=== PATIENT | female | born 1945 | race Caucasian/White ===

== ENCOUNTER 2019-07-12 11:27 | Emergency (ER) | payer MEDICARE, BC ==
--- OUTSIDE RECORDS SUMMARY | 2019-07-12 11:39 | XMS REPORT | Continuity of Care Document ---
:1945 Author Organization [facility] Address [address] [place] [address], [place] [id number] Phone Care Team Providers Name Role Phone Felipa Chandra MD Unavailable Unavailable Allergies, Adverse Reactions, Alerts Substance Reaction Status trazodone Active POTASSIUM CLAVULANATE Active AMOXICILLIN TRIHYDRATE Active Gold Salts Active HYDROCODONE BITARTRATE Active acetaminophen Active aspirin Active Medications Medication Instructions Dosage Effective Status Comments Dates (start - stop) Inflectra 100 mg infuse 900 900 milligram - Active 8.3 mg/kg intravenous milligram by (patient solution intravenous route weight = 108.8 every 4 weeks kg.) Patient switching from Remicade to Inflectra per formulary DX M05.79 tizanidine 2 mg take 1 tablet by - Active tablet oral route every before bedtime as needed FOLIC ACID TAB 1MG TAKE 1 TABLET 1 MG - Active DAILY Prolia 60 mg/mL inject 1 60 MG - Active subcutaneous milliliter by syringe subcutaneous route every 6 months in the upper arm, upper thigh or abdomen omeprazole 40 mg take 1 capsule by 40 MG - Active capsule,delayed oral route every release day before a meal Vitamin B-12 1,000 1 tab by oral - Active mcg tablet route every day Toprol XL 100 mg take 1 tablet by - Active tablet,extended oral route every release day bid, and 1/2 tab more as needed. MDD = 3 Crestor 5 mg take 1 tablet by 5 MG - Active tablet oral route every day amlodipine 5 mg take 1 tablet by 5 MG - Active tablet oral route every day Eliquis 5 mg take 1 tablet by 5 MG - Active tablet oral route 2 times every day aspirin 81 mg chew 1 tablet by 81 MG - Active chewable tablet oral route every day Appearex 2,500 mcg take 1 - 2 Capsule - Active tablet by Oral route every day Caltrate 600 + D take 1 tablet by 1 tablet - Active 600 mg (1,500 oral route every mg)-800 unit day chewable tablet Tylenol Extra take 2 tablet by 1000 MG - Active Strength 500 mg oral route every tablet 6 hours as needed OTC SUPPLEMENTS take by Oral route - Active every day Magnesium , Potassium Problems Condition Effective Dates Clinical Status Comments (start - stop) Body mass index (BMI) - 37.0-37.9, adult Body mass index (BMI) - 37.0-37.9, adult Body mass index (BMI) - 37.0-37.9, adult Rheu arthritis w rheu factor mult site w/o org/sys involv Rheu arthritis w rheu factor mult site w/o org/sys involv Rheu arthritis w rheu factor mult site w/o org/sys involv Age-related osteoporosis w/o current pathological fracture Rheu arthritis w rheu factor mult site w/o org/sys involv 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 (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 therapy Osteoporosis - Rheu arthritis w rheu factor mult site w/o org/sys involv Rheu arthritis w rheu factor mult site w/o org/sys involv Oth disrd of bone density and structure, multiple sites Other group home (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 therapy 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 (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 therapy Rheu arthritis w rheu factor mult site w/o org/sys involv Oth disrd of bone density - and structure, multiple sites Rheu arthritis w rheu factor mult site w/o org/sys involv Other group home (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 therapy Rheu arthritis w rheu factor mult site w/o org/sys involv Rheu arthritis w rheu factor mult site w/o org/sys involv Rheu arthritis w rheu factor mult site w/o org/sys involv Rheu arthritis w rheu factor mult site w/o org/sys involv Fibromyalgia Dorsalgia, unspecified 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 (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 therapy Oth disrd of bone density and structure, multiple sites Rheu arthritis w rheu factor mult site w/o org/sys involv Rheu arthritis w rheu factor mult site w/o org/sys involv Rheu arthritis w rheu factor mult site w/o org/sys involv Rheu arthritis w rheu factor mult site w/o org/sys involv 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 (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 therapy Rheu arthritis w rheu factor mult site w/o org/sys involv Rheu arthritis w rheu factor mult site w/o org/sys involv Rheu arthritis w rheu factor mult site w/o org/sys involv Rheu arthritis w rheu factor mult site w/o org/sys involv Rheu arthritis w rheu factor mult site w/o org/sys involv Unsp thoracic, thoracolum and lumbosacr intvrt disc disorder Other group home (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 therapy Rheu arthritis w rheu factor mult site w/o org/sys involv Rheu arthritis w rheu factor mult site w/o org/sys involv Rheu arthritis w rheu factor mult site w/o org/sys involv Rheu arthritis w rheu factor mult site w/o org/sys involv Other group home (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 therapy Oth disrd of bone density and structure, multiple sites Rheumatoid arthritis w/ rheumatoid factor of multiple sites w/o organ involvement Rheumatoid arthritis w/ rheumatoid factor of multiple sites w/o organ involvement Rheumatoid arthritis w/ rheumatoid factor of multiple sites w/o organ involvement Rheumatoid arthritis w/ rheumatoid factor of multiple sites w/o organ involvement Fibromyalgia Other group home drug therapy Rheumatoid arthritis w/ rheumatoid factor of multiple sites w/o organ involvement Rheumatoid arthritis w/ rheumatoid factor of multiple sites w/o organ involvement Rheumatoid arthritis w/ rheumatoid factor of multiple sites w/o organ involvement Rheumatoid arthritis w/ rheumatoid factor of multiple sites w/o organ involvement Other group home drug therapy Fibromyalgia Rheumatoid arthritis w/ rheumatoid factor of multiple sites w/o organ involvement Rheumatoid arthritis w/ rheumatoid factor of multiple sites w/o organ involvement Rheumatoid arthritis w/ rheumatoid factor of multiple sites w/o organ involvement Rheumatoid arthritis w/ rheumatoid factor of multiple sites w/o organ involvement Fibromyalgia Other group home drug therapy Rheumatoid arthritis w/ rheumatoid factor of multiple sites w/o organ involvement Rheumatoid arthritis w/ rheumatoid factor of multiple sites w/o organ involvement Rheumatoid arthritis w/ rheumatoid factor of multiple sites w/o organ involvement Rheumatoid arthritis w/ rheumatoid factor of multiple sites w/o organ involvement 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 drug therapy Fibromyalgia Generalized osteoarthritis Polymyalgia rheumatica Rheumatoid arthritis w/ rheumatoid factor of multiple sites w/o organ involvement Other group home drug therapy 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 drug therapy Rheumatoid arthritis w/ rheumatoid factor of multiple sites w/o organ involvement Rheumatoid arthritis w/ rheumatoid factor of multiple sites w/o organ involvement 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 drug therapy Fibromyalgia Rheumatoid arthritis w/ rheumatoid factor of multiple sites w/o organ involvement Other group home drug therapy Fibromyalgia Generalized osteoarthritis Rheumatoid arthritis w/ rheumatoid factor of multiple sites w/o organ involvement Other group home drug therapy Other specified disorder of bone density of multiple sites Rheumatoid arthritis w/ rheumatoid factor of multiple sites w/o organ involvement Other group home drug therapy Generalized osteoarthritis Rheumatoid arthritis w/ rheumatoid factor of multiple sites w/o organ involvement Rheumatoid arthritis w/ rheumatoid factor of multiple sites w/o organ involvement Generalized osteoarthritis Other group home drug therapy Anemia Rheumatoid arthritis w/ rheumatoid factor of multiple sites w/o organ involvement Generalized osteoarthritis 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 drug therapy Shortness of breath Rheumatoid arthritis w/ rheumatoid factor of multiple sites w/o organ involvement Other group home drug therapy Anemia Generalized osteoarthritis Encounter for screening for respiratory tuberculosis Other specified abnormal findings of blood chemistry Rheumatoid arthritis w/ rheumatoid factor of multiple sites w/o organ involvement Fibromyalgia Generalized osteoarthritis Lumbosacral intervertebral disc disorder Other group home drug therapy Pain in lt knee Shortness of breath Other specified abnormal findings of blood chemistry Rheumatoid arthritis w/ rheumatoid factor of multiple sites w/o organ involvement 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 drug therapy Lumbosacral intervertebral disc disorder Fibromyalgia Generalized osteoarthritis Rheumatoid arthritis w/ rheumatoid factor of multiple sites w/o organ involvement Fibromyalgia Lumbosacral intervertebral disc disorder Pain in rt hip Other group home drug therapy Rheumatoid arthritis w/ rheumatoid factor of multiple sites w/o organ involvement Fibromyalgia Lumbosacral intervertebral disc disorder Pain in rt hip Other group home drug therapy Rheumatoid arthritis w/ rheumatoid factor of multiple sites w/o organ involvement 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 drug therapy Lumbosacral intervertebral disc disorder Fibromyalgia Rheumatoid arthritis w/ rheumatoid factor of multiple sites w/o organ involvement Fibromyalgia 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 drug therapy Back pain Rheumatoid arthritis w/ rheumatoid factor of multiple sites w/o organ involvement 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 drug therapy Rheumatoid arthritis w/ rheumatoid factor of multiple sites w/o organ involvement Rheumatoid arthritis w/ rheumatoid factor of multiple sites w/o organ involvement Generalized osteoarthritis Other group home drug therapy Rheumatoid arthritis w/ rheumatoid factor of multiple sites w/o organ involvement 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 drug therapy Generalized osteoarthritis Other specified abnormal findings of blood chemistry Rheumatoid arthritis w/ rheumatoid factor of multiple sites w/o organ involvement Other group home drug therapy Generalized osteoarthritis Anemia, unspecified Rheumatoid arthritis w/ rheumatoid factor of multiple sites w/o organ involvement Generalized osteoarthritis Other group home drug therapy Anemia, unspecified Rheumatoid arthritis, unspecified 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 drug therapy Generalized osteoarthritis Anemia, unspecified Rheumatoid factor positive - Active Fibromyositis - Active Mapped from [facility] Chronic Conditions table on 08/29/2014 by the ICD9 to SNOMED Bulk Mapping Utility. The mapped diagnosis code was Fibromyalgia / Myalgia, 729.1, added by Norma Craig MD, with responsible provider Norma Craig MD. Onset date 06/11/2012; last addressed on 04/18/2014. High risk drug monitoring - Active Mapped from [facility] Chronic status Conditions table on 09/15/2014 by the ICD9 to SNOMED Bulk Mapping Utility. The mapped diagnosis code was Therapeutic Drug Monitoring, V58.69, added by Claribel Aguilar NP, with responsible provider Claribel WALTER. Onset date 03/19/2012; last addressed on 04/18/2014. Polymyalgia rheumatica - Active Mapped from [facility] Chronic Conditions table on 07/15/2014 by the ICD9 to SNOMED Bulk Mapping Utility. The mapped diagnosis code was Polymyalgia rheumatica, 725, added by Claribel Aguilar NP, with responsible provider Claribel WALTER. Onset date 03/19/2012; last addressed on 02/04/2014. Rheumatoid arthritis - Active Mapped from [facility] Chronic Conditions table on 07/15/2014 by the ICD9 to SNOMED Bulk Mapping Utility. The mapped diagnosis code was Rheumatoid Arthritis, 714.0, added by Norma Craig MD, with responsible provider Norma Craig MD, MD. Onset date 01/23/2012; last addressed on 04/18/2014. Procedures Procedure Date No information Results Test Name Date and Time Measure Units Reference Range Abnormal Flag Status Comments No information Advance Directives Directive Yes / No Effective Date File Name No information Encounters Encounter Practice Location Reason(s) Diagnoses Date Provider Providers Description For Visit Copied on Encounter Arthritis Arthritis Rheu [facility] arthritis w MD Leo. Provider: Levi Sims rheu factor 0 5794 [facility], 5794 [facility]C [facility] w/o [facility], [address] [facility] [address], [address] [facility], involv [place], [facility] [address], [place], [place], [place], [place], [place], [id number], [address]. [id number], [place]. tel:[phone] [place] tel:[phone] tel:[phone] Arthritis Arthritis [facility]Formerly [facility] Norma. [facility] 0 [facility], 5[address] PLL[facility] [place], [facility] [place], [place], [place], [place], [id number], [place], [place]. [id number], tel:[phone] [place] [phone] tel:[phone] [facility]thritis [facility]ritis [facility] Norma. [facility] 0 [facility], [facility] [facility] [place], [facility] [place], [place], [place], [place], [id number], [place], [place]. [id number], tel:[phone] [place] [phone] tel:[phone] Arthritis Arthritis Rhe [facility] arthritis w MD Hannon. Provider: Levi Sims rheu factor 0 5[facility], [facility] w/o [facility], [address] [place], N [facility] [place], involv [place], [facility] [address], [place], [place], [place], [place], [place], [id number], [address]. [id number], [place]. tel:[phone] [place] tel:[phone] tel:[phone] Arthritis Arthritis [facility] RN MED SURG C [facility] 0 Michelle Dennis [facility], 5794 PLLC [address] [facility] [place], [address], [place], [place], [id number], [id number], [place]. tel:+ tel:[phone] Arthritis Arthritis Rheu Dec-3 Jaz ARAUJO [facility] arthritis w 0-201 Hong. Provider: [facility] Sim[facility] 9 [facility], 5794 PLLC [facility] site w/o [facility], [address] [facility] org/sys [place], N [facility] [place], involv [place], [address], [place], [place], [place], [place], [place], [id number], [address]. [id number], [place]. tel:[phone] [place] tel: [phone] tel:[phone] Arthritis Arthritis Age-related Dec- [facility] osteoporosis 6-201 RN MED SURG C Provider: Levi Sims w/o current 9 Michelle Collins [facility], 5794 PLLC pathological 5794 Bael, 201 [facility] fractureRheu [facility] Mejía B [place], arthritis w [address]kw[address], Dates Dr Alarcon, [facility] [place], [address], [place], [place], [facility] site w/[place], [address]. [id number], org/sys [id number], tel:[phone] [place] involvOther [place]. [id number] tel:[phone] group home tel:+ ist: [phone] (current) [phone] Qutayb drug therapy Lisa ARAUJO, [facility] [address] [facility], [place], [address]. tel:[phone] ing Provider: Shmuel Conner MD, [address], [place], [address]. tel:[phone] ng Provider: Gt Clark, [address] [facility] [address], [place], [address]. tel:[phone] Arthritis Arthritis Osteoporosis Dec-0 [facility] 9-201 RN MED SURG C [facility] 9 Michelle Jeannie PLLC, [address] [facility], [address], [place], [place], [id number], [id number], [place]. tel:[phone] tel:[phone] Arthritis [facility]thritis [facility] arthritis w 0- MD Hannon. Provider: Levi Sims [facility] factor 9 5794 [facility], 5794 [facility] w/o [facility], [address] [place] [address]/[facility], [address] [facility], involv [place], [address], [place], [place], [place], [place], [place], [id number], [address]. [id number], [place]. tel:[phone] [place] tel:+ [phone] tel:[phone] Arthritis Arthritis [facility] arthritis w 4 MD Hannon. Provider: Levi Sims [facility] 9 5794 [facility], 5794 PLLC [facility] w/o [facility], [address] [place] [address]/[facility], [facility], involv [place], [address], [place], [place], [place], [place], [place], [id number], [address]. [id number], [place]. tel:[phone] [place] tel:[phone] tel:[phone] Arthritis Arthritis Oth disrd of Rafa ARAUJO [facility] bone density 8-201 Norma. 5794 [facility] and 9 [facility], 5794 PLLC [facility], [facility] multiple [place], [place], sitesOther [place], [place], buttermaker 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 [id number], [place], (current) [place]. [id number], drug therapy tel:[phone] [place] [phone] tel:[phone] Arthritis Arthritis Other long 0 [facility] term 4-201 RN MED SURG C [facility] (current) 9 Michelle Dennis [facility], 5794 PLLC drug therapy [address], [place], [place], [id number], [id number], [place]. tel:+ tel:[phone] Arthritis Arthritis [facility] Sep-2 [facility] arthritis w 6-201 MD Hannon. Provider: Levi Sims [facility] 9 5794 [facility], 5794 PLLC mult site w/o [facility], [address] [facility] [place], [address] [facility], involv [place], [address], [place], [place], [place], [place], [place], [id number], [address]. [id number], [place]. tel:[phone] [place] tel:+ [phone] tel: [phone] Arthritis Arthritis Oth disrd of Sep-1 [facility] bone density 0-201 RN MED SURG C Provider: Levi Sims and Michelle YanezViktoria Collins PLLC, 5794 PLLC structure, [address] Bael, [address] [facility], sitesRheu [address], Dates [address] [place], arthritis w [place], [address], [place], [place], [facility] [place], [address]. [id number], [facility] w/o [id number], tel:[phone] org/[place]. [address]Kxcwmge tel: involvOther tel:[phone] ist: [phone] group home [phone] Qutaybeh (current) Lisa drug therapy , [facility] [address] [facility], [place], [address]. tel:[phone] ing Provider: Shmuel Conner MD, [address], [place], [address]. tel:[phone] ng Provider: Gt Clark, [address] [facility] [address], [place], [address]. tel:[phone] Arthritis Arthritis [facility] Rafa ARAUJO Referring [facility] arthritis w Norma. 5794 Provider: Levi [facility] 9 [facility], [address] [facility] site w/o [place], [address] [facility] org/sys [place], N Triphammer [place], involv [place], [address], [place], [id number], [place], [place]. [address]. [id number], tel:[phone] tel:[phone] [place] [phone] tel:[phone] Arthritis Arthritis [facility] Rafa ARAUJO Referring [facility] arthritis w Norma. 5794 Provider: Levi [facility]ablonickl[facility] 9 [facility], 5[facility] site w/o [place], [place], [address] [place] org/sys [place], N [place], involv [place], [address], [place], [id number], [place], [place], [place]. [address]. [id number], tel:+4 tel:[phone] [place] [phone] [phone] tel:[phone] Arthritis Arthritis [facility] Rafa ARAUJO Referring [facility] arthritis w Norma. 5794 Provider: Levi Sims [facility] 9 [facility], 5794 [facility] site w/o [place], [place], [address] [facility] org/sys [place], N [place], involv [place], [address], [place], [id number], [place], [place], [place]. [address]. [id number], tel:[phone] tel:+[phone] [place] [phone] [address] tel:[phone] Arthritis Arthritis [facility] arthritis w RN MED SURG C Provider: Levi Sims [facility] 9 Michelle Collins [facility], 5794 [facility] site w/o [address], [address] [place] org/sys [place] Mejía Cassie Walker, [facility] [address], Dates Dr Alarcon, [place], [address], [place], [place], [place], [place], [address]. [id number], unspecifiedOt [id number], tel:[phone] [place] her [place]term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. [address]Xhcjrjz tel:[phone] (current) tel:[phone] ist: [phone] drug [phone] Qutaybeh therapyOth Maghaydvesta disrd of bone , Dale density and Cardiology structure, [address] [facility] [address], [place], [address]. tel:[phone] ing Provider: Shmuel Conner MD, [address] [facility], [place], [address]. tel:[phone] Provider: Gt Clark, [address] [facility] [address], [place], [address]. tel:[phone] Arthritis Arthritis Shubham Karl-0 Rafa ARAUJO Referring [facility] arthritis w Norma. 5794 Provider: Levi Sims [facility] 9 [facility], [address] [facility] site w/o Amber Walker, [address] [place] [address] org/sys [place], [address] [facility], [facility], [facility] [address], [place], [id number], [place], [place], [place]. [address]. [id number], tel:+ tel:[phone] [place] [phone] tel:+ [phone] Arthritis Arthritis Shubham 0 Rafa ARAUJO Referring [facility] arthritis w Norma. 5794 Provider: Levi Sims [facility] 9 [facility], [address] [facility] site w/o Amber Walker, [facility]3 [facility] org/sys [place], [address] [facility], [facility], [facility] [address], [place], [id number], [place], [place], [place]. [address]. [id number], tel:[phone] tel:[phone] US [phone] [phone] tel:[phone] Arthritis Arthritis Rheu Apr-0 Rafa ARAUJO [facility] arthritis w Norma. 5794 Provider: Levi pablou factor 9 [facility] [address] [facility] site w/o Amber Walker, [address] [facility] org/sys [place], N [place], involv [place], [address], [place], [id number], [place], [place], [place]. [address]. [id number], tel:[phone] tel:[phone] [place] [phone] [address] tel:[phone] Arthritis Arthritis Rheu Jul- [facility] arthritis w RN MED SURG C Provider: [facility] Sim[facility] factor 9 Michelle YanezViktoria Dennis PLLC, 5794 [facility] site w/o 57 [address], [address] [facility] org/sys [place] Mejía B [place], involvOther [address]kw[address], Dates Dr Alarcon, buttermaker 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 [place], [address], [place], [place], (current) [place], [address]. [id number], drug therapy [id number], tel:[phone] [place]. [address]Tstwsur tel:+[phone] tel:[phone] ist: [phone] Karen Gonzalez MD, [facility] [address] [facility]. [address], [place], [address]. tel:[phone] ing Provider: Shmuel Conner MD, [address], [place], [address]. tel:[phone] ng Provider: Gt Clark, [address] [facility] [address], [place], [address]. tel:[phone] Arthritis Arthritis [facility]u [facility] w MD Hannon. Provider: Levi Sims [facility] 9 5794 [facility] site w/o [facility] Amber, [address] [place] org/sys [place], N [place], involv [place], [address], [place], [place], [place], [place], [id number], [address]. [id number], [place]. tel:+[phone] [place] tel:[phone] tel:[phone] Arthritis Arthritis Valentinu 3 Rafa ARAUJO Referring [facility] arthritis w Norma. 5794 Provider: Levi davis factor 9 [facility], 5794 [facility] w/o [place] murdock, [address] [place] org/sys [place], N [place], involv [place], [address], [place], [id number], [place], [place], [place]. [address]. [id number], tel:+[phone] tel:+[phone] [place] 685628 70109 tel:[phone] Arthritis Arthritis Valentin Rafa ARAUJO Referring [facility] arthritis w Norma. 5794 Provider: Levi davis factor 9 [facility] [address] [facility] w[facility]o Amber Walker, [address] org/sys [place], N Tri[place], involv [place], [address], [place], [id number], [place], [place], [place]. [address]. [id number], tel:+[phone] tel:+[phone] US 406450 38160 tel:[phone] Arthritis Arthritis Valentinu Rafa ARAUJO Referring [facility] arthritis w Norma. 5794 Provider: Levi davis factor 8 [facility] [address] [facility] w/o Amber Walker, [address] org/sys [place], [address] [place], invol [place], [address], [place], [id number], [place], [place], [place]. [address]. [id number], tel:+[phone] tel:+[phone] US 467120 70183 tel:[phone] Arthritis Arthritis Shubham [facility] arthritis w RN MED SURG C Provider: Levi davis factor 8 Michelle Collins [facility], 5794 [facility] site w/o 5794 Bael, 201 [facility] org/s [facility] Mejía B [place], involvUnsp [address]kw[address], Dates Dr Mendoza [place], thoracic, [place], 102, [place], [place], [place], [address]. [id number], and lumbosacr [id number], tel:[phone] [place]. [address]Qmxozut tel:[phone] disorderOther tel:+[phone] ist: [id number] group home 725501 Qutaybeh (current) Lisa drug therapy , [facility] [address] [facility]. [address], [place], [address]. tel:[phone] ing Provider: Shmuel Conner MD, [address] [facility] [address], [place], [address]. tel:[phone] Provider: Gt Clark, [address] [facility] [address], [place], [address]. tel:[phone] Arthritis Arthritis [facility] Nov-0 Mehreen ARAUJO Referring Health Health arthritis w 2 [place]. Provider: Levi davis factor [address] [facility], 5794 [facility] site w/o [facility] Amber, [facility]3 [facility]/s [place], N Triphammel Walker, involv [place], [address], [place], [place], [place], [place], [place], [id number], [address]. [id number], [place]. tel:[phone] [place] tel:[phone] tel:[phone] Arthritis Arthritis [facility] Feb-0 Rafa ARAUJO Referring Health Health arthritis w [facility]. 5794 Provider: Levi pablo factor 8 [facility], 5794 [facility] site w/o Amber Walker, 2333 [facility] org/sys [place], N Triphla [facility] [place], involv [place], [address], [place], [id number], [place], [place]. [address]. [id number], tel:+[phone] tel:+[phone] US 319567 09958 tel:[phone] Arthritis Arthritis Rhe Jan-0 Rafa ARAUJO Referring [facility] arthritis w Norma. 5794 Provider: Levi Sims [facility] 8 [facility], 5794 [facility] site w/o Amber Walker, 2333 [facility] [place], N Triphla [facility] [place], involv [place], [address], [place], [id number], [place], [place], [place]. [address]. [id number], tel:+[phone] tel:+[phone] US 739258 57297 tel:[phone] Arthritis Arthritis Rhe Dec- [facility] arthritis w RN MED SURG C Provider: Levi [facility] factor 8 Michelle Jeannie Collins [facility], 5794 [facility] site w/o 5794 Bael, 201 [facility] org/sys [facility] Mejía B [place], involvOther Pkwy, Dates Dr Alarcon, buttermaker 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 [place], 102, [place], [place], (current) [place], [address]. [id number], drug [id number], tel:+[phone] [place] therapy[place]th [place]. [address]Hjagmmf tel:[phone] disrd of bone tel:[phone] ist: [id number] density and 381314 Qutaybeh Lisa shipley MD, [facility] [address] [facility]. [address], [place], [address]. tel:[phone] ing Provider: Shmuel Conner MD, [address] [facility] [address], [place], [address]. tel:[phone] ng Provider: Gt Clark, [address] N [facility] 302, [place], [address]. tel:[phone] Arthritis Arthritis Rheumatoid Dec- Jaz ARAUJO Referring [facility] arthritis Hong. Provider: Levi Sims rheumatoid 8 5794 Gt PLLC, 5794 PLLC factor of [facility], 2333 [facility], [facility], sites w/o [place], [address], [place], organ [place], [place], [place], [place], [place] [id number], [address]. [id number], [place]. tel:+[phone] [place] tel:[phone] tel:[phone] Arthritis Arthritis Rheumatoid Rafa ARAUJO Referring [facility] arthritis w 0 Norma. 5794 Provider: Levi Sims rheumatoid 8 [facility] Gt PLLC, 5794 PLLC factor of [facility], [address] [place] [address], N [facility], sites w/o [place], [address], [place], organ [id number], [place], [place], [place], [place]. [address]. [id number], tel:+13154 tel:+[phone] US 425456 01186 tel:[phone] Arthritis Arthritis Rheumatoid Rafa ARAUJO Referring [facility] arthritis w Norma. 5794 Provider: Levi Sims rheumatoid 8 [facility] Gt PLLC, 5794 PLLC factor of [facility], [address] [place] [address], N [facility], sites w/o [place], [address], [place], organ [id number], [place], [place], [place]. [address]. [id number], tel:+13154 tel:+[phone] US 030474 26936 tel:[phone] Arthritis Arthritis Rheumatoid September- [facility] arthritis w RN MED SURG C Provider: Levi Sims rheumatoid 8 Michelle Collins PLLC, 5794 PLLC factor of 5794 Bael, 201 [facility] Mejía B [place], sites w/o Pkwy, Dates Dr Alarcon, organ [place], 102, [place], [place], [place], [address]. [id number], bromyalgiaOth [id number], tel:[phone] [place]. [address]Drfdeis tel:+[phone] drug therapy tel:+ ist: [phone] Karen Gonzalez MD, [place] [facility] [address] [facility], [place], [address]. tel:[phone] ing Provider: Shmuel Conner MD, [address], [place], [address]. tel:[phone] ng Provider: Gt Clark, [address] [facility] [address], [place], [address]. tel:[phone] Arthritis Arthritis Rheumatoid Rafa ARAUJO Referring [facility] arthritis Norma. 5794 Provider: Levi Sims [facility] 8 [facility] Gt PLLC, 5794 PLLC factor of [facility], [address] [place] [address] [place], N [facility], sites w/o [place], [address], [place], organ [id number], [place], [place], [place]. [address]. [id number], tel:+1 tel:+[phone] US 163896 10803 tel:[phone] Arthritis Arthritis Rheumatoid Jaz ARAUJO Referring [facility] arthritis Hong. Provider: Levi Sims rheumatoid 8 5794 Gt PLLC, 5794 PLLC factor of [facility], [address] [place] [address], [facility], sites w/o [place], [address], [place], organ [place], [place], [place], [place], involvement [id number], [address]. [id number], [place]. tel:+[phone] [place] tel:[phone] tel:[phone] Arthritis Arthritis Rheumatoid Jul- Can Referring [facility] arthritis MD Hannon. Provider: Levi whitlock 8 5794 Gt PLLC, 5794 PLLC factor of [facility], [address] [place] [address], N [facility], sites w/o [place], [address], [place], organ [place], [place], [place], [place], [place] [id number], [address]. [id number], [place]. tel:+[phone] US tel:+[phone] tel:[phone] Arthritis Arthritis Rheumatoid Ham Consulting [facility] arthritis RN MED SURG C Provider: Levi Sims rheumatoid 8 Michelle Jeannie Collins PLLC, 5794 PLLC factor of 5794 Bael, 201 [facility], sites w/o Pkwy, Dates Dr Alarcon, organ [place], 102, [place], [place], [place], [address]. [id number], her buttermaker 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 [id number], tel:[phone] [place] drug [place]. [address]Gaivmae tel:+[phone] therapyFibrom tel:+ ist: [phone] yalgia 155966 Karen Gonzalez MD, [facility] [address] [facility]. [address], [place], [address]. tel:[phone] ng Provider: Gt Clark, [facility] [address] [place] [address], [place], [address]. tel:[phone] Arthritis Arthritis Rheumatoid Mehreen ARAUJO Referring [facility] arthritis [place]. Provider: Levi Sims rheumatoid 8 5794 Gt PLLC, 5794 PLLC factor of [facility] Amber, [address] [place] [address], N [facility], sites w/o [place], [address], [place], organ [place], [place], [place], [place], [place] [id number], [address]. [id number], [place]. tel:+[phone] [place] tel:[phone] tel:[phone] Arthritis Arthritis Rheumatoid May-0 Rafa ARAUJO Referring [facility] arthritis Norma. 5794 Provider: Levi whitlock 8 [facility] Gt PLLC, 5794 PLLC factor of Aaron Amber, [address] [place] [address] [place], N [facility], sites w/o [place], [address], [place], organ [id number], [place], [place], [place], [place]. [address]. [id number], tel:+[phone] tel:[phone] US 146021 47495 tel:[phone] Arthritis Arthritis Rheumatoid Can Referring [facility] arthritis MD Hannon. Provider: Levi [facility] rheumatoid 7 5794 Gt PLLC, 5794 PLLC factor of [facility], 2333 [facility], [facility], [facility] w/o [place], [address], [place], organ [place], [place], [place], [place], [place] [id number], [address]. [id number], [place]. tel:+[phone] [place] tel:+[phone] tel:[phone] 559126 Arthritis Arthritis [facility]oid [facility] arthritis RN MED SURG C Provider: Levi [facility] rheumatoid 7 Michelle Collins PLLC, 5794 PLLC factor of 5794 Bael, 201 [facility], sites w/o Pkwy, Dates Dr Fel[place], organ [place], 102, [place], [place], [place], [address]. [id number], bromyalgiaOth [id number], tel:[phone] [place]. [address]Gcvkdeh tel:+[phone] drug tel:+[phone] ist: 987915 therapyBody 509804 Qutaybeh mass index Lisa (BMI) , [place] 37.0-37.9, Cardiology adult [address] [facility]. [address], [place], [address]. tel:[phone] ng Provider: Gt Clark, [address] [facility] 302, [place], [address]. tel:[phone] Arthritis Arthritis Rheumatoid Rafa ARAUJO [facility] arthritis Norma. 5794 Provider: Levi [facility] 7 [facility] Gt PLLC, 5794 PLLC factor of [facility], [address] [place], [place] [address]use, [facility], sites w/o [place], [address], [place], organ [id number], [place], [place], [place]. [address]. [id number], tel:+4 tel:+[phone] US 096344 64150 tel:+ [phone] Arthritis Arthritis Rheumatoid Rafa ARAUJO Referring [facility] arthritis w Norma. 5794 Provider: Levi [facility] 7 [facility] Gt PLLC, 5794 PLLC factor of [place], 2333 [facility] multiple [place], [facility], sites w/o [place], [address], [place], organ [id number], [place], [place], [place]. [address]. [id number], tel:+4 tel:+[phone] US 953732 73218 tel: [phone] Arthritis Arthritis Rheumatoid Rafa ARAUJO Referring [facility] arthritis w Norma. 5794 Provider: Levi Sims [facility] 7 [facility] Gt PLLC, 5794 PLLC factor of [place], 2[address] [facility] [place], [facility], sites w/o [place], [facility] 302, [place], organ [id number], [place], [place], [place]. [address]. [id number], tel:+ tel:+[phone] US 774090 16692 tel:+ [phone] Arthritis Arthritis Rheumatoid [facility] arthritis w RN MED SURG C Provider: Levi Sims rheumatoid 7 Michelle Collins PLLC, 5794 PLLC factor of 5794 Bael, 201 [facility], [facility] w/o Pkwy, Dates Dr Alarcon, organ [place], 102, [place], [place], [place], [address]. [id number], her buttermaker 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 [id number], tel:+[phone] [place]. [address]Xsigvoh tel: therapyFibrom tel:+ ist: [phone] yalgiaGeneral 524548 Karen Gonzalez osteoarthriti , [place] sPolymyalgia Cardiology rheumaticaBod 310 y mass index [facility] [address]37[address]9, 4, [place], [facility], [address]. tel:[phone] ng Provider: Gt Clark, [address] [facility] [address], [place], [address]. tel:[phone] Arthritis Arthritis Rheumatoid [facility] arthritis w RN MED SURG C Provider: Levi Sims rheumatoid 7 Michelle Craig PLLC, 5794 PLLC factor of 5794 MD, 5794 [facility], sites w/o Pkwy, [place], [place], organ [place], [place], [place], [place], [place], [id number], her buttermaker 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 [id number], [id number]. [place] drug therapy [place]. tel:+42 tel: tel: [phone] 135068 Arthritis Arthritis Other long [facility] term drug 0 RN MED SURG C Levi Sims therapyRheumo 7 Michelle Dennis PLLC, 5794 PLLC toid 5794 [facility] arthritis w/ [facility], rheumatoid Pkwy, [place], factor of [place], [place], multiple [place], [id number], sites w/o [id number], [place] organ [place]. tel: involvement tel:[phone] Arthritis Arthritis Rheumatoid [facility] arthritis w/ 0 RN MED SURG C Provider: Levi Sims rheumatoid 7 Michelle Collins PLLC, 5794 PLLC factor of 5794 Bael, 201 [facility], sites w/o Pkwy, Dates Dr Alarcon, organ [place], 102, [place], [place], [place], [address]. [id number], her buttermaker 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 [id number], tel:+[phone] [place]. [address]Ypoujsm tel:+315 therapyFibrom tel:+315 ist: 974259 yalgiaBody 427437 Qutaybeh mass index Lisa (BMI) , [place] 37.0-37.9, Cardiology adult [address] [facility]. [address], [place], [address]. tel:[phone] ng Provider: Gt Clark, [address] [facility] 302, [place], [address]. tel:[phone] Arthritis Arthritis Rheumatoid [facility] arthritis PA-C Provider: Associates Associates rheumatoid 7 Shayan. Dennis PLLC, 5794 PLLC factor of 5794 Ba, [address] [place] [address], [facility] w/o [place], Dates Dr Alarcon, organ [place], [facility], [place], [place], [place], [address]. [id number], her group home [id number], tel:[phone] [place]. [address]Prcknpu tel:315 therapyFibrom tel:+315 ist: 688779 yalgiaGeneral 488202 Qutanicol Gonzalez osteoarthriti , [place] s Cardiology [address] [facility]. [address], [place], [address]. tel:[phone] ng Provider: Gt Clark, [address] [facility] 302, [place], [address]. tel:[phone] Arthritis Arthritis Rheumatoid [facility] arthritis PA-Osmin Carcamo. Provider: Associates Levi rheumatoid 7 5794 Dennis PLLC, 5794 PLLC factor of [facility] [address], [facility] w/o [place], Dates Dr Alarcon, organ [place], 102, [place], [place], [place] [id number], [place], [address]. [id number], her buttermaker 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 [place]. tel:[phone] [place] drug tel:[phone] tel:+[phone] therapyOther 569890 ist: [id number] specified Qutaybeh disorder of [facility] Center[facility]ady bone density MD [place] of multiple Cardiology sites [address] [facility]. [address], [place], [address]. tel:[phone] ng Provider: Gt Clark, [address] [facility] [address], [place], [address]. tel:[phone] Arthritis Arthritis Rheumatoid Aug- Justus Consulting [facility] arthritis PA-C Provider: Associates [facility] rheumatoid 7 Shayan. Dennis PLLC, 5794 PLLC factor of 5794 Ba, [facility], sites w/o [place], Dates Dr Alarcon, organ [place], 102, [place], [place], [place], [address]. [id number], her buttermaker 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 [id number], tel:[phone] [place]. [address]Nqaxrgo tel:+1315 therapyGenera tel:+[phone] ng Provider: [id number] lized [id number] Gt osteoarthriti Amber, [address] s N [facility] [address], [place], [address]. tel:[phone] Arthritis Arthritis Rheumatoid Jul- Rafa ARAUJO Referring [facility] arthritis Norma. 5794 Provider: Levi [facility] 7 [facility] Gt PLLC, 5794 PLLC factor of Amber Walker, 2333 [facility], N [facility], sites w/o [place], [address], [place], organ [id number], [place], [place], [place], [place]. [address]. [id number], tel:+13154 tel:[phone] US 112084 55496 tel:[phone] Arthritis Arthritis Rheumatoid Jun- Consulting [facility] arthritis Provider: Levi [facility] 7 Dennis PLLC, 5794 PLLC factor of , [facility], sites w/o Dates Dr Alarcon, organ 102, [place], [place], [place], [address]. [id number], neralized tel:+[phone] [place] osteoarthriti 91457Vjhrxlm tel:+[phone] Ezra lutz Provider: 144229 term drug Gt therapyAneela Amber, [address], [place], [address]. tel:[phone] Arthritis Arthritis Rheumatoid Jorge- Consulting [facility] arthritis Provider: Levi Sims rheumatoid 7 Dennis PLLC, [address]C [address] [facility], 201 [facility], sites w/o Dates Dr Alarcon, organ 102, [place], [place], [place], [address]. [id number], neralized tel:+[phone] [place] osteoarthriti 65821Dykwvsl tel:+[phone] Ezra lutz Provider: [id number] term drug Gt therapyShortselena Clark, 2333 ess of breath N [address], [place], [address]. tel:[phone] Arthritis Arthritis Rheumatoid Rafa ARAUJO Consulting [facility] arthritis Norma. 5794 Provider: Levi Sims rheumatoid 6 [facility] Dennis PLLC, 5794 PLLC factor of [facility], [address] [place] [address], sites w/o [place], Dates Dr Alarcon, organ [id number], 102, [place], [place], [place], [address]. [id number], her group home tel:+[phone] tel:+[phone] [place] drug 449930 23550Bybttvt tel:+[phone] therapyJosr ng Provider: 253049 Gt Clark, [address], [place], [address]. tel:[phone] Arthritis Arthritis Generalized [facility] osteoarthriti [facility] s 6 PLLC, 5794 PLLC [place] [employer], [place], [id number], [place] tel:[phone] Arthritis Arthritis Encounter for [facility] screening for Associates Levi respiratory 6 PLLC, 5794 PLLC tuberculosis [employer], [place], [id number], [place] tel:[phone] Arthritis Arthritis Other [facility] specified [facility] abnormal 6 PLLC, 5794 PLLC findings of [facility], chemistry [place], [place], [id number], [place] tel:[phone] Arthritis Arthritis Rheumatoid Consulting [facility] arthritis Provider: Levi Sims rheumatoid 6 Qutaybeh PLLC, 5794 PLLC factor of Lisa diaz MD, [facility], sites w/o Cardiology [place], organ 310 [place], involvementFi [facility] [id number], bromyalgiaGen [address]vd. Suite eralized [address], [place], tel:[phone] [place], [address]. [address] sLumbosacral tel:[phone] intervertebra 09397Afbdydb l disc ng Provider: Jama Del Real group home Amber, [address] drug [address] therapyPain [address], in lt [place], [place], kneeShortness [address]. of breath tel:[phone] Arthritis Arthritis Other Jan-2 [facility] specified [facility] abnormal 6 PLLC, 5794 PLLC findings of [facility], chemistry [place], [place], [id number], [place] tel:[phone] Arthritis Arthritis Rheumatoid Jan- Consulting [facility] arthritis Provider: Levi Sims rheumatoid 6 Qutaybeh PLLC, 5794 PLLC factor of Lisa diaz MD, [facility], sites w/o Cardiology [place], organ 310 [place], involvementOt [facility] [id number], her group home [address], [place], tel:[phone] [place], [address]. [address] acral tel:[phone] intervertebra 22330Grvrvmm l disc ng Provider: Rolanda Del Real myalgiaGenera Amber, 2333 lized [address] Tri[address] osteoarthriti [address], [place], [address]. tel:[phone] Arthritis Arthritis Rheumatoid Consulting [facility] arthritis Provider: Levi Sims rheumatoid 6 Qutaybeh PLLC, 5794 PLLC factor of Lisa diaz MD, [facility], sites w/o Cardiology [place], organ 310 [place], involvementFi [place] [id number], bromyalgiaLum [address], tel:[phone] [place], [address]. 811748 l disc tel:[phone] disorderPain 47742Zikroiv in rt ing hipOther long Provider: term drug Dennis therapy Bael, [address], [place], [address]. tel:[phone] bolivar Provider: Gt Clrak, 2[address] N [facility] [address], [place], [address]. tel:[phone] Arthritis Arthritis Rheumatoid Consulting [facility] arthritis Provider: Levi Burns Qutaybeh PLLC, 5794 PLLC factor of Lisa diaz MD, [facility], sites w/o Cardiology [place], organ 310 [place], involvementFi [facility] [id number], bromyalgiaLum [address], tel:[phone] [place], [address]. 352849 l disc tel:[phone] disorderPain 16236Ujjbqzj in rt ing hipOther long Provider: term drug Dennis therapy Bael, 201 [address], [place], [address]. tel:[phone] ng Provider: Gt Clark, 2[address] N [facility]la [facility] [address], [place], [address]. tel:[phone] Arthritis Arthritis Rheumatoid Consulting [facility] arthritis Provider: Levi Sims rheumatoid 6 Qutaybeh PLLC, 5794 PLLC factor of Lisa diaz MD, [facility], sites w/o Cardiology [place], organ 310 [place], involvement[place] [id number], her buttermaker 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 [address]. [address], [place], tel:[phone] [place], [address]. 427723 acral tel:[phone] intervertebra 03558Tcpgnrn l disc ing disorderFibro Provider: myalgia Dennis Bright, [address], [place], [address]. tel:[phone] ng Provider: Gt Clark, [address] Esme [address], [place], [address]. tel:[phone] Arthritis Arthritis Rheumatoid Karl- Consulting [facility] arthritis w/ 0- Provider: Levi Sims rheumatoid 6 Qutaybeh PLLC, 5794 PLLC factor of Lisa diaz MD, [facility], sites w/o Cardiology [place], organ 310 [place], involvementFi [facility] [id number], bromyalgiaOth [address] Suite er buttermaker 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 4, [place], tel:[phone] [place], [address]. 345953 therapyBack tel:[phone] pain 10399Islmhhv ing Provider: Dennis Bright, [address], [place], [address]. tel:[phone] ng Provider: Gt Clark, [address], [place], [address]. tel:[phone] Arthritis Arthritis Rheumatoid [facility] arthritis w PA-C Provider: Levi Sims rheumatoid 6 Rosa Maria B. Qutaybeh PLLC, 5794 PLLC factor of 5794 Lisa Dominique MD, [facility], sites w/o [place], Cardiology [place], organ [place], 310 [place], [place], [facility] [id number], her buttermaker 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 [id number], Blvd. Suite drug therapy [place]. 4, [place], tel:[phone] tel:[phone] [place], [address]. [address] 794273 tel:[phone] ing Provider: Dennis Bright, [address], [place], [address]. tel:[phone] ng Provider: Gt Clark, [address], [place], [address]. tel:[phone] Arthritis Arthritis Rheumatoid Aug- Consulting [facility] arthritis Provider: Levi Sims rheumatoid 6 Qutaybeh PLLC, 5794 PLLC factor of Lisa diaz MD, [facility], sites w/o Cardiology [place], organ 310 [place], involvement [facility] [id number], [address]vd. Suite [place] [address], [place], tel:[phone] [place], [address]. [address] tel:[phone] ing Provider: Dennis Bright, [address], [place], [address]. tel:[phone] ng Provider: Gt Clark, [address] [facility], [place], [address]. tel:[phone] Arthritis Arthritis Rheumatoid Jul- Consulting [facility] arthritis Provider: Levi whitlock 6 [facility], 5794 [facility]C factor of Lisa diaz MD, [facility], sites w/o Cardiology [place], organ [address] [place], involvementGe [facility] [id number], n[address] osteoarthriti [address], [place], tel:[phone] [place], [address]. [id number] term drug tel:[phone] therapy [phone] ing Provider: Dennis Bright, [address], [place], [address]. tel:[phone] bolivar Provider: Gt Clark, [address] [facility] [facility] [address], [place], [address]. tel:[phone] Arthritis Arthritis Rheumatoid Jun- Consulting [facility] arthritis Provider: Levi Sims rheumatoid 6 [facility], 5794 PLLC factor of Lisa diaz MD, [facility], sites w/o Cardiology [place], organ [address] [place], involvementOt [facility] [id number], her group home [address] [place] drug 4, [place], tel:[phone] [place], [address]. 683109 lized tel:[phone] osteoarthriti [phone] s ing Provider: Dennis Bright, [address], [place], [address]. tel:[phone] ng Provider: Gt Clark, [address], [place], [address]. tel:[phone] Arthritis Arthritis Other [facility] specified armando Ramirez[facility] abnormal 6 5794 PLLC, 5794 PLLC findings of [facility] blood [place], [place], chemistry [place], [place], [id number], [id number], [place]. [place] tel:[phone] tel:[phone] Arthritis Arthritis Rheumatoid [facility] arthritis w Provider: Levi Sims rheumatoid 6 [facility], 5794 PLLC factor of Lisa diaz MD, [facility], sites w/o Cardiology [place], organ [address] [place], involvementOt [facility] [id number], her buttermaker 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 [address] [place] drug [place], tel:[phone] [place], [address]. [id number] lized tel:[phone] osteoarthriti [phone] sAnemia, ing unspecified Provider: Dennis Bright, [address], [place], [address]. tel:[phone] ng Provider: Gt Clark, [address], [place], [address]. tel:[phone] Arthritis Arthritis Rheumatoid [facility] arthritis Provider: Levi Sims rheumatoid 5 [facility], 5794 PLLC factor of Lisa diaz MD, [facility], sites w/o Cardiology [place], organ [address] [place], involvementGe [facility] [id number], n[address] [place] osteoarthriti [place], tel:[phone] [place], [address]. [address]018 term drug tel:[phone] therapyAnemia 93858Ibkwxow , unspecified ing Provider: Dennis Bright, [address], [place], [address]. tel:[phone] ng Provider: Gt Clark, [address], [place], [address]. tel:[phone] Arthritis Arthritis Rheumatoid [facility] arthritis, Provider: Levi Sims unspecifiedOt 5 [facility], 5794 PLLC her buttermaker 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 [facility] sree ARAUJO, [facility], [facility]era Cardiology [place], [facility] 310 [place], osteoarthriti [facility] [id number], sAnemia, [address]vd[address] unspecified [place], tel:[phone] [place], [address]. 0[address] tel:[phone] ing Provider: Dennis Bright, [address], [place], [address]. tel:[phone] bolivar Provider: Gt Clark, [address], [place], [address]. tel:[phone] [facility]thritis [facility] WILL[facility] Carcamo. Provider: Levi Sims 5 5794 [facility], 5794 PLLC [facility] Lisa [facility] Walker MD, [facility], [place], Cardiology [place], [place], [address] [place], [id number], [facility] [id number], [place]. [address] [place] tel:[phone] [place], tel:[phone] 367587 [place], [address]. [address] tel:[phone] ing Provider: Dennis Bright, [address], [place], [address]. tel:[phone] ng Provider: Gt Clark, [address], [place], [address]. tel:[phone] Arthritis Arthritis [facility] Provider: Associates Levi 5 Karen BURROWS, 5794 PLLC Lisa Dominique MD, [facility], Cardiology [place], 310 [place], [facility] [id number], [address] [place] [address], [place], tel:[phone] [place], [address]. [address] tel:[phone] ing Provider: Dennis Bright, [address], [place], [address]. tel:[phone] ng Provider: Gt Clark, [address], [place], [address]. tel:[phone] Arthritis Arthritis [facility] Provider: Levi Sims 4 Karen BURROWS, 5794 PLLC Lisa Dominique MD, [facility], Cardiology [place], [address] [place], [facility] [id number], [address] [place] [address], [place], tel:[phone] [place], [address]. [address] tel:[phone] ing Provider: Dennis Bright, [address], [place], [address]. tel:[phone] bolivar Provider: Gt Clark, [address], [place], [address]. tel:[phone] Arthritis Arthritis May-0 [facility] Provider: Levi Sims 4 Gt BURROWS, 5794 PLLOmsin Clark, [address], [address], [place], [place], [place], [address]. [id number], tel:[phone] [place] [phone] tel:[phone] Arthritis Arthritis [facility] Provider: Levi Sism 3 Gt BURROWS, 5794 PLLOsmin Clark, [address], [address], [place], [place], [place], [address]. [id number], tel:[phone] [place] [phone] tel:[phone] Arthritis Arthritis [facility] 2 RN MED SURG-C Provider: Associates Levi 3 Alicia. 310 [facility]t [facility], 5794 PLLC [address] [place] Amber, [address], [place], [address], [place], [place], [place], [place], [place], [id number], [address]. [id number], [place]. tel:[phone] [place] tel:[phone] tel:[phone] Arthritis Arthritis Jan- [facility] Provider: Associates Levi 3 Gt ASKEWC, 5794 PLLC Amber, [address], [address], [place], [place], [place], [address]. [id number], tel:[phone] [place] [phone] tel:[phone] Arthritis Arthritis [facility] Provider: Associates Levi 3 Gt ASKEWC, 5794 PLLC Amber, [address], [address], [place], [place], [address]. [id number], tel:[phone] [place] [phone] tel:[phone] Arthritis Arthritis [facility] Provider: Levi Sims 3 Gt ASKEWC, 5794 PLLC Amber, [address], [address], [place], [place], [place], [address]. [id number], tel:[phone] [place] [phone] tel:[phone] Arthritis Arthritis [facility] Provider: Associates Levi 2 Gt [facility], 5794 PLLC Amber, [address], [address], [place], [place], [address]. [id number], tel:[phone] [place] [phone] tel:[phone] [facility]ritis [facility]ritis [facility] WILLIAM Carcamo. Provider: Associates Levi 2 57Mehrdad Moralester [facility], 5794 PLL[address], [address], [place], [facility] [address], [place], [place], [place], [place], [place], [id number], [address]. [id number], [place]. tel:[phone] tel:[phone] tel:[phone] Arthritis Arthritis Nov-0 [facility] 8- Provider: Associates Associates 1 Gt AZAR, 5794 PLLC Amber, [address] [facility], [facility] [address], [place], [place], [place], [address]. [id number], tel:[phone] [place] [phone] tel:[phone] Arthritis Arthritis [facility] 2 Provider: Associates Associates 1 Gt AZARC, 5794 PLLC Amber, [address] [facility], [facility] [address], [place], [place], [place], [address]. [id number], tel:[phone] tel:[phone] Family History Family Member Diagnosis Age At Onset Paternal grandmother Rheumatoid arthritis Immunizations Vaccine Date Status Comments Influenza, injectable, MDCK, administered Note: approx. ; Source : Other Flucelvax Quad 2017-2018Y Provider Influenza, injectable, administered Note: approx. ; Source: Other quadrivalent, split virus, 18 Provider years or older Afluria Quad 1680-3910 Influenza, injectable, administered Note: Invalid documented admin trivalent, split virus, 4 date was . ; years and older, Fluvirin Source: Other Provider [id number] Yet to receive Flu vaccine administered Source: Source Unspecified Yet to receive Flu vaccine administered Source: Source Unspecified Yet to receive Flu vaccine administered Source: Other Provider Yet to receive Flu vaccine administered Source: Other Provider Yet to receive Flu vaccine administered Source: New Immunization Record Yet to receive Flu vaccine administered Source: Other Provider Not receiving Zoster administered Source: New Immunization Record Yet to receive Flu vaccine administered Source: Source Unspecified Yet to receive administered Source: Source Unspecified pneumo (2 yrs or older) administered Source: Other Provider (PPV23) Payers Payer name Insurance type Covered green party ID Authorization(s) Medicare MB [id number] [facility] No Referral Required [id number] Social History Type Description Quantity Date Captured Comments Sex Female Vital Signs Date / Height Weight BMI Pulse Blood Temperature Respiratory Body Head BMI Pulse Inhaled Time: Rate Pressure Rate Surface Circumference percentile Ox Ox Area No information Chief Complaint And Reason For Visit No information Reason For Referral Reason For Referral No information Plan Of Treatment Date Type Action Status Goal Lifestyle education regarding diet completed Goal Lifestyle education regarding diet completed Goal Lifestyle education regarding diet completed Referral Ordered: ordered *HIP, XRAY BILATERAL PELVIS, 5 VIEW Right Referral Ordered: ordered *LUMBOSACRAL SPINE X-RAY, 4 VIEWS Referral Ordered: ordered *KNEE X-RAY, 1 OR 2 VIEWS Left Appointment Rashida Mcgee BOOKED Appointment Rashida Mcgee BOOKED Appointment Rashida Mcgee BOOKED Appointment Rashida Mcgee BOOKED Appointment Rashida Mcgee BOOKED History Of Present Illness Encounter Date Complaint History Of Present Illness No information Functional Status Date Functional Assessment No information Medications Administered Medication Instructions Dosage Effective Dates (start - stop) Status Comments No information Instructions Date Instruction Additional Information Pt. not exposed to someone in longterm nor traveled out of the country; no concern for TB screening. Pt. not exposed to someone in longterm nor traveled out of the country; no concern for TB screening. Reviewed importance of compliance/adherence to medications prescribed Exercise more Weight reduction urged. Risks/benefits of medications reviewed call if symptoms worsen For sleep, the need to add adequate relaxation, rest and exercise was discussed Stretching Daily range of motion exercises for symptomatic joints recommended. Avoid live vaccines Discussed importance of holding DMARDs/ biologics if patient develops an infection and to notify the treating physician Discussed the need to hold DMARDS/Biologics before and after surgery/procedure. Lifestyle education regarding diet Related to Body mass index ( BMI) 37.0-37.9, adult Exercise more Weight reduction urged. Conservative medical care measures discussed. Moderate activities regarding symptomatic joints. For sleep, the need to add adequate relaxation, rest and exercise was discussed Reviewed importance of compliance/adherence to medications prescribed Risks/benefits of medications reviewed Avoid live vaccines Discussed importance of holding DMARDs/ biologics if patient develops an infection and to notify the treating physician Discussed the need to hold DMARDS/Biologics before and after surgery/procedure. Lifestyle education regarding diet Related to Body mass index ( BMI) 37.0-37.9, adult Lifestyle education regarding diet Related to Body mass index ( BMI) 37.0-37.9, adult Avoid live vaccines Discussed importance of holding DMARDs/ biologics if patient develops an infection and to notify the treating physician continue same medication plan Discussed the need to hold DMARDS/Biologics before and after surgery/procedure. call if symptoms worsen Exercise more Conservative medical care measures discussed. Moderate activities regarding symptomatic joints. For sleep, the need to add adequate relaxation, rest and exercise was discussed Stretching Yoga Risks/benefits of medications reviewed Conservative medical care measures discussed. Moderate activities regarding symptomatic joints. call if symptoms worsen maintain adequate water intake every day call if symptoms worsen Patient plan printed and given along with recommendations Discussed / Reviewed Labs Labs ordered to check blood counts, liver and kidney functions to monitor safety of medication. Labs ordered to check disease activity. Discussed importance of holding DMARDs/ biologics if patient develops an infection and to notify the treating physician Reviewed importance of compliance/adherence to medications prescribed Avoid live vaccines Weight reduction urged. Risks/benefits of medications reviewed Risks/benefits of medications reviewed Labs ordered to check disease activity. Labs ordered to check blood counts, liver and kidney functions to monitor safety of medication. Discussed / Reviewed Labs call if symptoms worsen Reviewed importance of compliance/adherence to medications prescribed Avoid live vaccines Discussed importance of holding DMARDs/ biologics if patient develops an infection and to notify the treating physician Stretching Avoid OTC NSAIDS Avoid live vaccines Exercise more Discussed importance of holding DMARDs/ biologics if patient develops an infection and to notify the treating physician Reviewed importance of compliance/adherence to medications prescribed Reviewed importance of compliance/adherence to medications prescribed Avoid live vaccines Exercise more Discussed importance of holding DMARDs/ biologics if patient develops an infection and to notify the treating physician Swimming Reviewed importance of compliance/adherence to medications prescribed Avoid live vaccines Discussed importance of holding DMARDs/ biologics if patient develops an infection and to notify the treating physician Stretching Reviewed importance of compliance/adherence to medications prescribed Avoid live vaccines Discussed importance of holding DMARDs/ biologics if patient develops an infection and to notify the treating physician Stretching Reviewed importance of compliance/adherence to medications prescribed Avoid OTC NSAIDS Avoid live vaccines Avoid sun and use high SPF sunblock Discussed importance of holding DMARDs/ biologics if patient develops an infection and to notify the treating physician Stretching Reviewed importance of compliance/adherence to medications prescribed Diet: avoid alcohol Avoid live vaccines Exercise more Discussed importance of holding DMARDs/ biologics if patient develops an infection and to notify the treating physician Stretching Reviewed importance of compliance/adherence to medications prescribed Avoid live vaccines Exercise more Discussed importance of holding DMARDs/ biologics if patient develops an infection and to notify the treating physician Stretching Labs ordered to check blood counts, liver and kidney functions to monitor safety of medication. Labs ordered to check disease activity. Discussed importance of holding DMARDs/ biologics if patient develops an infection and to notify the treating physician Risks/benefits of medications reviewed Discussed importance of holding DMARDs/ biologics if patient develops an infection and to notify the treating physician Stretching Discussed importance of holding DMARDs/ biologics if patient develops an infection and to notify the treating physician Exercise more Avoid live vaccines Diet: avoid alcohol Avoid OTC NSAIDS Reviewed importance of compliance/adherence to medications prescribed Reviewed importance of compliance/adherence to medications prescribed Diet: avoid alcohol Avoid live vaccines Exercise more Discussed importance of holding DMARDs/ biologics if patient develops an infection and to notify the treating physician Stretching Stretching Reviewed importance of compliance/adherence to medications prescribed Diet: avoid alcohol Avoid live vaccines Exercise more Discussed importance of holding DMARDs/ biologics if patient develops an infection and to notify the treating physician Reviewed importance of compliance/adherence to medications prescribed Diet: avoid alcohol Avoid live vaccines Exercise more Discussed importance of holding DMARDs/ biologics if patient develops an infection and to notify the treating physician Stretching Reviewed importance of compliance/adherence to medications prescribed Diet: avoid alcohol Avoid live vaccines Risks/benefits of medications reviewed Avoid sun and use high SPF sunblock Discussed importance of holding DMARDs/ biologics if patient develops an infection and to notify the treating physician Labs ordered to check disease activity. Daily range of motion exercises for symptomatic joints recommended. Patient plan printed and given along with recommendations call if symptoms worsen
--- OUTSIDE RECORDS SUMMARY | 2019-07-12 11:39 | XMS REPORT | Continuity of Care Document ---
:1945 Author Organization [facility] Address [address], [place] [id number] Phone Care Team Providers Name Role Phone Michelle Knight Unavailable Unavailable Allergies, Adverse Reactions, Alerts Substance [...] factor mult site w/o org/sys involv Other long goods drier (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 therapy Osteoporosis - Rheu arthritis w rheu factor mult site w/o org/sys involv Rheu arthritis w rheu factor mult site w/o org/sys involv Oth disrd of bone density and structure, multiple sites Other long goods drier (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 therapy Other long goods drier (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 therapy Rheu arthritis w rheu factor mult site w/o org/sys involv Oth disrd of bone density - and structure, multiple sites Rheu arthritis w rheu factor mult site w/o org/sys involv Other long goods drier (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 therapy Rheu arthritis w rheu factor mult site w/o org/sys involv Rheu arthritis w rheu factor mult site w/o org/sys involv Rheu arthritis w rheu factor mult site w/o org/sys involv Rheu arthritis w rheu factor mult site w/o org/sys involv Fibromyalgia Dorsalgia, unspecified Other long goods drier (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 therapy Oth disrd of bone density and structure, multiple sites Rheu arthritis w rheu factor mult site w/o org/sys involv Rheu arthritis w rheu factor mult site w/o org/sys involv Rheu arthritis w rheu factor mult site w/o org/sys involv Rheu arthritis w rheu factor mult site w/o org/sys involv Other shelter (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 therapy Rheu arthritis w rheu factor mult site w/o org/sys involv Rheu arthritis w rheu factor mult site w/o org/sys involv Rheu arthritis w rheu factor mult site w/o org/sys involv Rheu arthritis w rheu factor mult site w/o org/sys involv Rheu arthritis w rheu factor mult site w/o org/sys involv Unsp thoracic, thoracolum and lumbosacr intvrt disc disorder Other long goods drier (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 therapy Rheu arthritis w rheu factor mult site w/o org/sys involv Rheu arthritis w rheu factor mult site w/o org/sys involv Rheu arthritis w rheu factor mult site w/o org/sys involv Rheu arthritis w rheu factor mult site w/o org/sys involv Other long goods drier (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 therapy Oth disrd of bone density and structure, multiple sites Rheumatoid arthritis w/ rheumatoid factor of multiple sites w/o organ involvement Rheumatoid arthritis w/ rheumatoid factor of multiple sites w/o organ involvement Rheumatoid arthritis w/ rheumatoid factor of multiple sites w/o organ involvement Rheumatoid arthritis w/ rheumatoid factor of multiple sites w/o organ involvement Fibromyalgia Other shelter drug therapy Rheumatoid arthritis w/ rheumatoid factor of multiple sites w/o organ involvement Rheumatoid arthritis w/ rheumatoid factor of multiple sites w/o organ involvement Rheumatoid arthritis w/ rheumatoid factor of multiple sites w/o organ involvement Rheumatoid arthritis w/ rheumatoid factor of multiple sites w/o organ involvement Other shelter drug therapy Fibromyalgia Rheumatoid arthritis w/ rheumatoid factor of multiple sites w/o organ involvement Rheumatoid arthritis w/ rheumatoid factor of multiple sites w/o organ involvement Rheumatoid arthritis w/ rheumatoid factor of multiple sites w/o organ involvement Rheumatoid arthritis w/ rheumatoid factor of multiple sites w/o organ involvement Fibromyalgia Other long goods drier drug therapy Rheumatoid arthritis w/ rheumatoid factor of multiple sites w/o organ involvement Rheumatoid arthritis w/ rheumatoid factor of multiple sites w/o organ involvement Rheumatoid arthritis w/ rheumatoid factor of multiple sites w/o organ involvement Rheumatoid arthritis w/ rheumatoid factor of multiple sites w/o organ involvement Other shelter drug therapy Fibromyalgia Generalized osteoarthritis Polymyalgia rheumatica Rheumatoid arthritis w/ rheumatoid factor of multiple sites w/o organ involvement Other shelter drug therapy Other long goods drier drug therapy Rheumatoid arthritis w/ rheumatoid factor of multiple sites w/o organ involvement Rheumatoid arthritis w/ rheumatoid factor of multiple sites w/o organ involvement Other long goods drier drug therapy Fibromyalgia Rheumatoid arthritis w/ rheumatoid factor of multiple sites w/o organ involvement Other shelter drug therapy Fibromyalgia Generalized osteoarthritis Rheumatoid arthritis w/ rheumatoid factor of multiple sites w/o organ involvement Other long goods drier drug therapy Other specified disorder of bone density of multiple sites Rheumatoid arthritis w/ rheumatoid factor of multiple sites w/o organ involvement Other shelter drug therapy Generalized osteoarthritis Rheumatoid arthritis w/ rheumatoid factor of multiple sites w/o organ involvement Rheumatoid arthritis w/ rheumatoid factor of multiple sites w/o organ involvement Generalized osteoarthritis Other long goods drier drug therapy Anemia Rheumatoid arthritis w/ rheumatoid factor of multiple sites w/o organ involvement Generalized osteoarthritis Other shelter drug therapy Shortness of breath Rheumatoid arthritis w/ rheumatoid factor of multiple sites w/o organ involvement Other long goods drier drug therapy Anemia Generalized osteoarthritis Encounter for screening for respiratory tuberculosis Other specified abnormal findings of blood chemistry Rheumatoid arthritis w/ rheumatoid factor of multiple sites w/o organ involvement Fibromyalgia Generalized osteoarthritis Lumbosacral intervertebral disc disorder Other long goods drier drug therapy Pain in lt knee Shortness of breath Other specified abnormal findings of blood chemistry Rheumatoid arthritis w/ rheumatoid factor of multiple sites w/o organ involvement Other shelter drug therapy Lumbosacral intervertebral disc disorder Fibromyalgia Generalized osteoarthritis Rheumatoid arthritis w/ rheumatoid factor of multiple sites w/o organ involvement Fibromyalgia Lumbosacral intervertebral disc disorder Pain in rt hip Other shelter drug therapy Rheumatoid arthritis w/ rheumatoid factor of multiple sites w/o organ involvement Fibromyalgia Lumbosacral intervertebral disc disorder Pain in rt hip Other long goods drier drug therapy Rheumatoid arthritis w/ rheumatoid factor of multiple sites w/o organ involvement Other shelter drug therapy Lumbosacral intervertebral disc disorder Fibromyalgia Rheumatoid arthritis w/ rheumatoid factor of multiple sites w/o organ involvement Fibromyalgia Other long goods drier drug therapy Back pain Rheumatoid arthritis w/ rheumatoid factor of multiple sites w/o organ involvement Other shelter drug therapy Rheumatoid arthritis w/ rheumatoid factor of multiple sites w/o organ involvement Rheumatoid arthritis w/ rheumatoid factor of multiple sites w/o organ involvement Generalized osteoarthritis Other long goods drier drug therapy Rheumatoid arthritis w/ rheumatoid factor of multiple sites w/o organ involvement Other long goods drier drug therapy Generalized osteoarthritis Other specified abnormal findings of blood chemistry Rheumatoid arthritis w/ rheumatoid factor of multiple sites w/o organ involvement Other long goods drier drug therapy Generalized osteoarthritis Anemia, unspecified Rheumatoid arthritis w/ rheumatoid factor of multiple sites w/o organ involvement Generalized osteoarthritis Other long goods drier drug therapy Anemia, unspecified Rheumatoid arthritis, unspecified Other shelter drug therapy Generalized osteoarthritis Anemia, unspecified Rheumatoid factor positive - Active Fibromyositis - Active Mapped from [facility] Chronic Conditions table on 08/29/2014 by the ICD9 to SNOMED Bulk Mapping Utility. The mapped diagnosis code was Fibromyalgia / Myalgia, 729.1, added by Norma Craig MD, with responsible provider Norma Craig MD. Onset date 06/11/2012; last addressed on 04/18/2014. High risk drug monitoring - Active Mapped from [facility] Chronic status Conditions table on 09/15/2014 by the ICD9 to SNOMED Bulk Mapping Utility. The mapped diagnosis code was Therapeutic Drug Monitoring, V58.69, added by Claribel Aguilar NP, with responsible provider Claribel WALTER. Onset date 03/19/2012; last addressed on 04/18/2014. Polymyalgia rheumatica - Active Mapped from [facility] Chronic Conditions table on 07/15/2014 by the ICD9 to SNOMED Bulk Mapping Utility. The mapped diagnosis code was Polymyalgia rheumatica, 725, added by Claribel Aguilar NP, with responsible provider Claribel WALTER. Onset date 03/19/2012; last addressed on 02/04/2014. Rheumatoid arthritis - Active Mapped from [facility] Chronic Conditions table on 07/15/2014 by the [...] For Visit Copied on Encounter Arthritis Arthritis [facility] ENGINEERING PROGRAMMER C [facility] 0 Michelle YanezViktoria PLLC, 5794 PLLC [address] [facility], [address], [place], [place], [id number], [id number], [place]. tel:[phone] tel:[phone] Arthritis Arthritis Rheu [facility] arthritis w MD Leo. Provider: Associates Associates rheu factor 0 5794 Gt PLLC, 5794 PLLC [facility] site w/o [facility], [address] [facility] org/s [address], [address] [facility], involv [place], [address], [place], [place], [place], [place], [id number], [address]. [id number], [place]. tel:[phone] [place] tel:[phone] tel:[phone] Arthritis Arthritis [facility] Norma. 5794 [facility] 0 [facility] PLLC, 5794 PLLC [place], [facility] [place], [place], [place], [place], [id number], [place], [place]. [id number], tel:[phone] [place] [phone] tel:[phone] Arthritis Arthritis Rheu [facility] arthritis w MD Hannon. Provider: [facility] rheu factor 0 5794 Gt PLLC, 5794 PLLC mult site w/o [facility], [address] [facility] org/sys [place], [address] [facility], involv [place], [address], [place], [place], [place], [place], [id number], [address]. [id number], [place]. tel:[phone] [place] tel:[phone] tel:[phone] Arthritis Arthritis [facility] 7-202 ENGINEERING PROGRAMMER C [facility] 0 Michelle Jeannie PLLC, 5794 PLLC [address] [facility] [place], [address], [place], [place], [place], [place], [id number], [id number], [place]. tel:+ tel:[phone] Arthritis Arthritis Rheu Dec-3 Jaz ARAUJO [facility] arthritis w 0-201 Hong. Provider: [facility] factor [facility] 5794 Gt PLLC, 5794 PLLC mult site w/o [facility], [address] [facility] org/sys [place], N [facility] [place], involv [place], [address], [place], [place], [place], [place], [id number], [address]. [id number], [place]. tel:[phone] [place] tel: [phone] tel: [phone] Arthritis Arthritis Age-related [facility] osteoporosis 6-201 ENGINEERING PROGRAMMER C Provider: Levi Sims w/o current 9 Michelle Jeannie Collins PLLC, 5794 PLLC pathological [address], [address] [facility] fractureRheu [facility] Mejía B [place], arthritis w [address], Dates [address], [facility] [place], [address], [place], [place], [facility] site w/[place], [address]. [id number], org/sys [id number], tel:[phone] [place] involvOther [place]. [id number] tel:+[phone] long goods drier tel:+ ist: [phone] (current) [phone] Marietaybtung drug therapy Lisa ARAUJO, [facility] [address] [facility], [place], [address]. tel:[phone] ing Provider: Shmuel Conner MD, [address] [facility] [address], [place], [address]. tel:[phone] ng Provider: Gt Clark, [address] [facility] [address], [place], [address]. tel:[phone] Arthritis Arthritis Osteoporosis Dec-0 [facility] 9201 ENGINEERING PROGRAMMER C Associates [facility] 9 Michelle Dennis PLLC, 5794 PLLC [address] [facility], [address], [place], [place], [place], [id number], [id number], [place]. tel:+ tel: [phone] [facility]ritis [facility] arthritis w 0-201 MD Hannon. Provider: Levi Sims [facility] factor 9 5794 Gt PLLC, 5794 PLLC [facility] site w/o [facility], [address] [place] [address]/[facility], [address] [facility], involv [place], [address], [place], [place], [place], [place], [id number], [address]. [id number], [place]. tel:[phone] US tel: [phone] tel: [phone] Arthritis Arthritis Rheu [facility] arthritis w 4 MD Hannon. Provider: Levi Sims [facility] factor 9 5794 Gt PLLC, 5794 PLLC [facility] site w/o [facility], [address] [place] [address]/[facility], [address] [facility], involv [place], [address], [place], [place], [place], [place], [place], [id number], [address]. [id number], [place]. tel:[phone] US tel: [phone] tel: [phone] Arthritis Arthritis Oth disrd of Rafa ARAUJO [facility] bone density 8-201 Norma. 5794 Associates [facility] and 9 [facility] PLLC, 5794 PLLC [facility], [place], [facility] multiple [place], [place], sitesOther [place], [place], long goods drier [id number], [place], (current) [place]. [id number], drug therapy tel:[phone] [place] [phone] tel:[phone] Arthritis Arthritis Other long 0 [facility] term 4-201 ENGINEERING PROGRAMMER C [facility] (current) 9 Michelle YanezViktoria PLLC, 5794 PLLC drug therapy [address] [facility], [address], [place], [place], [place], [id number], [id number], [place]. tel:+ tel:[phone] Arthritis Arthritis [facility] Sep-2 [facility] arthritis w 6-201 MD Hannon. Provider: Levi Sims [facility] factor 9 5794 Gt PLLC, 5794 PLLC mult site w/o [facility], [address] [facility] org/sys [place], [address] [facility], involv [place], [address], [place], [place], [place], [place], [id number], [address]. [id number], [place]. tel:[phone] [place] tel:+ [phone] tel: [phone] Arthritis Arthritis Oth disrd of Sep-1 [facility] bone density 0-201 ENGINEERING PROGRAMMER C Provider: Levi Sims and Michelle YanezViktoria Collins PLLC, 5794 PLLC structure, [address], [address] [facility], sitesRheu [address]y, Dates Dr Alarcon, arthritis w [place], [address], [place], [place], [place], [address]. [id number], [facility] site w/o [id number], tel:[phone] org/[place]. [address]Grbkuju tel:[phone] involvOther tel:[phone] ist: [phone] shelter [phone] Qutaybeh (current) Lisa drug therapy , [facility] [address] [facility], [place], [address]. tel:[phone] ing Provider: Shmuel Conner MD, [address] [facility] [address], [place], [address]. tel:[phone] ng Provider: Gt Clark, [address] [facility] [address], [place], [address]. tel:[phone] Arthritis Arthritis [facility] Rafa ARAUJO Referring [facility] arthritis w Norma. 5794 Provider: Levi davis [facility] 9 [facility], [address] [facility] site w/o Amber Walker, [address] [facility] org/sys [place], N Triph[place], involv [place], [address], [place], [id number], [place], [place], [place]. [address]. [id number], tel:[phone] tel:+[phone] [place] [phone] [address] tel:[phone] Arthritis Arthritis [facility] 3 Rfaa ARAUJO [facility] arthritis w Norma. 5794 Provider: Levi davis [facility] 9 [facility], [address] [facility] site w/o Amber Walker, [address] [facility] org/sys [place], N [place], involv [place], [address], [place], [id number], [place]. [address]. [id number], tel:+4 tel:[phone] [place] [phone] tel:[phone] Arthritis Arthritis [facility] Rafa ARAUJO Referring [facility] arthritis w Norma. 5794 Provider: Levi davis [facility] 9 [facility], [address] [facility] site w/o Amber Walker, [address] [facility] org/sys [place], N [place], involv [place], [address], [place], [id number], [place], [place], [place]. [address]. [id number], tel:[phone] tel:+[phone] [place] [phone] tel:[phone] Arthritis Arthritis Valentin [facility] arthritis w ENGINEERING PROGRAMMER C Provider: Levi [facility] 9 Michelle Collins [facility], [address] [facility] site w/o [address], [address] [facility] org/sys [facility] Mejía Cassie [place], involvFibromy [address]kwy, Dates Dr Alarcon, algiaDorsalgi [place], [address], [place], [place], [place], [place], [address]. [id number], unspecifiedOt [id number], tel:[phone] [place] her shelter [place]. [id number] tel:+ (current) tel:+ ist: [phone] drug [phone] Qutaybeh therapyOth Maghaydah disrd of bone , [facility] density and Cardiology structure, [address] [facility] [address], [place], [address]. tel:[phone] ing Provider: Shmuel Conner MD, [address] [facility] [address], [place], [address]. tel:+ [phone] ng Provider: Gt Clark, [address] [facility] [address], [place], [address]. tel:+ [phone] Arthritis Arthritis Shubham Karl-0 Rafa ARAUJO Referring [facility] Health arthritis w Norma. 5794 Provider: Levi davis [facility] 9 [facility], [address] [facility] site w/o Amber Walker, [address] [place] [address] org/sys [place], N [facility], involv [place], [facility] [address], [place], [id number], [place], [place]. [address]. [id number], tel:+ tel:[phone] US [phone] tel: [phone] Arthritis Arthritis Shubham 0 Rafa ARAUJO Referring [facility] Health arthritis w Norma. 5794 Provider: [facility] 9 [facility], [address] [facility] site w/o Amber Walker, [address] [place] [address] org/sys [place], [address] [facility], [facility], [address], [place], [id number], [place], [place], [place]. [address]. [id number], tel:+[phone] tel:+[phone] [place] [phone] tel:[phone] Arthritis Arthritis Rheu Apr-0 Rafa ARAUJO [facility] Health arthritis w Norma. 5794 Provider: Levi davis factor 9 [facility] Gt [facility], [address] [facility] site w/o Amber Walker, [address] [facility] org/sys [place], N [facility] [place], involv [place], [address], [place], [id number], [place], [place]. [address]. [id number], tel:[phone] tel:[phone] [place] 979123 [address] tel:[phone] Arthritis Arthritis Rheu Jul- [facility] arthritis w ENGINEERING PROGRAMMER C Provider: Levi Sims [facility] factor 9 Michelle YanezViktoria Dennis PLLC, [address] [facility] site w/o [address], [address] [facility] org/sys [facility] Mejía B [place], involvOther [address]kwy, Dates Dr Alarcon, long goods drier [place], [address], [place], [place], (current) [place], [address]. [id number], drug therapy [id number], tel:[phone] [place]. [id number] tel:[phone] tel:[phone] ist: [phone] Karen Gonzalez MD, [facility] [address] [facility], [place], [address]. tel:[phone] ing Provider: Shmuel Conner MD, [address] [facility] [address], [place], [address]. tel:[phone] ng Provider: Gt Clark, [address] [facility] [address], [place], [address]. tel:[phone] Arthritis Arthritis Rheu Jun- [facility] Referring [facility] arthritis w MD Hannon. Provider: Levi pablou factor 9 5794 Gt [facility], [address] [facility] site w/o [facility] Amber, [address] [facility] org/sys [place], N [facility] [place], involv [place], [address], [place], [place], [place], [place], [id number], [address]. [id number], [place]. tel:+[phone] [place] tel:+ [phone] tel:[phone] Arthritis Arthritis Valentinu Rafa ARAUJO Referring [facility] arthritis w Norma. 5794 Provider: Levi pablo factor 9 [facility] Gt [facility], [address] [facility] site w/o [place], Amber, [address] [place] org/sys [place], N [facility] [place], involv [place], [address], [place], [id number], [place], [place]. [address]. [id number], tel:[phone] tel:+[phone] [place] [phone] 42609 tel:[phone] Arthritis Arthritis Valentinu Rafa ARAUJO Referring [facility] arthritis w [facility]. 5794 Provider: Levi davis factor 9 [facility], [address] [facility] site w/o Amber Walker, [address] [place] org/sys [place], N [facility] [place], involv [place], [address], [place], [id number], [place], [place]. [address]. [id number], tel:+4 tel:+[phone] US [phone] 86498 tel: [phone] Arthritis Arthritis Valentinu Rafa ARAUJO Referring [facility] arthritis w [facility]. 5794 Provider: Levi palbo factor 8 [facility] Gt [facility], 5[address] [facility] w/o [place], [address] [place] org/sys [place], N [facility] [place], involv [place], [address], [place], [id number], [place], [place]. [address]. [id number], tel:[phone] tel:+[phone] [place] [phone] 88779 tel:[phone] Arthritis Arthritis Shubham [facility] arthritis w ENGINEERING PROGRAMMER C Provider: Levi davis factor 8 Michelle Collins PLLC, [address] [facility] site w/o [address], [address] [facility] org/sys [facility] Mejía B [place], involvUnsp [address], Dates [address] [place], thoracic, [place], [address], [place], [place], [place], [address]. [id number], and lumbosacr [id number], tel:[phone] [place]. [address]Kwjqygk tel:[phone] disorderOther tel:[phone] ist: [phone] shelter [phone] Qutaybeh (current) Lisa drug therapy , [facility] [address] [facility]. [address], [place], [address]. tel:[phone] ing Provider: Shmuel Conner MD, [address] [facility] [address], [place], [address]. tel:[phone] Provider: Gt Clark, [address], [place], [address]. tel:[phone] Arthritis Arthritis [facility] Mehreen ARAUJO Referring [facility] arthritis w [place]. Provider: Levi davis factor 8 [address] [facility], [address] [facility] site w/o [facility] center[facility] Clark, [facility]3 [facility]/s [place], N [place], involv [place], [address], [place], [place], [place], [place], [id number], [address]. [id number], [place]. tel:[phone] [place] tel:[phone] tel:[phone] Arthritis Arthritis [facility] Rafa ARAUJO Referring [facility] arthritis w [facility]. 5794 Provider: Levi Sims [facility] factor 8 [facility], [address] [facility] site w/o Amber Walker, [address] [facility]/sys [place], N [place], involv [place], [address], [place], [id number], [place]. [address]. [id number], tel:[phone] tel:[phone] [place] 854997 [address] tel:[phone] Arthritis Arthritis Rheu Sep-0 Rafa ARAUJO Referring [facility] arthritis w 6 Norma. 5794 Provider: [facility] factor 8 [facility], 5794 [facility] site w/o Amber Walker, [address] [facility]/s [place], N [facility] [place], involv [place], [address], [place], [id number], [place], [place], [place] [address]. [id number], tel:+[phone] tel:+[phone] [place] 809171 82777 tel:[phone] Arthritis Arthritis Rheu Aug-2 [facility] arthritis w 0 ENGINEERING PROGRAMMER C Provider: [facility] factor 8 Michelle Collins [facility], 5794 [facility] site w/o 5794 Bael, 201 [facility]/sys [facility] Mejía B [place], involvOther [address]kwy, Dates Dr Alarcon, long goods drier [place], 102, [place], [place], (current) [place], [address]. [id number], drug [id number], tel:+[phone] [place]. [address]Urtjiqy tel:+[phone] disrd of bone tel:+[phone] ist: [phone] density and 640278 Qutaybeh structure, Lisa diaz MD, [facility] Cardiology [address] [facility]. [address], [place], [address]. tel:[phone] ing Provider: Shmuel Conner MD, [address] [facility] [address], [place], [address]. tel:[phone] ng Provider: Gt Clark, [address] [facility] [address], [place], [address]. tel:[phone] Arthritis Arthritis Rheumatoid Dec-0 Jaz ARAUJO Referring [facility] arthritis w/ Hong. Provider: Levi whitlock 8 5794 Gt PLLC, 5794 PLLC factor of [facility], [facility]3 [facility], N [facility], sites w/o [place], [address], [place], organ [place], [place], [place], [place], [place] [id number], [address]. [id number], [place]. tel:+[phone] [place] tel:[phone] tel:[phone] Arthritis Arthritis Rheumatoid Rafa ARAUJO Referring [facility] arthritis Norma. 5794 Provider: Levi whitlock 8 [facility] Gt PLLC, 5794 PLLC factor of [facility], [address] [place] [address], N [facility], sites w/o [place], [address], [place], organ [id number], [place], [place], [place], [place]. [address]. [id number], tel:+[phone] tel:+[phone] US 193569 05242 tel:[phone] Arthritis Arthritis Rheumatoid Rafa ARAUJO Referring [facility] arthritis Norma. 5794 Provider: Levi whitlock 8 [facility] Gt PLLC, 5794 PLLC factor of [facility], [address] [place] [address], N [facility], sites w/o [place], [address], [place], organ [id number], [place], [place], [place], [place]. [address]. [id number], tel:+[phone] tel:+[phone] [place] 236288 [address]138 tel:[phone] Arthritis Arthritis Rheumatoid [facility] arthritis ENGINEERING PROGRAMMER C Provider: Levi whitlock 8 Michelle Collins PLLC, 5794 PLLC factor of 5794 Bael, 201 [facility] Mejía B [place], sites w/o Pkwy, Dates Dr Alarcon, organ [place], 102, [place], [place], [place], [address]. [id number], bromyalgiaOth [id number], tel:+[phone] [place]. [address]Hyhiqub tel:+[phone] drug therapy tel:+[phone] ist: [phone] Karen Gonzalez MD, [facility] [address] [facility], [place], [address]. tel:[phone] ing Provider: Shmuel Conner MD, [address] [address], [place], [address]. tel:[phone] ng Provider: Gt Clark, [address] [facility] [address], [place], [address]. tel:[phone] Arthritis Arthritis Rheumatoid Rafa ARAUJO Referring [facility] Health arthritis Norma. 5794 Provider: Levi whitlock 8 [facility] Gt PLLC, 5794 PLLC factor of [facility], [address] [place] [address], N [facility], sites w/o [place], [address], [place], organ [id number], [place], [place], [place], [place]. [address]. [id number], tel:+[phone] tel:+[phone] US 208666 [address]62 tel:[phone] Arthritis Arthritis Rheumatoid Jaz ARAUJO Referring Health Health arthritis Hong. Provider: Levi Sims rheumatoid 8 5794 Gt PLL[facility], 5794 PLLC factor of [facility], [address] [place] [address], [facility], sites w/o [place], [address], [place], organ [place], [place], [place], [place], [place] [id number], [address]. [id number], [place]. tel:+[phone] [place] tel:[phone] tel:[phone] Arthritis Arthritis Rheumatoid Jul- Can Referring [facility] Health arthritis MD Hannon. Provider: Levi Sims rheumatoid 8 5794 Gt PLL[facility], 5794 PLLC factor of [facility], [address] [place] [address], [facility], sites w/o [place], [address], [place], organ [place], [place], [place], [place], [place] [id number], [address]. [id number], [place]. tel:+[phone] US tel:[phone] tel:[phone] Arthritis Arthritis Rheumatoid Ham Consulting [facility] arthritis ENGINEERING PROGRAMMER C Provider: Levi Sims rheumatoid 8 Michelle Collins PLLC, 5794 PLLC factor of 5794 Bael, 201 [facility], sites w/o Pkwy, Dates [address] [place], organ [place], 102, [place], [place], [place], [address]. [id number], her long goods drier [id number], tel:[phone] [place]. [address]Pcgjpyz tel: therapyFibrom tel: ist: [phone] yalgia [phone] Karen Gonzalez MD, [facility] [address] [facility]. [address], [place], [address]. tel:[phone] Provider: Gt Clark, [facility] [address] [place] [address], [place], [address]. tel:[phone] Arthritis Arthritis Rheumatoid Mehreen ARAUJO Referring [facility] arthritis Robert. Provider: Levi Sims rheumatoid 8 5794 Gt PLLC, 5794 PLLC factor of [facility] Amebr, [address] [place] [address], N [facility], sites w/o [place], [address], [place], organ [place], [place], [place], [place], [place] [id number], [address]. [id number], [place]. tel:+[phone] [place] tel:[phone] tel:[phone] Arthritis Arthritis Rheumatoid May-0 Rafa ARAUJO Referring [facility] arthritis Norma. 5794 Provider: Levi whitlock 8 [facility] Gt PLLC, 5794 PLLC factor of Aaron Amber, [address] [place] [address], N [facility], sites w/o [place], [address], [place], organ [id number], [place], [place], [place], [place]. [address]. [id number], tel:+[phone] tel:[phone] US [id number] 22352 tel:[phone] Arthritis Arthritis Rheumatoid Dec- Lexx Referring [facility] arthritis MD Hannon. Provider: Levi Sims rheumatoid 7 5794 Gt PLL[facility], 5794 PLLC factor of [facility], 2[address] [facility], [facility], sites w/o [place], [address], [place], organ [place], [place], [place], [place], [place] [id number], [address]. [id number], [place]. tel:[phone] [place] tel:[phone] tel:[phone] Arthritis Arthritis Rheumatoid [facility] arthritis ENGINEERING PROGRAMMER C Provider: Levi Sims rheumatoid 7 Michelle Collins PLLC, 5794 PLLC factor of 5794 Bael, 201 [facility] Mejía [facility], sites w/o Pkwy, Dates Dr Alarcon, organ [place], 102, [place], [place], [place], [address]. [id number], bromyalgiaOth [id number], tel:[phone] [place]. [address]Zkulgbw tel:+13154 drug tel:+[phone] ist: [phone] therapyBody 434856 Qutaybeh mass index Lisa (BMI) , [place] 37.0-37.9, Cardiology adult [address] [facility]. [address], [place], [address]. tel:[phone] ng Provider: Gt Clark, [address] [facility] 302, [place], [address]. tel:[phone] Arthritis Arthritis Rheumatoid Nov- Rafa ARAUJO [facility] arthritis Norma. 5794 Provider: Levi Sims [address] Gt PLLC, 5794 PLLC factor of [place] Amber, 2[address] [facility] multiple [place], N [facility], sites w/o [place], [address], [place], organ [id number], [place], [place], [place], [place]. [address]. [id number], tel:+4 tel:+[phone] US 505819 95476 tel:+ [phone] Arthritis Arthritis Rheumatoid Rafa ARAUJO Referring [facility] arthritis w Norma. 5794 Provider: Levi [facility] rheumatoid 7 [facility], 5794 PLLC factor of [place] Amber, [address] [facility] [place], N [facility], sites w/o [place], [address], [place], organ [id number], [place], [place], [place], [place]. [address]. [id number], tel:+4 tel:+[phone] US 162008 39386 tel: [phone] Arthritis Arthritis Rheumatoid Rafa ARAUJO Referring [facility] arthritis w Norma. 5794 Provider: Levi [facility] rheumatoid 7 [facility], 5794 PLLC factor of [place] Amber, [address] [facility] [place], N [facility], sites w/o [place], [address], [place], organ [id number], [place], [place], [place], [place]. [address]. [id number], tel:+4 tel:+[phone] US 982466 84885 tel: [phone] Arthritis Arthritis Rheumatoid [facility] arthritis w ENGINEERING PROGRAMMER C Provider: Levi [facility] rheumatoid 7 Michelle Collins PLLC, 5794 PLLC factor of 5794 Bael, 201 [facility], [facility] w/o Pkwy, Dates Dr Alarcon, organ [place], 102, [place], [place], [place], [address]. [id number], her shelter [id number], tel:[phone] [place]. [address]Uurzavv tel: therapyFibrom tel: ist: [phone] yalgiaGeneral [id number] Karen Gonzalez osteoarthriti , [place] sPolymyalgia Cardiology rheumaticaBod 310 y mass index [facility] [address] 37.0-37.9, 4, [facility], [address]. tel:[phone] ng Provider: Gt Clark, [address], [place], [address]. tel:[phone] Arthritis Arthritis Rheumatoid [facility] arthritis w/ ENGINEERING PROGRAMMER C Provider: Levi Sims rheumatoid 7 Michelle Craig PLLC, 5794 PLLC factor of 5794 MD, 5794 [facility], sites w/o Pkwy, [place], [place], organ [place], [place], [place], [place], [place], [id number], her shelter [id number], [id number]. [place] drug therapy [place]. tel:42 tel: tel: [phone] 078449 Arthritis Arthritis Other long [facility] term drug 0 ENGINEERING PROGRAMMER C Levi Sims therapyRheuco 7 Michelle Dennis PLLC, 5794 PLLC toid 5794 [facility] arthritis w/ [facility] [place], rheumatoid [address]kw[address], [place], factor of [place], [place], [place], [id number], sites w/o [id number], [place] organ [place]. tel: involvement tel:[phone] Arthritis Arthritis Rheumatoid [facility] arthritis w/ 0 ENGINEERING PROGRAMMER C Provider: Levi Sims rheumatoid 7 Michelle Collins PLLC, 5794 PLLC factor of 5794 Bael, 201 [facility] Mejía B [place], sites w/o Pkwy, Dates Dr Alarcon, organ [place], 102, [place], [place], [place], [address]. [id number], her long goods drier [id number], tel:[phone] [place] drug [place]. 004[address]Vgguyxk tel:4 therapyFibrom tel: ist: [phone] yalgiaBody 514303 Qutaybeh mass index Lisa (BMI) , [place] 37.0-37.9, Cardiology adult [address] [facility]. [address], [place], [address]. tel:[phone] ng Provider: Gt Clark, [address] N [facility] 302, [place], [address]. tel:[phone] Arthritis Arthritis Rheumatoid [facility] arthritis PA-C Provider: Associates Levi rheumatoid Violet Downey. Dennis PLLC, 5794 PLLC factor of [address], [facility] w/o [place], [facility] Dr Alar[place], organ [place], 102, [place], [place], [place], [address]. [id number], her long goods drier [id number], tel:+[phone] [place] drug . 06950Zyusqpc tel: therapyFibrom tel: ist: [phone] yalgiaGeneral [id number] Qutanicol Gonzalez osteoarthriti , [place] s Cardiology [address] [facility]. [address], [place], [address]. tel:[phone] ng Provider: Gt Clark, [address] [facility] [address], [place], [address]. tel:[phone] Arthritis Arthritis Rheumatoid [facility] arthritis PA-Osmin Carcamo. Provider: Associates Associates rheumatoid 7 5794 Dennis PLLC, 5794 PLLC factor of [address], sites w/o [place], Dates Dr Alarcon, organ [place], 102, [place], [place], [place] [id number], [place], [address]. [id number], her long goods drier [place]. tel:+[phone] [place] drug tel:[phone] tel:+[phone] therapyOther [id number] ist: [phone] specified Qutaybeh disorder of Magbrady bone density MD [place] of multiple Cardiology sites [address] [facility]. [address], [place], [address]. tel:[phone] ng Provider: Gt Clark, [address] [facility] [address], [place], [address]. tel:[phone] Arthritis Arthritis Rheumatoid Aug- [facility] Consulting [facility] arthritis PA-C Provider: Levi Sims [facility] 7 Shayan. Dennis PLLC, 5794 PLLC factor of 5794 Ba, [address] [place] [address], sites w/o [place], Dates [address] Alarcon, organ [place], 102, [place], [place], [place], [address]. [id number], her shelter [id number], tel:[phone] drug [place]. [address]Mjsgopq tel:+[phone] therapyGenera tel:+[phone] ng Provider: [id number] lized 169744 Gt osteoarthriti Amber, [address], [place], [address]. tel:[phone] Arthritis Arthritis Rheumatoid Jul- Rafa ARAUJO Referring [facility] arthritis Norma. 5794 Provider: Levi Sims [address] Gt PLLC, 5794 PLLC factor of Amber Walker, [address] [facility] [place], N [facility] [place], sites w/o [place], [address], [place], organ [id number], [place], [place], [place], [place]. [address]. [id number], tel:+[phone] tel:[phone] US 400604 22377 tel:[phone] Arthritis Arthritis Rheumatoid Jun- [facility] arthritis Provider: Leiv Sims [facility] 7 Dennis PLLC, 5794 PLLC factor of Ba, 201 [facility], sites w/o Dates Dr Alarcon, organ 102, [place], [place], [place], [address]. [id number], neralized tel:+[phone] [place] osteoarthriti 42866Ofdgrhk tel:+[phone] Ezra lutz Provider: [id number] term drug Gt therapyAnemia Amber, [address], [place], [address]. tel:[phone] Arthritis Arthritis Rheumatoid Jorge- Consulting [facility] arthritis w Provider: Levi Sims rheumatoid 7 Dennis PLLC, 5794 PLLC factor of [facility], [address] [place] [address], sites w/o Dates Dr Alarcon, organ 102, [place], [place], [place], [address]. [id number], neralized tel:+[phone] [place] osteoarthriti 51782Kbxpujc tel:[phone] Ezra lutz Provider: [id number] term drug Gt therapyShortn Amber, 2333 ess of breath N [address], [place], [address]. tel:[phone] Arthritis Arthritis Rheumatoid Rafa ARAUJO Consulting [facility] arthritis Norma. 5794 Provider: Levi Sims rheumatoid 6 [facility] Dennis PLLC, 5794 PLLC factor of [facility], [address] [place] [address], sites w/o [place], Dates [address] Alarcon, organ [id number], 102, [place], [place], [place], [address]. [id number], her long goods drier tel:+[phone] tel:+[phone] [place] drug 167411 28585Bfmzkoy tel:[phone] therapyAnemia ng Provider: [id number] Gt Clark, [address], [place], [address]. tel:[phone] Arthritis Arthritis Generalized Mar- [facility] Health osteoarthriti Associates Levi s 6 PLLC, 5794 PLLC [place], [place], [id number], [place] tel:[phone] Arthritis Arthritis Encounter for [facility] Health screening for Associates Levi respiratory 6 PLLC, 5794 PLLC tuberculosis [place], [place], [id number], [place] tel:[phone] Arthritis Arthritis Other Feb- [facility] specified Associates Associates abnormal 6 PLLC, 5794 PLLC findings of [facility] chemistry [place], [place], [id number], [place] tel:[phone] Arthritis Arthritis Rheumatoid Consulting [facility] arthritis Provider: Associates Associates rheumatoid 6 Qutaybeh PLLC, 5794 PLLC factor of Lisa diaz MD, [facility], sites w/o Cardiology [place], organ 310 [place], involvementFi [facility] [id number], bromyalgiaGen [address] Suite eralized , [place], tel:[phone] [place], [address]. 217378 sLumbosacral tel:[phone] intervertebra 09128Ldvzkdk l disc ng Provider: Jama Del Real shelter Amber, [address] drug N [address] therapyPain [address], in lt [place], [place], kneeShortness [address]. of breath tel:[phone] Arthritis Arthritis Other Jan-2 [facility] specified Associates Associates abnormal 6 PLLC, 5794 PLLC findings of [facility], chemistry [place], [place], [id number], [place] tel:[phone] Arthritis Arthritis Rheumatoid Jan- Consulting [facility] arthritis Provider: Levi Sims rheumatoid 6 Qutaybeh PLLC, 5794 PLLC factor of Lisa diaz MD, [facility], sites w/o Cardiology [place], organ 310 [place], involvementOt [facility] [id number], her long goods drier [address] Suite drug [address], [place], tel:[phone] [place], [address]. [address] acral tel:[phone] intervertebra 88926Jjqubqj l disc ng Provider: Rolanda Del Real myalgiaGenera Amber, 2333 lized N [address] osteoarthriti [address], [place], [address]. tel:[phone] Arthritis Arthritis Rheumatoid Aug-3 Consulting Health Health arthritis Provider: Levi Sims rheumatoid Grant Qutaybeh PLLC, 5794 PLLC factor of Lisa diaz MD, [facility], sites w/o Cardiology [place], organ 310 [place], involvementFi [place] [id number], b[address] Suite [facility] 4, [place], tel:[phone] [place], [address]. [address] l disc tel:[phone] disorderPain 86[address]Ujoiacn in rt ing hipOther long Provider: term drug Dennis therapy Bael, [address] Me[address], [place], [address]. tel:[phone] bolivar Provider: Gt Clark, [address], [place], [address]. tel:[phone] Arthritis Arthritis Rheumatoid Consulting [facility] arthritis Provider: Levi Burns Qutaybeh PLLC, 5794 PLLC factor of Lisa diaz MD, [facility], sites w/o Cardiology [place], organ 310 [place], involvementFi [place] [id number], bromy[address] [place] [address], [place], tel:[phone] [place], [address]. [address] l disc tel:[phone] disorderPain 78173Dohrmec in rt ing hipOther long Provider: term drug Dennis therapy Bael, 201 Mejía B Jovany [address], [place], [address]. tel:[phone] bolivar Provider: Gt Clark, [address], [place], [address]. tel:[phone] Arthritis Arthritis Rheumatoid Consulting [facility] arthritis Provider: Levi Bruns Qutaybeh PLLC, 5794 PLLC factor of Lisa diaz MD, [facility], sites w/o Cardiology [place], organ 310 [place], involvement[place] [id number], her shelter [address] Suite [address], [place], tel:[phone] [place], [address]. 70[address]36 acral tel:[phone] intervertebra 07301Ojffisn l disc ing disorderFibro Provider: myalgia Dennis Bright, [address], [place], [address]. tel:[phone] ng Provider: Gt Clark, [address], [place], [address]. tel:[phone] Arthritis Arthritis Rheumatoid Consulting [facility] arthritis w/ 0- Provider: Associates Levi rheumatoid 6 Qutaybeh PLLC, 5794 PLLC factor of Lisa diaz MD, [facility], sites w/o Cardiology [place], organ 310 [place], involvementFi [facility] [id number], bromyalgiaOth [address] Suite er shelter 4, [place], tel:[phone], [address]. 47[address] therapyBack tel:[phone] pain 79247Zsvcahj ing Provider: Dennis Bright, [address], [place], [address]. tel:[phone] ng Provider: Gt Clark, [address], [place], [address]. tel:[phone] Arthritis Arthritis Rheumatoid [facility] arthritis w PA-C Provider: Levi Sims rheumatoid 6 Rosa Maria B. Qutaybeh PLLC, 5794 PLLC factor of 5794 Lisa Dominique MD, [facility], sites w/o [place], Cardiology [place], organ [place], 310 [place], [place], [place] [id number], her shelter [id number], Blvd. Suite drug therapy [place]. 4, [place], tel:[phone] tel:[phone] [place], [address]. [address] tel:[phone] ing Provider: Dennis Bright, [address], [place], [address]. tel:[phone] ng Provider: Gt Clark, [address], [place], [address]. tel:[phone] Arthritis Arthritis Rheumatoid Consulting [facility] arthritis Provider: Levi Sims rheumatoid 6 Qutaybeh PLLC, 5794 PLLC factor of Lisa diaz MD, [facility], sites w/o Cardiology [place], organ 310 [place], involvement [facility] [id number], Blvd. Suite [place] [address], [place], tel:[phone] [place], [address]. [address] tel:[phone] ing Provider: Dennis Bright, [address], [place], [address]. tel:[phone] ng Provider: Gt Clark, 2[address] N [facility] [address], [place], [address]. tel:[phone] Arthritis Arthritis Rheumatoid Consulting [facility] arthritis Provider: Levi Burns Qutaybeh PLLC, 5794 PLLC factor of Lisa diaz MD, [facility], sites w/o Cardiology [place], organ 310 [place], involvementGe [place] [id number], neralized [address]vd. Suite osteoarthriti 4, [place], tel:[phone] sOther [facility], [address]. [id number] term drug tel:[phone] therapy 27014Wzxjzpj ing Provider: Dennis Bright, [address], [place], [address]. tel:[phone] ng Provider: Gt Clark, 2[address] N [facility] [address], [place], [address]. tel:[phone] Arthritis Arthritis Rheumatoid Consulting [facility] arthritis Provider: Levi Sims rheumatoid Grant Qutaybeh PLLC, 5794 PLLC factor of Lisa diaz MD, [facility], sites w/o Cardiology [place], organ 310 [place], [place] [id number], her shelter [address]. Suite drug , [place], tel:[phone] [place], [address]. 404101 lized tel:[phone] osteoarthriti 04836Qadndke s ing Provider: Dennis Bright, [address], [place], [address]. tel:[phone] ng Provider: Gt Clark, [address], [place], [address]. tel:[phone] Arthritis Arthritis Other [facility] specified armando Carrioni. Associates Associates abnormal 6 5794 PLLC, 5794 PLLC findings of [facility] blood [place], [place], chemistry [place], [place], [place], [id number], [id number], [place]. [place] tel:[phone] tel:[phone] Arthritis Arthritis Rheumatoid [facility] arthritis w/ Provider: Levi Sims rheumatoid 6 Qutaybeh PLLC, 5794 PLLC factor of Lisa diaz MD, [facility], sites w/o Cardiology [place], organ 310 [place], involvementOt [facility] [id number], her shelter [address]. Suite [place] drug [place], tel:[phone] [place], [address]. 941308 lized tel:[phone] osteoarthriti 28531Xfuvlbh sAnemia, ing unspecified Provider: Dennis Bright, [address], [place], [address]. tel:[phone] ng Provider: Gt Clark, [address], [place], [address]. tel:[phone] Arthritis Arthritis Rheumatoid [facility] arthritis w Provider: Levi Sims rheumatoid 5 Qutaybeh PLLC, 5794 PLLC factor of Lisa diaz MD, [facility], sites w/o Cardiology [place], organ 310 [place], involvementGe [facility] [id number], neralized [address]vd. Suite [place] osteoarthriti 4, [place], tel:[phone] [place], [address]. [address] term drug tel:[phone] therapyAnemia 01867Nrviwzy , unspecified ing Provider: Dennis Bright, [address], [place], [address]. tel:[phone] bolivar Provider: Gt Calrk, 2333 [address], [place], [address]. tel:[phone] Arthritis Arthritis Rheumatoid [facility] arthritis, Provider: Levi Sims unspecifiedOt 5 [facility], 5794 [facility] her long goods drier [facility] , [facility], [facility] [place], [facility] [address] [place], osteoarthriti [facility] [id number], s[address]emia, [address] unspecified [place], tel:[phone] [place], [address]. [id number] tel:[phone] ing Provider: Dennis Bright, [address], [place], [address]. tel:[phone] bolivar Provider: Gt Clark, [address], [place], [address]. tel:[phone] [facility]thritis [facility]ritis [facility] WILLIAM Carcamo. Provider: Levi Sims 5 5794 [facility], 5794 [facility]C [facility], [facility], [place], [place], [place], [address] [place], [id number], [facility] [id number], [place] [place] tel:[phone] , [place], tel:[phone] [place], [address]. [id number] tel:[phone] ing Provider: Dennis Bright, [address], [place], [address]. tel:[phone] ng Provider: Gt Clark, [address], [place], [address]. tel:[phone] Arthritis Arthritis [facility] Provider: [facility] 5 Karen BURROWS, 5794 PLLC Lisa Dominique MD, [facility], Cardiology [place], [address] [place], [facility] [id number], [address], [place], tel:[phone] [place], [address]. [address] tel:[phone] ing Provider: Dennis Bright, [address], [place], [address]. tel:[phone] bolivar Provider: Gt Clark, [address], [place], [address]. tel:[phone] Arthritis Arthritis [facility] Provider: Associates Levi 4 Marieedithtung BURROWS, 5794 PLLC Lisa Dominique MD, [facility], Cardiology [place], [address] [place], [address] [id number], [address], [place], tel:[phone] [place], [address]. [id number] tel:[phone] ing Provider: Dennis Bright, [address], [place], [address]. tel:[phone] bolivar Provider: Gt Clark, [address], [place], [address]. tel:[phone] Arthritis Arthritis [facility] Provider: Associates Levi 4 Gt BURROWS, 5794 PLLOsmin Clark, [address], [place], [place], [place], [address]. [id number], tel:[phone] tel:[phone] Arthritis Arthritis [facility] Provider: Levi Sims 3 Gt BURROWS, 5794 PLLC Amber, [address] [place], [address], [place], [place], [place], [address]. [id number], tel:[phone] [place] [phone] tel:[phone] Arthritis Arthritis [facility] 2 ENGINEERING PROGRAMMER-C Provider: Levi Sims 3 Alicia. [facility], 5794 PLLC S Jerichoprakash Clark, [address], [address] [place], [place], [address], [place], [place], [place], [place], [place], [id number], [address]. [id number], [place]. tel:[phone] [place] tel:[phone] tel:[phone] Arthritis Arthritis Jan- [facility] Provider: Associates Levi 3 Gt ASKEWC, 5794 PLLC Amber, [address], [address], [place], [place], [place], [address]. [id number], tel:[phone] [place] [phone] tel:[phone] Arthritis Arthritis [facility] Provider: Levi Sims 3 Gt ASKEWC, 5794 PLLC Amber, [address] [place], [address], [place], [place], [place], [address]. [id number], tel:[phone] [place] [phone] tel:[phone] Arthritis Arthritis [facility] Provider: Levi Sims 3 Gt ASKEWC, 5794 PLLC Amber, [address] [place], [address], [place], [place], [place], [address]. [id number], tel:[phone] [place] [phone] tel:[phone] Arthritis Arthritis [facility] Provider: Levi Sims 2 [facility]t [facility], 5794 PLLC Amber, [address], [address], [place], [place], [place], [address]. [id number], tel:[phone] tel:[phone] Arthritis Arthritis Tor[facility] WILLIAM Carcamo. Provider: Levi Sims 2 57Mehrdad [facility]t [facility], 5[address], [address], [address] [facility], [place], [facility] [address], [place], [place], [place], [place], [place], [id number], [address]. [id number], [place]. tel:[phone] tel:[phone] tel:[phone] Arthritis Arthritis Nov- [facility] 8 Provider: Associates Associates 1 Gt AZARC, 5794 PLLC Amber, [address] [facility] [address] [facility], [facility] [address], [place], [place], [place], [address]. [id number], tel:[phone] tel:[phone] Arthritis Arthritis [facility] Provider: Associates Associates 1 GtCejaC, 5794 PLLC Amber, [address] [facility] [address] [facility], [facility] [address], [place], [place], [place], [address]. [id number], tel:[phone] tel:[phone] Family History Family Member Diagnosis Age At Onset Paternal grandmother Rheumatoid arthritis Immunizations Vaccine Date Status Comments Influenza, injectable, MDCK, administered Note: approx. ; Source : Other Flucelvax Quad 2017-2018Y Provider Influenza, injectable, administered Note: approx. ; Source: Other quadrivalent, split virus, 18 Provider years or older Afluria Quad 0845-2110 Influenza, injectable, administered Note: Invalid documented admin trivalent, split virus, 4 date was . ; years and older, Fluvirin Source: Other Provider [id number] Yet to receive Flu vaccine administered Source: [...] type Covered green party ID Authorization(s) Medicare [id number] BCBS No Referral Required [id number] Social History Type Description Quantity Date Captured [...] Information Pt. not exposed to someone in prison nor traveled out of the country; no concern for TB screening. Pt. not exposed to someone in prison nor traveled out of the country; no [...] regarding symptomatic joints. call if symptoms worsen Discussed importance of holding DMARDs/ biologics if patient develops an infection and to notify the treating physician Labs ordered to check disease activity. Labs ordered to check blood counts, liver and kidney functions to monitor safety of medication. Discussed / Reviewed Labs Patient plan printed and given along with recommendations call if symptoms worsen maintain adequate water intake every day Reviewed importance of compliance/adherence to medications prescribed [...] and to notify the treating physician Stretching Risks/benefits of medications reviewed Discussed importance of holding DMARDs/ biologics if patient develops an infection and to notify the treating physician Labs ordered to check disease activity. Labs ordered to check blood counts, liver and kidney functions to monitor safety of medication. Discussed importance of holding DMARDs/ biologics if patient develops an infection and to notify the treating physician Reviewed importance of compliance/adherence to medications prescribed Avoid OTC NSAIDS Diet: avoid alcohol Avoid live vaccines Exercise [...]
--- OUTSIDE RECORDS SUMMARY | 2019-07-12 11:39 | XMS REPORT | Continuity of Care Document ---
:1945 Author Organization [facility] Address [address], [place] [id number] Phone Care Team Providers Name Role Phone [...] factor mult site w/o org/sys involv Other half-way (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 therapy Osteoporosis - Rheu arthritis w rheu factor mult site w/o org/sys involv Rheu arthritis w rheu factor mult site w/o org/sys involv Oth disrd of bone density and structure, multiple sites Other half-way (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 therapy Other terminal superintendent (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 therapy Rheu arthritis w rheu factor mult site w/o org/sys involv Oth disrd of bone density - and structure, multiple sites Rheu arthritis w rheu factor mult site w/o org/sys involv Other half-way (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 therapy Rheu arthritis w rheu factor mult site w/o org/sys involv Rheu arthritis w rheu factor mult site w/o org/sys involv Rheu arthritis w rheu factor mult site w/o org/sys involv Rheu arthritis w rheu factor mult site w/o org/sys involv Fibromyalgia Dorsalgia, unspecified Other terminal superintendent (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 therapy Oth disrd of bone density and structure, multiple sites Rheu arthritis w rheu factor mult site w/o org/sys involv Rheu arthritis w rheu factor mult site w/o org/sys involv Rheu arthritis w rheu factor mult site w/o org/sys involv Rheu arthritis w rheu factor mult site w/o org/sys involv Other terminal superintendent (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 therapy Rheu arthritis w rheu factor mult site w/o org/sys involv Rheu arthritis w rheu factor mult site w/o org/sys involv Rheu arthritis w rheu factor mult site w/o org/sys involv Rheu arthritis w rheu factor mult site w/o org/sys involv Rheu arthritis w rheu factor mult site w/o org/sys involv Unsp thoracic, thoracolum and lumbosacr intvrt disc disorder Other terminal superintendent (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 therapy Rheu arthritis w rheu factor mult site w/o org/sys involv Rheu arthritis w rheu factor mult site w/o org/sys involv Rheu arthritis w rheu factor mult site w/o org/sys involv Rheu arthritis w rheu factor mult site w/o org/sys involv Other terminal superintendent (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 therapy Oth disrd of bone density and structure, multiple sites Rheumatoid arthritis w/ rheumatoid factor of multiple sites w/o organ involvement Rheumatoid arthritis w/ rheumatoid factor of multiple sites w/o organ involvement Rheumatoid arthritis w/ rheumatoid factor of multiple sites w/o organ involvement Rheumatoid arthritis w/ rheumatoid factor of multiple sites w/o organ involvement Fibromyalgia Other half-way drug therapy Rheumatoid arthritis w/ rheumatoid factor of multiple sites w/o organ involvement Rheumatoid arthritis w/ rheumatoid factor of multiple sites w/o organ involvement Rheumatoid arthritis w/ rheumatoid factor of multiple sites w/o organ involvement Rheumatoid arthritis w/ rheumatoid factor of multiple sites w/o organ involvement Other half-way drug therapy Fibromyalgia Rheumatoid arthritis w/ rheumatoid factor of multiple sites w/o organ involvement Rheumatoid arthritis w/ rheumatoid factor of multiple sites w/o organ involvement Rheumatoid arthritis w/ rheumatoid factor of multiple sites w/o organ involvement Rheumatoid arthritis w/ rheumatoid factor of multiple sites w/o organ involvement Fibromyalgia Other terminal superintendent drug therapy Rheumatoid arthritis w/ rheumatoid factor of multiple sites w/o organ involvement Rheumatoid arthritis w/ rheumatoid factor of multiple sites w/o organ involvement Rheumatoid arthritis w/ rheumatoid factor of multiple sites w/o organ involvement Rheumatoid arthritis w/ rheumatoid factor of multiple sites w/o organ involvement Other half-way drug therapy Fibromyalgia Generalized osteoarthritis Polymyalgia rheumatica Rheumatoid arthritis w/ rheumatoid factor of multiple sites w/o organ involvement Other half-way drug therapy Other terminal superintendent drug therapy Rheumatoid arthritis w/ rheumatoid factor of multiple sites w/o organ involvement Rheumatoid arthritis w/ rheumatoid factor of multiple sites w/o organ involvement Other terminal superintendent drug therapy Fibromyalgia Rheumatoid arthritis w/ rheumatoid factor of multiple sites w/o organ involvement Other half-way drug therapy Fibromyalgia Generalized osteoarthritis Rheumatoid arthritis w/ rheumatoid factor of multiple sites w/o organ involvement Other terminal superintendent drug therapy Other specified disorder of bone density of multiple sites Rheumatoid arthritis w/ rheumatoid factor of multiple sites w/o organ involvement Other half-way drug therapy Generalized osteoarthritis Rheumatoid arthritis w/ rheumatoid factor of multiple sites w/o organ involvement Rheumatoid arthritis w/ rheumatoid factor of multiple sites w/o organ involvement Generalized osteoarthritis Other half-way drug therapy Anemia Rheumatoid arthritis w/ rheumatoid factor of multiple sites w/o organ involvement Generalized osteoarthritis Other terminal superintendent drug therapy Shortness of breath Rheumatoid arthritis w/ rheumatoid factor of multiple sites w/o organ involvement Other terminal superintendent drug therapy Anemia Generalized osteoarthritis Encounter for screening for respiratory tuberculosis Other specified abnormal findings of blood chemistry Rheumatoid arthritis w/ rheumatoid factor of multiple sites w/o organ involvement Fibromyalgia Generalized osteoarthritis Lumbosacral intervertebral disc disorder Other terminal superintendent drug therapy Pain in lt knee Shortness of breath Other specified abnormal findings of blood chemistry Rheumatoid arthritis w/ rheumatoid factor of multiple sites w/o organ involvement Other terminal superintendent drug therapy Lumbosacral intervertebral disc disorder Fibromyalgia Generalized osteoarthritis Rheumatoid arthritis w/ rheumatoid factor of multiple sites w/o organ involvement Fibromyalgia Lumbosacral intervertebral disc disorder Pain in rt hip Other terminal superintendent drug therapy Rheumatoid arthritis w/ rheumatoid factor of multiple sites w/o organ involvement Fibromyalgia Lumbosacral intervertebral disc disorder Pain in rt hip Other terminal superintendent drug therapy Rheumatoid arthritis w/ rheumatoid factor of multiple sites w/o organ involvement Other terminal superintendent drug therapy Lumbosacral intervertebral disc disorder Fibromyalgia Rheumatoid arthritis w/ rheumatoid factor of multiple sites w/o organ involvement Fibromyalgia Other half-way drug therapy Back pain Rheumatoid arthritis w/ rheumatoid factor of multiple sites w/o organ involvement Other terminal superintendent drug therapy Rheumatoid arthritis w/ rheumatoid factor of multiple sites w/o organ involvement Rheumatoid arthritis w/ rheumatoid factor of multiple sites w/o organ involvement Generalized osteoarthritis Other half-way drug therapy Rheumatoid arthritis w/ rheumatoid factor of multiple sites w/o organ involvement Other terminal superintendent drug therapy Generalized osteoarthritis Other specified abnormal findings of blood chemistry Rheumatoid arthritis w/ rheumatoid factor of multiple sites w/o organ involvement Other half-way drug therapy Generalized osteoarthritis Anemia, unspecified Rheumatoid arthritis w/ rheumatoid factor of multiple sites w/o organ involvement Generalized osteoarthritis Other terminal superintendent drug therapy Anemia, unspecified Rheumatoid arthritis, unspecified Other half-way drug therapy Generalized osteoarthritis Anemia, unspecified Rheumatoid factor positive - Active Fibromyositis - Active Mapped from [facility] Chronic Conditions table on 08/29/2014 by the ICD9 to SNOMED Bulk Mapping Utility. The mapped diagnosis code was Fibromyalgia / Myalgia, 729.1, added by Norma Craig MD, with responsible provider Norma Craig MD. Onset date 06/11/2012; last addressed on 04/18/2014. High risk drug monitoring - Active Mapped from [facility] Chronic status Conditions table on 09/15/2014 by the ICD9 to SNOMED Bulk Mapping Utility. The mapped diagnosis code was Therapeutic Drug Monitoring, V58.69, added by Claribel Aguilar NP, with responsible provider Claribel WALTER. Onset date 03/19/2012; last addressed on 04/18/2014. Polymyalgia rheumatica - Active Mapped from [facility] Chronic Conditions table on 07/15/2014 by the ICD9 to SNOMED Bulk Mapping Utility. The mapped diagnosis code was Polymyalgia rheumatica, 725, added by Claribel Aguilar NP, with responsible provider Claribel WALTER. Onset date 03/19/2012; last addressed on 02/04/2014. Rheumatoid arthritis - Active Mapped from [facility] Chronic Conditions table on 07/15/2014 by the ICD9 to SNOMED Bulk Mapping Utility. The mapped diagnosis code was Rheumatoid Arthritis, 714.0, added by Norma Craig MD, with responsible provider Norma Craig MD, MD. Onset date 01/23/2012; last addressed on 04/18/2014. Procedures Procedure Date CHEMO, IV INFUSION, 1 HR CHEMO, IV INFUSION, ADDL HR Inflectra 10 Mg Normal saline solution infus Results Test Name Date and Time Measure Units Reference Range Abnormal Flag Status Comments No information Advance Directives Directive Yes / No Effective Date File Name No information Encounters Encounter Practice Location Reason(s) Diagnoses Date Provider Providers Description For Visit Copied on Encounter Arthritis Arthritis Rheu [facility] arthritis w MD Leo. Provider: [facility] rheu factor 0 5794 Gt [facility], 5794 PLLC [facility] site w/o [facility], [address], [address] [facility] [place], involv [place], [address], [place], [place], [place], [place], [place], [id number], [address]. [id number], [place]. tel:[phone] [place] tel:[phone] tel:[phone] [facility] Norma. 5[facility] 0 [facility], 5794 PLLC [place], [facility] [place], [place], [place], [place], [id number], [place], [place]. [id number], tel:[phone] [place] [phone] tel:[phone] Arthritis Arthritis [facility] arthritis w MD Hannon. Provider: [facility] rheu factor 0 5794 [facility], 5794 PLLC [facility] w/o [facility], [address] [place] [address]/s [place], N [facility], involv [place], [address], [place], [place], [place], [place], [place], [id number], [address]. [id number], [place]. tel:[phone] [place] tel:[phone] tel:[phone] Arthritis Arthritis [facility] TERRA COTTA [place]ON C [facility] 0 Michelle Dennis PLLC, 5794 PLLC [address] [facility], [place], [place], [place], [place], [id number], [id number], [place]. tel:[phone] tel:[phone] Arthritis Arthritis Rheu Dec-3 Jaz ARAUJO [facility] arthritis w 0- Hong. Provider: Levi Sims [facility] factor 9 5794 Gt [facility], 5794 PLLC mult site w/o [facility] Amber, [address] [facility] org/sys [place], [facility], involv [place], [address], [place], [place], [place], [place], [place], [id number], [address]. [id number], [place]. tel:[phone] [place] tel:[phone] tel:[phone] Arthritis Arthritis Age-related Apr- [facility] osteoporosis [address]201 [address] [place] C Provider: Levi Sims w/o current 9 Michelle Collins PLLC, 5794 PLLC pathological 5794 Bael, [address] [facility] fractureRheu [facility], arthritis w [address], [address]ates [address], [facility] factor [place], [address], [place], [place], [facility] [place] w/[place], [address]. [id number], [facility]/s [id number], tel:[phone] [place] involvOther [place]. [id number] tel:[phone] half-way tel:[phone] ist: [phone] (current) [id number] [facility] drug therapy Lisa ARAUJO, [facility] [address] [facility], [place], [address]. tel:[phone] ing Provider: Shmuel Conner MD, [address] [facility] [address], [place], [address]. tel:[phone] Provider: Gt Clark, [address] [facility] [address], [place], [address]. tel:[phone] Arthritis Arthritis Osteoporosis Dec-0 [facility] 9-201 [place] C [facility] 9 Michelle Dennis PLLC, 5794 PLLC [address] [facility], [place], [place], [id number], [id number], [place]. tel:[phone] tel:[phone] Arthritis Arthritis [facility] arthritis w 0-201 MD Hannon. Provider: Levi Sims [facility] factor 9 5794 Gt PLL[facility], 5794 PLLC [facility] site w/o [facility], [address] [place] [address]/[facility], [facility], involv [place], [address], [place], [place], [place], [place], [place], [id number], [address]. [id number], [place]. tel:[phone] [place] tel:+ [phone] tel:[phone] Arthritis Arthritis [facility] arthritis w 4-201 MD Hannon. Provider: Levi Sims [facility] factor 9 5794 [facility], 5794 PLLC [facility] site w/o [facility], [address] [facility], N [facility], involv [place], [address], [place], [place], [place], [place], [place], [id number], [address]. [id number], [place]. tel:[phone] [place] tel:[phone] tel:[phone] Arthritis Arthritis Oth disrd of [facility] bone density 8-201 Norma. 5794 Levi Sims and [address] [place] [address] PLLC, [address] [facility], [place], [facility] multiple [place], [place], sitesOther [place], [place], half-way [id number], [place], (current) [place]. [id number], drug therapy tel:[phone] [place] [phone] tel:[phone] Arthritis Arthritis Other long Feb-0 [facility] term 4-201 TERRA [place] C Levi Sims (current) 9 Michelle Dennis PLLC, 5794 PLLC drug therapy [address] [facility], [place], [place], [id number], [id number], [place]. tel:[phone] tel:[phone] Arthritis Arthritis Rheu Sep- Lexx Referring [facility] Health arthritis w MD Hannon. Provider: Levi Sims [facility] factor 9 5794 Gt PLL[facility], 5794 PLLC [facility] site w/o [facility], [address] [facility] org/sys [place], [facility], involv [place], [address], [place], [place], [place], [place], [place], [id number], [address]. [id number], [place]. tel:[phone] [place] tel:[phone] tel:[phone] Arthritis Arthritis Oth disrd of [facility] bone density 0-201 TERRA C[place]TA [place]ON C Provider: Levi Sims [facility] Michelle Collins PLLC, 5794 PLLC structure, 5794 Bael, [address] [facility], sitesRheu [address]y, Dates [address] Al[address], arthritis w [place], [address], [place], [place], [place], [address]. [id number], [facility] site w/o [id number], tel:[phone] org/sys [place]. [address]Vcgnzvb tel:[phone] involvOther tel:[phone] ist: [phone] half-way 205710 Marietanicol (current) Lisa drug therapy , [facility] [address] [facility], [place], [address]. tel:[phone] ing Provider: Shmuel Conner MD, [address] [facility] [address], [place], [address]. tel:[phone] ng Provider: Gt Clark, [address] [facility] [address], [place], [address]. tel:[phone] Arthritis Arthritis Rheu Rafa ARAUJO Referring [facility] Health arthritis w 9 Norma. 5794 Provider: Levi Sims [facility] 9 [facility], [address] [facility] site w/o [place], Amber, [address] [facility] org/sys [place], N Triphammer [place], involv [place], [address], [place], [id number], [place], [place]. [address]. [id number], tel:[phone] tel:[phone] [place] 588155 [address]54[address] tel:[phone] Arthritis Arthritis [facility] 3 Rafa ARAUJO Referring [facility] arthritis w Norma. 5794 Provider: Levi Sims [facility] factor 9 [facility], [address] [facility] site w/o [place], Amber, 2333 [facility] org/sys [place], N [facility] [place], involv [place], [address], [place], [id number], [place], [place], [place]. [address]. [id number], tel:[phone] tel:[phone] US 005204 04144 tel:[phone] Arthritis Arthritis [facility] 0 Rafa ARAUJO Referring [facility] arthritis w 2 [facility]. 5794 Provider: Levi Sims [facility] factor 9 [facility], [address] [place] [address] site w/o [place], Amber, [address] [facility] org/sys [place], N [facility] [place], [facility] [place], [address], [place], [id number], [place], [place]. [address]. [id number], tel:[phone] tel:[phone] [place] 953791 12318 tel:[phone] Arthritis Arthritis [facility] arthritis w TERRA COTTA [place]ON C Provider: Levi Sims [facility] factor 9 Michelle Collins [facility], [address] [facility] site w/o 5793 Ba, [facility] org/sys [facility]s Mejía B [place], involvFibromy [address], Dates Dr Al[address], algiaDorsalgcorey [place], [address], [place], [place], [place], [place], [address]. [id number], unspecifiedOt [id number], tel:[phone] [place] her terminal [place]. [address]Ivgdhxo tel: (current) tel:+ ist: [phone] drug [phone] Qutaybeh therapyOth Lisa foster of bone , [facility] Cardiology structure, [address] [facility] [address], [place], [address]. tel:[phone] ing Provider: Shmuel Conner MD, [address], [place], [address]. tel:[phone] Provider: Gt Clark, [address] [facility] [address], [place], [address]. tel:[phone] Arthritis Arthritis Shubham Karl-0 Rafa ARAUJO Referring [facility] arthritis w 4- [facility]. 5794 Provider: Levi [facility] 9 [facility] Gt [facility], [address] [facility] site w/o Amber Walker, [address] [place] [address] org/sys [place], N [facility] [place], involv [place], [address], [place], [id number], [place], [place], [place]. [address]. [id number], tel:+ tel:[phone] [place] [phone] tel: [phone] Arthritis Arthritis Valentin 0 Rafa ARAUJO Referring [facility] arthritis w [facility]. 5794 Provider: Levi Sims [facility] 9 [facility] Gt [facility], [address] [facility] site w/o Amber Walker, [address] [facility] org/sys [place], N [facility] [place], involv [place], [address], [place], [id number], [place]. [address]. [id number], tel:[phone] tel:[phone] tel:[phone] Arthritis Arthritis Shubham 0 Rafa ARAUJO Referring [facility] Health arthritis w [facility]. 5794 Provider: Levi Sims [facility] 9 [facility], 5794 PLLC mult site w/o Ambre Walker, 2[address] [facility] org/sys [place], N Triphammer [place], involv [place], [address], [place], [id number], [place], [place], [place]. [address]. [id number], tel:[phone] tel:[phone] [place] 852864 82579 tel:[phone] Arthritis Arthritis Rheu Jul- [facility] arthritis w 5 TERRA C[place]TA [place]ON C Provider: Levi Sims [facility] factor 9 Michelle YanezViktoria Dennis [facility], 5[address] [facility] Hospital[facility] site w/o 5794 Bael, 201 [facility] org/sys [facility]s Mejía B [place], involvOther [address]kwy, Dates Dr Alarcon, terminal superintendent [place], [address], [place], [place], (current) [place], [address]. [id number], drug therapy [id number], tel:[phone] [place]. [address]Mrdtbjf tel:+315 tel:[phone] ist: [phone] Karen Gonzalez MD, [facility] [address] [facility]. [address], [place], [address]. tel:[phone] ing Provider: Shmuel Conner MD, [address] [facility] [address], [place], [address]. tel:[phone] ng Provider: Gt Clark, [address] [facility] [address], [place], [address]. tel:[phone] Arthritis Arthritis [facility] Jun- [facility] arthritis w MD Hannon. Provider: Levi Sims [facility] factor 9 5794 [facility], 5[address] [facility]/o [facility] Amber, [address] [facility] org/sys [place], N [facility] [place], involv [place], [address], [place], [place], [place], [place], [place], [id number], [address]. [id number], [place]. tel:[phone] [place] tel:[phone] tel:[phone] Arthritis Arthritis Shubham aRfa ARAUJO Referring [facility] arthritis w Norma. 5794 Provider: Levi davis factor 9 [facility]s Gt [facility], 5794 [facility]C [facility] w/o Amber Walker, [address] [place] org/sys [place], N Triphammer [place], involv [place], [address], [place], [id number], [place], [place]. [address]. [id number], tel:[phone] tel:[phone] [place] 455084 67995 tel:[phone] Arthritis Arthritis Valentinu Rafa ARAUJO Referring [facility] arthritis w Norma. 5794 Provider: Levi davis factor 9 [facility] Gt [facility], [facility] site w/o Amber Walker, [address] [facility]s org/sys [place], N Triphammer [place], invol [place], [address], [place], [id number], [place], [place]. [address]. [id number], tel:4 tel:[phone] [place] [phone] 16366 tel: [phone] Arthritis Arthritis [facility] Rafa ARAUJO Referring [facility] arthritis w Norma. 5794 Provider: Levi davis factor 8 [facility] Gt [facility], [facility] [facility] site w/o Amber Walker, 2[address] [facility]s org/sys [place], N [facility] [place], invol [place], [address], [place], [id number], [place]. [address]. [id number], tel:[phone] tel:[phone] [place] 104008 09746 tel:[phone] Arthritis Arthritis [facility] arthritis w TERRA COTTA MASON C Provider: Levi davis factor 8 Michelle Collins [facility], [address] [facility] site w/o 5793 Bael, 201 [facility] org/sys [facility] B [place], involvUnsp [address], Dates Dr Reji [place], thoracic, [place], [address], [place], [place], [place], [address]. [id number], and lumbosacr [id number], tel:+[phone] [place]. [address]Flydojs tel:+[phone] disorderOther tel:+ ist: [phone] terminal superintendent [id number] Karen (current) Lisa drug therapy , [facility] [address] [facility]. [address], [place], [address]. tel:[phone] [facility] Provider: Shmuel Conner MD, [address] [facility] [address], [place], [address]. tel:[phone] ng Provider: Gt Clark, [address] [facility] [address], [place], [address]. tel:[phone] Arthritis Arthritis [facility] Nov Mehreen ARAUJO Referring [facility] arthritis w 2- Chana. Provider: Levi Sims [facility] factor 8 5794 [facility], 5794 [facility] site w/o [facility] Amber, [address] [place] [address]/[facility] [place], [facility], involv [place], [address], [place], [place], [place], [place], [place], [id number], [address]. [id number], [place]. tel:+[phone] tel: [phone] tel: [phone] Arthritis Arthritis Rhe 0 Rafa ARAUJO Referring [facility] Health arthritis w 4-201 Norma. 5794 Provider: [facility] 8 [facility] Gt [facility], 5794 [facility] site w/o Amber Walker, [address] [place] [address]/[facility] [place], N [facility], involv [place], [address], [place], [id number], [place], [place], [place]. [address]. [id number], tel:+315 tel:+[phone] [place] 982323 [address]306 tel:[phone] Arthritis Arthritis Rheu Jan-0 Rafa ARAUJO Referring [facility] Health arthritis w Norma. 5794 Provider: Levi pablo factor 8 [facility] Gt PLL[facility], 5794 [facility] w/o Cornelia Walkerie, 2333 [facility] org/sys [place], N [facility], [facility], [address], [place], [id number], [place], [place], [place]. [address]. [id number], tel:+[phone] tel:[phone] [place] 507964 [address] tel:[phone] Arthritis Arthritis Rheu Dec- [facility] arthritis w 0 TERRA COTTA MASON C Provider: Levi pablo factor 8 Michelle YanezViktoria Collins PLL[facility], 5794 [facility] site w/o 57 Bael, 201 [facility] org/sys [facility] Mejía B [place], [facility] [address], Dates [address] [place], terminal superintendent [place], 102, [place], [place], (current) [place], [address]. [id number], drug [id number], tel:[phone] [place]. [address]Cajbzsh tel:+[phone] disrd of bone tel:[phone] ist: [phone] density and 740620 Qutaybeh structure, Lisa diaz MD, [facility] Cardiology [address] [facility]. [address], [place], [address]. tel:[phone] ing Provider: Shmuel Conner MD, [address] [facility] [address], [place], [address]. tel:[phone] ng Provider: Gt Clark, [address] [facility] [address], [place], [address]. tel:[phone] Arthritis Arthritis Rheumatoid Dec- Jaz ARAUJO Referring [facility] arthritis w Hong. Provider: Levi Sims [facility] 8 5794 Gt PLLC, 5794 PLLC factor of [facility] Amber, [address] [facility], N [facility], sites w/o [place], [address], [place], organ [place], [place], [place], [place], involvement [id number], [address]. [id number], [place]. tel:+[phone] US tel:[phone] tel:[phone] Arthritis Arthritis Rheumatoid Nov- Rafa ARAUJO Referring [facility] arthritis w/ 0- Norma. 5794 Provider: Levi Sims [facility] 8 [facility] Gt PLLC, 5794 PLLC factor of [facility], 2333 [facility] multiple [place], N [facility], sites w/o [place], [address], [place], organ [id number], [place], [place], [place]. [address]. [id number], tel:+[phone] tel:+[phone] US 981363 15980 tel:[phone] Arthritis Arthritis Rheumatoid Rafa ARAUJO Referring [facility] arthritis w/ 2- Norma. 5794 Provider: Levi Sims [facility] 8 [facility] Gt PLLC, 5794 PLLC factor of [place], 2333 [facility] multiple [place], N [facility], sites w/o [place], [address], [place], organ [id number], [place], [place], [place]. [address]. [id number], tel:+[phone] tel:+[phone] US 460426 30994 tel:[phone] Arthritis Arthritis Rheumatoid September- [facility] arthritis w TERRA COTTA MASON C Provider: Levi Sims rheumatoid 8 Michelle Collins PLLC, 5794 PLLC factor of 5794 Bael, 201 [facility] Mejía B [place], sites w/o Pkwy, Dates Dr Alar[place], organ [place], 102, [place], [place], [place], [address]. [id number], bromyalgiaOth [id number], tel:[phone] [place]. [address]Amneiof tel:+[phone] drug therapy tel:+[phone] ist: [phone] Karen Gonzalez MD, [facility] [address] [facility]. [address], [place], [address]. tel:[phone] ing Provider: Shmuel Conner MD, [address] [facility] [address], [place], [address]. tel:[phone] Provider: Gt Clark, [address] [facility] [address], [place], [address]. tel:[phone] Arthritis Arthritis Rheumatoid Rafa ARAUJO Referring Health Health arthritis Norma. 5794 Provider: Levi Sims [facility] 8 [facility] Gt PLLC, 5794 PLLC factor of [facility], [address] [place] [address], N [facility], sites w/o [place], [address], [place], organ [id number], [place], [place], [place]. [address]. [id number], tel:+[phone] tel:[phone] US 330488 04527 tel:[phone] Arthritis Arthritis Rheumatoid Jaz ARAUJO Referring Health Health arthritis Hong. Provider: Levi Sims [facility] 8 5794 Gt PLLC, 5794 PLLC factor of [facility], [address] [place] [address], N [facility], sites w/o [place], [address], [place], organ [place], [place], [place], involvement [id number], [address]. [id number], [place]. tel:+[phone] US tel:[phone] tel:[phone] Arthritis Arthritis Rheumatoid Lexx Referring Health Health arthritis MD Hannon. Provider: Levi whitlock 8 5794 Gt PLLC, 5794 PLLC factor of [facility], [address] [place] [address], N [facility], sites w/o [place], [address], [place], organ [place], [place], [place], involvement [id number], [address]. [id number], [place]. tel:[phone] [place] tel:[phone] tel: [phone] Arthritis Arthritis Rheumatoid Ham Consulting Health Health arthritis TERRA COTTA MASON C Provider: Levi Sims rheumatoid 8 Michelle Jeannie Collins PLLC, 5794 PLLC factor of 5794 Bael, 201 [facility], sites w/o Pkwy, Dates [address] [place], organ [place], 102, [place], [place], [place], [address]. [id number], her half-way [id number], tel:+[phone] [place]. [address]Xhpvcta tel: therapyFibrom tel: ist: [phone] yalgia [phone] Karen Gonzalez MD, [facility] [address] [facility]. [address], [place], [address]. tel:[phone] ng Provider: Gt Clark, [facility] [address], [place], [address]. tel:[phone] Arthritis Arthritis Rheumatoid Mehreen ARAUJO Referring [facility] arthritis Robert. Provider: Levi Sims rheumatoid 8 5794 Gt PLLC, 5794 PLLC factor of [facility], [address] [facility], N [facility], sites w/o [place], [address], [place], organ [place], [place], [place], [place], [place] [id number], [address]. [id number], [place]. tel:+[phone] US tel:[phone] tel:[phone] Arthritis Arthritis Rheumatoid Rafa ARAUJO Referring [facility] Health arthritis Norma. 5794 Provider: Levi Sims rheumatoid 8 [facility] Gt PLLC, 5794 PLLC factor of Aaron Amber, 2333 [facility], [address] [facility], sites w/o [place], [address], [place], organ [id number], [place], [place], [place], [place]. [address]. [id number], tel:+ tel:+[phone] US 436124 61704 tel:[phone] Arthritis Arthritis Rheumatoid Can Referring [facility] arthritis MD Hannon. Provider: Levi Sims rheumatoid 7 5794 Gt PLLC, 5794 PLLC factor of [facility] Amber, [address] [facility], [facility], [facility] w/o [place], [address], [place], organ [place], [place], [place], [place] [id number], [address]. [id number], [place]. tel:+[phone] US tel:+ [phone] tel:[phone] Arthritis Arthritis Rheumatoid [facility] arthritis TERRA COTTA [place]ON C Provider: [facility] rheumatoid 7 Michelle Collins PLLC, 5794 PLLC factor of 5794 Ba, 201 [facility], [facility] w/o Pkwy, Dates [address] [place], organ [place], 102, [place], [place], [place], [address]. [id number], bromyalgiaOth [id number], tel:+[phone] [place] terminal [place]. [address]Mssdfau tel:+[phone] drug tel:+ ist: [phone] therapyBody 916592 Qutaybeh mass index Lisa (BMI) , [facility] 37.0-37.9, Cardiology adult [address] [facility]. [address], [place], [address]. tel:[phone] ng Provider: Gt Clark, [address] [facility] [address], [place], [address]. tel:[phone] Arthritis Arthritis Rheumatoid Rafa ARAUJO [facility] arthritis Norma. 5794 Provider: Levi Sims rheumatoid 7 [facility] Gt PLLC, 5794 PLLC factor of Amber Walker, 2333 [facility], [address] [facility], sites w/o [place], [address], [place], organ [id number], [place], [place], [place]. [address]. [id number], tel: tel: [place] [phone] [phone] tel: [phone] Arthritis Arthritis Rheumatoid Rafa ARAUJO Referring [facility] arthritis w Norma. 5794 Provider: Levi [facility] 7 [facility], 5794 PLLC factor of [facility], 2333 [facility] [place], [facility], sites w/o [place], [address], [place], organ [id number], [place], [place], [place]. [address]. [id number], tel: tel:[phone] [place] [phone] 42075 tel: [phone] Arthritis Arthritis Rheumatoid Rafa ARAUJO Referring [facility] arthritis w Norma. 5794 Provider: Levi [address] PLLC, 5794 PLLC factor of [facility], Counts include 234 beds at the [facility]3 [facility] [place], [facility], sites w/o [place], [address], [place], organ [id number], [place], [place], [place]. [address]. [id number], tel: tel:[phone] US 181468 34923 tel: [phone] Arthritis Arthritis Rheumatoid [facility] arthritis w TERRA COTTA MASON C Provider: Levi Sims [facility] 7 Michelle Collins PLLC, 5794 PLLC factor of 5794 Bael, 201 [facility] Mejía B [place], [facility] w/o Pkwy, Dates [address], organ [place], 102, [place], [place], [place], [address]. 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 [address]Rtftlro tel: therapyFibrom tel: ist: [phone] yalgiaGeneral [id number] Karen Gonzalez osteoarthriti , [facility] sPolymyalgia Cardiology rheumaticaBod 310 y mass index [place] (BMI) [facility]. [address]9, [address], [place], [place], [address]. tel:[phone] ng Provider: Gt Clark, [address], [place], [address]. tel:[phone] Arthritis Arthritis Rheumatoid Dec- [facility] arthritis w/ TERRA COTTA MASON C Provider: Levi Sims rheumatoid 7 Michelle YanezViktoria Norma Craig PLLC, 5794 PLLC factor of 5794 MD, 5794 [facility], sites w/o Pkwy, [place], [place], organ [place], [place], [place], [id number], her half-way [id number], [id number]. [place] drug therapy [place]. tel: tel: tel: [phone] Arthritis Arthritis Other long [facility] term drug 0- TERRA COTTA MASON C Levi Sims therapyRheuma 7 Michelle YanezViktoria PLLC, 5794 PLLC toid 5794 [facility] arthritis w/ [facility], rheumatoid [address]kwy, [place], factor of [place], [place], [id number], sites w/o [id number], [place] organ [place]. tel: involvement tel: [phone] Arthritis Arthritis Rheumatoid [facility] arthritis w/ TERRA COTTA MASON C Provider: Levi Sims rheumatoid 7 Michelle YanezViktoria Collins PLLC, 5794 PLLC factor of 5794 Bael, 201 [facility] Mejía B [place], sites w/o Pkwy, Dates Dr [place], organ [place], 102, [place], [place], [place], [address]. [id number], her half-way [id number], tel:[phone] [place]. [address]Dozinid tel: therapyFibrom tel: ist: [phone] yalgiaBody 622986 Qutaybeh mass index Lisa (BMI) Ryan ARAUJO 37.0-37.9, Cardiology adult [address] [facility]. [address], [place], [address]. tel:[phone] ng Provider: Gt Clark, [address] [facility] [address], [place], [address]. tel:[phone] Arthritis Arthritis Rheumatoid Justus [facility] arthritis WILLIAM Provider: Associates Levi rheumatoid 7 Shayan. Dennis PLLC, 5794 PLLC factor of 5794 Ba, 201 [facility], sites w/o [place], Dates [address] [place], organ [place], 102, [place], [place], [place], [address]. [id number], her half-way [id number], tel:[phone] [place] drug [place]. [address]Bowenjd tel:[phone] therapyFibrom tel:[phone] ist: [phone] yalgiaGeneral 223954 Qutaybeh ized Lisa osteoarthriti Priyanka ARAUJOuga s Cardiology [address] [facility]. [address], [place], [address]. tel:[phone] ng Provider: Gt Clark, [address] [facility] [address], [place], [address]. tel:[phone] Arthritis Arthritis Rheumatoid [facility] arthritis WILLIAM Carcamo. Provider: Levi Sims rheumatoid 7 5794 Dennis PLLC, 5794 PLLC factor of [address], sites w/o [place], [address]ates [address] [place], organ [place], 102, [place], [place], [place] [id number], [place], [address]. [id number], her half-way [place]. tel:[phone] [place] drug tel:[phone] tel:[phone] therapyOther 044508 ist: [phone] specified Qutaybtung disorder of Lisa bone density Ryan ARAUJO of multiple Cardiology sites [address] [facility]. [address], [place], [address]. tel:[phone] ng Provider: Gt Clark, Josephine3 [address] [facility] [address], [place], [address]. tel:[phone] Arthritis Arthritis Rheumatoid Apr- Maame [facility] arthritis w PA-C Provider: Levi Sims rheumatoid 7 Shayan. Dennis PLLC, 5794 PLLC factor of 5794 Ba, 201 [facility], sites w/o [place], Dates [address] [place], organ [place], 102, [place], [place], [place], [address]. 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 [address]Olvdijf tel:[phone] therapyGenera tel:[phone] ng Provider: [id number] lized 087504 Gt osteoarthriti Amber, [address] [facility] [address], [place], [address]. tel:[phone] Arthritis Arthritis Rheumatoid Jul- Rafa ARAUJO Referring [facility] arthritis Norma. 5794 Provider: Levi Sims [facility] 7 [facility] Gt PLLC, 5794 PLLC factor of Aaron Amber, 2333 [facility], [facility], sites w/o [place], [address], [place], organ [id number], [place], [place], [place], [place]. [address]. [id number], tel:+[phone] tel:[phone] [place] 445297 [address]24 tel:[phone] Arthritis Arthritis Rheumatoid Fe- [facility] arthritis Provider: Levi Sims rheumatoid 7 Dennis PLLC, 5794 PLLC factor of [facility], 201 [facility], sites w/o Dates [address] [place], organ 102, [place], [place], [place], [address]. [id number], neralized tel:[phone] [place] osteoarthriti 42223Slblmpn tel:[phone] Ezra lutz Provider: [id number] term drug Gt therapyAnemia Amber, [address], [place], [address]. tel:[phone] Arthritis Arthritis Rheumatoid May- Consulting [facility] Health arthritis Provider: Levi Sims rheumatoid 7 Dennis PLLC, 5794 PLLC factor of Ba, 201 [facility], sites w/o Dates [address] [place], organ 102, [place], [place], [place], [address]. [id number], neralized tel:[phone] osteoarthriti 80385Zkqijao tel:[phone] Ezra lutz Provider: [id number] term drug Gt therapyShortn Amber, 2333 ess of breath [address], [place], [address]. tel:[phone] Arthritis Arthritis Rheumatoid Rfaa ARAUJO [facility] arthritis Norma. 5794 Provider: Levi Sims rheumatoid 6 [facility] Dennis PLLC, 5794 PLLC factor of [facility], [address] [place] [address], sites w/o [place], [address]ates [address] [place], organ [id number], 102, [place], [place], [place], [address]. [id number], her half-way tel:[phone] tel:[phone] [place] drug 788165 74464Vlhjqtb tel:[phone] therapyAnemia ng Provider: [id number] Gt Clark, [address], [place], [address]. tel:[phone] Arthritis Arthritis Generalized [facility] Health osteoarthriti [facility] 6 PLLC, 5794 PLLC [place], [place], [id number], [place] tel:[phone] Arthritis Arthritis Encounter for Health Health screening for [facility] respiratory 6 PLLC, 5794 PLLC tuberculosis [place], [place], [id number], [place] tel:[phone] Arthritis Arthritis Other Health Health specified [facility] abnormal 6 PLLC, 5794 PLLC findings of [facility] chemistry [place], [place], [id number], [place] tel:[phone] Arthritis Arthritis Rheumatoid Consulting [facility] Health arthritis Provider: Levi Sims rheumatoid 6 Qutaybeh PLLC, 5794 PLLC factor of Jonesvesta diaz MD, [facility], sites w/o Cardiology [place], organ 310 [place], involvementFi [facility] [id number], bromyalgiaGen [address] eralized [address], [place], tel:[phone] [place], [address]. 714604 sLumbosacral tel:[phone] intervertebra 46363Ulpoxfo l disc ng Provider: Jama Del Real half-way Amber, [address] drug [address] therapyPain [address], in lt [place], [place], kneeShortness [address]. 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, [place], tel:[phone] [place], [address]. [address]342 acral tel:[phone] intervertebra 26571Lzwsdrr l disc ng Provider: Rolanda Del Real myalgiaGenera Amber [address] l[address] osteoarthriti [address], [place], [address]. tel:[phone] Arthritis Arthritis Rheumatoid [facility] arthritis w Provider: Levi Sims rheumatoid 6 Qutaybeh PLLC, 5794 PLLC factor of Lisa diaz MD, [facility], sites w/o Cardiology [place], organ 310 [place], involvementFi [place] [id number], bromy[address] [place] bosacral 4, [place], tel:[phone] [place], [address]. [id number] l disc tel:[phone] disorderPain 31986Hltewrh in rt ing hipOther long Provider: term drug Dennis therapy Kaial, [address], [place], [address]. tel:[phone] bolivar Provider: Gt Clark, [address], [place], [address]. tel:[phone] Arthritis Arthritis Rheumatoid [facility] arthritis Provider: Levi Sims rheumatoid 6 Qutaybeh PLLC, 5794 PLLC factor of Lisa diaz MD, [facility], sites w/o Cardiology [place], organ 310 [place], involvementFi [facility] [id number], bromyalgia[address]um [address] [place] bosacral [address], [place], tel:[phone] [place], [address]. 95[address] l disc tel:[phone] disorderPain 48140Erehyfx in rt ing hipOther long Provider: term drug Dennis therapy Kaila, [address], [place], [address]. tel:[phone] bolivar Provider: Gt Clark, [address] N [facility] [address], [place], [address]. 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, [place], tel:[phone] [place], [address]. 2632[address] acral tel:[phone] intervertebra 11778Bcqiajs l disc ing disorderFibro Provider: myalgia Dennis Kaila, [address], [place], [address]. tel:[phone] ng Provider: Gt Clark, [address], [place], [address]. tel:[phone] Arthritis Arthritis Rheumatoid Karl- [facility] arthritis w/ 0- Provider: Levi whitlock 6 Qutaybeh PLLC, 5794 PLLC factor of Lisa diaz MD, [facility], sites w/o Cardiology [place], organ 310 [place], involvementFi [facility] [id number], bromyalgiaOth [address] Suite er terminal superintendent 4, [place], tel:[phone] [place], [address]. 299217 therapyBack tel:[phone] pain 00639Jhnnelb ing Provider: Dennis Bright, [address], [place], [address]. tel:[phone] lutz Provider: Gt Clark, [address], [place], [address]. tel:[phone] Arthritis Arthritis Rheumatoid September- [place] [facility] arthritis w PA-C Provider: Levi Negronher MatthewsViktoria Qutaybeh PLLC, 5794 PLLC factor of 5794 [facility] emily Dominique MD, [facility], sites w/o [place], Cardiology [place], organ [place], 310 [place], [place], [facility] [id number], her terminal superintendent [id number], Blvd. Suite drug therapy [place]. 4, [place], tel:[phone] tel:[phone] [place], [address]. [id number] tel:[phone] ing Provider: Dennis Bright, [address], [place], [address]. tel:[phone] ng Provider: Gt Clark, [address], [place], [address]. tel:[phone] Arthritis Arthritis Rheumatoid Aug-2 [facility] arthritis w/ Provider: Associates [facility] rheumatoid 6 Qutaybeh PLLC, 5794 PLLC factor of Lisa diaz MD, [facility], sites w/o Cardiology [place], organ 310 [place], involvement [facility] [id number], [address]vd. [address] [place] [address], [place], tel:[phone] [place], [address]. [address]37[address] tel:[phone] ing Provider: [address], [place], [address]. tel:[phone] bolivar Provider: Gt Clark, [address], [place], [address]. tel:[phone] Arthritis Arthritis Rheumatoid Jul- [facility] arthritis Provider: Levi Burns Qutaybeh PLLC, 5794 PLLC factor of Lisa diaz MD, [facility], sites w/o Cardiology [place], organ 310 [place], involvement[place] [id number], neralized Blvd. Suite osteoarthriti , [place], tel:[phone] [place], [address]. 522292 term drug tel:[phone] therapy 83386Xuwtwhy ing Provider: [address], [place], [address]. tel:[phone] bolivar Provider: Gt Clark, [address], [place] [place], [address]. tel:[phone] Arthritis Arthritis Rheumatoid [facility] arthritis Provider: Levi Sims rheumatoid 6 [facility], [facility] factor of Lisa diaz MD, [facility], sites w/o Cardiology [place], organ [address] [place], involvementOt [facility] [id number], her [address], [place], tel:[phone] [place], [address]. [address] lized tel:[phone] osteoarthriti [phone] s ing Provider: [address], [place], [address]. tel:[phone] bolivar Provider: Gt Clark, [address], [place], [address]. tel:[phone] Arthritis Arthritis Other [facility] specified armando [facility] abnormal 6 5794 PLLC, 5794 PLLC findings of [facility] blood [place], [place], chemistry [place], [place], [id number], [id number], [place]. [place] tel:[phone] tel:[phone] Arthritis Arthritis Rheumatoid [facility] arthritis w Provider: Levi Sims rheumatoid 6 [facility], 5794 [facility]C factor of Lisa diaz MD, [facility], sites w/o Cardiology [place], organ [address] [place], involvementOt Nat [id number], her [address] [place], tel:[phone] [place], [address]. [address] lized tel:[phone] osteoarthriti [phone] sAnemia, ing unspecified Provider: Dennis Bright, [address], [place], [address]. tel:[phone] bolivar Provider: Gt Clark, [address], [place], [address]. tel:[phone] Arthritis Arthritis Rheumatoid [facility] arthritis Provider: Levi Sims rheumatoid 5 [facility], 5794 [facility]C factor of Lisa diaz MD, [facility], sites w/o Cardiology [place], organ [address] [place], involvementGe Nat [id number], n[address] osteoarthriti , [place], tel:[phone] [place], [address]. [address]246 term drug tel:[phone] therapyAnemia 933[address]Lbcmiie , unspecified ing Provider: Dennis Bright, [address], [place], [address]. tel:[phone] ng Provider: Gt Clark [address], [place], [address]. tel:[phone] Arthritis Arthritis Rheumatoid [facility] arthritis, Provider: Levi Sims unspecifiedOt 5 [facility], 5794 PLLC her half-way Lisa balbuena MD, [facility], [facility] Cardiology [place], [facility] [address] [place], osteoarthriti [facility] [id number], sAnemia, [address]vd[address] [place] unspecified 4, [place], tel:[phone] [place], [address]. [id number] tel:[phone] ing Provider: Dennis Bright, [address], [place], [address]. tel:[phone] bolivar Provider: Gt Clark [address], [place], [address]. tel:[phone] [facility] WILLIAM Carcamo. Provider: Levi Sims 5 5794 [facility], 5794 PLLC Catina Walker MD, [facility], [place], Cardiology [place], [place], [address] [place], [id number], [facility] [id number], [place]. [address] [place] tel:[phone] 4, [place], tel:[phone] [place], [address]. [address] tel:[phone] ing Provider: Dennis Bright, [address], [place], [address]. tel:[phone] ng Provider: Gt Clark [address], [place], [address]. tel:[phone] Arthritis Arthritis [facility] Provider: Levi Sims 5 [facility], 5794 PLLC Lisa Dominique MD, [facility], Cardiology [place], [address] [place], [facility] [id number], [address] [place] [address], [place], tel:[phone] [place], [address]. [address] tel:[phone] ing Provider: Dennis Bright, [address], [place], [address]. tel:[phone] ng Provider: Gt Clark, [address] [facility] [address], [place], [address]. tel:[phone] Arthritis Arthritis [facility] Health Provider: Associates Levi 4 Karen [facility], 5794 PLLC Lisa Dominique MD, [facility], [address] [place], [facility] [id number], [address] [place] [address], [place], tel:[phone] [place], [address]. [address] tel:[phone] ing Provider: Dennis Bright, [address], [place], [address]. tel:[phone] Provider: Gt Clark, [address], [place], [address]. tel:[phone] Arthritis Arthritis [facility] Provider: Levi Sims 4 [facility], 5794 PLLC Amber, [address] [facility] [place], [address], [place], [place], [address]. [id number], tel:[phone] tel:[phone] Arthritis Arthritis [facility] Provider: Associates Levi 3 Gt ASKEWC, 5794 PLLC Amber, [address] [facility] [place], [address], [place], [place], [address]. [id number], tel:[phone] tel:[phone] Arthritis Arthritis [facility] TERRA COTTA MASON-C Provider: Associates Levi 3 Alicia. 310 Gt [facility], 5794 PLLC S Gibsonprakash Clark, [address] [facility], [address] [place], [place], [address], [place], [place], [place], [place], [place], [id number], [address]. [id number], [place]. tel:[phone] [place] tel:[phone] tel:[phone] Arthritis Arthritis Sep- Referring [facility] Health 7 Provider: Associates Levi 3 Gt ASKEWC, 5794 PLLC Amber, [address] [facility] [place], [address], [place], [place], [place], [address]. [id number], tel:[phone] [place] [phone] tel:[phone] Arthritis Arthritis Dec- [facility] Health 6 Provider: Levi Sims 3 Gt ASKEWC, 5794 PLLC Amber, [address] [place], [address], [place], [place], [place], [address]. [id number], tel:[phone] [place] [address] tel:[phone] Arthritis Arthritis Jul-0 [facility] Health Provider: Levi Sims 3 Gt ASKEWC, 5794 PLLC Amber, [address] [place], [address], [place], [place], [place], [address]. [id number], tel:[phone] [place] [address] tel:[phone] Arthritis Arthritis Mar- [facility] Health Provider: Levi Sims 2 Gt ASKEWC, 5794 PLLC Amber, [address] [facility] [place], [address], [place], [place], [place], [address]. [id number], tel:[phone] [place] [phone] tel:[phone] Arthritis Arthritis Wade Referring [facility] Health WILLIAM Carcamo. Provider: Levi Sims 2 [facility], 5794 PLLC [facility] Amber, [address] [place], [address] [place], [place], [address], [place], [place], [place], [place], [id number], [address]. [id number], [place]. tel:[phone] tel:[phone] tel:[phone] Arthritis Arthritis [facility] Provider: Associates Associates 1 Gt BURROWS, 5794 PLLC Amber, [address] [facility] [facility] [place], [address], [place], [place], [address]. [id number], tel:[phone] tel:[phone] Arthritis Arthritis [facility] Provider: Associates Associates 1 Gt ASKEWC, 5794 PLLC Amber, [address] [facility] [facility] [place], [address], [place], [place], [place], [address]. [id number], tel:[phone] tel:[phone] Family History Family Member Diagnosis Age At Onset Paternal grandmother Rheumatoid arthritis Immunizations Vaccine Date Status Comments Influenza, injectable, MDCK, administered Note: approx. ; Source : Other Flucelvax Quad 2017-2018Y Provider Influenza, injectable, administered Note: approx. ; Source: Other quadrivalent, split virus, 18 Provider years or older Afluria Quad [id number] Influenza, injectable, administered Note: Invalid documented admin trivalent, split virus, 4 date was . ; years and older, Fluvirin Source: Other Provider [id number] Yet to receive Flu vaccine administered Source: [...] (PPV23) Payers Payer name Insurance type Covered democrat ID Authorization(s) Medicare MB [id number] BC No Referral Required [id number] Social History Type Description Quantity Date Captured Comments Alcohol Use Details Unknown Caffeine Use Details Unknown Tobacco Use Status Unknown Smoking Status Unknown Sex Female Vital Signs Date / Height Weight BMI Pulse Blood Temperature Respiratory Body Head BMI Pulse Inhaled Time: Rate Pressure Rate Surface Circumference percentile Ox Ox Area 235.00 72 140/80 97.50 F 18 /min lbs /min mm[Hg] 10:27 AM 130/86 -2020 mm[Hg] 12:36 PM Chief Complaint And Reason For Visit No [...] Information Pt. not exposed to someone in long-term nor traveled out of the country; no concern for TB screening. Pt. not exposed to someone in long-term nor traveled out of the country; no [...]
--- OUTSIDE RECORDS SUMMARY | 2019-07-12 11:39 | XMS REPORT | Continuity of Care Document ---
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 Rheu arthritis w rheu [...] w/o org/sys involv Fibromyalgia Dorsalgia, unspecified 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 Oth disrd of bone [...] thoracolum and lumbosacr intvrt disc disorder 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 Rheu arthritis w rheu factor mult site w/o org/sys involv Rheu arthritis w rheu factor mult site w/o org/sys involv Rheu arthritis w rheu factor mult site w/o org/sys involv Rheu arthritis w rheu factor mult site w/o org/sys involv Other half-way (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 therapy Oth disrd of bone density and structure, multiple sites Rheumatoid arthritis w/ rheumatoid factor of multiple sites w/o organ involvement Rheumatoid arthritis w/ rheumatoid factor of multiple sites w/o organ involvement Rheumatoid arthritis w/ rheumatoid factor of multiple sites w/o organ involvement Rheumatoid arthritis w/ rheumatoid factor of multiple sites w/o organ involvement Fibromyalgia 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 Rheumatoid arthritis w/ rheumatoid factor [...] multiple sites w/o organ involvement Fibromyalgia 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 Rheumatoid arthritis w/ rheumatoid factor of multiple sites w/o organ involvement Rheumatoid arthritis w/ rheumatoid factor of multiple sites w/o organ involvement Rheumatoid arthritis w/ rheumatoid factor of multiple sites w/o organ involvement Rheumatoid arthritis w/ rheumatoid factor of multiple sites w/o organ involvement 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 Fibromyalgia Generalized osteoarthritis Polymyalgia rheumatica Rheumatoid arthritis w/ rheumatoid factor of multiple sites w/o organ involvement 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 Rheumatoid arthritis w/ rheumatoid factor of multiple sites w/o organ involvement Rheumatoid arthritis w/ rheumatoid factor of multiple sites w/o organ involvement 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 Fibromyalgia Rheumatoid arthritis w/ rheumatoid factor of multiple sites w/o organ involvement 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 Fibromyalgia Generalized osteoarthritis Rheumatoid arthritis w/ rheumatoid factor of multiple sites w/o organ involvement 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 Other specified disorder of bone [...] sites w/o organ involvement Generalized osteoarthritis 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 Shortness of breath Rheumatoid arthritis w/ rheumatoid factor of multiple sites w/o organ involvement Other half-way drug therapy Anemia Generalized osteoarthritis Encounter for screening for respiratory tuberculosis Other specified abnormal findings of blood chemistry Rheumatoid arthritis w/ rheumatoid factor of multiple sites w/o organ involvement Fibromyalgia Generalized osteoarthritis Lumbosacral intervertebral disc disorder 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 Pain in lt knee Shortness of breath Other specified abnormal findings of blood chemistry Rheumatoid arthritis w/ rheumatoid factor of multiple sites w/o organ involvement Other half-way drug therapy Lumbosacral intervertebral disc disorder Fibromyalgia Generalized osteoarthritis Rheumatoid arthritis w/ rheumatoid factor of multiple sites w/o organ involvement Fibromyalgia Lumbosacral intervertebral disc disorder Pain in rt hip Other half-way drug therapy Rheumatoid arthritis w/ rheumatoid factor of multiple sites w/o organ involvement Fibromyalgia Lumbosacral intervertebral disc disorder Pain in rt hip 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 Rheumatoid arthritis w/ rheumatoid factor of multiple sites w/o organ involvement Other half-way drug therapy Lumbosacral intervertebral disc disorder Fibromyalgia Rheumatoid arthritis w/ rheumatoid factor of multiple sites w/o organ involvement Fibromyalgia Other half-way drug therapy Back pain Rheumatoid arthritis w/ rheumatoid factor of multiple sites w/o organ involvement 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 Rheumatoid arthritis w/ rheumatoid factor of multiple sites w/o organ involvement Rheumatoid arthritis w/ rheumatoid factor of multiple sites w/o organ involvement Generalized osteoarthritis 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 Rheumatoid arthritis w/ rheumatoid factor of multiple sites w/o organ involvement 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 Generalized osteoarthritis Other specified abnormal findings of blood chemistry Rheumatoid arthritis w/ rheumatoid factor of multiple sites w/o organ involvement Other half-way drug therapy Generalized osteoarthritis Anemia, unspecified Rheumatoid arthritis w/ rheumatoid factor of multiple sites w/o organ involvement Generalized osteoarthritis Other half-way drug therapy Anemia, unspecified Rheumatoid arthritis, unspecified 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 The mapped diagnosis code was Fibromyalgia / Myalgia, 729.1, added by Norma Craig MD, with responsible provider Norma Craig MD. Onset date 06/11/2012; last addressed on 04/18/2014. High risk drug monitoring - Active Mapped from [facility] Chronic status Conditions table on 09/15/2014 by the ICD9 to SNOMED Bulk Mapping Utility. The mapped diagnosis code was Therapeutic Drug Monitoring, V58.69, added by Claribel Aguilar NP, with responsible provider Claribel WALTER. Onset date 03/19/2012; last addressed on 04/18/2014. Polymyalgia rheumatica - Active Mapped from [facility] Chronic Conditions table on 07/15/2014 by the ICD9 to SNOMED Bulk Mapping Utility. The mapped diagnosis code was Polymyalgia rheumatica, 725, added by Claribel Aguilar NP, with responsible provider Claribel WALTER. Onset date 03/19/2012; last addressed on 02/04/2014. Rheumatoid arthritis - Active Mapped from [facility] Chronic Conditions table on 07/15/2014 by the [...] For Visit Copied on Encounter Arthritis Arthritis [facility] BOWLING BALL MARKER C [facility] 0 [facility], 5794 PLLC [address] [facility], [place], [place], [id number], [id number], [place]. tel:[phone] tel:[phone] Arthritis Arthritis Rafa [facility] Norma. 5794 Associates [facility] 0 [facility] PLL[facility], 5794 PLLC [place], [facility] [place], [place], [place], [id number], [place], [place]. [id number], tel:[phone] [place] [phone] tel:[phone] Arthritis Arthritis Rheu [facility] arthritis w MD Hannon. Provider: [facility] Associates rheu factor 0 5794 Gt PLLC, 5794 PLLC [facility] site w/o [facility], [address] [facility]/sys [place], N [facility] [place], involv [place], [address], [place], [place], [place], [place], [id number], [address]. [id number], [place]. tel:[phone] [place] tel:[phone] tel:[phone] Arthritis Arthritis [facility] C [facility] 0 Michelle [facility], 5794 PLLC [address] [facility], [place], [place], [id number], [id number], [place]. tel:[phone] tel:[phone] Arthritis Arthritis Rheu Jaz ARAUJO [facility] arthritis w 0 Hong. Provider: [facility] Associates rheu factor 9 5794 Gt PLLC, 5794 PLLC [facility] site w/o [facility], [address] [facility]/s [place], N [facility] [place], involv [place], [address], [place], [place], [place], [place], [id number], [address]. [id number], [place]. tel:+[phone] [place] tel:[phone] tel:[phone] Arthritis Arthritis [facility] osteoporosis 6- BOWLING BALL MARKER C Provider: Levi Sims w/o current 9 Michelle Jeannie Dennis PLLC, 5794 PLLC pathological [address], [address] [facility] fractureRheu [facility] [place], arthritis w [address]kw[address], Dates Dr Alarcon, [facility] factor [place], [address], [place], [place], mult site w/[place], [address]. [id number], org/[employer] [id number], tel:[phone] [place] involvOther [place]. [address]Tvuuzoj tel:+[phone] half-way tel:[phone] ist: [phone] (current) [id number] [facility] drug therapy Lisa ARAUJO, [facility] [address] [facility], [place], [address]. tel:[phone] ing Provider: Shmuel Conner MD, [address] [facility] [address], [place], [address]. tel:[phone] Provider: Josephine Henriquez3 N [facility] [address], [place], [address]. tel:[phone] Arthritis Arthritis Osteoporosis [facility] BOWLING BALL MARKER C [facility] 9 Michelle [facility], 5794 PLLC [address] [facility], [address], [place], [place], [place], [id number], [id number], [place]. tel:[phone] tel:[phone] Arthritis Arthritis [facility] Mar- [facility] arthritis w 0- MD Hannon. Provider: Levi Sims [facility] factor 9 5794 Gt PLLC, 5794 PLLC mult site w/o [facility] Amber, [address] [facility]/sys [place], [facility], involv [place], [address], [place], [place], [place], [place], [id number], [address]. [id number], [place]. tel:+[phone] [place] tel:[phone] tel:[phone] Arthritis Arthritis Rheu Feb- [facility] arthritis w 4-201 MD Hannon. Provider: Levi Sims [facility] factor 9 5794 Gt PLLC, 5794 PLLC [facility] site w/o [facility], [address] [place] [address]/[facility], N [facility], involv [place], [address], [place], [place], [place], [place], [id number], [address]. [id number], [place]. tel:+[phone] [place] tel:[phone] tel:[phone] Arthritis Arthritis Oth disrd of Rafa [facility] bone density 8-201 Norma. 5794 Associates Associates and 9 [facility] PLLC, 5794 PLLC structure, [place], [facility] multiple [place], [place], sitesOther [place], [place], half-way [id number], [place], (current) [place]. [id number], drug therapy tel:[phone] [place] [phone] tel:[phone] Arthritis Arthritis Other long Feb-0 [facility] term 4-201 BOWLING BALL MARKER C Levi Sims (current) 9 Michelle Dennis PLLC, 5794 PLLC drug therapy [address] [facility], [address], [place], [place], [id number], [id number], [place]. tel:[phone] tel:[phone] Arthritis Arthritis Rheu Jan- [facility] arthritis w 6-201 MD Hannon. Provider: Levi Sims rheu factor 9 5794 Gt PLLC, 5794 PLLC [facility] site w/o [facility], [address] [facility], N [facility], involv [place], [address], [place], [place], [place], [id number], [address]. [id number], [place]. tel:+[phone] [place] tel:+ [phone] tel:+ [phone] Arthritis Arthritis Oth disrd of Jan- [facility] bone density 0-201 BOWLING BALL MARKER C Provider: Levi [place] [address] Michelle Jeannie Collins PLLC, 5794 PLLC structure, [address], 201 [facility] Mejía B [place], sitesRheu [address], Dates Dr Alarcon, arthritis w [place], [address], [place], [place], [place], [address]. [id number], [facility] site w/o [id number], tel:[phone] org/sys . 81496Yxskygt tel:+ involvOther tel:+ ist: [phone] half-way [phone] Qutaybtung (current) Lisa drug therapy , [facility] [address] [facility], [place], [address]. tel:[phone] ing Provider: Shmuel Conner MD, [address] [facility] [address], [place], [address]. tel:[phone] ng Provider: Gt Clark, [address] [address], [place], [address]. tel:[phone] Arthritis Arthritis [facility] Rafa ARAUJO Referring [facility] arthritis w 9- Norma. 5794 Provider: Levi Sims [facility] 9 [facility], 5794 PLLC mult site w/o Amber Walker, Count includes the [facility]3 [facility] org/sys [place], N [facility] [place], [facility], [facility] [address], [place], [id number], [place], [place]. [address]. [id number], tel:+ tel:+[phone] [place] [phone] tel:[phone] Arthritis Arthritis [facility] Rafa ARAUJO Referring Health Health arthritis w 1- [facility]. 5794 Provider: Associates Levi [facility] factor 9 [facility], 5794 [facility] site w/o [place], Amber, [address] [place] org/sys [place], N Triphammer [place], involv [place], [address], [place], [id number], [place]. [address]. [id number], tel:+[phone] tel:+[phone] [place] [phone] [phone] tel:[phone] Arthritis Arthritis [facility] Kevin-0 Rafa ARAUJO Referring [facility] arthritis w 2- [facility]. 5794 Provider: Levi Sims [facility] factor 9 [facility], 5794 [facility] site w/o Amber Walker, [address] [place] org/sys [place], N [place], involv [place], [address], [place], [id number], [place]. [address]. [id number], tel:+315 tel:+[phone] [place] [phone] 12037 tel:[phone] Arthritis Arthritis [facility] Karl-1 [facility] arthritis w 1 BOWLING BALL MARKER C Provider: Levi pablo factor 9 Michelle Collins [facility], 5794 [facility] site w/o [address], [address] [place] org/sys [place] Mejía B [place], involvFibromy [address]kw[address], Dates Dr Alarcon, algiaDorsalgi [place], [address], [place], [place], [place], [place], [address]. [id number], unspecifiedOt [id number], tel:+[phone] [place] her half-way [place]. [address]Yptuutk tel:+315 (current) tel:+315 ist: [phone] drug [phone] Qutaybeh therapyOth Maghaydah disrd of bone , Harper density and Cardiology structure, [address] multiple [facility] [address], [place], [address]. tel:[phone] ing Provider: Shmuel Conner MD, [address], [place], [address]. tel:[phone] ng Provider: Gt Clark, [address] [facility] [address], [place], [address]. tel:[phone] Arthritis Arthritis Shubham Karl-0 Rafa ARAUJO Referring [facility] arthritis w Norma. 5794 Provider: Levi Sims [facility] 9 [facility], 5794 [facility] site w/o [place], [address] [facility] org/sys [place], N Tri[place]mer [place], involv [place], [address], [place], [id number], [place]. [address]. [id number], tel:+[phone] tel:+[phone] US [phone] tel:[phone] Arthritis Arthritis Valentin Rafa ARAUJO Referring [facility] arthritis w Norma. 5794 Provider: Levi Sims [facility] 9 [facility], 5794 [facility] site w/o Amber Walker, [address] [place] org/sys [place], N [place]mer [place], involv [place], [address], [place], [id number], [place], [place]. [address]. [id number], tel:+[phone] tel:+[phone] [place] [phone] [phone] tel:[phone] Arthritis Arthritis Shubham 0 Rafa ARAUJO Referring [facility] arthritis w [facility]. 5794 Provider: Levi Sims [facility] 9 [facility], 5794 [facility] site w/o Amber Walker, [address] [facility] org/sys [place], N [facility] [place], involv [place], [address], [place], [id number], [place]. [address]. 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 [id number], drug therapy [id number], tel:[phone] [place]. [address]Ryyawlq tel:+315 tel:[phone] ist: [phone] Karen Gonzalez MD, [facility] [address] [facility], [place], [address]. tel:[phone] ing Provider: Shmuel Conner MD, [address] [facility] [address], [place], [address]. tel:[phone] ng Provider: Gt Clark, [address] [facility] [address], [place], [address]. tel:[phone] Arthritis Arthritis [facility] arthritis w MD Hannon. Provider: Levi davis factor 9 5794 [facility], 5794 [facility] site w/o [facility] Amber, [address] [facility]/sys [place], N Triphmartin [facility] Aaron, involv [place], [address], [place], [place], [place], [place], [id number], [address]. [id number], [place]. tel:[phone] [place] tel:[phone] tel:[phone] Arthritis Arthritis [facility] Rafa ARAUJO [facility] arthritis w [facility]. 5794 Provider: Levi Sims [facility] factor 9 [facility], 5794 [facility] site w/o Amber Walker, [address] [facility] org/sys [place], N Triphmartin [facility] [place], involv [place], [address], [place], [id number], [place]. [address]. [id number], tel:+315 tel:+[phone] US [phone] [phone] tel:[phone] Arthritis Arthritis [facility] May- Rafa ARAUJO Referring [facility] arthritis w Norma. 5794 Provider: Levi davis factor 9 [facility], 5794 [facility] site w/o [facility], 2[address] [facility] org/sys [place], N [facility], [facility], [address], [place], [id number], [place], [place]. [address]. [id number], tel:+315 tel:[phone] US [phone] tel:[phone] Arthritis Arthritis [facility] Rafa ARAUJO Referring [facility] arthritis w [facility]. 5794 Provider: Levi pablo factor 8 [facility], 5794 [facility] site w/o [place] Amber, 2[address] [facility] org/sys [place], N [facility], [facility], [address], [place], [id number], [place]. [address]. [id number], tel:+ tel:[phone] US [phone] tel: [phone] Arthritis Arthritis [facility] arthritis w BOWLING BALL MARKER C Provider: Levi Sims [facility] factor 8 Michelle Collins [facility], 5794 [facility] site w/o [address], 201 [facility] org/sys [place] Mejía B [place], [facility] [address], Dates Dr Alarcon, thoracic, [place], [address], [place], [place], [place], [address]. [id number], and lumbosacr [id number], tel:+[phone] [place]. [address]Oipdrxs tel:+315 disorderOther tel:+315 ist: [phone] half-way [id number] Karen (current) Lisa drug therapy , [facility] [address] [facility], [place], [address]. tel:[phone] ing Provider: Shmuel Conner MD, [address] [facility] [address], [place], [address]. tel:[phone] ng Provider: Gt Clark, [address] [facility] [address], [place], [address]. tel:[phone] Arthritis Arthritis Rheu Nov-0 Mehreen ARAUJO Referring Health Health arthritis w 2- Robert. Provider: Levi pablo factor [address] [place] [address], [address] [place] [address] site w/o [facility], [address] [place], [place] [address]s org/sys [place], N Tri[place]mer [place], involv [place], [address], [place], [place], [place], [place], [id number], [address]. [id number], [place]. tel:[phone] [place] tel:[phone] tel:[phone] Arthritis Arthritis Rheu Oct-0 Rafa ARAUJO Referring Health Health arthritis w - Norma. 5794 Provider: Leiv pablo factor 8 [facility], [address] [place] [address] site w/o [place] Amber, [address] [facility] org/sys [place], N [place]mer [place], involv [place], [address], [place], [id number], [place]. [address]. [id number], tel:[phone] tel:[phone] [place] [phone] [address] tel:[phone] Arthritis Arthritis Rheu Sep-0 Rafa ARAUJO Referring Health Health arthritis w 6 Norma. 5794 Provider: Levi pablo factor 8 [facility], 5794 [facility] site w/o [place] Amber, [address] [facility] org/sys [place], N [place]mer [place], involv [place], [address], [place], [id number], [place]. [address]. 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 [id number], drug [id number], tel:+[phone] [place]. [address]Nxezxzf tel:+315 disrd of bone tel:+315 ist: [phone] density and 385690 Qutaybeh structure, Lisa diaz MD, [facility] Cardiology [address] [facility], [place], [address]. tel:[phone] ing Provider: Shmuel Conner MD, [address] [facility] [address], [place], [address]. tel:[phone] Provider: Gt Clark, Count includes the [facility]3 N [facility] [address], [place], [address]. tel:[phone] Arthritis Arthritis Rheumatoid Jaz ARAUJO Referring [facility] arthritis w Hong. Provider: Levi Sims rheumatoid 8 5793 Gt PLLC, 57 PLLC factor [facility], 2333 [facility], [facility], [facility] w/o [place], [address], [place], organ [place], [place], [place], [place], involvement [id number], [address]. [id number], [place]. tel:+[phone] [place] tel:[phone] [address] tel:[phone] Arthritis Arthritis Rheumatoid Rafa ARAUJO Referring [facility] arthritis w/ Norma. 5794 Provider: Leiv iSms rheumatoid 8 [facility] Gt PLLC, [address] [facility] Amber, 2333 [facility] multiple [place], N [facility] [place], sites w/o [place], [address], [place], organ [id number], [place], [place], [place]. [address]. [id number], tel:+[phone] tel:[phone] [place] 322245 99531 tel:[phone] Arthritis Arthritis Rheumatoid Karl- Rafa ARAUJO [facility] arthritis w Norma. 5794 Provider: Levi [facility] rheumatoid [address] [place] [address] PLLC, 5794 PLLC factor of [place] Amber, 2333 [facility] [place], [address] [facility], sites w/o [place], [address], [place], organ [id number], [place], [place], [place], [place]. [address]. [id number], tel:+[phone] tel:+[phone] [place] 847223 44193 tel:[phone] Arthritis Arthritis Rheumatoid [facility] arthritis w BOWLING BALL MARKER C Provider: Levi Sims rheumatoid 8 Michelle Collins PLLC, 5794 PLLC factor of 5794 Bael, 201 [facility] Mejía B [place], sites w/o Pkwy, Dates Dr Alarcon, organ [place], 102, [place], [place], [place], [address]. 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 [address]Okhfavw tel:+[phone] drug therapy tel:+[phone] ist: [phone] Karen Gonzalez MD, [facility] [address] [facility]. [address], [place], [address]. tel:[phone] ing Provider: Shmuel Conner MD, [address] [facility] [address], [place], [address]. tel:[phone] ng Provider: Gt Clark, [address] [facility] 302, [place], [address]. tel:[phone] Arthritis Arthritis Rheumatoid Rafa ARAUJO Referring [facility] arthritis Norma. 5794 Provider: Levi whitlock 8 [facility] Gt PLLC, 5794 PLLC factor of [facility], [address] [place] [address], N [facility], sites w/o [place], [address], [place], organ [id number], [place], [place], [place]. [address]. [id number], tel:+[phone] tel:+[phone] US 590116 68376 tel:[phone] Arthritis Arthritis Rheumatoid Jaz ARAUJO Referring [facility] arthritis Hong. Provider: Levi whitlock 8 5794 Gt PLLC, 5794 PLLC factor of [facility], [address] [place] [address], N [facility], sites w/o [place], [address], [place], organ [place], [place], [place] [id number], [address]. [id number], [place]. tel:+[phone] [place] tel:[phone] tel:[phone] Arthritis Arthritis Rheumatoid Can Referring [facility] arthritis MD Hannon. Provider: Levi whitlock 8 5794 Gt PLLC, 5794 PLLC factor of [facility], [address] [place] [address], N [facility], sites w/o [place], [address], [place], [place], [place], [place] [id number], [address]. [id number], [place]. tel:[phone] [place] tel:[phone] tel:[phone] Arthritis Arthritis Rheumatoid Ham Consulting [facility] arthritis BOWLING BALL MARKER C Provider: Levi whitlock 8 Michelle Collins PLLC, 5794 PLLC factor of 5794 Bael, 201 [facility], sites w/o Pkwy, Dates Dr Alarcon, organ [place], 102, [place], [place], [place], [address]. [id number], her half-way [id number], tel:+[phone] [place]. [address]Rbkquka tel:+[phone] therapyFibrom tel:+ ist: [phone] yalgia [phone] Karen Gonzalez MD, [facility] [address] [facility]. [address], [place], [address]. tel:[phone] Provider: Gt Clark, [address] [facility] [address], [place], [address]. tel:[phone] Arthritis Arthritis Rheumatoid Mehreen ARAUJO Referring [facility] arthritis Arroyo. Provider: Levi Sims rheumatoid 8 57 Gt PLLC, 5794 PLLC factor of [facility], [address] [place] [address], N [facility], sites w/o [place], [address], [place], organ [place], [place], [place] [id number], [address]. [id number], [place]. tel:+[phone] [place] tel:[phone] tel:[phone] Arthritis Arthritis Rheumatoid Rafa ARAUJO Referring [facility] arthritis Norma. 5794 Provider: Levi Sims rheumatoid 8 [facility] Gt PLLC, 5794 PLLC factor of [facility], [address] [place], [place] [address], N [facility], sites w/o [place], [address], [place], organ [id number], [place]. [address]. [id number], tel:+[phone] tel:+[phone] [place] 473982 76929 tel:[phone] Arthritis Arthritis Rheumatoid Can Referring [facility] arthritis MD Hannon. Provider: Levi Sims rheumatoid 7 57 Gt PLLC, 5794 PLLC factor of [facility], [address] [place] [address], [address] [facility] [facility], sites w/o [place], [address], [place], organ [place], [place], [place] [id number], [address]. [id number], [place]. tel:[phone] [place] tel:[phone] tel:[phone] Arthritis Arthritis Rheumatoid Mar- Ham Consulting [facility] arthritis w BOWLING BALL MARKER C Provider: Levi Sims rheumatoid 7 Michelle Quintanillaothy PLLC, 5794 PLLC factor of 5794 Bael, 201 [facility], sites w/o Pkwy, Dates Dr Alarcon, organ [place], 102, [place], [place], [place], [address]. [id number], bromyalgiaOth [id number], tel:[phone] [place] er half-way [place]. [address]Zkbhoxy tel:+[phone] drug tel:+ ist: [phone] therapyBody [id number] Qutaybeh mass index Lisa (BMI) , [facility] 37.0-37.9, Cardiology adult [address] [facility]. [address], [place], [address]. tel:[phone] ng Provider: Gt Clark, 2[address] [facility] 302, [place], [address]. tel:[phone] Arthritis Arthritis Rheumatoid Mar- Rafa ARAUJO Referring [facility] arthritis w Norma. 5794 Provider: Levi Sims [facility] 7 [facility] Gt PLLC, 5794 PLLC factor of Amber Walker, 2333 [facility] [place], N [facility] [place], sites w/o [place], [address], [place], organ [id number], [place], [place], [place]. [address]. [id number], tel:+3154 tel:[phone] US 655713 48022 tel:[phone] Arthritis Arthritis Rheumatoid Rafa ARAUJO Referring [facility] arthritis w Norma. 4094 Provider: Levi [facility] rheumatoid 7 [facility] Gt PLLC, 5794 PLLC factor of Aaron Amber, 2333 [facility] [place], N [facility], sites w/o [place], [address], [place], organ [id number], [place]. [address]. [id number], tel:+3154 tel:+[phone] US 519150 33906 tel:[phone] Arthritis Arthritis Rheumatoid Jan- Rafa ARAUJO [facility] arthritis w Norma. 5794 Provider: Levi [address] Gt PLLC, 5794 PLLC factor of Cornelia Walkerie, 2333 [facility] [place], N [facility], sites w/o [place], [address], [place], organ [id number], [place]. [address]. [id number], tel:+3154 tel:+[phone] US 418071 12329 tel:[phone] Arthritis Arthritis Rheumatoid [facility] arthritis BOWLING BALL MARKER C Provider: Levi [place] [address] Michelle Collins PLLC, 5794 PLLC factor of 5794 Bael, 201 [facility] Mejía [facility], sites w/o Pkwy, Dates Dr Felizuse, organ [place], 102, [place], [place], [place], [address]. [id number], her half-way [id number], tel:+[phone] [place]. [address]Ddrqpad tel:+ therapyFibrom tel:+ ist: [phone] yalgiaGeneral [id number] Karen Gonzalez osteoarthriti , [facility] sPolymyalgia Cardiology rheumaticaBod 310 y mass index [facility] (BMI) vd. [address] 37.0-37.9, 4, [facility], [address]. tel:[phone] ng Provider: Gt Clark, [address] [facility] 302, [place], [address]. tel:[phone] Arthritis Arthritis Rheumatoid [facility] arthritis BOWLING BALL MARKER C Provider: Levi [place] [address] Michelle L. Norma Abdulky PLLC, 5794 PLLC factor of 5794 MD, 5794 [facility], sites w/o Pkwy, [place], [place], organ [place], [place], [place], [place], [place], [id number], her half-way [id number], [id number]. [place] drug therapy [place]. tel:+[phone] tel:+ tel:[phone] Arthritis Arthritis Other long [facility] term drug 0- BOWLING BALL MARKER C Associates [facility] therapyRheufl 7 Michelle Jeannie PLLC, 5794 PLLC toid 5794 [facility] arthritis w/ [facility], rheumatoid Pkwy, [place], factor of [place], [place], [place], [id number], sites w/o [id number], [place] organ [place]. tel:[phone] involvement tel:[phone] Arthritis Arthritis Rheumatoid [facility] arthritis w/ BOWLING BALL MARKER C Provider: Levi Sims rheumatoid Violet Collins PLLC, 5794 PLLC factor of 5794 Bael, 201 [facility], sites w/o Pkwy, Dates Dr Alarcon, organ [place], 102, [place], [place], [place], [address]. [id number], her half-way [id number], tel:[phone] [place]. [address]Sgmbgln tel:+ therapyFibrom tel:+ ist: [phone] yalgiaBody 434804 Qutaybeh mass index Lisa (BMI) , [facility] 37.0-37.9, Cardiology adult [address] [facility]. [address], [place], [address]. tel:[phone] ng Provider: Gt Clark, 2333 N [facility] 302, [place], [address]. tel:[phone] Arthritis Arthritis Rheumatoid [facility] arthritis PA-C Provider: Associates Levi Downey. Dennis PLLC, 5794 PLLC factor of 5794 Bael, 201 [facility], sites w/o [place], Dates Dr Alarcon, organ [place], 102, [place], [place], [place], [address]. 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 [address]Rtfswfn tel:+[phone] therapyFibrom tel:+[phone] ist: [phone] yalgiaGeneral 710912 Qutaybeh ized Lisa osteoarthriti , [facility] [address] [facility]. [address], [place], [address]. tel:[phone] ng Provider: Josephine Henriquez3 N [facility] 302, [place], [address]. tel:[phone] Arthritis Arthritis Rheumatoid Kimberley Consulting [facility] arthritis WILLIAM Carcamo. Provider: Levi Lazo 5794 Dennis PLLC, 5794 PLLC factor of [facility] Ba, 201 [facility], sites w/o [place], Dates Dr Alarcon, organ [place], 102, [place], [place], [place] [id number], [place], [address]. [id number], her half-way [place]. tel:[phone] [place] drug tel:[phone] tel:[phone] therapyOther 577288 ist: [id number] specified Qutaybtung disorder of Lisa bone density , [facility] Cardiology sites [address] [facility]. [address], [place], [address]. tel:[phone] ng Provider: Gt Clark 2333 N Acuper[facility]art[facility] hospital[facility] [address], [place], [address]. tel:[phone] Arthritis Arthritis Rheumatoid Aug- Justus Consulting [facility] arthritis PAKmC Provider: Levi Downey. Dennis PLLC, 5794 PLLC factor of 5794 Bael, 201 [facility], sites w/o [place], Dates Dr Alarcon, organ [place], 102, [place], [place], [place], [address]. [id number], her half-way [id number], tel:+[phone] [place]. [address]Neshhnf tel:+[phone] therapyGenera tel:+[phone] ng Provider: [id number] lized [id number] Gt osteoarthriti Amber, 2333 s [address] [facility] [address], [place], [address]. tel:[phone] Arthritis Arthritis Rheumatoid Jul- Rafa ARAUJO Referring [facility] arthritis Norma. 5794 Provider: Levi Sims [address] Gt PLLC, 5794 PLLC factor of Aaron Amber, Count includes the [facility]3 [facility], N [facility] [place], sites w/o [place], [address], [place], organ [id number], [place]. [address]. [id number], tel:+[phone] tel:+[phone] US 294655 22637 tel:[phone] Arthritis Arthritis Rheumatoid Jun- Consulting [facility] arthritis Provider: Levi Sims [place] [address] Dennis PLLC, 5794 PLLC factor of [address], sites w/o Dates Dr Alarcon, organ 102, [place], [facility] [place], [address]. [id number], neralized tel:[phone] [place] osteoarthriti 94707Lighlwl tel:+[phone] Ezra lutz Provider: [id number] term drug Gt therapyAnemia Amber, [address], [place], [address]. tel:[phone] Arthritis Arthritis Rheumatoid Consulting [facility] arthritis Provider: Levi Sims [place] [address] Dennis PLLC, 5794 PLLC factor of [address], sites w/o Dates [address] Alarcon, organ 102, [place], [place], [facility] [place], [address]. [id number], neralized tel:[phone] [place] osteoarthriti 39876Dtzwihh tel:[phone] Ezra lutz Provider: [id number] term drug Gt Clark, 2333 ess of breath N Esme [address], [place], [address]. tel:[phone] Arthritis Arthritis Rheumatoid Rafa ARAUJO [facility] arthritis w Norma. 5794 Provider: Associates Associates rheumatoid 6 [facility] Dennis PLLC, 5794 PLLC factor of Aaron Bael, 201 [facility] multiple [place], Mejía B [place], sites w/o [place], Dates [address] Alarcon, organ [id number], 102, [place], [place], [address]. 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 tel:[phone] Arthritis Arthritis Generalized Mar- [facility] osteoarthriti [facility] s 6 PLLC, 5794 PLLC [place], [place], [id number], [place] tel:[phone] Arthritis Arthritis Encounter for [facility] screening for [facility] respiratory 6 PLLC, 5794 PLLC tuberculosis [facility], [place], [place], [id number], [place] tel:[phone] Arthritis Arthritis Other Feb- [facility] specified [facility] abnormal 6 PLLC, 5794 PLLC findings of [facility] blood [place], chemistry [place], [place], [id number], [place] tel:[phone] Arthritis Arthritis Rheumatoid Feb- Consulting [facility] arthritis w Provider: Associates Associates rheumatoid 6 Qutaybeh PLLC, 5794 PLLC factor of Lisa diaz MD, [facility], sites w/o Cardiology [place], organ 310 [place], involvementFi [facility] [id number], bromyalgiaGen [address]. Suite [place] eralized 4, [place], tel:[phone] [place], [address]. 532413 sLumbosacral tel:[phone] intervertebra 27343Lecxydk l disc ng Provider: figueroaOther Gt half-way Amber, 2333 drug N Triphammer therapyPain [address], in lt [place], [place], kneeShortness [address]. 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 Suite [place] drug , [place], tel:[phone] [place], [address]. 392413 acral tel:[phone] intervertebra 03313Hqhljav l disc ng Provider: figueroaFimary alice Del Real myalgiaGenera Amber, 2333 lized N [address] osteoarthriti [address], [place], [address]. tel:[phone] Arthritis Arthritis Rheumatoid Dec- [facility] arthritis w Provider: Levi Sims rheumatoid 6 Qutaybeh PLLC, 5794 PLLC factor of Lisa diaz MD, [facility], sites w/o Cardiology [place], organ 310 [place], involvementFi [facility] [id number], bromyalgiaLum [address] Suite bosacral [address], [place], tel:[phone] [place], [address]. 228906 l disc tel:[phone] disorderPain 51236Lgkvzcc in rt ing hipOther long Provider: term drug Dennis therapy Bael, [address] Me[address], [place], [address]. tel:[phone] ng Provider: Gt Clark, [address] Tri[address], [place], [address]. tel:[phone] Arthritis Arthritis Rheumatoid Consulting [facility] arthritis Provider: Levi Sims rheumatoid 6 Qutaybeh PLLC, 5794 PLLC factor of Lisa diaz MD, [facility], sites w/o Cardiology [place], organ 310 [place], involvementFi [facility] [id number], bromy[address] Suite bosacral [address], [place], tel:[phone] [place], [address]. 820028 l disc tel:[phone] disorderPain 51559Nxiwgdj in rt ing hipOther long Provider: term drug Dennis Bright, 201 Mejía B Jovany [address], [place], [address]. tel:[phone] bolivar Provider: Gt Clark 2[address], [place], [address]. 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 Suite drug 4, [place], tel:[phone] [place], [address]. [address] acral tel:[phone] intervertebra 60314Scaucgc l disc ing disorderFibro Provider: myalgia Dennis Bright, [address], [place], [address]. tel:[phone] bolivar Provider: Gt Clark [address], [place], [address]. tel:[phone] Arthritis Arthritis Rheumatoid Consulting [facility] arthritis w Provider: Levi Burns Qutaybeh PLLC, 5794 PLLC factor of Lisa diaz MD, [facility], sites w/o Cardiology [place], organ 310 [place], involvementFi [facility] [id number], bromyalgiaOth [address]vd[address] Suite er half-way 4, [place], tel:[phone] [place], [address]. 753111 therapyBack tel:[phone] pain 84461Oatzfkk ing Provider: Chandler [address], [place], [address]. tel:[phone] ng Provider: Gt Clark, [address], [place], [address]. tel:[phone] Arthritis Arthritis Rheumatoid [facility] Consulting [facility] arthritis PA-C Provider: Levi Salazartanicol PLLC, 5794 PLLC factor of 5794 Lisa Dominique MD, [facility], sites w/o [place], Cardiology [place], organ [place], 310 [place], [place], [facility] [id number], her half-way [id number], Blvd. Suite drug therapy [place]. 4, [place], tel:[phone] tel:[phone] [place], [address]. [address] 940835 tel:[phone] ing Provider: [address], [place], [address]. tel:[phone] ng Provider: Gt Clark [address], [place], [address]. tel:[phone] Arthritis Arthritis Rheumatoid [facility] arthritis Provider: Levi Salazartanicol PLLC, 5794 PLLC factor of Lisa diaz MD, [facility], sites w/o Cardiology [place], organ 310 [place], involvement [facility] [id number], [address], [place], tel:[phone] [place], [address]. 0208[address] tel:[phone] ing Provider: [address], [place], [address]. tel:[phone] ng Provider: Gt Clark [address], [place], [address]. tel:[phone] Arthritis Arthritis Rheumatoid Jul- [facility] arthritis Provider: Levi Sims rheumatoid 6 Qutaybeh PLLC, 5794 PLLC factor of Lisa diaz MD, [facility], sites w/o Cardiology [place], organ 310 [place], involvementGe [facility] [id number], neralized Blvd. Suite osteoarthriti , [place], tel:[phone] [place], [address]. [address] term drug tel:[phone] therapy 87082Qziwvaz ing Provider: Dennis Bright, 201 [address], [place], [address]. tel:[phone] bolivar Provider: Josephine Henriquez3 N [address], [place], [address]. tel:[phone] Arthritis Arthritis Rheumatoid [facility] arthritis Provider: Levi Sims rheumatoid 6 Qutaybeh PLLC, 5794 PLLC factor of Lisa diaz MD, [facility], sites w/o Cardiology [place], organ 310 [place], involvementOt [facility] [id number], her half-way Blvd. Suite drug , [place], tel:[phone] [place], [address]. 481661 lized tel:[phone] osteoarthriti 83031Elvqzfh s ing Provider: Dennis Bright, 201 [address], [place], [address]. tel:[phone] bolivar Provider: Gt Clark [address], [place], [address]. tel:[phone] Arthritis Arthritis Other [facility] specified armando Ramirez. Associates Levi abnormal 6 5794 PLLC, 5794 PLLC findings of [facility] blood [place], [place], chemistry [place], [place], [id number], [id number], [place]. 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 Suite [place] drug 4, [place], tel:[phone] [place], [address]. 366924 lized tel:[phone] osteoarthriti 34319Fspdogs sAnemia, ing unspecified Provider: Dennis Bright, 201 [address], [place], [address]. tel:[phone] bolivar Provider: Gt Clark, [address], [place], [address]. tel:[phone] Arthritis Arthritis Rheumatoid Consulting [facility] arthritis w Provider: Levi whitlock 5 Qutaybeh PLLC, 5794 PLLC factor of Lisa diaz MD, [facility], sites w/o Cardiology [place], organ 310 [place], involvementGe [facility] [id number], neralized Blvd. Suite osteoarthriti 4, [place], tel:[phone] [place], [address]. 439508 term drug tel:[phone] therapyAnemia 20348Rhykfit , unspecified ing Provider: Dennis Bright, [address], [place], [address]. tel:[phone] bolivar Provider: Gt Clark, [address], [place], [address]. 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 Suite [place] unspecified [place], tel:[phone] [place], [address]. 68[address] tel:[phone] ing Provider: Dennis Bright, [address], [place], [address]. tel:[phone] ng Provider: Gt Clark, [address], [place], [address]. tel:[phone] Arthritis Ar[facility]ritis [facility] WILLIAM Carcamo. Provider: Levi Sims 5 5794 Karen ASKEW, 5794 PLL [facility] Walker MD, [facility], Cardiology [place], [place], 310 [place], [id number], [facility] [id number], [place]. Blvd. Suite [place] tel:[phone] [place], tel:[phone] [place], [address]. 214410 tel:[phone] ing Provider: Dennis Bright, [address], [place], [address]. tel:[phone] bolivar Provider: Gt Clark, [address], [place], [address]. tel:[phone] Arthritis Arthritis [facility] Provider: Levi Sims 5 Qurosauraybtung ASKEW, 5794 [facility] Lisa Dominique MD, [facility], Cardiology [place], [address] [place], [facility] [id number], [address] [place], tel:[phone] [place], [address]. [phone] tel:[phone] ing Provider: Dennis Bright, [address], [place], [address]. tel:[phone] bolivar Provider: Gt Clark, [address], [place], [address]. tel:[phone] Arthritis Arthritis Apr- [facility] 2 Provider: Levi Sims 4 Karen ASKEWC, 5[address] PLLC Lisa Dominique MD, [facility], [facility], [place] [id number], [address], [place], tel:[phone] [place], [phone]. [phone] tel:[phone] ing Provider: Dennis Bright, [address] [facility] [address], [place], [address]. tel:[phone] Provider: Gt Clark, [address] [facility] [address], [place], [address]. tel:[phone] Arthritis Arthritis [facility] Provider: Levi Sims 4 Gt ASKEWC, 5[address] PLLC Amber, [address] [facility] [place], [facility] [address], [place], [place], [place], [address]. [id number], tel:[phone] tel:[phone] Arthritis Arthritis [facility] Provider: Levi Sims 3 Gt ASKEWC, 5[address] PLL[address] Amber, [address] [facility] [place], [facility] [address], [place], [place], [place], [address]. [id number], tel:[phone] tel:[phone] Arthritis Arthritis [facility] [employer]ING [employer]ALL [employer]ER-C Provider: Levi Sims 3 Alicia. [address] Gt [facility], [address] PLL[address] S Pomonaprakash Clark, [address] [place], [place], [facility] [address], [place], [place], [place], [place], [id number], [address]. [id number], [place]. tel:[phone] tel:[phone] tel:[phone] Arthritis Arthritis [facility] Provider: Levi Sims 3 Gt ASKEWC, [address] Amber, [address] [place], [address], [place], [place], [place], [address]. [id number], tel:[phone] tel:[phone] Arthritis Arthritis Dec- [facility] 6 Provider: [facility] 3 Gt ASKEWC, [address] Amber, [address] [place], [address], [place], [place], [place], [address]. [id number], tel:[phone] tel:[phone] Arthritis Arthritis [facility] Provider: [facility] 3 Gt ASKEWC, [address] Amber, [address] [place], [address], [place], [place], [place], [address]. [id number], tel:[phone] tel:[phone] Arthritis Arthritis [facility] Provider: [facility] 2 Gt BURROWS, 5[address] PLL[address] Amber, [address] [facility] [facility] [place], [address], [place], [place], [place], [address]. [id number], tel:[phone] tel:[phone] Arthritis Arthritis [facility] WILLIAM Carcamo. Provider: [facility] 2 57Mehrdad ASKEWC, [address] [facility] [facility], [address] [facility], [address] [facility] [place], [place], [address], [place], [place], [place], [place], [place], [id number], [address]. [id number], [place]. tel:[phone] [place] tel:[phone] tel:[phone] Arthritis Arthritis [facility] Provider: [facility] 1 Gt ASKEWC, 5[address] Amber, [address] [place], [address], [place], [place], [place], [address]. [id number], tel:[phone] tel:[phone] Arthritis Arthritis [facility] 2-201 Provider: [facility] 1 Gt [facility], [address] [facility] Amber, [address] [facility], [place] [address], [place], [place], [place], [address]. [id number], tel:[phone] tel:[phone] Family History Family Member Diagnosis Age At Onset Paternal grandmother Rheumatoid arthritis Immunizations Vaccine Date Status Comments Influenza, injectable, MDCK, administered Note: approx. ; Source : Other Flucelvax Quad 2017-2018Y Provider Influenza, injectable, administered Note: approx. ; Source: Other quadrivalent, split virus, 18 Provider years or older Afluria Quad 5670-0571 Influenza, injectable, administered Note: Invalid documented admin trivalent, split virus, 4 date was . ; years and older, Fluvirin Source: Other Provider [id number] Yet to receive Flu vaccine administered Source: [...] (PPV23) Payers Payer name Insurance type Covered libertarian ID Authorization(s) Medicare MB [id number] BCBS No Referral Required [id number] Social History Type Description Quantity Date Captured [...] Information Pt. not exposed to someone in senior care nor traveled out of the country; no concern for TB screening. Pt. not exposed to someone in senior care nor traveled out of the country; no [...]
--- OUTSIDE RECORDS SUMMARY | 2019-07-12 11:40 | XMS REPORT | Continuity of Care Document ---
:1945 Author Organization [facility] Address [address], [place] [id number] Phone Care Team Providers Name Role Phone Norma Craig MD Unavailable Unavailable Allergies, Adverse Reactions, Alerts Substance Reaction Status trazodone Active POTASSIUM CLAVULANATE Active AMOXICILLIN TRIHYDRATE Active Gold Salts Active HYDROCODONE BITARTRATE Active acetaminophen Active aspirin Active Medications Medication Instructions Dosage Effective Status Comments Dates (start - stop) Inflectra 100 mg infuse 900 900 milligram - Active 8.3 mg/kg intravenous milligram by (patient solution intravenous route weight = every 4 weeks 108.8 kg.) Patient switching from Remicade to Inflectra per formulary DX M05.79 tizanidine 2 mg take 1 tablet by - Active tablet oral route every before bedtime as needed FOLIC ACID TAB TAKE 1 TABLET 1 MG - Active 1MG DAILY Prolia 60 mg/mL inject 1 60 MG - Active subcutaneous milliliter by syringe subcutaneous route every 6 months in the upper arm, upper thigh or abdomen omeprazole 40 mg take 1 capsule by 40 MG - Active capsule,delayed oral route every release day before a meal Vitamin B-12 1 tab by oral - Active 1,000 mcg tablet route every day Toprol XL [...] tablet oral route every day Appearex 2,500 take 1 - 2 - Active mcg tablet Capsule by Oral route every day Caltrate 600 + D take 1 tablet by 1 tablet - Active 600 mg (1,500 oral route every mg)-800 unit day chewable tablet Tylenol Extra take 2 tablet by 1000 MG - Active Strength 500 mg oral route every tablet 6 hours as needed OTC SUPPLEMENTS take by Oral - Active route every day Magnesium , Potassium Remicade 100 mg infuse 900 900 milligram - No Longer increase intravenous milligram by Active Remicade to solution intravenous route (8.5 mg/kg) = every 4 weeks 900 mg by IV route every 4 weeks tizanidine 2 mg take 1 tablet by - No Longer tablet oral route every Active before bedtime as needed Problems Condition Effective Dates Clinical Status Comments [...] factor mult site w/o org/sys involv Other operations and maintenance technician (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 therapy Osteoporosis - Rheu arthritis w rheu factor mult site w/o org/sys involv Rheu arthritis w rheu factor mult site w/o org/sys involv Oth disrd of bone density and structure, multiple sites Other operations and maintenance technician (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 therapy Other shelter (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 therapy Rheu arthritis [...] w/o org/sys involv Fibromyalgia Dorsalgia, unspecified Other operations and maintenance technician (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 therapy Oth disrd of bone [...] thoracolum and lumbosacr intvrt disc disorder Other operations and maintenance technician (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 therapy Rheu arthritis w rheu factor mult site w/o org/sys involv Rheu arthritis w rheu factor mult site w/o org/sys involv Rheu arthritis w rheu factor mult site w/o org/sys involv Rheu arthritis w rheu factor mult site w/o org/sys involv Other operations and maintenance technician (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 therapy Oth disrd of bone density and structure, multiple sites Rheumatoid arthritis w/ rheumatoid factor of multiple sites w/o organ involvement Rheumatoid arthritis w/ rheumatoid factor of multiple sites w/o organ involvement Rheumatoid arthritis w/ rheumatoid factor of multiple sites w/o organ involvement Rheumatoid arthritis w/ rheumatoid factor of multiple sites w/o organ involvement Fibromyalgia Other operations and maintenance technician drug therapy Rheumatoid arthritis w/ rheumatoid factor [...] multiple sites w/o organ involvement Fibromyalgia Other operations and maintenance technician drug therapy Rheumatoid arthritis w/ rheumatoid factor [...] organ involvement Other shelter drug therapy Other shelter drug therapy Rheumatoid arthritis w/ rheumatoid factor of multiple sites w/o organ involvement Rheumatoid arthritis w/ rheumatoid factor of multiple sites w/o organ involvement Other operations and maintenance technician drug therapy Fibromyalgia Rheumatoid arthritis w/ rheumatoid factor of multiple sites w/o organ involvement Other shelter drug therapy Fibromyalgia Generalized osteoarthritis Rheumatoid arthritis w/ rheumatoid factor of multiple sites w/o organ involvement Other shelter drug therapy Other specified disorder of bone density of multiple sites Rheumatoid arthritis w/ rheumatoid factor of multiple sites w/o organ involvement Other operations and maintenance technician drug therapy Generalized osteoarthritis Rheumatoid arthritis w/ rheumatoid factor of multiple sites w/o organ involvement Rheumatoid arthritis w/ rheumatoid factor of multiple sites w/o organ involvement Generalized osteoarthritis Other operations and maintenance technician drug therapy Anemia Rheumatoid arthritis w/ rheumatoid factor of multiple sites w/o organ involvement Generalized osteoarthritis Other operations and maintenance technician drug therapy Shortness of breath Rheumatoid arthritis w/ rheumatoid factor of multiple sites w/o organ involvement Other operations and maintenance technician drug therapy Anemia Generalized osteoarthritis Encounter for screening for respiratory tuberculosis Other specified abnormal findings of blood chemistry Rheumatoid arthritis w/ rheumatoid factor of multiple sites w/o organ involvement Fibromyalgia Generalized osteoarthritis Lumbosacral intervertebral disc disorder Other operations and maintenance technician drug therapy Pain in lt knee Shortness of breath Other specified abnormal findings of blood chemistry Rheumatoid arthritis w/ rheumatoid factor of multiple sites w/o organ involvement Other operations and maintenance technician drug therapy Lumbosacral intervertebral disc disorder Fibromyalgia Generalized osteoarthritis Rheumatoid arthritis w/ rheumatoid factor of multiple sites w/o organ involvement Fibromyalgia Lumbosacral intervertebral disc disorder Pain in rt hip Other shelter drug therapy Rheumatoid arthritis w/ rheumatoid factor of multiple sites w/o organ involvement Fibromyalgia Lumbosacral intervertebral disc disorder Pain in rt hip Other operations and maintenance technician drug therapy Rheumatoid arthritis w/ rheumatoid factor of multiple sites w/o organ involvement Other shelter drug therapy Lumbosacral intervertebral disc disorder Fibromyalgia Rheumatoid arthritis w/ rheumatoid factor of multiple sites w/o organ involvement Fibromyalgia Other shelter drug therapy Back pain Rheumatoid arthritis w/ rheumatoid factor of multiple sites w/o organ involvement Other shelter drug therapy Rheumatoid arthritis w/ rheumatoid factor of multiple sites w/o organ involvement Rheumatoid arthritis w/ rheumatoid factor of multiple sites w/o organ involvement Generalized osteoarthritis Other shelter drug therapy Rheumatoid arthritis w/ rheumatoid factor of multiple sites w/o organ involvement Other operations and maintenance technician drug therapy Generalized osteoarthritis Other specified abnormal findings of blood chemistry Rheumatoid arthritis w/ rheumatoid factor of multiple sites w/o organ involvement Other operations and maintenance technician drug therapy Generalized osteoarthritis Anemia, unspecified Rheumatoid arthritis w/ rheumatoid factor of multiple sites w/o organ involvement Generalized osteoarthritis Other operations and maintenance technician drug therapy Anemia, unspecified Rheumatoid arthritis, unspecified Other operations and maintenance technician drug therapy Generalized osteoarthritis Anemia, unspecified Rheumatoid factor positive - Active Fibromyositis - Active Mapped from [facility] Chronic Conditions table on 08/29/2014 by the ICD9 to SNOMED Bulk Mapping Utility. The mapped diagnosis code was Fibromyalgia / Myalgia, 729.1, added by Norma Craig MD, with responsible provider Norma Craig MD. Onset date 06/11/2012; last addressed on 04/18/2014. High risk drug monitoring - Active Mapped from [facility] Chronic status Conditions table on 09/15/2014 by the ICD9 to SNOMED Bulk Mapping Utility. The mapped diagnosis code was Therapeutic Drug Monitoring, V58.69, added by Claribel Aguilar NP, with responsible provider Claribel THURSTON-C. Onset date 03/19/2012; last addressed on 04/18/2014. Polymyalgia rheumatica - Active Mapped from [facility] Chronic Conditions table on 07/15/2014 by the ICD9 to SNOMED Bulk Mapping Utility. The mapped diagnosis code was Polymyalgia rheumatica, 725, added by Claribel Aguilar NP, with responsible provider Claribel THURSTON-C. Onset date 03/19/2012; last addressed on 02/04/2014. Rheumatoid arthritis - Active Mapped from [facility] Chronic Conditions table on 07/15/2014 [...] For Visit Copied on Encounter Arthritis Arthritis Rafa ARAUJO [facility] Norma. [facility] 0 [facility], 5[address] PLLC [place], [facility] [place], [place], [place], [place], [id number], [place], [place]. [id number], tel:[phone] tel:[phone] Arthritis Arthritis Rheu [facility] arthritis MD Hannon. Provider: Associates [employer] factor 0 5794 Gt PLLC, 5794 PLLC [facility] site w/o [facility], [facility]3 [facility], N [facility], involv [place], [address], [place], [place], [place], [place], [place], [id number], [address]. [id number], [place]. tel:[phone] tel:[phone] tel:[phone] Arthritis Arthritis [facility] SAMPLE WRAPPER C Associates [employer] 0 Michelle Dennis PLLC, 5794 PLLC [address] [facility], [place], [place], [id number], [id number], [place]. tel:[phone] tel:[phone] Arthritis [facility]thritis [facility] Jaz ARAUJO [facility] arthritis w Hong. Provider: Associates [place] [employer] factor 9 5794 Gt PLLC, 5794 PLLC [facility] site w/o [facility], [address] [facility]/s [place], N [facility], involv [place], [address], [place], [place], [place], [place], [place], [id number], [address]. [id number], [place]. tel:[phone] [place] tel:[phone] tel:[phone] Arthritis Arthritis Apr- [facility] 8 SAMPLE WRAP[facility] C [facility] 9 Michelle Jeannie PLLC, 5794 PLLC [address] [facility], [address], [place], [place], [id number], [id number], [place]. tel: tel: [phone] Arthritis Arthritis Age-related Apr- [facility] osteoporosis 6 SAMPLE WRAPPER C Provider: Levi Sims w/o current 9 Michelle Collins PLLC, 5794 PLLC pathological [address], [address] [facility] fractureFormerly [facility], [facility], arthritis w [address]kw[address], [address]ates [address], [facility], [facility], [place], [place], [facility] site w/[place], [address]. [id number], [facility]sys [id number], tel:[phone] involvOther [place]. [address]Nyotlfq tel:[phone] operations and maintenance technician tel:+ ist: [phone] (current) [id number] [facility] drug therapy Lisa ARAUJO, [facility] [address] [facility]. [address], [place], [address]. tel:[phone] ing Provider: Shmuel Conner MD, [address] [facility] [address], [place], [address]. tel:[phone] Provider: Gt Clark, [address] [facility] [address], [place], [address]. tel:[phone] Arthritis Arthritis Osteoporosis Apr- [facility] 9 SAMPLE WRAPPER C [facility] 9 Michelle Dennis PLLC, 5794 PLLC [address] [facility], [address], [place], [place], [id number], [id number], [place]. tel:+ tel:[phone] Arthritis Arthritis [facility] arthritis w 0-201 MD Hannon. Provider: Levi [facility]s [facility] 9 5794 Gt PLLC, 5794 PLLC [facility] site w/o [facility], [address] [facility], N [facility], involv [place], [address], [place], [place], [place], [id number], [address]. [id number], [place]. tel:+[phone] [place] tel:[phone] tel:[phone] Arthritis Arthritis [facility] arthritis w 4-201 MD Hannon. Provider: Levi Sims [facility] 9 5794 Gt PLLC, 5794 PLLC [facility] w/o [facility], [address] [facility], N [facility], involv [place], [address], [place], [place], [place], [place], [id number], [address]. [id number], [place]. tel:+[phone] [place] tel:[phone] tel:[phone] Arthritis Arthritis Oth disrd of Rafa [facility] bone density 8-201 Norma. 5794 [facility] and 9 [facility], 5794 PLLC rust, [facility] multiple [place], [place], sitesOther [place], [place], operations and maintenance technician [id number], [place], (current) [place]. [id number], drug therapy tel:[phone] [place] [phone] tel:[phone] Arthritis Arthritis Other long Feb- [facility] term 4-201 SAMPLE WRAPPER C Levi [facility] (current) 9 Michelle Dennis PLLC, 5794 PLLC drug therapy [address] [facility], [address], [place], [place], [id number], [id number], [place]. tel:[phone] tel:[phone] Arthritis Arthritis Rheu Sep-2 [facility] arthritis w 6-201 MD Hannon. Provider: Associates [facility] 9 5794 Gt [facility], 5794 [facility] site w/o [facility], [address] [facility] org/sys [place], [facility]rer [place], involv [place], [address], [place], [place], [place], [place], [place], [id number], [address]. [id number], [place]. tel:[phone] tel:[phone] tel:[phone] Arthritis Arthritis Sep-1 Rafa [facility] 0-201 Norma. 5794 [facility] 9 [facility], 5794 PLLC [place], [facility] [place], [place], [place], [place], [id number], [place], [place]. [id number], tel:[phone] [place] [phone] tel:[phone] Arthritis Arthritis Oth disrd of Sep-1 [facility] bone density 0-201 SAMPLE WRAPPER C Provider: Levi [facility] and Michelle Collins [facility], 5794 PLL structure, [address], [address] [facility] Mejía [facility], sitesRheu [address], Dates [address], arthritis w [place], [address], [place], [place], [place], [address]. [id number], [facility] site w/o [id number], tel:[phone] org/sys [place]. [address]Mipkofj tel:[phone] involvOther tel:[phone] ist: [phone] operations and maintenance technician [id number] Karen (current) Lisa drug therapy , [facility] [address] [facility]. [address], [place], [address]. tel:[phone] ing Provider: Shmuel Conner MD, [address] [facility] [address], [place], [address]. tel:[phone] ng Provider: Gt Clark, [address] [facility] [address], [place], [address]. tel:[phone] Arthritis Arthritis [facility] Rafa ARAUJO Referring [facility] arthritis w Norma. 5794 Provider: Levi pablo factor 9 [facility] Gt [facility], 5[address] [facility] site w/o Amber Walker, 2333 [facility] org/sys [place], N Tri[facility]mer [place], [facility], [address], [place], [id number], [place], [place]. [address]. [id number], tel:+4 tel:[phone] [place] [phone] tel:[phone] Arthritis Arthritis Rheu Rafa ARAUJO Referring [facility] arthritis w Norma. 5794 Provider: Levi [facility]is [facility] 9 [facility] Gt [facility], 5[address] [facility] site w/o Amber Walker, 2[address] [facility] org/sys [place], N [facility] [place], [facility], [address], [place], [id number], [place], [place], [place]. [address]. [id number], tel:+4 tel:[phone] [place] [phone] tel:[phone] Arthritis Arthritis Rhe 0 Rafa ARAUJO Referring [facility] arthritis w Norma. 5794 Provider: Levi Sims [facility] factor 9 [facility] Gt [facility], [address] [facility] site w/o Amber Walker, [address] [facility] org/sys [place], N [facility] cent[facility] [place], [facility], [address], [place], [id number], [place], [place], [place]. [address]. [id number], tel:[phone] tel:+[phone] US [phone] [phone] tel:[phone] Arthritis Arthritis [facility] arthritis w SAMPLE WRAPPER C Provider: Levi Sims [facility] factor 9 Michelle Collins [facility], 5[address] [facility] site w/o [address], [address] [facility] org/sys [facility] Cassie [place], involvFibromy [address], Dates Dr Felizuse, algiaDokavoni [place], [address], [place], [place], [place], [place], [address]. [id number], unspecifiedOt [id number], tel:[phone] [place] her shelter [place]. [address]Pzssshk tel:+[phone] (current) tel:[phone] ist: [phone] drug [id number] Qutaybeh therapyOth Meccaydvesta foster of bone , [place] [facility] structure, [address], [place], [address]. tel:[phone] ing Provider: Shmuel Conner MD, [address] [facility] [address], [place], [address]. tel:[phone] Provider: Gt Clark, [address] [facility], [place], [address]. tel:[phone] Arthritis Arthritis Valentin Karl-0 Rafa ARAUJO Referring [facility] Health arthritis w 4- Norma. 5794 Provider: Levi [facility] 9 [facility], [address] [place] [address] site w/o Amber Walker, [facility]/s [place], N [facility], involv [place], [facility] [address], [place], [id number], [place], [place]. [address]. [id number], tel:+[phone] tel:+[phone] [place] [phone] [address] tel:[phone] Arthritis Arthritis Shubham 0 Rafa ARAUJO Referring [facility] Health arthritis w Norma. 5794 Provider: Levi Sims [facility] 9 [facility], [address] [facility] site w/o Amber Walker, [facility]3 [facility]/sys [place], N [facility], involv [place], [address], [place], [id number], [place]. [address]. [id number], tel:[phone] tel:[phone] US [phone] [address] tel:[phone] Arthritis Arthritis Rheu Apr-0 Rafa ARAUJO Referring Health Health arthritis w Norma. 5794 Provider: Levi davis factor 9 [facility] Gt PLLC, 5794 [facility] site w/o Amber Walker, 2333 [facility] org/sys [place], N [facility] [place], [facility], [address], [place], [id number], [place], [place], [place]. [address]. [id number], tel:+[phone] tel:+[phone] [place] [phone] [address] tel:[phone] Arthritis Arthritis Rheu Jul- [facility] arthritis w SAMPLE WRAPPER C Provider: Levi pablo factor 9 Michelle YanezViktoria Collins PLLC, 5794 [facility] Hospitalt site w/o [address], 201 [facility] org/s [facility] Mejía B [place], [facility] emergency hospitalvOther [address], Dates [address], shelter [place], [address], [place], [place], (current) [place], [address]. [id number], drug therapy [id number], tel:[phone] [place]. [address]Ozjufuj tel:+[phone] tel:[phone] ist: [phone] Karen Gonzalez MD, [facility] [address] [facility]. [address], [place], [address]. tel:[phone] ing Provider: Shmuel Conner MD, [address] [facility] [address], [place], [address]. tel:[phone] ng Provider: Gt Clark, [address] N [facility], [place], [address]. tel:[phone] Arthritis Arthritis Rheu Fe-2 Lexx Referring [facility] Health arthritis w 8 MD Hannon. Provider: Levi pbalo factor 9 5794 Gt [facility], 5794 PLLGu[facility] Hospitalt site w/o Lorenzobanner payson medical centerjena Clark, [address] [place] org/sys [place], N [facility] [place], involv [place], [address], [place], [place], [place], [place], [id number], [address]. [id number], [place]. tel:+[phone] [place] tel:+ [phone] tel:+ [phone] Arthritis Arthritis [facility] 3 Rafa ARAUJO Referring Health Health arthritis w [facility]. 5794 Provider: Levi Sims [facility] factor 9 [facility] Gt [facility], 5794 PLLC mult site w/o [place], Amber, 2[address] [facility] org/sys [place], N [facility] [place], involv [place], [address], [place], [id number], [place], [place]. [address]. [id number], tel:[phone] tel:[phone] US [phone] 41608 tel: [phone] Arthritis Arthritis [facility] Rafa ARAUJO Referring Health Health arthritis w [facility]. 5794 Provider: Levi Sims [facility] factor [address] [facility] Gt [facility], 5794 PLLGuern[facility] Hospitalt site w/o [place] Amber, 2[address] [facility] org/sys [place], N [facility] [place], involv [place], [address], [place], [id number], [place], [place]. [address]. [id number], tel:+ tel:[phone] [place] [phone] [address]268 tel: [phone] Arthritis Arthritis Rheu Rafa ARAUJO Referring Health Health arthritis w [facility]. 5794 Provider: Levi Sims [facility] factor 8 [facility] Gt [facility], 5794 PLL mult site w/o [place] Amber, 2333 [facility] org/sys [place], N [facility] [place], involv [place], [address], [place], [id number], [place]. [address]. [id number], tel:+[phone] tel:+[phone] [place] [phone] [address] tel:[phone] Arthritis Arthritis Rheu Ham Consult[employer] [facility] Health arthritis w SAMPLE WRAPPER C Provider: Levi pablo factor 8 Michelle Collins PLLC, [address] [facility] site w/o [address], 201 [facility] org/s [facility] Mejía B [place], involvUnsp [address]kw[address], Dates Dr Alarcon, thoracic, [place], [address], [place], [place], [place], [address]. [id number], and lumbosacr [id number], tel:[phone] [place]. [address]Nmmqilx tel:+[phone] disorderOther tel:+ ist: [phone] operations and maintenance technician [id number] Marietanicol (current) Lisa drug therapy , [facility] [address] [facility]. [address], [place], [address]. tel:[phone] ing Provider: Shmuel Conner MD, [address] [facility] [address], [place], [address]. tel:[phone] Provider: Gt Clark, [address] [facility] [address], [place], [address]. tel:[phone] Arthritis Arthritis [facility] Mehreen ARAUJO Referring [facility] arthritis w [place]. Provider: Levi davis factor 8 5794 [facility], [address] [facility] site w/o [facility] Hospital[facility]ena Clark, [facility]3 [facility]/s [place], Elliott Walker, involv [place], [address], [place], [place], [place], [place], [place], [address], [address]. [id number], [place]. tel:[phone] [place] tel:[phone] tel:[phone] Arthritis Arthritis [facility] Rafa ARAUJO Referring [facility] arthritis w Norma. 5794 Provider: Levi pablou factor 8 [facility] Gt [facility], [address] [facility] site w/o Amber Walker, 2[address] [facility]/s [place], N [facility]ph[facility]e medical cent[facility]rel [place], involv [place], [address], [place], [id number], [place], [place], [place]. [address]. [id number], tel:+[phone] tel:[phone] [place] 115059 02157 tel:[phone] Arthritis Arthritis [facility] Sep-0 Rafa ARAUJO [facility] arthritis w 6-201 Norma. 5794 Provider: Levi [facility] 8 [facility], [address] [facility] site w/o Amber Walker, 2[address] [facility]sys [place], N [facility] [place], involv [place], [address], [place], [id number], [place], [place], [place]. [address]. [id number], tel:+[phone] tel:+[phone] [place] 322010 07234 tel:[phone] Arthritis Arthritis [facility] Aug-2 [facility] arthritis w 0-201 SAMPLE WRAPPER C Provider: Levi [facility] factor 8 Michelle Collins [facility], [address] [facility] site w/o 5794 Bael, 201 [facility] Mejía B Aaron [facility] [address], Dates Dr Alarcon, operations and maintenance technician [place], [address], [place], [place], (current) [place], [address]. [id number], drug [id number], tel:[phone] [place]. [address]Pnnmkwc tel:+[phone] disrd of bone tel:+[phone] ist: 732300 density and 409652 Qutaybeh structure, Lisa diaz MD, [facility] Cardiology [address] [facility]. [address], [place], [address]. tel:[phone] ing Provider: Shmuel Conner MD, [address] [facility] [address], [place], [address]. tel:[phone] ng Provider: Gt Clark, [address] [facility] 302, [place], [address]. tel:[phone] Arthritis Arthritis Rheumatoid Aug-0 Ajz MD Referring [facility] arthritis Hong. Provider: Levi whitlock 8 57 Gt PLLC, 5794 PLLC factor of [facility], [address] [place] [address], N [facility], sites w/o [place], [address], [place], organ [place], [place], [place], [place], [place] [id number], [address]. [id number], [place]. tel:+[phone] [place] tel:[phone] tel:[phone] Arthritis Arthritis Rheumatoid Rafa ARAUJO Referring [facility] arthritis Norma. 5794 Provider: Levi whitlock 8 [facility] Gt PLLC, 5794 PLLC factor of [facility], [address] [place] [address], N [facility], sites w/o [place], [address], [place], organ [id number], [place], [place], [place], [place]. [address]. [id number], tel:+[phone] tel:+[phone] US 776989 55884 tel:[phone] Arthritis Arthritis Rheumatoid Rafa ARAUJO Referring [facility] arthritis Norma. 5794 Provider: Levi whitlock 8 [facility] Gt PLLC, 5794 PLLC factor of [facility], [address] [place] [address], N [facility], sites w/o [place], [address], [place], organ [id number], [place], [place], [place]. [address]. [id number], tel:+[phone] tel:[phone] US 677921 47683 tel:[phone] Arthritis Arthritis Rheumatoid Ham Consulting [facility] arthritis SAMPLE WRAPPER C Provider: Levi whitlock 8 Michelle Collins PLLC, 5794 PLLC factor of 5794 Ba, 201 [facility] Mejía B [place], sites w/o Pkwy, Dates Dr Alarcon, organ [place], 102, [place], [place], [place], [address]. [id number], bromyalgiaOth [id number], tel:+[phone] [place] er operations and [place]. [address]Xoxotor tel:+315 drug therapy tel:+ ist: [phone] Karen Gonzalez MD, [facility] [address] [facility]. [address], [place], [address]. tel:[phone] ing Provider: Shmuel Conner MD, [address] [facility] [address], [place], [address]. tel:[phone] ng Provider: Gt Clark, [address] N [facility] [address], [place], [address]. tel:[phone] Arthritis Arthritis Rheumatoid Rafa ARAUJO Referring [facility] arthritis Norma. 5794 Provider: Levi Sims [facility] 8 [facility] Gt PLLC, 5794 PLLC factor of [facility], [address] [place] [address], N [facility], sites w/o [place], [address], [place], organ [id number], [place], [place], [place], [place]. [address]. [id number], tel:+ tel:+[phone] US [phone] 57968 tel:+ [phone] Arthritis Arthritis Rheumatoid Jaz ARAUJO Referring [facility] arthritis Hong. Provider: Levi Sims rheumatoid 8 57 G[facility] PLL[facility], 5794 PLLC factor of [facility], [address] [place] [address], N [facility], sites w/o [place], [address], [place], organ [place], [place], [place], [place], [place] [id number], [address]. [id number], [place]. tel:+[phone] US tel:[phone] tel:[phone] Arthritis Arthritis Rheumatoid Jul- Can Referring [facility] Health arthritis MD Hannon. Provider: Levi Sims rheumatoid 8 57 G[facility] PLL[facility], 5794 PLLC factor of [facility], [address] [place] [address], N [facility], sites w/o [place], [address], [place], organ [place], [place], [place], [place], [place] [id number], [address]. [id number], [place]. tel:[phone] US tel:[phone] tel:[phone] Arthritis Arthritis Rheumatoid Ham Consulting [facility] arthritis SAMPLE WRAPPER C Provider: Levi whitlock 8 Michelle Collins PLLC, 5794 PLLC factor of 5794 Bael, 201 [facility], sites w/o Pkwy, Dates Dr Alarcon, organ [place], 102, [place], [place], [place], [address]. [id number], her shelter [id number], tel:[phone] [place]. [address]Xyugodw tel:+ therapyFibrom tel:+ ist: [phone] yalgia [phone] Karen Gonzalez MD, [facility] [address] [facility]. [address], [place], [address]. tel:[phone] ng Provider: Gt Clark, [address] [place] [address], [place], [address]. tel:[phone] Arthritis Arthritis Rheumatoid Mehreen ARAUJO Referring [facility] arthritis Robert. Provider: Levi whitlock 8 5794 Gt PLLC, 5794 PLLC factor of [facility] Amber, [address] [place] [address], N [facility], sites w/o [place], [address], [place], organ [place], [place], [place], [place], [place] [id number], [address]. [id number], [place]. tel:+[phone] US tel:[phone] tel:[phone] Arthritis Arthritis Rheumatoid May- Rafa ARAUJO Referring [facility] arthritis Noram. 5794 Provider: Levi whitlock 8 [facility] Gt PLL[facility], 5794 PLLC factor of [place], [address] [place] [address] [place], N [facility], sites w/o [place], [address], [place], organ [id number], [place], [place], [place]. [address]. [id number], tel:+[phone] tel:[phone] US 314378 69732 tel:[phone] Arthritis Arthritis Rheumatoid Dec- [facility] MD Hannon. Provider: Levi [facility] rheumatoid 7 5794 Gt PLLC, 5794 PLLC factor of [facility], 2333 [facility], N [facility], sites w/o [place], [address], [place], organ [place], [place], [place], [place], [place] [id number], [address]. [id number], [place]. tel:+[phone] US tel:+ [phone] tel:+ [phone] Arthritis Arthritis Rheumatoid Mar- [facility] SAMPLE WRAPPER C Provider: Levi [facility] rheumatoid 7 Michelle Collins PLLC, 5794 PLLC factor of 5794 Bael, 201 [facility], sites w/o Pkwy, Dates Dr Fel[place], organ [place], 102, [place], [place], [place], [address]. [id number], bromyalgiaOth [id number], tel:[phone] [place] er operations [place]. [address]Yhtzymy tel:+3154 drug tel:+ ist: [phone] therapyBody 153690 Qutaybeh mass index Lisa (BMI) , [place] 37.0-37.9, Cardiology adult [address] [facility]. [address], [place], [address]. tel:[phone] ng Provider: Gt Clark, [address] [facility] 302, [place], [address]. tel:[phone] Arthritis Arthritis Rheumatoid Nov-0 Rafa ARAUJO [facility] arthritis Norma. 5794 Provider: Levi [facility] rheumatoid 7 [facility] Gt PLL[facility], 5794 PLLC factor of [place] Amber, 2333 [facility] multiple [place], [facility], sites w/o [place], [address], [place], organ [id number], [place], [place], [place], [place]. [address]. [id number], tel:+4 tel:+[phone] US 004702 20328 tel:[phone] Arthritis Arthritis Rheumatoid Rafa ARAUJO Referring [facility] arthritis w Norma. 5794 Provider: Levi Sims [facility] 7 [facility]t [facility], 5794 PLLC factor of [facility], 2333 [facility] [place], N [facility], sites w/o [place], [address], [place], organ [id number], [place], [place], [place]. [address]. [id number], tel:+ tel:+[phone] [place] 020588 61399 tel: [phone] Arthritis Arthritis Rheumatoid Rafa ARAUJO Referring [facility] arthritis w Norma. 5794 Provider: Levi Sims [facility] 7 [facility] Gt PLL[facility], 5794 PLLC factor of [place], [facility] multiple [place], N [facility], sites w/o [place], [address], [place], organ [id number], [place], [place], [place], [place]. [address]. [id number], tel:+ tel:+[phone] [place] 064172 52155 tel:[phone] Arthritis Arthritis Rheumatoid [facility] arthritis w SAMPLE WRAPPER C Provider: Levi Sims rheumatoid 7 Michelle Collins PLLC, 5794 PLLC factor of 5794 Bael, 201 [facility] Mejía B [place], sites w/o Pkwy, Dates Dr Alarcon, organ [place], 102, [place], [place], [place], [address]. 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 [address]Ayhyocb tel:+[phone] therapyFibrom tel: ist: [phone] yalgiaGeneral [id number] Karen Gonzalez osteoarthriti , [place] sPolymyalgia Cardiology rheumaticaBod 310 y mass index [facility] [address] 37.0-37.9, 4, [facility], [address]. tel:[phone] ng Provider: Gt Clark, [address] [facility] [address], [place], [address]. 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 [place] drug therapy [place]. tel:42 tel: tel: [phone] Arthritis Arthritis Other long [facility] term drug 0 SAMPLE WRAPPER C Levi Sims therapyRheuma 7 Michelle Dennis PLLC, 5794 PLLC toid 5794 [facility] arthritis w/ [facility], rheumatoid Pkwy, [place], factor of [place], [place], multiple [place], [id number], sites w/o [id number], [place] organ [place]. tel: involvement tel:[phone] Arthritis Arthritis Rheumatoid [facility] arthritis w/ 0 SAMPLE WRAPPER C Provider: Levi Sims rheumatoid 7 Michelle Collins PLLC, 5794 PLLC factor of 5794 Bael, 201 [facility], sites w/o Pkwy, Dates Dr [place], organ [place], 102, [place], [place], [place], [address]. 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 [address]Zlbihdf tel:+315 therapyFibrom tel:+315 ist: [phone] yalgiaBody 527969 Qutaybeh mass index Lisa (BMI) , [place] 37.0-37.9, Cardiology adult [address] [facility]. [address], [place], [address]. tel:[phone] ng Provider: Gt Clark, [address] [facility] 302, [place], [address]. tel:[phone] Arthritis [facility]ritis [facility]oid [facility] arthritis WILLIAM Provider: Levi Sims rheumatoid Violet Downey. Dennis PLLC, 5794 PLLC factor of 5794 Ba, [address] [place] [address], [facility] w/o [place], [facility] Dr Alarcon, organ [place], [facility], [place], [place], [place], [address]. [id number], her shelter [id number], tel:[phone] [place]. [address]Bppwpwa tel: therapyFibrom tel: ist: [phone] yalgiaGeneral 112533 Qutanicol higginsed Lisa osteoarthriti , [place] s [facility]iology [address] [facility]. [address], [place], [address]. tel:[phone] ng Provider: Gt Clark, 2[address] N [facility] 302, [place], [address]. tel:[phone] Arthritis Arthritis Rheumatoid Kimberley [facility] arthritis WILLIAM Carcamo. Provider: Levi Sims rheumatoid Violet 5794 Dennis PLLC, 5794 PLLC factor of [address], [facility] w/o [place], Dates Dr Alarcon, organ [place], 102, [place], [place], [place] [id number], [place], [address]. [id number], her shelter [place]. tel:[phone] [place] drug tel:+[phone] tel:[phone] therapyOther [id number] ist: [phone] specified Qutaybeh disorder of Lisa bone density Ryan ARAUJO of multiple Cardiology sites [address] [facility] [address], [place], [address]. tel:[phone] ng Provider: Gt Clark, [address] [facility] 302, [place], [address]. tel:[phone] Arthritis Arthritis Rheumatoid Aug- Justus Consulting [facility] arthritis w PA-C Provider: Levi Sims [place] [address] Shayan. Dennis PLLC, 5794 PLLC factor of 5794 Ba, [address] [place] [address], sites w/o [place], [facility] Dr Alarcon, organ [place], 102, [place], [place], [place], [address]. [id number], her shelter [id number], tel:[phone] [place]. [address]Lhxgaqp tel:+[phone] therapyGenera tel:+[phone] ng Provider: [id number] lized [id number] Gt osteoarthriti Amber, [address] s [address] [facility] 302, [place], [address]. tel:[phone] Arthritis Arthritis Rheumatoid Jul- Rafa ARAUJO Referring [facility] arthritis Norma. 5794 Provider: Levi Sims [address] Gt PLLC, 5794 PLLC factor of Amber Walker, [facility] [place], N [facility], sites w/o [place], [address], [place], organ [id number], [place], [place], [place], [place]. [address]. [id number], tel:+[phone] tel:[phone] US 914034 26730 tel:[phone] Arthritis Arthritis Rheumatoid Jun- [facility] arthritis Provider: Levi Sims [place] [address] Dennis PLLC, 5794 PLLC factor of [address], sites w/o Dates Dr Alarcon, organ 102, [place], [place], [place], [address]. [id number], neralized tel:+[phone] [place] osteoarthriti 38184Jjhlwkx tel:[phone] Ezra lutz Provider: [id number] term drug Gt therapyZaynabela Amber, [address], [place], [address]. tel:[phone] Arthritis Arthritis Rheumatoid May- Consulting [facility] Health arthritis w Provider: Levi Sims rheumatoid 7 Dennis PLLC, 5794 PLLC factor of [facility], [address] [place] [address], sites w/o Dates Dr Alarcon, organ 102, [place], [place], [place], [address]. [id number], neralized tel:[phone] [place] osteoarthriti 70544Ugetolm tel:[phone] Ezra lutz Provider: [id number] term drug Gt therapyShortn Amber, 2333 ess of breath N [address], [place], [address]. tel:[phone] Arthritis Arthritis Rheumatoid Rafa ARAUJO Consulting [facility] arthritis w- Norma. 5794 Provider: Levi Sims rheumatoid 6 [facility] Dennis PLLC, 5794 PLLC factor of [facility], [address] [place] [address], sites w/o [place], Dates [address] Alarcon, organ [id number], 102, [place], [place], [place], [address]. [id number], her shelter tel:[phone] tel:[phone] [place] drug 338700 56492Ejzocxo tel:[phone] therapyAnemia ng Provider: [id number] Gt Clark, [address], [place], [address]. tel:[phone] Arthritis Arthritis Generalized Mar- Health Health osteoarthriti Associates Levi s 6 PLLC, 5794 PLLC [place], [place], [id number], [place] tel:[phone] Arthritis Arthritis Encounter for Health Health screening for Associates Levi respiratory 6 PLLC, 5794 PLLC tuberculosis [facility], [place], [place], [id number], [place] tel:[phone] Arthritis Arthritis Other Feb- [facility] specified [facility] Associates abnormal 6 PLLC, 5794 PLLC findings of [facility] chemistry [place], [place], [id number], [place] tel:[phone] Arthritis Arthritis Rheumatoid Feb- Consulting [facility] arthritis w Provider: Levi Sims rheumatoid 6 Qutaybeh PLLC, 5794 PLLC factor of Lisa diaz MD, [facility], sites w/o Cardiology [place], organ 310 [place], involvementFi [facility] [id number], bromyalgiaGen [address]. Suite eralized [place], tel:[phone] [place], [address]. 341678 sLumbosacral tel:[phone] intervertebra 04566Iyjhetc l disc ng Provider: Jama Del Real operations and maintenance technician Amber, [address] drug [address] therapyPain [address], in lt [place], [place], kneeShortness [address]. of breath tel:[phone] Arthritis Arthritis Other Jan- [facility] specified Associates Associates abnormal 6 PLLC, 5794 PLLC findings of [facility], chemistry [place], [place], [id number], [place] tel:[phone] Arthritis Arthritis Rheumatoid Jan- Consulting [facility] arthritis Provider: Levi Sims rheumatoid 6 Qutaybeh PLLC, 5794 PLLC factor of Lisa diaz MD, [facility], sites w/o Cardiology [place], organ 310 [place], involvementOt [facility] [id number], her operations and maintenance technician [address]vd. [address], [place], tel:[phone] [place], [address]. 500742 acral tel:[phone] intervertebra 78707Owncvpi l disc ng Provider: Rolanda Del Real myalgiaGenera Amber, 2[address] lized [address] osteoarthriti [address], [place], [address]. tel:[phone] Arthritis Arthritis Rheumatoid Aug-3 Consulting Health Health arthritis w Provider: Levi Burns Qutaybeh PLLC, 5794 PLLC factor of Lisa diaz MD, [facility], sites w/o Cardiology [place], organ 310 [place], involvement[place] [id number], bromyalgiaLum [address], tel:[phone] [place], [address]. 567692 l disc tel:[phone] disorderPain 07612Gypheel in rt ing hipOther long Provider: term drug Dennis therapy Bael, [address], [place], [address]. tel:[phone] bolivar Provider: Gt lCark, [address], [place], [address]. tel:[phone] Arthritis Arthritis Rheumatoid Consulting [facility] arthritis Provider: Levi Burns Qutaybeh PLLC, 5794 PLLC factor of Lisa diaz MD, [facility], sites w/o Cardiology [place], organ 310 [place], involvement[place] [id number], bromyalgia[address]um [address], tel:[phone] [place], [address]. 981829 l disc tel:[phone] disorderPain 11063Ykytwsz in rt ing hipOther long Provider: term drug Dennis therapy Bael, [address], [place], [address]. tel:[phone] bolviar Provider: Gt Clark, [address], [place], [address]. tel:[phone] Arthritis Arthritis Rheumatoid Consulting [facility] arthritis Provider: Levi Burns Qutaybeh PLLC, 5794 PLLC factor of Lisa diaz MD, [facility], sites w/o Cardiology [place], organ 310 [place], involvement[place] [id number], her operations and maintenance technician [address]vd. Suite [place] drug 4, [place], tel:[phone] [place], [address]. 062791 acral tel:[phone] intervertebra 45253Ykrlrqq l disc ing disorderFibro Provider: myalgia Dennis Bright, [address], [place], [address]. tel:[phone] bolivar Provider: Gt Clark, [address], [place], [address]. tel:[phone] Arthritis Arthritis Rheumatoid Karl- Consulting [facility] arthritis w/ 0 Provider: Levi Sims rheumatoid 6 Qutaybeh PLLC, 5794 PLLC factor of Lisa diaz MD, [facility], sites w/o Cardiology [place], organ 310 [place], involvementFi [facility] [id number], bromyalgiaOth [address] Suite er operations and maintenance technician , [place], tel:[phone] [place], [address]. 221916 therapyBack tel:[phone] pain 66400Aitrhko ing Provider: Dennis Bright, [address], [place], [address]. tel:[phone] bolivar Provider: Gt Clark, [address], [place], [address]. tel:[phone] Arthritis Arthritis Rheumatoid Machovec Consulting [facility] arthritis w PA-C Provider: Levi Sims rheumatoid 6 Rosa Maria B. Qutaybeh PLLC, 5794 PLLC factor of 5794 Lisa Dominique MD, [facility], sites w/o [place], Cardiology [place], organ [place], 310 [place], [place], [facility] [id number], her shelter [id number], Blvd. Suite drug therapy [place]. 4, [place], tel:[phone] tel:[phone] [place], [address]. 716661 297237 tel:[phone] ing Provider: Dennis Bright, [address], [place], [address]. tel:[phone] bolivar Provider: Gt Clark, [address] [facility] [address], [place], [address]. tel:[phone] Arthritis Arthritis Rheumatoid [facility] arthritis Provider: Levi Sims rheumatoid 6 Qutaybeh PLLC, 5794 PLLC factor of Lisa diaz MD, [facility], sites w/o Cardiology [place], organ 310 [place], involvement Nat [id number], [address], [place], tel:[phone] [place], [address]. [address] tel:[phone] ing Provider: Dennis Bright, [address], [place], [address]. tel:[phone] bolivar Provider: Gt Clark, [address], [place], [address]. tel:[phone] Arthritis Arthritis Rheumatoid [facility] arthritis Provider: Levi Sims rheumatoid 6 Q[facility]aybeh PLLC, 5794 PLLC factor of Lisa diaz MD, [facility], sites w/o Cardiology [place], organ 310 [place], involvement[place] [id number], neralized Blvd. Suite osteoarthriti , [place], tel:[phone] sOther [facility], [address]. 514624 term drug tel:[phone] therapy 38393Hbixxit ing Provider: Dennis Bright, [address], [place], [address]. tel:[phone] bolivar Provider: Gt Clark, [address] [facility] [address], [place], [address]. tel:[phone] Arthritis Arthritis Rheumatoid [facility] arthritis Provider: Levi Sims rheumatoid 6 Q[facility]aybeh PLLC, 5794 PLLC factor of Lisa diaz MD, [facility], sites w/o Cardiology [place], organ 310 [place], involvement[place] Nat [id number], her shelter [address]. Suite drug [address], [place], tel:[phone] [place], [address]. 442197 lized tel:[phone] osteoarthriti 94652Npgeala s ing Provider: Dennis Bright, [address], [place], [address]. tel:[phone] bolivar Provider: Gt Clark, [address], [place], [address]. tel:[phone] Arthritis Arthritis Other [facility] specified armando [place]. Associates Levi abnormal 6 5794 PLLC, 5794 PLLC findings of [facility] blood [facility], chemistry [place], [place], [id number], [id number], [place]. [place] tel:[phone] tel:[phone] 442600 Arthritis Arthritis Rheumatoid [facility] arthritis w Provider: Levi whitlock 6 Qutaybeh PLLC, 5794 PLLC factor of Lisa diaz MD, [facility], sites w/o Cardiology [place], organ 310 [place], involvement[place] [id number], her shelter [address]. Suite drug [place], tel:[phone] [place], [address]. 041476 lized tel:[phone] osteoarthriti 91612Fbyjmvs sAnemia, ing unspecified Provider: Dennis Bright, [address], [place], [address]. tel:[phone] bolivar Provider: Gt Clark, [address], [place], [address]. tel:[phone] Arthritis Arthritis Rheumatoid [facility] arthritis Provider: Levi Sims rheumatoid 5 Q[facility]aybeh PLLC, 5794 PLLC factor of Lisa diaz MD, [facility], sites w/o Cardiology [place], organ 310 [place], involvementGe Nat [id number], neralized Blvd. Suite osteoarthriti 4, [place], tel:[phone] [place], [address]. 994057 term drug tel:[phone] therapyAnemia 00264Twklizq , unspecified ing Provider: Dennis Bright, [address], [place], [address]. tel:[phone] bolivar Provider: Gt Clark, [address], [place], [address]. tel:[phone] Arthritis Arthritis Rheumatoid [facility] arthritis, Provider: Levi Sims unspecifiedOt 5 [facility], [facility] her operations and maintenance technician Lisa balbuena MD, [facility], [facility] [place], [facility] [address] [place], osteoarthriti [facility] [id number], sAnemia, [address] [place] unspecified 4, [place], tel:[phone] [place], [address]. [address] tel:[phone] ing Provider: Dennis Bright, [address], [place], [address]. tel:[phone] bolivar Provider: Gt Clark, [address], [place], [address]. tel:[phone] Arthritis [facility]ritis [facility] WILLIAM Carcamo. Provider: Levi Sims 5 5794 [facility], 5[facility] Walker MD, [facility], [place], [place], [place], [address] [place], [id number], [facility] [id number], [place] [place] tel:[phone] , [place], tel:[phone] [place], [address]. [address] tel:[phone] ing Provider: Dennis Bright, [address], [place], [address]. tel:[phone] bolivar Provider: Gt Clark, [address], [place], [address]. tel:[phone] Arthritis Arthritis [facility] Provider: Associates Levi 5 Karen BURROWS, 5794 PLLC Lisa Dominique MD, [facility], Cardiology [place], [address] [place], [facility] [id number], [address] [place] [address], [place], tel:[phone] [place], [address]. [id number] tel:[phone] ing Provider: Dennis Bright, [address], [place], [address]. tel:[phone] ng Provider: Gt Clark, [address], [place], [address]. tel:[phone] Arthritis Arthritis [facility] Provider: Levi Sims 4 Karen BURROWS, 5794 PLLOsmin Dominique MD, [facility], Cardiology [place], [address] [place], [facility] [id number], [address] [place] [address], [place], tel:[phone] [place], [address]. [address] tel:[phone] ing Provider: Dennis Bright, [address], [place], [address]. tel:[phone] bolivar Provider: Gt Clark, [address], [place], [address]. tel:[phone] Arthritis Arthritis [facility] Provider: Associates Levi 4 Gt BURROWS, 5794 PLLOsmin Clark, [address], [address], [place], [place], [address]. [id number], tel:[phone] tel:[phone] Arthritis Arthritis [facility] Provider: Levi Sims 3 Gt BURROWS, 5794 PLLOsmin Clark, [address] [place], [address], [place], [place], [address]. [id number], tel:[phone] tel:[phone] Arthritis [facility] 2 [employer] Provider: Levi Sims 3 Alicia. [facility], 5794 PLLC S Shoprakash Clark, [address], [place], [address], [place], [place], [place], [id number], [address]. [id number], [place]. tel:[phone] tel:[phone] tel:[phone] Arthritis Arthritis Jan- [facility] 7 Provider: Levi Sims 3 Gt ASKEWC, 5794 PLLC mAber, [address], [address], [place], [place], [address]. [id number], tel:[phone] tel:[phone] Arthritis Arthritis Dec- [facility] 6 Provider: Levi Sims 3 Gt ASKEWC, 5794 PLLC Amber, [address], [address], [place], [place], [address]. [id number], tel:[phone] tel:[phone] Arthritis Arthritis Jul- [facility] Provider: Levi Sims 3 Gt ASKEWC, 5794 PLLC Amber, [address], [address], [place], [place], [address]. [id number], tel:[phone] tel:[phone] Arthritis Arthritis [facility] Provider: Levi Sims 2 Gt ASKEWC, 5794 PLLC Amber, [address], [address], [place], [place], [address]. [id number], tel:[phone] tel:[phone] Arthritis Arthritis [facility] WILLIAM Carcamo. Provider: Levi Sims 2 57Mehrdad [facility]t [facility], 5794 PLLC [facility] Clark, [address] [facility], [address] [facility], [place], [facility] [address], [place], [place], [place], [place], [place], [id number], [address]. [id number], [place]. tel:[phone] tel:[phone] tel:[phone] Arthritis Arthritis Nov- [facility] 8 Provider: [facility] 1 Gt BURROWS, 5794 PLLC Amber, [address] [facility] [address] [facility], [address], [place], [place], [address]. [id number], tel:[phone] tel:[phone] Arthritis Arthritis [facility] Provider: Associates Associates 1 Gt BURROWS, 5794 PLLC Amber, [address] [facility] [address] [facility], [facility] [address], [place], [place], [address]. [id number], tel:[phone] tel:[phone] Family History Family Member Diagnosis Age At Onset Paternal grandmother Rheumatoid arthritis Immunizations Vaccine Date Status Comments Influenza, injectable, MDCK, administered Note: approx. ; Source : Other Flucelvax Quad 2017-2019Y Provider Influenza, injectable, administered Note: approx. ; Source: Other quadrivalent, split virus, 18 Provider years or older Afluria Quad 5918-0426 Influenza, injectable, administered Note: Invalid documented admin trivalent, split virus, 4 date was . ; years and older, Fluvirin Source: Other Provider [id number] Yet to receive Flu vaccine administered Source: [...] type Covered libertarian ID Authorization(s) Medicare MB [id number] BCBS No Referral Required [id number] Social History Type Description Quantity Date Captured [...] Information Pt. not exposed to someone in retirement nor traveled out of the country; no concern for TB screening. Pt. not exposed to someone in retirement nor traveled out of the country; no [...]
--- OUTSIDE RECORDS SUMMARY | 2019-07-12 11:40 | XMS REPORT | Continuity of Care Document ---
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 Osteoporosis - Rheu arthritis w rheu factor mult site w/o org/sys involv Rheu arthritis w rheu factor mult site w/o org/sys involv Oth disrd of bone density and structure, multiple sites Other terminal 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 Other group home (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 therapy Rheu arthritis w rheu factor mult site w/o org/sys involv Oth disrd of bone density - and structure, multiple sites Rheu arthritis w rheu factor mult site w/o org/sys involv 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 terminal 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 Rheu arthritis w rheu factor mult site w/o org/sys involv Rheu arthritis w rheu factor mult site w/o org/sys involv Rheu arthritis w rheu factor mult site w/o org/sys involv Rheu arthritis w rheu factor mult site w/o org/sys involv Fibromyalgia Dorsalgia, unspecified Other group home (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 therapy Oth [...] and lumbosacr intvrt disc disorder Other terminal 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 Rheu arthritis w rheu factor mult site w/o org/sys involv Rheu arthritis w rheu factor mult site w/o org/sys involv Rheu arthritis w rheu factor mult site w/o org/sys involv Rheu arthritis w rheu factor mult site w/o org/sys involv 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 terminal 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 Oth disrd of bone density and structure, multiple sites Rheumatoid arthritis w/ rheumatoid factor of multiple sites w/o organ involvement Rheumatoid arthritis w/ rheumatoid factor of multiple sites w/o organ involvement Rheumatoid arthritis w/ rheumatoid factor of multiple sites w/o organ involvement Rheumatoid arthritis w/ rheumatoid factor of multiple sites w/o organ involvement Fibromyalgia Other terminal 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 drug therapy Rheumatoid arthritis w/ rheumatoid factor [...] multiple sites w/o organ involvement Other terminal 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 drug therapy Fibromyalgia Generalized osteoarthritis Polymyalgia rheumatica Rheumatoid arthritis w/ rheumatoid factor of multiple sites w/o organ involvement Other terminal 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 drug therapy Other terminal 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 drug therapy Rheumatoid arthritis w/ rheumatoid factor of multiple sites w/o organ involvement Rheumatoid arthritis w/ rheumatoid factor of multiple sites w/o organ involvement Other terminal 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 drug therapy Fibromyalgia Rheumatoid arthritis w/ rheumatoid [...] Generalized osteoarthritis Other group home drug therapy Shortness of breath Rheumatoid arthritis w/ rheumatoid factor of multiple sites w/o organ involvement Other terminal 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 drug therapy Anemia Generalized osteoarthritis Encounter for [...] organ involvement Other group home drug therapy Lumbosacral intervertebral disc disorder Fibromyalgia Generalized osteoarthritis Rheumatoid arthritis w/ rheumatoid factor of multiple sites w/o organ involvement Fibromyalgia Lumbosacral intervertebral disc disorder Pain in rt hip Other terminal 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 drug therapy Rheumatoid arthritis w/ rheumatoid factor of multiple sites w/o organ involvement Fibromyalgia Lumbosacral intervertebral disc disorder Pain in rt hip Other group home drug therapy Rheumatoid arthritis w/ rheumatoid factor of multiple sites w/o organ involvement Other group home drug therapy Lumbosacral intervertebral disc disorder Fibromyalgia Rheumatoid arthritis w/ rheumatoid factor of multiple sites w/o organ involvement Fibromyalgia Other group home drug therapy Back pain Rheumatoid arthritis w/ rheumatoid factor of multiple sites w/o organ involvement Other group home drug therapy Rheumatoid arthritis w/ rheumatoid factor of multiple sites w/o organ involvement Rheumatoid arthritis w/ rheumatoid factor of multiple sites w/o organ involvement Generalized osteoarthritis Other group home drug therapy Rheumatoid arthritis w/ rheumatoid factor of multiple sites w/o organ involvement Other terminal 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 drug therapy Generalized osteoarthritis Other specified abnormal findings of blood chemistry Rheumatoid arthritis w/ rheumatoid factor of multiple sites w/o organ involvement Other terminal 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 drug therapy Generalized osteoarthritis Anemia, unspecified Rheumatoid arthritis w/ rheumatoid factor of multiple sites w/o organ involvement Generalized osteoarthritis Other group home drug therapy Anemia, unspecified Rheumatoid arthritis, unspecified Other terminal 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 drug therapy Generalized osteoarthritis Anemia, unspecified Rheumatoid factor positive - Active Fibromyositis - Active Mapped from [facility] Chronic Conditions table on 08/29/2014 by the ICD9 to SNOMED Bulk Mapping Utility. The mapped diagnosis code was Fibromyalgia / Myalgia, 729.1, added by Norma Craig MD, with responsible provider Norma Craig MD. Onset date 06/11/2012; last addressed on 04/18/2014. High risk drug monitoring - Active Mapped from [facility] Chronic status Conditions table on 09/15/2014 by the ICD9 to SNOMED Bulk Mapping Utility. The mapped diagnosis code was Therapeutic Drug Monitoring, V58.69, added by Claribel Aguilar NP, with responsible provider Claribel WALTER. Onset date 03/19/2012; last addressed on 04/18/2014. Polymyalgia rheumatica - Active Mapped from [facility] Chronic Conditions table on 07/15/2014 by the ICD9 to SNOMED Bulk Mapping Utility. The mapped diagnosis code was Polymyalgia rheumatica, 725, added by Claribel Aguilar NP, with responsible provider Claribel WALTER. Onset date 03/19/2012; last addressed on 02/04/2014. Rheumatoid arthritis - Active Mapped from [facility] Chronic Conditions table on 07/15/2014 by the ICD9 to SNOMED Bulk Mapping Utility. The mapped diagnosis code was Rheumatoid Arthritis, 714.0, added by Norma Craig MD, with responsible provider Norma Craig MD, MD. Onset date 01/23/2012; last addressed on 04/18/2014. Procedures Procedure Date CHEMO, IV INFUSION, 1 HR CHEMO, IV INFUSION, ADDL HR Infliximab injection Remicade Normal saline solution infus Results Test Name Date and Time Measure Units Reference Range Abnormal Flag Status Comments No information Advance Directives Directive Yes / No Effective Date File Name No information Encounters Encounter Practice Location Reason(s) Diagnoses Date Provider Providers Description For Visit Copied on Encounter Arthritis Arthritis Rafa [facility] Norma. [facility], 5[address] PLLC [place], [facility] [place], [place], [place], [place], [id number], [place], [place]. [id number], tel:[phone] [place] [phone] tel:[phone] Arthritis Arthritis Rheu [facility] arthritis MD Hannon. Provider: [facility] rheu factor 0 5794 Gt PLLC, 5794 PLLC [facility] site w/o [facility], [address] [facility]/s [place], N [facility] [place], involv [place], [address], [place], [place], [place], [place], [place], [id number], [address]. [id number], [place]. tel:[phone] tel:[phone] tel:[phone] Arthritis Arthritis [facility] MANAGER NEW PRODUCT C [facility] 0 Michelle Dennis [facility], [address], [place], [place], [id number], [id number], [place]. tel:[phone] tel:[phone] Arthritis Arthritis Rheu Jaz ARAUJO [facility] arthritis w 0 Hong. Provider: [facility] rheu factor 9 5794 Gt PLLC, 5794 PLLC [facility] site w/o [facility], [address] [facility] [place], N [facility] [place], involv [place], [address], [place], [place], [place], [place], [id number], [address]. [id number], [place]. tel:[phone] [place] tel:[phone] tel:+ [phone] Arthritis Arthritis Apr- [facility] 8- MANAGER NEW PRODUCT C [facility] 9 Michelle YanezViktoria PLLC, 5794 PLLC [address] [facility], [address], [place], [place], [id number], [id number], [place]. tel:+ tel:[phone] Arthritis Arthritis Age-related Apr- [facility] osteoporosis 6 MANAGER NEW PRODUCT C Provider: Levi Sims w/o current 9 Michelle Collins PLLC, 5794 PLLC pathological 5[address] Bael, [address] [facility] fractureeu [facility], arthritis w [address], Dates Dr Alarcon, rheu [facility], [address], [place], [place], mult site w/[place], [address]. [id number], [facility]/sys [id number], tel:[phone] [place]vOther [place]. [address]Bblsabz tel:+[phone] group home tel:[phone] ist: [phone] (current) [id number] [facility] drug therapy Lisa ARAUJO, [facility] [address], [place], [address]. tel:[phone] ing Provider: Shmuel Conner MD, [address], [place], [address]. tel:[phone] Provider: Gt Clark, [address] [facility] [address], [place], [address]. tel:[phone] Arthritis Arthritis Osteoporosis Apr-0 [facility] 9- MANAGER NEW PRODUCT C [facility] 9 Michelle Jeannie PLLC, 5794 PLLC [address] [facility], [address], [place], [place], [id number], [id number], [place]. tel:+ tel:[phone] [facility] arthritis w 0-201 MD Hannon. Provider: Levi Sims [facility] factor 9 5794 Gt PLLC, 5794 PLLC [facility] site w/o [facility], [facility]3 [facility], [facility], involv [place], [address], [place], [place], [place], [place], [id number], [address]. [id number], [place]. tel:+[phone] [place] tel:[phone] tel:[phone] [facility]thritis [facility]ritis [facility] arthritis w 4-201 MD Hannon. Provider: Levi Sims [facility] factor 9 5794 Gt PLLC, 5794 PLLC [facility] site w/o [facility], [facility]3 [facility], N [facility], involv [place], [address], [place], [place], [place], [id number], [address]. [id number], [place]. tel:+[phone] [place] tel:[phone] tel:[phone] Arthritis Arthritis Oth disrd of Rafa [facility] bone density 8-201 Norma. 5794 Levi Sims and 9 [facility], 5794 PLLC [facility], [place], [facility] multiple [place], [place], sitesOther [place], [place], terminal 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 [id number], [place], (current) [place]. [id number], drug therapy tel:+[phone] [place] [phone] tel:[phone] Arthritis Arthritis Other long Feb-0 [facility] term 4-201 MANAGER NEW PRODUCT C Levi Sims (current) 9 Michelle Dennis PLLC, 5794 PLLC drug therapy [address] [facility], [address], [place], [place], [id number], [id number], [place]. tel:[phone] tel:[phone] Arthritis Arthritis Rheu Sep- Can Referring Health Health arthritis w 6 MD Hannon. Provider: Levi Sims [facility] factor 9 5794 Gt PLLC, 5794 PLLC mult site w/o [facility] Amber, [address] [facility] org/sys [place], N [facility] [place], involv [place], [address], [place], [place], [place], [id number], [address]. [id number], [place]. tel:[phone] [place] tel:[phone] tel:[phone] Arthritis Arthritis Oth disrd of [facility] bone density 0-201 MANAGER NEW PRODUCT C Provider: Levi Sims Michelle Jeannie Collins PLLC, 5794 PLLC structure, [address], [address] [facility] Mejía B [place], sitesRheu [address]kw[address], Dates Dr Alarcon, arthritis w [place], [address], [place], [place], [place], [address]. [id number], [facility] site w/o [id number], tel:[phone] org/[place]. [address]Emfhtvs tel:+[phone] involvOther tel:[phone] ist: [phone] group home [phone] Qutaybeh (current) Lisa drug therapy , [facility] [address], [place], [address]. tel:[phone] ing Provider: Shmuel Conner MD, [address], [place], [address]. tel:[phone] ng Provider: Gt Clark, [address] [facility] [address], [place], [address]. tel:[phone] Arthritis Arthritis Rheu Rafa ARAUJO Referring Health Health arthritis w 9-201 Norma. 5794 Provider: Levi Sims [facility] factor 9 [facility] Gt PLLC, 5794 PLLC mult site w/o Amber Walker, [address] [facility] org/sys [place], N [facility] [place], involv [place], [address], [place], [id number], [place]. [address]. [id number], tel:+[phone] tel:+[phone] [place] [phone] [address] tel:[phone] Arthritis Arthritis [facility] 3 Rafa ARAUJO Referring [facility] arthritis w [facility]. 5794 Provider: Associates Levi [facility] factor 9 [facility], 5794 [facility] site w/o [place], Amber, [address] [facility] org/sys [place], N [facility] [place], involv [place], [address], [place], [id number], [place]. [address]. [id number], tel:+[phone] tel:+[phone] [place] [phone] [phone] tel:[phone] Arthritis Arthritis [facility] 0 Rafa ARAUJO Referring [facility] arthritis w 2 [facility]. 5794 Provider: Levi pablo factor 9 [facility], 5[address] [facility] site w/o Amber Walker, [address] [facility] org/sys [place], N [facility] [place], involv [place], [address], [place], [id number], [place]. [address]. [id number], tel:+[phone] tel:+[phone] [place] [phone] [address] tel:[phone] Arthritis Arthritis [facility] arthritis w MANAGER NEW PRODUCT C Provider: Levi Sims [facility] factor 9 Michelle Collins [facility], 5794 [facility] site w/o [address], 201 [facility] org/sys [employer] Alfonzo Matthews [place], involvFibromy [address], Dates Dr Alarcon, algiaDorsalgi [place], [address], [place], [place], [place], [place], [address]. [id number], unspecifiedOt [id number], tel:[phone] [place] her group home [place]. [address]Bqgcpuh tel: (current) tel:+ ist: [phone] drug [phone] Qutaybeh therapyOth Lisa foster of bone , Ryan density and Cardiology structure, [address], [place], [address]. tel:[phone] ing Provider: Shmuel Conner MD, [address], [place], [address]. tel:[phone] Provider: Gt Clark, [address] [facility] [address], [place], [address]. tel:[phone] Arthritis Arthritis Shubham 0 Rafa ARAUJO Referring [facility] arthritis w 4 [facility]. 5794 Provider: [facility] 9 [facility], 5794 [facility] w/o Amber Walker, [address] [place] [address]/sys [place], N [facility] [place], [facility], [address], [place], [id number], [place], [place]. [address]. [id number], tel:+ tel:[phone] [place] [phone] 89872 tel: [phone] Arthritis Arthritis Shubham 0 Rafa ARAUJO Referring [facility] arthritis w [facility]. 5794 Provider: Levi Sims [facility] 9 [facility], [address] [facility] site w/o Amber Walker, [address] [place] [address]/sys [place], N [facility], [facility], [address], [place], [id number], [place], [place], [place]. [address]. [id number], tel:+[phone] tel:+[phone] [place] [phone] [address] tel:[phone] Arthritis Arthritis Shubham 0 Rafa ARAUJO Referring [facility] arthritis w [facility]. 5794 Provider: Levi Sims [facility] 9 [facility], 5[address] [facility] site w/o Amber Walker, [address] [place], [place] [address] org/sys [place], [facility] [place], involv [place], [address], [place], [id number], [place], [place]. [address]. [id number], tel:+[phone] tel:[phone] US 447203 [address]46 tel:[phone] Arthritis Arthritis Rheu Jul- [facility] arthritis w MANAGER NEW PRODUCT C Provider: Levi Sims [facility] factor 9 Michelle Collins PLLC, 5794 PLLC mult site w/o [address], 201 [employer] org/sys [employer] Mejía B Aaron, dennisvOther [address]kw[address], Dates Dr Alarcon, group home [place], [facility], [place], [place], (current) [place], [address]. [id number], drug therapy [id number], tel:+[phone] [place]. [address]Lhiabte tel:+ tel:+ ist: [phone] Karen Gonzalez MD, [facility] [address], [place], [address]. tel:[phone] ing Provider: Shmuel Conner MD, [address], [place], [address]. tel:[phone] Provider: Gt Clark, [address] [facility] [address], [place], [address]. tel:[phone] Arthritis Arthritis Rheu Jun- [facility] arthritis w MD Hannon. Provider: Levi Sims [facility] factor 9 5794 Gt [facility], 5794 PLLC mult site w/o Catina Clark, [address] [facility] org/sys [place], N [facility] [place], involv [place], [address], [place], [place], [place], [place], [address], [address]. [id number], [place]. tel:+[phone] [place] tel:+[phone] tel:[phone] Arthritis Arthritis Rheu Rafa ARAUJO Referring [facility] arthritis w Norma. 5794 Provider: Levi davis factor 9 [facility] Gt [facility], 5[address] [facility] site w/o [place], 2333 [employer] org/sys [place], N Triphammer [place], involv [place], [address], [place], [id number], [place]. [address]. [id number], tel:+4 tel:+[phone] US [phone] 39521 tel:[phone] Arthritis Arthritis Rheu Rafa ARAUJO Referring [facility] arthritis w Norma. 5794 Provider: Levi davis factor 9 [facility] Gt [facility], 5[address] [facility] site w/o [place], Amber, 2333 [employer] org/sys [place], N Triphammer [place], involv [place], [address], [place], [id number], [place]. [address]. [id number], tel:+[phone] tel:+[phone] [place] [phone] 46[address] tel:+ [phone] [facility]ritis [facility] Raf[facility] ARAUJO Referring [facility] arthritis w Norma. 5794 Provider: Levi davis factor 8 [facility] Gt [facility], 5[facility] site w/o [place], 2333 [employer] org/sys [place], [facility] [place], involv [place], [address], [place], [id number], [place]. [address]. [id number], tel:+[phone] tel:+[phone] [place] [phone] 49620 tel:[phone] Arthritis Arthritis [facility] arthritis w MANAGER NEW PRODUCT C Provider: Levi davis factor 8 Michelle Collins [facility], 5[facility] site w/o [address]ael, [employer] org/sys [employer] Mejía [facility], [facility] [address], Dates Dr Alarcon, thoracic, [place], [address], [place], [place], [place], [address]. [id number], and lumbosacr [id number], tel:[phone] [place]. [address]Sixgaqa tel:[phone] disorderOther tel:[phone] ist: [phone] group home [phone] Karen (current) Lisa drug therapy , [facility] [address] [facility] [address], [place], [address]. tel:[phone] ing Provider: Shmuel Conner MD, [address], [place], [address]. tel:[phone] ng Provider: Gt Clark, [address] [facility] [address], [place], [address]. tel:[phone] Arthritis Arthritis Rheu Nov Mehreen ARAUJO Referring Health Health arthritis w 2 [place]. Provider: Levi [facility] factor 8 5794 [facility], [address] [place] [address] site w/o [facility] Amber, [address] [place] [address]/s [place], N [facility] [place], involv [place], [address], [place], [place], [place], [place], [place], [address], [address]. [id number], [place]. tel:+[phone] [place] tel:+ [phone] tel: [phone] Arthritis Arthritis Rheu 0 Rafa ARAUJO Referring [facility] Health arthritis w [facility]. 5794 Provider: [facility] factor 8 [facility] Gt [facility], 5794 [facility] site w/o Amber Walker, [facility]3 [facility]/s [place], N [facility], involv [place], [address], [place], [id number], [place], [place]. [address]. [id number], tel:+[phone] tel:+[phone] [place] 417720 [address] tel:[phone] Arthritis Arthritis Rheu Sep-0 Rafa ARAUJO Referring Health Health arthritis w Norma. 5794 Provider: Levi Sims [facility] factor 8 [facility] Gt PLLC, 5794 PLLC [facility] site w/o [place], Amber, [address] [facility]/sys [place], N [facility] [place], involv [place], [address], [place], [id number], [place], [place]. [address]. [id number], tel:[phone] tel:[phone] [place] 487006 680[address] tel:[phone] Arthritis Arthritis Rheu [employer] [facility] arthritis w 0 MANAGER NEW PRODUCT C Provider: Levi Sims [facility] factor 8 Michelle YanezViktoria Collins PLLC, 5794 PLLC mult site w/o 57 [address], 201 [facility] org/sys [facility] Mejía B [place], involvOther [address]kw[address], Dates Dr Alarcon, terminal 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 [place], [address], [place], [place], (current) [place], [address]. [id number], drug [id number], tel:[phone] [place]. [address]Htpbyhj tel:[phone] disrd of bone tel:[phone] ist: [phone] density and 428099 Qutaybeh structure, Lisa diaz MD, [facility] [address], [place], [address]. tel:[phone] ing Provider: Shmuel Conner MD, [address], [place], [address]. tel:[phone] ng Provider: Gt Clark, [address] [facility] [address], [place], [address]. tel:[phone] Arthritis Arthritis Rheumatoid Jaz ARAUJO Referring [facility] arthritis w Hong. Provider: Levi Sims [facility] 8 5794 Gt PLLC, 5794 PLLC factor of [facility] Amber, [address] [facility] multiple [place], N [facility] [place], sites w/o [place], [address], [place], organ [place], [place], involvement [id number], [address]. [id number], [place]. tel:+[phone] [place] tel:+ [phone] tel:+ [phone] Arthritis Arthritis Rheumatoid Nov- Rafa ARAUJO Referring [facility] arthritis w/ 0- Norma. 5794 Provider: Levi Sims [facility] 8 [facility], 5794 PLLC factor of [facility], [address] [facility] [place], N [facility], sites w/o [place], [address], [place], organ [id number], [place], [place], [place]. [address]. [id number], tel:+ tel:+[phone] [place] [phone] [phone] tel:+ [phone] Arthritis Arthritis Rheumatoid Oct- Rafa ARAUJO Referring [facility] arthritis w/ 2- Norma. 5794 Provider: Levi Sims [facility] 8 [facility], 5794 PLLC factor of [place], [address] [facility] [place], N [facility], sites w/o [place], [address], [place], organ [id number], [place], [place], [place], [place]. [address]. [id number], tel:+4 tel:+[phone] [place] [phone] [phone] tel:+ [phone] Arthritis Arthritis Rheumatoid September-2 [facility] arthritis w MANAGER NEW PRODUCT C Provider: Levi Sims [facility] 8 Michelle Collins PLLC, 5794 PLLC factor of 5794 Bael, 201 [facility] Mejía B [place], sites w/o Pkwy, Dates [address] [place], organ [place], 102, [place], [place], [place], [address]. [id number], bromyalgiaOth [id number], tel:+[phone] 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. [address]Ppvrmfc tel:+315 drug therapy tel:+ ist: [phone] Karen Gonzalez MD, [facility] [address] [place] [address]. [address], [place], [address]. tel:[phone] ing Provider: Shmuel Conner MD, [address] [facility] [address], [place], [address]. tel:[phone] Provider: Gt Clark, [address] [facility] [address], [place], [address]. tel:[phone] Arthritis Arthritis Rheumatoid Rafa ARAUJO Referring Health [facility] arthritis Norma. 5794 Provider: Levi Sims rheumatoid 8 [facility]t PLL[facility], 5794 PLLC factor of [facility], [address] [place] [address], N [facility], sites w/o [place], [address], [place], organ [id number], [place], [place]. [address]. [id number], tel:+[phone] tel:+[phone] [place] 037433 23578 tel:[phone] Arthritis Arthritis Rheumatoid Jaz ARAUJO Referring Health Health arthritis Hong. Provider: Levi Sims rheumatoid 8 5794 Gt PLLC, 5794 PLLC factor of [facility], [address] [place] [address], N [facility], sites w/o [place], [address], [place], organ [place], [place], [place], [place], [place] [id number], [address]. [id number], [place]. tel:+[phone] US tel:[phone] tel:[phone] Arthritis Arthritis Rheumatoid Lexx Referring Health Health arthritis MD Hannon. Provider: Levi Sims rheumatoid 8 5794 Gt PLLC, 5794 PLLC factor of [facility], [address] [place] [address], N [facility], sites w/o [place], [address], [place], organ [place], [place], [place], [place] [id number], [address]. [id number], [place]. tel:+[phone] [place] tel:[phone] tel:[phone] Arthritis Arthritis Rheumatoid Ham Consulting [facility] arthritis MANAGER NEW PRODUCT C Provider: Levi Sims rheumatoid 8 Michelle YanezViktoria Collins PLLC, 5794 PLLC factor of 5794 Bael, [address] [facility] [place], sites w/o Pkwy, Dates Dr Mendoza [place], organ [place], 102, [place], [place], [place], [address]. [id number], her terminal 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 [id number], tel:[phone] [place]. [address]Pzjyryz tel: therapyFibrom tel: ist: [phone] yalgia [phone] Karen Gonzalez MD, [facility] [address] [facility]. [address], [place], [address]. tel:[phone] ng Provider: Gt Clark, [facility]3 [facility] 302, [place], [address]. tel:[phone] Arthritis Arthritis Rheumatoid Mehreen ARAUJO Referring [facility] arthritis Orbert. Provider: Levi Sims rheumatoid 8 5794 Gt PLLC, 5794 PLLC factor of [facility], [address] [place] [address], [facility], sites w/o [place], [address], [place], organ [place], [place], [place], [place], [place] [id number], [address]. [id number], [place]. tel:+[phone] US tel: [phone] tel: [phone] Arthritis Arthritis Rheumatoid Rafa ARAUJO Referring [facility] arthritis Norma. 5794 Provider: Levi Sims rheumatoid 8 [facility], 5794 PLLC factor of [place], [address] [place] [address], N [facility], sites w/o [place], [address], [place], organ [id number], [place], [place], [place], [place]. [address]. [id number], tel:+[phone] tel:+[phone] US [phone] 36969 tel:+ [phone] Arthritis Arthritis Rheumatoid Can Referring [facility] arthritis MD Hannon. Provider: Levi [place] [address] 57 Gt PLLC, 5794 PLLC factor of [facility] Amber, 2333 [facility], N [facility], sites w/o [place], [address], [place], organ [place], [place], [place], [place], [place] [id number], [address]. [id number], [place]. tel:+[phone] [place] tel:[phone] tel:[phone] Arthritis Arthritis [facility]oid [facility] MANAGER NEW PRODUCT C Provider: Levi [facility] 7 Michelle Collins PLLC, 5794 PLLC factor of 5794 Ba, 201 [facility] Mejía [facility], sites w/o Pkwy, Dates [address] [place], organ [place], 102, [place], [place], [place], [address]. [id number], bromyalgiaOth [id number], tel:+[phone] [place] terminal 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. [address]Iovecan tel:+[phone] drug tel:+ ist: [phone] therapyBody 237194 Qutaybeh mass index Lisa (BMI) , [place] 37.0-37.9, Cardiology adult [address] [facility]. [address], [place], [address]. tel:[phone] ng Provider: Gt Clark, [address] [facility] 302, [place], [address]. tel:[phone] Arthritis Arthritis Rheumatoid Rafa ARAUJO [facility] arthritis Norma. 5786 Provider: Levi [facility] 7 [facility], 5794 PLLC factor of [place], 2333 [facility], N [facility], sites w/o [place], [address], [place], organ [id number], [place], [place], [place], [place]. [address]. [id number], tel:+[phone] tel: US [phone] 41689 tel: [phone] Arthritis Arthritis Rheumatoid Rafa ARAUJO Referring [facility] arthritis Norma. 5794 Provider: Levi Sims [facility] 7 [facility], 5794 PLLC factor of [facility], 2[address] [facility] [place], N [facility], sites w/o [place], [address], [place], organ [id number], [place], [place], [place]. [address]. [id number], tel: tel: US [phone] 65341 tel: [phone] Arthritis Arthritis Rheumatoid Rafa ARAUJO Referring [facility] arthritis w Norma. 5794 Provider: Levi [address] Gt PLLC, 5794 PLLC factor of [facility], 2[address] [facility] [place], N [facility], sites w/o [place], [address], [place], organ [id number], [place], [place], [place]. [address]. [id number], tel: tel:[phone] [place] [phone] 35717 tel: [phone] Arthritis Arthritis Rheumatoid [facility] arthritis MANAGER NEW PRODUCT C Provider: Levi Sims [facility] 7 Michelle Collins PLLC, 5794 PLLC factor of 5794 Bael, 201 [facility] Mejía [facility] w/o Pkwy, Dates Dr [place], organ [place], 102, [place], [place], [place], [address]. 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 [address]Pgjzlfx tel: therapyFibrom tel: ist: [phone] yalgiaGeneral [phone] Karen Gonzalez osteoarthriti , [place] sPolymyalgia Cardiology rheumaticaBod 310 y mass index [facility] ([address]) [address]9, [address], [place], [place], [address]. tel:[phone] ng Provider: Gt Clark, [address], [place], [address]. 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 [place] drug therapy [place]. tel: tel: tel: [phone] Arthritis Arthritis Other long [facility] term drug 0- MANAGER NEW PRODUCT C [facility] therapyRheuma 7 Michelle YanezViktoria PLLC, 5794 PLLC toid 5794 [facility] arthritis w/ [facility], rheumatoid [address]kw[address], [place], factor of [place], [place], [place], [id number], sites w/o [id number], [place] organ [place]. tel: involvement tel: [phone] Arthritis Arthritis Rheumatoid [facility] arthritis w MANAGER NEW PRODUCT C Provider: Levi Sims rheumatoid 7 Michelle YanezViktoria Collins PLLC, 5794 PLLC factor of 5794 Bael, 201 [facility] B [place], sites w/o Pkwy, Dates [address] [place], organ [place], 102, [place], [place], [place], [address]. [id number], her group home [id number], tel:+[phone] [place]. [address]Flxpgbb tel: therapyFibrom tel: ist: [phone] yalgiaBody 145716 Qutaybeh mass index Lisa (BMI) , [place] 37.0-37.9, Cardiology adult [address], [place], [address]. tel:[phone] ng Provider: Gt Clark, [address] [facility] 302, [place], [address]. tel:[phone] Arthritis Arthritis Rheumatoid Oct- [facility] arthritis PA-C Provider: Levi Sims rheumatoid 7 Shayan. Dennis PLLC, 5794 PLLC factor of 57 Ba, [facility] [place], sites w/o [place], [facility] [address] [place], organ [place], 102, [place], [place], [place], [address]. 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 [address]Zugltmb tel:+[phone] therapyFibrom tel:+[phone] ist: [phone] yalgiaGeneral 732772 Qutaybeh ized Lisa osteoarthriti MD [facility] [address] [facility]. [address], [place], [address]. tel:[phone] bolivar Provider: Gt Clark, [address] [facility] 302, [place], [address]. tel:[phone] Arthritis Arthritis Rheumatoid September- [facility] PALaura Carcamo. Provider: Levi Sims rheumatoid 7 5794 Dennis PLLC, 5794 PLLC factor of [address], sites w/o [place], Dates [address] [place], organ [place], 102, [place], [place], [place] [id number], [place], [address]. [id number], her group home [place]. tel:+[phone] [place] drug tel:[phone] tel:[phone] therapyOther [phone] ist: [id number] specified Qutaybeh disorder of Magfransiscoydvesta bone density Ryan ARAUJO of [facility] sites [address] [facility]. [address], [place], [address]. tel:[phone] ng Provider: Gt Clark, [address], [place], [address]. tel:[phone] Arthritis Arthritis Rheumatoid Aug- Maame [facility] arthritis PA-C Provider: Levi Sims rheumatoid 7 Shayan. Dennis PLLC, 5794 PLLC factor of 5794 Bael, [address] [facility] [place], sites w/o [place], Dates [address] [place], organ [place], 102, [place], [place], [place], [address]. [id number], her group home [id number], tel:[phone] [place]. [address]Swnrliy tel:[phone] therapyGenera tel:[phone] ng Provider: [id number] lized [id number] Gt osteoarthriti Amber, [address], [place], [address]. tel:[phone] Arthritis Arthritis Rheumatoid Jul- Rafa ARAUJO Referring [facility] arthritis Norma. 5794 Provider: Levi [facility] 7 [facility]t [facility], 5794 PLLC factor of Aaron Amber, 2333 [facility], N [facility] [place], sites w/o [place], [address], [place], organ [id number], [place], [place], [place], [place]. [address]. [id number], tel:+[phone] tel:[phone] US 522488 40087 tel:[phone] Arthritis Arthritis Rheumatoid Jun- [facility] arthritis Provider: Levi Sims rheumatoid 7 Denins PLLC, 5794 PLLC factor of Ba, 201 [facility], sites w/o Dates Dr [place], organ 102, [place], [place], [place], [address]. [id number], neralized tel:[phone] [place] osteoarthriti 48521Cxivucx tel:[phone] Ezra lutz Provider: [id number] term drug Gt therapyAnemia Amber, [address], [place], [address]. tel:[phone] Arthritis Arthritis Rheumatoid May- Consulting [facility] Health arthritis Provider: Associates Levi rheumatoid 7 Dennis PLLC, 5794 PLLC factor of [facility], [address] [place] [address], sites w/o Dates Dr [place], organ 102, [place], [place], [place], [address]. [id number], neralized tel:[phone] [place] osteoarthriti 16413Ryshpcr tel:[phone] sOther long bolivar Provider: [id number] term drug Gt Clark, 2333 ess of breath N [address], [place], [address]. tel:[phone] Arthritis Arthritis Rheumatoid Rafa ARAUJO Consulting [facility] arthritis Norma. 5794 Provider: Associates Levi rheumatoid 6 [facility] Dennis PLLC, 5794 PLLC factor of [facility], [address] [place] [address], sites w/o [place], Dates [address] [place], organ [id number], 102, [place], [address]. 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 tel:[phone] Arthritis Arthritis Generalized [facility] osteoarthriti [facility] 6 PLLC, 5794 PLLC [place], [place], [id number], [place] tel:[phone] Arthritis Arthritis Encounter for Health Health screening for [facility] respiratory 6 PLLC, 5794 PLLC tuberculosis [place], [place], [id number], [place] tel:[phone] Arthritis Arthritis Other Health Health specified [facility] abnormal 6 PLLC, 5794 PLLC findings of [facility] blood [place], chemistry [place], [place], [id number], [place] tel:[phone] Arthritis Arthritis Rheumatoid Consulting [facility] arthritis w Provider: Levi Sims rheumatoid 6 Qutaybeh PLLC, 5794 PLLC factor of Lisa diaz MD, [facility], sites w/o Cardiology [place], organ 310 [place], involvementFi [facility] [id number], bromyalgiaGen [address]. Suite eralized 4, [place], tel:[phone] [place], [address]. 795393 sLumbosacral tel:[phone] intervertebra 37923Xtecuca l disc ng Provider: Jama Dle Real terminal 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 [place], [address] drug [address] therapyPain [address], in lt [place], [place], kneeShortness [address]. of breath tel:[phone] Arthritis Arthritis Other Jan-2 [facility] Health specified [facility] abnormal 6 PLLC, 5794 PLLC findings of [facility], [place], [place], [id number], [place] tel:[phone] Arthritis Arthritis Rheumatoid Jan- Consulting [facility] arthritis w Provider: Levi Sims rheumatoid 6 Qutaybeh PLLC, 5794 PLLC factor of Lisa diaz MD, [facility], sites w/o Cardiology [place], organ 310 [place], involvementOt [facility] [id number], her group home [address]. Suite drug [address], [place], tel:[phone] [place], [address]. 833871 acral tel:[phone] intervertebra 10134Ibzelmu l disc ng Provider: Rolanda Del Real myalgiaGenera Amber, [address] lized [address] osteoarthriti [address], [place], [address]. tel:[phone] Arthritis Arthritis Rheumatoid Consulting [facility] arthritis w Provider: Levi Sims rheumatoid 6 Qutaybeh PLLC, 5794 PLLC factor of Lisa diaz MD, [facility], sites w/o Cardiology [place], organ 310 [place], involvementFi [facility] [id number], bromyalgiaLum [address] [place] bosacral 4, [place], tel:[phone] [place], [address]. 853443 l disc tel:[phone] disorderPain 79782Mhkacab in rt ing hipOther long Provider: term drug Dennis therapy Kaila, [address], [place], [address]. tel:[phone] bolivar Provider: Gt Clark, [address], [place], [address]. tel:[phone] Arthritis Arthritis Rheumatoid Consulting [facility] arthritis Provider: Levi Sims rheumatoid 6 Qutaybeh PLLC, 5794 PLLC factor of Lisa diaz MD, [facility], sites w/o Cardiology [place], organ 310 [place], involvementFi [facility] [id number], bromyalgiaLum [address] Suite [place] bosacral 4, [place], tel:[phone] [place], [address]. 4580[address] l disc tel:[phone] disorderPain 58963Wffaxby in rt ing hipOther long Provider: term drug Dennis therapy Kaila, [address], [place], [address]. tel:[phone] bolivar Provider: Gt Clark, [address], [place], [address]. tel:[phone] Arthritis Arthritis Rheumatoid Consulting [facility] arthritis Provider: Levi whitlock 6 Qutaybeh PLLC, 5794 PLLC factor of Lisa diaz MD, [facility], sites w/o Cardiology [place], organ 310 [place], involvementOt [facility] [id number], her group home [address] Suite [place] drug 4 [place], tel:[phone] [place], [address]. 857048 acral tel:[phone] intervertebra 55645Hyvucul l disc ing disorderFibro Provider: myalgia Dennisbenny Bright, [address], [place], [address]. tel:[phone] ng Provider: Gt Clark, [address], [place], [address]. tel:[phone] Arthritis Arthritis Rheumatoid Karl- Consulting [facility] arthritis w/ 0 Provider: Levi whitlock 6 Qutaybeh PLLC, 5794 PLLC factor of Lisa Venturaizaiah diaz MD, [facility], sites w/o Cardiology [place], organ 310 [place], involvementFi [facility] [id number], bromyalgiaOth [address] Suite er terminal 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 4, [place], tel:[phone] [place], [address]. 6077[address] therapyBack tel:[phone] pain 29842Athvcbg ing Provider: Dennis Bright, [address], [place], [address]. tel:[phone] bolivar Provider: Gt Clark, [address], [place], [address]. tel:[phone] Arthritis Arthritis Rheumatoid September- Machovec Consulting [facility] arthritis w PA-C Provider: Levi Negronher MatthewsViktoria Qutaybeh PLLC, 5794 PLLC factor of 5794 [facility] emily Dominique MD, [facility], sites w/o [place], Cardiology [place], organ [place], 310 [place], [place], [facility] [id number], her terminal 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 [id number], Blvd. Suite drug therapy [place]. 4, [place], tel:[phone] tel:[phone] [place], [address]. [address] tel:[phone] ing Provider: Dennis Bright, [address], [place], [address]. tel:[phone] bolivar Provider: Gt Clark, [address], [place], [address]. tel:[phone] Arthritis Arthritis Rheumatoid Aug-2 Consulting [facility] arthritis w/ Provider: Levi whitlock 6 Qutaybeh PLLC, 5794 PLLC factor of Lisa diaz MD, [facility], sites w/o Cardiology [place], organ 310 [place], involvement [facility] [id number], [address]. [address] [place] [address], [place], tel:[phone] [place], [address]. [address] tel:[phone] ing Provider: Dennis Bright, [address], [place], [address]. tel:[phone] bolivar Provider: Gt Clark, [address] [facility] [address], [place], [address]. tel:[phone] Arthritis Arthritis Rheumatoid Jul- Consulting [facility] arthritis Provider: Levi Burns Qutaybeh PLLC, 5794 PLLC factor of Lisa diaz MD, [facility], sites w/o Cardiology [place], organ 310 [place], involvementGe [facility] [id number], neralized Blvd. Suite osteoarthriti [place], tel:[phone] [facility], [address]. 795106 term drug tel:[phone] therapy 90656Kuhfyqb ing Provider: Dennis Bright, [address], [place], [address]. tel:[phone] bolivar Provider: Gt Clark, [address], [place], [address]. tel:[phone] Arthritis Arthritis Rheumatoid Jun- Consulting [facility] arthritis Provider: Levi whitlock 6 Q[facility]aybeh PLLC, 5794 PLLC factor of Lisa diaz MD, [facility], sites w/o Cardiology [place], organ 310 [place], involvementOt [facility] [id number], her group home [address]. Suite [place] drug [place], tel:[phone] [place], [address]. 453833 lized tel:[phone] osteoarthriti 58505Nswhcwe s ing Provider: Dennis Bright, [address], [place], [address]. tel:[phone] ng Provider: Gt Clark, [address] [facility] [address], [place], [address]. tel:[phone] Arthritis Arthritis Other [facility] specified armando Ramirez. [facility] abnormal 6 5794 PLLC, 5794 PLLC findings of [facility] blood [place], [place], chemistry [place], [place], [id number], [id number], [place]. [place] tel:[phone] tel:[phone] Arthritis Arthritis Rheumatoid [facility] arthritis w Provider: Levi Sims rheumatoid 6 Qutaybeh PLLC, 5794 PLLC factor of Lisa diaz MD, [facility], sites w/o Cardiology [place], organ 310 [place], involvementOt [facility] [id number], her group home [address]. Suite drug [place], tel:[phone] [place], [address]. 273643 lized tel:[phone] osteoarthriti 91193Fbkhnno sAnemia, ing unspecified Provider: Dennis Bright, [address], [place], [address]. tel:[phone] bolivar Provider: Gt Clark, [address] [facility] [address], [place], [address]. tel:[phone] Arthritis Arthritis Rheumatoid [facility] arthritis Provider: Levi Sims rheumatoid 5 Q[facility]aybeh PLLC, 5794 PLLC factor of Lisa diaz MD, [facility], sites w/o Cardiology [place], organ 310 [place], involvementGe [facility] [id number], neralized Blvd. Suite osteoarthriti , [place], tel:[phone] [place], [address]. 571752 term drug tel:[phone] therapyAnemia 65722Poootve , unspecified ing Provider: Dennis Bright, [address], [place], [address]. tel:[phone] bolivar Provider: Gt Clark, [address], [place], [address]. tel:[phone] Arthritis Arthritis Rheumatoid [facility] arthritis, Provider: Levi Sims unspecifiedOt 5 Qutaybeh PLLC, 5794 PLLC her group home Lisa balbuena MD, [facility], therapyGenera Cardiology [place], lized 310 [place], osteoarthriti [facility] [id number], sAnemia, Blvd. Suite [place] unspecified [place], tel:[phone] [place], [address]. [address] tel:[phone] ing Provider: Dennis Bright, [address], [place], [address]. tel:[phone] bolivar Provider: Gt Clark, [address], [place], [address]. tel:[phone] Arthritis Arthritis [facility] WILLIAM Carcamo. Provider: Levi Sims 5 5794 Q[facility]aybeh PLLC, 5794 PLLC Catina Walker MD, [facility], [place], Cardiology [place], [place], 310 [place], [id number], [facility] [id number], [place]. [address]vd. Suite [place] tel:[phone] [place], tel:[phone] 750487 [place], [address]. [address] tel:[phone] ing Provider: Dennis Bright, [address], [place], [address]. tel:[phone] bolivar Provider: Gt Clark, [address], [place], [address]. tel:[phone] Arthritis Arthritis [facility] [facility] Provider: Levi Sims [facility], 5794 PLLC Lisa Dominique MD, [facility], Cardiology [place], [address] [place], [facility] [id number], [address] [place], tel:[phone] [place], [address]. [id number] tel:[phone] ing Provider: Dennis Bright, [address], [place], [address]. tel:[phone] bolivar Provider: Gt Clark, [address], [place], [address]. tel:[phone] Arthritis Arthritis Apr- [facility], [facility] Provider: [facility] Karen [facility], 5794 PLLC Lisa Dominique MD, [facility], [address] [place], [place] [id number], [address], [place], tel:[phone] [place], [address]. [id number] tel:[phone] ing Provider: Dennis Bright, [address], [place], [address]. tel:[phone] bolivar Provider: Gt Clark, [address], [place], [address]. tel:[phone] Arthritis Arthritis May-0 [facility] Provider: Associates Levi 4 Gt ASKEWC, 5794 PLLC Amber, [address], [place], [place], [address]. [id number], tel:[phone] tel:[phone] Arthritis Arthritis Mar- [facility] Health Provider: Associates Levi 3 [facility], 5[address] Amber, [address], [place], [place], [address]. [id number], tel:[phone] tel:[phone] Arthritis Arthritis Feb- [facility] [employer] Provider: Associates Levi 3 Alicia. 310 [facility], [address] [place] Amber, [address], [place], [address], [place], [place], [place], [id number], [address]. [id number], [place]. tel:[phone] [place] tel:[phone] tel:[phone] Arthritis Arthritis Jan- [facility] 7 Provider: Associates Associates 3 Gt ASKEWC, 5794 PLL[address] Amber, [address], [place], [place], [address]. [id number], tel:[phone] tel:[phone] Arthritis Arthritis Dec-0 [facility] Health 6 Provider: Associates Associates 3 Gt ASKEWC, 5794 PLL[address] Amber, [address], [place], [place], [address]. [id number], tel:[phone] tel:[phone] Arthritis Arthritis Jul-0 [facility] Health Provider: Associates Associates 3 Gt ASKEWC, 5[address] Amber, [address], [place], [place], [address]. [id number], tel:[phone] [place] [phone] tel:[phone] Arthritis Arthritis [facility] Health Provider: Associates Levi 2 Gt BURROWS, 5794 PLLC Amber, [address], [place], [place], [address]. [id number], tel:[phone] tel:[phone] Arthritis [facility]thritis [facility] Referring [facility] WILLIAM Carcamo. Provider: Associates Associates 2 [address], [address], [address], [place], [address], [place], [place], [place], [id number], [address]. [id number], [place]. tel:[phone] [place] tel:[phone] tel:[phone] Arthritis Arthritis [facility] Provider: Associates Associates 1 Gt BURROWS, 5794 PLLOsmin Clark, [address] [facility] [address] [facility] [address], [address], [place], [place], [place], [address]. [id number], tel:[phone] tel:[phone] Arthritis Arthritis [facility] Provider: Associates Associates 1 Gt BURROWS, 5794 PLLOsmin Clark, [address] [facility] [address] [facility] [address], [address], [place], [place], [place], [address]. [id number], tel:[phone] tel:[phone] Family History Family Member Diagnosis Age At Onset Paternal grandmother Rheumatoid arthritis Immunizations Vaccine Date Status Comments Influenza, injectable, MDCK, administered Note: approx. ; Source : Other Flucelvax Quad 2017-2018Y Provider Influenza, injectable, administered Note: approx. ; Source: Other quadrivalent, split virus, 18 Provider years or older Afluria Quad [id number] Influenza, injectable, administered Note: Invalid documented admin trivalent, split virus, 4 date was . ; years and older, Fluvirin Source: Other Provider [id number] Yet to receive Flu vaccine administered Source: [...] (PPV23) Payers Payer name Insurance type Covered republican ID Authorization(s) Medicare MB [id number] [facility] No Referral Required [id number] Social History Type Description Quantity Date Captured Comments Alcohol Use Details Unknown Caffeine Use Details Unknown Tobacco Use Status Unknown Smoking Status Unknown Sex Female Vital Signs Date / Height Weight BMI Pulse Blood Temperature Respiratory Body Head BMI Pulse Inhaled Time: Rate Pressure Rate Surface Circumference percentile Ox Ox Area 240.00 68 130/70 97.10 F /min lbs /min mm[Hg] 10:07 AM 128/64 -2019 mm[Hg] 11:49 AM Chief Complaint And Reason For Visit No [...] Information Pt. not exposed to someone in [facility] nor traveled out of the country; no concern for TB screening. Pt. not exposed to someone in [facility] nor traveled out of the country; no [...]
--- OUTSIDE RECORDS SUMMARY | 2019-07-12 11:40 | XMS REPORT | Continuity of Care Document ---
:1945 Author Organization [facility] Address [address], [place] [id number] Phone Care Team Providers Name Role Phone [...] factor mult site w/o org/sys involv Other bracelet and brooch maker (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 therapy Osteoporosis - Rheu arthritis w rheu factor mult site w/o org/sys involv Rheu arthritis w rheu factor mult site w/o org/sys involv Oth disrd of bone density and structure, multiple sites Other bracelet and brooch maker (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 therapy Other fpc (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 therapy Rheu arthritis w rheu factor mult site w/o org/sys involv Oth disrd of bone density - and structure, multiple sites Rheu arthritis w rheu factor mult site w/o org/sys involv Other bracelet and brooch maker (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 therapy Rheu arthritis w rheu factor mult site w/o org/sys involv Rheu arthritis w rheu factor mult site w/o org/sys involv Rheu arthritis w rheu factor mult site w/o org/sys involv Rheu arthritis w rheu factor mult site w/o org/sys involv Fibromyalgia Dorsalgia, unspecified Other fpc (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 therapy Oth disrd of bone density and structure, multiple sites Rheu arthritis w rheu factor mult site w/o org/sys involv Rheu arthritis w rheu factor mult site w/o org/sys involv Rheu arthritis w rheu factor mult site w/o org/sys involv Rheu arthritis w rheu factor mult site w/o org/sys involv Other fpc (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 therapy Rheu arthritis w rheu factor mult site w/o org/sys involv Rheu arthritis w rheu factor mult site w/o org/sys involv Rheu arthritis w rheu factor mult site w/o org/sys involv Rheu arthritis w rheu factor mult site w/o org/sys involv Rheu arthritis w rheu factor mult site w/o org/sys involv Unsp thoracic, thoracolum and lumbosacr intvrt disc disorder Other bracelet and brooch maker (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 therapy Rheu arthritis w rheu factor mult site w/o org/sys involv Rheu arthritis w rheu factor mult site w/o org/sys involv Rheu arthritis w rheu factor mult site w/o org/sys involv Rheu arthritis w rheu factor mult site w/o org/sys involv Other bracelet and brooch maker (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 therapy Oth disrd of bone density and structure, multiple sites Rheumatoid arthritis w/ rheumatoid factor of multiple sites w/o organ involvement Rheumatoid arthritis w/ rheumatoid factor of multiple sites w/o organ involvement Rheumatoid arthritis w/ rheumatoid factor of multiple sites w/o organ involvement Rheumatoid arthritis w/ rheumatoid factor of multiple sites w/o organ involvement Fibromyalgia Other bracelet and brooch maker drug therapy Rheumatoid arthritis w/ rheumatoid factor of multiple sites w/o organ involvement Rheumatoid arthritis w/ rheumatoid factor of multiple sites w/o organ involvement Rheumatoid arthritis w/ rheumatoid factor of multiple sites w/o organ involvement Rheumatoid arthritis w/ rheumatoid factor of multiple sites w/o organ involvement Other fpc drug therapy Fibromyalgia Rheumatoid arthritis w/ rheumatoid factor of multiple sites w/o organ involvement Rheumatoid arthritis w/ rheumatoid factor of multiple sites w/o organ involvement Rheumatoid arthritis w/ rheumatoid factor of multiple sites w/o organ involvement Rheumatoid arthritis w/ rheumatoid factor of multiple sites w/o organ involvement Fibromyalgia Other fpc drug therapy Rheumatoid arthritis w/ rheumatoid factor of multiple sites w/o organ involvement Rheumatoid arthritis w/ rheumatoid factor of multiple sites w/o organ involvement Rheumatoid arthritis w/ rheumatoid factor of multiple sites w/o organ involvement Rheumatoid arthritis w/ rheumatoid factor of multiple sites w/o organ involvement Other bracelet and brooch maker drug therapy Fibromyalgia Generalized osteoarthritis Polymyalgia rheumatica Rheumatoid arthritis w/ rheumatoid factor of multiple sites w/o organ involvement Other bracelet and brooch maker drug therapy Other bracelet and brooch maker drug therapy Rheumatoid arthritis w/ rheumatoid factor of multiple sites w/o organ involvement Rheumatoid arthritis w/ rheumatoid factor of multiple sites w/o organ involvement Other bracelet and brooch maker drug therapy Fibromyalgia Rheumatoid arthritis w/ rheumatoid factor of multiple sites w/o organ involvement Other fpc drug therapy Fibromyalgia Generalized osteoarthritis Rheumatoid arthritis w/ rheumatoid factor of multiple sites w/o organ involvement Other fpc drug therapy Other specified disorder of bone density of multiple sites Rheumatoid arthritis w/ rheumatoid factor of multiple sites w/o organ involvement Other fpc drug therapy Generalized osteoarthritis Rheumatoid arthritis w/ rheumatoid factor of multiple sites w/o organ involvement Rheumatoid arthritis w/ rheumatoid factor of multiple sites w/o organ involvement Generalized osteoarthritis Other fpc drug therapy Anemia Rheumatoid arthritis w/ rheumatoid factor of multiple sites w/o organ involvement Generalized osteoarthritis Other fpc drug therapy Shortness of breath Rheumatoid arthritis w/ rheumatoid factor of multiple sites w/o organ involvement Other bracelet and brooch maker drug therapy Anemia Generalized osteoarthritis Encounter for screening for respiratory tuberculosis Other specified abnormal findings of blood chemistry Rheumatoid arthritis w/ rheumatoid factor of multiple sites w/o organ involvement Fibromyalgia Generalized osteoarthritis Lumbosacral intervertebral disc disorder Other fpc drug therapy Pain in lt knee Shortness of breath Other specified abnormal findings of blood chemistry Rheumatoid arthritis w/ rheumatoid factor of multiple sites w/o organ involvement Other fpc drug therapy Lumbosacral intervertebral disc disorder Fibromyalgia Generalized osteoarthritis Rheumatoid arthritis w/ rheumatoid factor of multiple sites w/o organ involvement Fibromyalgia Lumbosacral intervertebral disc disorder Pain in rt hip Other bracelet and brooch maker drug therapy Rheumatoid arthritis w/ rheumatoid factor of multiple sites w/o organ involvement Fibromyalgia Lumbosacral intervertebral disc disorder Pain in rt hip Other fpc drug therapy Rheumatoid arthritis w/ rheumatoid factor of multiple sites w/o organ involvement Other fpc drug therapy Lumbosacral intervertebral disc disorder Fibromyalgia Rheumatoid arthritis w/ rheumatoid factor of multiple sites w/o organ involvement Fibromyalgia Other fpc drug therapy Back pain Rheumatoid arthritis w/ rheumatoid factor of multiple sites w/o organ involvement Other fpc drug therapy Rheumatoid arthritis w/ rheumatoid factor of multiple sites w/o organ involvement Rheumatoid arthritis w/ rheumatoid factor of multiple sites w/o organ involvement Generalized osteoarthritis Other fpc drug therapy Rheumatoid arthritis w/ rheumatoid factor of multiple sites w/o organ involvement Other bracelet and brooch maker drug therapy Generalized osteoarthritis Other specified abnormal findings of blood chemistry Rheumatoid arthritis w/ rheumatoid factor of multiple sites w/o organ involvement Other bracelet and brooch maker drug therapy Generalized osteoarthritis Anemia, unspecified Rheumatoid arthritis w/ rheumatoid factor of multiple sites w/o organ involvement Generalized osteoarthritis Other fpc drug therapy Anemia, unspecified Rheumatoid arthritis, unspecified Other bracelet and brooch maker drug therapy Generalized osteoarthritis Anemia, unspecified Rheumatoid factor positive - Active Fibromyositis - Active Mapped from [facility] Chronic Conditions table on 08/29/2014 by the ICD9 to SNOMED Bulk Mapping Utility. The mapped diagnosis code was Fibromyalgia / Myalgia, 729.1, added by Norma Craig MD, with responsible provider Norma Craig MD. Onset date 06/11/2012; last addressed on 04/18/2014. High risk drug monitoring - Active Mapped from [facility] Chronic status Conditions table on 09/15/2014 by the ICD9 to SNOMED Bulk Mapping Utility. The mapped diagnosis code was Therapeutic Drug Monitoring, V58.69, added by Claribel Aguilar NP, with responsible provider Claribel WALTER. Onset date 03/19/2012; last addressed on 04/18/2014. Polymyalgia rheumatica - Active Mapped from [facility] Chronic Conditions table on 07/15/2014 by the ICD9 to SNOMED Bulk Mapping Utility. The mapped diagnosis code was Polymyalgia rheumatica, 725, added by Claribel Aguilar NP, with responsible provider Claribel WALTER. Onset date 03/19/2012; last addressed on 02/04/2014. Rheumatoid arthritis - Active Mapped from [facility] Chronic Conditions table on 07/15/2014 [...] Visit Copied on Encounter Arthritis Arthritis Rafa [facility] Norma. [facility] 0 [facility], 5794 PLLC [facility], [place], [place], [place], [id number], [place], [place]. [id number], tel:[phone] [place] [phone] tel:[phone] [facility]ritis [facility] arthritis w MD Hannon. Provider: Levi pablou factor 0 5794 Gt PLLC, 5794 PLLC [facility] site w/o [facility], [facility]3 [facility]/s [place], N [facility], involv [place], [address], [place], [place], [place], [place], [place], [id number], [address]. [id number], [place]. tel:[phone] [place] tel:[phone] tel:[phone] Arthritis Arthritis [facility] DEVELOPMENT SPECIALIST C Associates [facility] 0 Michelle YanezViktoria PLLC, 5794 PLLC [address] [facility], [address], [place], [place], [id number], [id number], [place]. tel:[phone] tel:[phone] Arthritis Arthritis Rheu Jaz ARAUJO [facility] arthritis w 0 Hong. Provider: Levi Sims Hashgou factor 9 5794 Gt PLLC, 5794 PLLC [facility] site w/o [facility], [address] [facility], N [facility] [place], involv [place], [address], [place], [place], [place], [place], [place], [id number], [address]. [id number], [place]. tel:[phone] [place] tel:[phone] tel:[phone] Arthritis Arthritis Apr- [facility] 8 DEVELOPMENT SPECIALIST C [facility] 9 Michelle Dennis PLLC, 5794 PLLC [address] [facility], [address], [place], [place], [id number], [id number], [place]. tel:+ tel: [phone] Arthritis Arthritis Age-related Apr- [facility] osteoporosis 6-201 DEVELOPMENT SPECIALIST C Provider: Levi Sims w/o current 9 Michelle YanezViktoria Dennis PLLC, 5794 PLLC pathological 5[address] Bael, 201 [facility], arthritis w [address], Dates [address], [facility], [address], [place], [place], mult site w/[place], [address]. [id number], [facility]/sys [id number], tel:[phone] involvOther [place]. [id number] tel:[phone] bracelet and brooch maker tel:+ ist: [phone] (current) [id number] [facility] drug therapy Lisa ARAUJO, [facility] [address] [facility] [address], [place], [address]. tel:[phone] ing Provider: Shmuel Conner MD, [address] [facility] [address], [place], [address]. tel:[phone] Provider: Gt Clark, [address] [facility] [address], [place], [address]. tel:[phone] Arthritis Arthritis Osteoporosis Apr-0 [facility] 9 DEVELOPMENT SPECIALIST C [facility] 9 Michelle Dennis PLLC, 5794 PLLC [address] [facility], [address], [place], [place], [id number], [id number], [place]. tel:[phone] tel:[phone] [facility] Mar-2 [facility] arthritis w 0-201 MD Hannon. Provider: Levi [facility]s [facility] 9 5794 Gt PLL[facility], 5794 PLLC [facility] site w/o [facility], [address] [place] [address]/[facility], N [facility], involv [place], [address], [place], [place], [place], [place], [id number], [address]. [id number], [place]. tel:[phone] [place] tel:[phone] tel:[phone] Arthritis Arthritis Rheu Oct-2 [facility] arthritis w 4-201 MD Hannon. Provider: Levi Sims [facility] factor 9 5794 Gt PLLC, 5794 PLLC [facility] site w/o [facility], [address] [facility], N [facility], involv [place], [address], [place], [place], [place], [place], [place], [id number], [address]. [id number], [place]. tel:[phone] [place] tel:[phone] tel:[phone] Arthritis Arthritis Oth disrd of Feb- Rafa [facility] bone density 8-201 Norma. 5794 Associates Levi and 9 [facility], 5794 PLLC [facility], [place], [facility] multiple [place], [place], sitesOther [place], [place], fpc [id number], [place], (current) [place]. [id number], drug therapy tel:[phone] [place] [phone] tel:[phone] Arthritis Arthritis Other long Oct-0 [facility] term 4-201 DEVELOPMENT SPECIALIST C Levi Sims (current) 9 Michelle Dennis PLLC, 5794 PLLC drug therapy [address] [facility], [address], [place], [place], [id number], [id number], [place]. tel:[phone] tel:[phone] Arthritis Arthritis Rheu Sep-2 [facility] arthritis w 6-201 MD Ramzi. Provider: Levi Sims rheu factor 9 5794 Gt PLLC, 5794 PLLC mult site w/o [facility] Amber, 2[address] [facility] org/sys [place], N Triphammer [place], involv [place], [address], [place], [place], [place], [place], [place], [id number], [address]. [id number], [place]. tel:[phone] [place] tel:[phone] tel:[phone] Arthritis Arthritis Oth disrd of Sep- [facility] bone density 0-201 DEVELOPMENT SPECIALIST C Provider: Levi Sims [facility] 9 Michelle YanezViktoria Dennis PLLC, 5794 PLL structure, [address]ael, 201 [facility] Mejía [facility], sitesRheu [address]kwy, Dates Dr Alar[address], arthritis w [place], [address], [place], [place], [place], [address]. [id number], [facility] w[place]o [id number], tel:[phone] [place] org/sys [place]. [id number] tel:[phone] involvOther tel:[phone] ist: [phone] bracelet and brooch maker [phone] Qutaybeh (current) Lisa drug therapy , [facility] [address] [facility]. [address], [place], [address]. tel:[phone] ing Provider: Shmuel Conner MD, [address] [facility] [address], [place], [address]. tel:[phone] ng Provider: Gt Clrak, [address] [facility] [address], [place], [address]. tel:[phone] Arthritis Arthritis [facility] Dec- Rafa ARAUJO [facility] arthritis w Norma. 5794 Provider: Levi Sims [facility] factor 9 [facility] Gt PLLC, 5794 PLLC mult site w/o Amber Walker, 2333 [facility] org/sys [place], N [place], involv [place], [address], [place], [id number], [place], [place]. [address]. [id number], tel:+ tel:[phone] [place] [phone] tel: [phone] Arthritis Arthritis [facility] 3 Rafa ARAUJO Referring [facility] arthritis w - Norma. 5794 Provider: Levi Sims [facility] factor 9 [facility], 5794 [facility] site w/o [place], 2[address] [facility] org/sys [place], N [facility] [place], involv [place], [address], [place], [id number], [place], [place], [place]. [address]. [id number], tel:+ tel:[phone] US [phone] tel: [phone] Arthritis Arthritis [facility] 0 Rafa ARAUJO Referring [facility] arthritis w 2 Norma. 5794 Provider: Levi Sims [facility] 9 [facility], 5794 [facility] site w/o Amber Walker, 2333 [facility] org/sys [place], N [facility] [place], involv [place], [address], [place], [id number], [place], [place], [place]. [address]. [id number], tel:+ tel:[phone] US [phone] tel:[phone] Arthritis Arthritis [facility] Karl- [facility] arthritis w DEVELOPMENT SPECIALIST C Provider: Levi Sims [facility] factor 9 Michelle Collins [facility], 5794 [facility] site w/o [address], 201 [facility] org/sys [place] Mejía B [place], involvFibromy [address], Dates Dr Alarcon, algiaDorsalgi [place], [address], [place], [place], , [place], [address]. [id number], unspecifiedOt [id number], tel:[phone] [place]. [id number] tel:+ (current) tel:+ ist: [phone] drug [phone] Qutaybeh therapyOth Maghaydah disrd of bone , [place] density and Cardiology structure, [address] [facility] sites [address], [place], [address]. tel:[phone] ing Provider: Shmuel Conner MD, [address] [facility] [address], [place], [address]. tel:[phone] ng Provider: Gt Clark, [address] [facility] [address], [place], [address]. tel:[phone] Arthritis Arthritis Shubham Karl-0 Rafa ARAUJO Referring Health Health arthritis w 4- [facility]. 5794 Provider: Levi pablohca [facility] 9 [facility], [address] [place] [address] site w/o Amber Walker, [address]333 [place] org/sys [place], N [place], involv [place], [address], [place], [id number], [place], [place]. [address]. [id number], tel:[phone] tel:[phone] [place] [phone] 96741 tel:[phone] Arthritis Arthritis Shubham 0 Rafa ARAUJO Referring [facility] Health arthritis w [facility]. 5794 Provider: Levi davis [facility] 9 [facility], [address] [place] [address] site w/o Amber Walker, [address] [place] org/sys [place], N [place], involv [place], [address], [place], [id number], [place], [place], [place]. [address]. [id number], tel:[phone] tel:[phone] [place] [phone] 1975[address] tel:[phone] Arthritis Arthritis Shubham Aug-0 Rafa ARAUJO Referring [facility] Health arthritis w [facility]. 5794 Provider: Levi pablohca [facility] 9 [facility], [address] [place] [address] site w/o Amber Walker, [address] [place] org/sys [place], N [place], involv [place], [address], [place], [id number], [place], [place]. [address]. [id number], tel:+ tel:[phone] US [phone] [phone] tel:[phone] Arthritis Arthritis Rheu Jul- [facility] arthritis w DEVELOPMENT SPECIALIST C Provider: Levi davis factor 9 Michelle Collins PLLC, 5794 PLLC [facility] site w/o 5794 Bael, 201 [facility] Mejía B [place], involvOther [address], Dates [address] Alarcon, fpc [place], [address], [place], [place], (current) [place], [address]. [id number], drug therapy [id number], tel:+[phone] [place]. [address]Dvfwsqg tel:+ tel:+ ist: [phone] Karen Gonzalez MD, [facility] [address] [facility]. [address], [place], [address]. tel:[phone] [facility] Provider: Shmuel Conner MD, [address], [place], [address]. tel:[phone] Provider: Gt Clark, [facility]3 N [facility] [address], [place], [address]. tel:[phone] Arthritis Arthritis Rheu [facility] arthritis w MD Hannon. Provider: Levi davis factor 9 5794 Gt [facility], 5794 [facility] site w/o [facility] center[facility] Clark, [address] [facility]/s [place], N [facility] [place], involv [place], [address], [place], [place], [place], [place], [place], [id number], [address]. [id number], [place]. tel:[phone] tel:[phone] tel:[phone] Arthritis Arthritis Rheu Rafa ARAUJO [facility] arthritis w [facility]. 5794 Provider: Levi davis factor 9 [facility], 5794 [facility] site w/o [place], 2[address] [facility] org/sys [place], N [facility] [place], involv [place], [address], [place], [id number], [place], [place], [place]. [address]. [id number], tel:[phone] tel:+[phone] US [phone] tel:[phone] Arthritis Arthritis Rheu Jorge-0 Rafa ARAUJO Referring [facility] arthritis w Norma. 5794 Provider: Levi pablou factor 9 [facility], 5794 [facility] site w/o [place], Amber, 2[address] [facility] org/sys [place], N [facility] [place], [facility] [place], [address], [place], [id number], [place], [place], [place]. [address]. [id number], tel:[phone] tel:+[phone] [place] [phone] 418[address] tel:[phone] Arthritis Arthritis Rheu 0 Rafa ARAUJO [facility] arthritis w [facility]. 5794 Provider: Levi davsi factor 8 [facility], [address] [place] [address] site w/o [place] Amber, 2[address] [facility] org/sys [place], N [facility], [facility], [address], [place], [id number], [place], [place]. [address]. [id number], tel:[phone] tel:+[phone] US [id number] [address]75[address] tel:[phone] Arthritis Arthritis Rheu [facility] arthritis w DEVELOPMENT SPECIALIST C Provider: Levi davis factor 8 Michelle Collins [facility], 5794 [facility] site w/o 5793 Ba, 201 [facility] org/sys [facility] Mejía [facility], [facility] healthcare[facility] [address], Dates Dr Alar[address], thoracic, [place], [address], [place], [place], [place], [address]. [id number], and lumbosacr [id number], tel:[phone] [place]. [address]Bjlkizw tel: disorderOther tel:+ ist: [phone] fpc [phone] Karen (current) Lisa drug therapy , [facility] [address] [facility]. [address], [place], [address]. tel:[phone] ing Provider: Shmuel Conner MD, [address] [facility] [address], [place], [address]. tel:[phone] ng Provider: Gt Clark, [address] [facility] [address], [place], [address]. tel:[phone] Arthritis Arthritis Shubham Nov-0 Mehreen ARAUJO Referring [facility] arthritis w 2- [place]. Provider: Levi davis [facility] [address] [place] [address], 5794 [facility] site w/o [facility] medical centerjena Clark, [address] [place] [address]/s [place], N [facility] [place], involv [place], [address], [place], [place], [place], [place], [id number], [address]. [id number], [place]. tel:[phone] [place] tel: [phone] tel: [phone] Arthritis Arthritis Shubham 0 Rafa ARAUJO Referring [facility] arthritis w 4 Norma. 5794 Provider: Levi pablo factor 8 [facility] Gt [facility], 5794 [facility] site w/o Amber Walker, [address] [place] [address]/s [place], N [facility] [place], involv [place], [address], [place], [id number], [place], [place]. [address]. [id number], tel:+315 tel:[phone] [place] 135389 [address]38[address] tel:[phone] Arthritis Arthritis Shubham Jan-0 Rafa ARAUJO Referring [facility] arthritis w 6 Norma. 5794 Provider: Levi Sims [facility] 8 [facility] Gt [facility], 5794 PLLC mult site w/o Amber Walker, 2[address] [facility] org/sys [place], N [facility], involv [place], [address], [place], [id number], [place], [place]. [address]. [id number], tel:+[phone] tel:+[phone] [place] [phone] [address] tel:[phone] Arthritis Arthritis [facility]u [facility]2 [facility] w 0 DEVELOPMENT SPECIALIST C Provider: Levi Sims rheu factor 8 Michelle Collins PLLC, 5794 PLLC [facility] w/o 5794 Bael, 201 [facility] org/sys [facility] Mejía B [place] [address], Dates Dr Alarcon, fpc [place], [address], [place], [place], (current) [place], [address]. [id number], drug [id number], tel:+[phone] [place]. [address]Gpwbjfm tel:+[phone] disrd of bone tel:+[phone] ist: [phone] density and 559734 Qutaybeh structure, Lisa diaz MD, [facility] Cardiology [address] [facility]. [address], [place], [address]. tel:[phone] ing Provider: Shmuel Conner MD, [address] [facility] [address], [place], [address]. tel:[phone] ng Provider: Gt Clark, [address] [facility] [address], [place], [address]. tel:[phone] Arthritis Arthritis Rheumatoid Aug-0 Jaz ARAUJO Referring [facility] arthritis w/ Hong. Provider: Levi Sims rheumatoid 8 5794 Gt PLLC, 5794 PLLC factor of [facility] Amber, 2333 [facility], N [facility], sites w/o [place], [address], [place], organ [place], [place], [place], [place], [place] [id number], [address]. [id number], [place]. tel:+[phone] [place] tel:[phone] tel:[phone] Arthritis Arthritis Rheumatoid Nov- Rafa ARAUJO Referring [facility] arthritis w/ 0- Norma. 5794 Provider: Levi Sims [facility] 8 [facility] Gt PLLC, 5794 PLLC factor of [facility], 2333 [facility] multiple [place], N [facility], sites w/o [place], [facility] 302, [place], organ [id number], [place], [place], [place], [place]. [address]. [id number], tel:+4 tel:+[phone] US 866624 07069 tel:+ [phone] Arthritis Arthritis Rheumatoid Oct- Rafa ARAUJO Referring [facility] arthritis w/ 2- Norma. 5794 Provider: Levi Sims [facility] 8 [facility] Gt PLLC, 5794 PLLC factor of [facility], 2333 [facility] multiple [place], N [facility], sites w/o [place], [facility] 302, [place], organ [id number], [place], [place], [place]. [address]. [id number], tel:+4 tel:+[phone] [place] 843960 82201 tel:[phone] Arthritis Arthritis Rheumatoid September- Ham Consulting [facility] arthritis w DEVELOPMENT SPECIALIST C Provider: Levi Sims rheumatoid 8 Michelle YanezViktoria Dennis PLLC, 5794 PLLC factor of 5794 Bael, 201 [facility] Mejía B [place], sites w/o Pkwy, Dates Dr Alarcon, organ [place], [address], [place], [place], [place], [address]. [id number], bromyalgiaOth [id number], tel:+[phone] [place] er [place]. [address]Tumcsng tel:+315 drug therapy tel:+ ist: [phone] Karen Gonzalez MD, [place] [facility] [address] [facility]. [address], [place], [address]. tel:[phone] ing Provider: Shmuel Conner MD, [address] [facility] [address], [place], [address]. tel:[phone] ng Provider: Gt Clark, Josephine3 [address] [facility] [address], [place], [address]. tel:[phone] Arthritis Arthritis Rheumatoid Rafa ARAUJO Referring [facility] arthritis Norma. 5794 Provider: Levi whitlock 8 [facility] Gt PLLC, 5794 PLLC factor of [place] Amber, [address] [place] [address], N [facility], sites w/o [place], [address], [place], organ [id number], [place], [place], [place], [place]. [address]. [id number], tel:+[phone] tel:[phone] US 622574 91613 tel:[phone] Arthritis Arthritis Rheumatoid Jaz ARAUJO Referring [facility] arthritis Hong. Provider: Levi whitlock 8 5794 Gt PLLC, 5794 PLLC factor of [facility] Amber, [address] [place] [address], N [facility], sites w/o [place], [address], [place], [place], [place], [place], [place], [place] [id number], [address]. [id number], [place]. tel:[phone] US tel:[phone] tel:[phone] Arthritis Arthritis Rheumatoid [facility] Referring [facility] arthritis MD Hannon. Provider: Levi whitlock 8 5794 Gt PLLC, 5794 PLLC factor of [facility] Amber, [address] [place] [address], N [facility], sites w/o [place], [address], [place], [place], [place], [place], [place], [place] [id number], [address]. [id number], [place]. tel:[phone] [place] tel:[phone] tel:[phone] Arthritis Arthritis Rheumatoid [facility] arthritis DEVELOPMENT SPECIALIST C Provider: Levi whitlock 8 Michelle Collins PLLC, 5794 PLLC factor of 5794 Bael, 201 [facility] B [place], sites w/o Pkwy, Dates Dr Reji Toth, organ [place], 102, [place], [place], [place], [address]. [id number], her fpc [id number], tel:[phone] [place]. [address]Kerxarp tel:+[phone] therapyFibrom tel:+ ist: [phone] yalgia [id number] Karen Gonzalez MD, [place] [facility] [address] [facility]. [address], [place], [address]. tel:[phone] ng Provider: Gt Clark, [facility] N [facility] [address], [place], [address]. tel:[phone] Arthritis Arthritis Rheumatoid Mehreen ARAUJO Referring [facility] arthritis [place]. Provider: Levi whitlock 8 5793 Gt PLLC, [address] [facility], [address] [place] [address], N [facility], sites w/o [place], [address], [place], organ [place], [place], [place], [place], [place] [id number], [address]. [id number], [place]. tel:+[phone] US tel:[phone] tel:[phone] Arthritis Arthritis Rheumatoid Rafa ARAUJO Referring [facility] arthritis Norma. 5794 Provider: Levi whitlock 8 [facility] Gt PLLC, 5794 PLLC factor of [facility], [address] [place] [address], N [facility], sites w/o [place], [address], [place], organ [id number], [place], [place], [place], [place]. [address]. [id number], tel:+[phone] tel:[phone] US 932328 [address]308 tel:[phone] Arthritis Arthritis Rheumatoid Can Referring [facility] arthritis MD Hannon. Provider: Levi Sims rheumatoid 7 57 Gt PLLC, 5794 PLLC factor of [facility] Amber, 2[address] [facility], N [facility], [facility] w/o [place], [address], [place], organ [place], [place], [place], [place], [place] [id number], [address]. [id number], [place]. tel:[phone] US tel:[phone] tel:[phone] Arthritis Arthritis Rheumatoid Mar- [facility] arthritis DEVELOPMENT SPECIALIST C Provider: Associates [facility] 7 Michelle YanezViktoria Dennis PLLC, 5794 PLLC factor of 5794 Bael, 201 [facility] Mejía B [place], sites w/o Pkwy, Dates Dr Alarcon, organ [place], [address], [place], [place], [place], [address]. [id number], [facility] cent[facility]Oth [id number], tel:[phone] [place] er brace[place]. [address]Wzxybxh tel:+[phone] drug tel:+ ist: [phone] therapyBody 355602 Qutaybeh mass index Lisa (BMI) , [place] 37.0-37.9, Cardiology adult [address] [facility]. [address], [place], [address]. tel:[phone] ng Provider: Gt Clark, [address] [facility] [address], [place], [address]. tel:[phone] Arthritis Arthritis Rheumatoid Rafa ARAUJO Referring [facility] arthritis Norma. 5794 Provider: [address] Gt PLLC, 5794 PLLC factor of [place], 2333 [facility], N [facility], sites w/o [place], [address], [place], organ [id number], [place], [place], [place]. [address]. [id number], tel:+[phone] tel:[phone] US 984616 [address]603 tel:[phone] Arthritis Arthritis Rheumatoid Rafa ARAUJO Referring [facility] arthritis w Norma. 5794 Provider: Associates [facility] rheumatoid 7 [facility] Gt PLLC, 5794 PLLC factor of [place], 2333 [facility] [place], N [facility], sites w/o [place], [address], [place], organ [id number], [place], [place], [place], [place]. [address]. [id number], tel:+[phone] tel:+[phone] [place] 948961 [address] tel:[phone] Arthritis Arthritis Rheumatoid Jan- Rafa ARAUJO Referring [facility] arthritis w/ Norma. 5794 Provider: Levi [facility] rheumatoid 7 [facility], 5794 PLLC factor of [facility], 2[address] [facility] [place], N [facility], sites w/o [place], [address], [place], organ [id number], [place], [place], [place]. [address]. [id number], tel:+[phone] tel:+[phone] [place] 774202 19756 tel:[phone] Arthritis Arthritis Rheumatoid [facility] arthritis w DEVELOPMENT SPECIALIST C Provider: Levi Sims rheumatoid 7 Michelle Collins PLLC, 5794 PLLC factor of 5794 Bael, 201 [facility] Mejía B [place], [facility] w/o Pkwy, Dates Dr Alarcon, organ [place], 102, [place], [place], [place], [address]. [id number], her bracelet and brooch maker [id number], tel:[phone] [place]. [address]Ewapazi tel:+315 therapyFibrom tel:+315 ist: [phone] yalgiaGeneral 147758 Karen Gonzalez osteoarthriti , [place] sPolymyalgia Cardiology rheumaticaBod 310 y mass index [facility] [address] 37.0-37.9, 4, [place], [place], [address]. tel:[phone] ng Provider: Gt Clark, [address] [facility] [address], [place], [address]. tel:[phone] Arthritis Arthritis Rheumatoid [facility] arthritis w/ DEVELOPMENT SPECIALIST C Provider: Levi Sims rheumatoid 7 Michelle Craig PLLC, 5794 PLLC factor of 5794 MD, 5794 [facility] [place], sites w/o Pkwy, [place], [place], organ [place], [place], [place], [place], [id number], her fpc [id number], [id number]. [place] drug therapy [place]. tel:+[phone] tel:+ tel:[phone] Arthritis Arthritis Other long [facility] term drug 0- DEVELOPMENT SPECIALIST C [facility] therapyRheuma 7 Michelle Dennis PLLC, 5794 PLLC toid 5794 [facility] arthritis w/ [facility], rheumatoid [address]kwy, [place], factor of [place], [place], [id number], sites w/o [id number], [place] organ [place]. tel:+ involvement tel:[phone] Arthritis Arthritis Rheumatoid [facility] arthritis w/ DEVELOPMENT SPECIALIST C Provider: Levi Sims rheumatoid 7 Michelle Collins PLLC, 5794 PLLC factor of 5794 Bael, 201 [facility], sites w/o Pkwy, Dates Dr Alarcon, organ [place], 102, [place], [place], [place], [address]. [id number], her bracelet and brooch maker [id number], tel:[phone] [place]. [address]Qquigsl tel:+[phone] therapyFibrom tel:+ ist: [phone] yalgiaBody 588498 Qutaybeh mass index Lisa (BMI) , [place] 37.0-37.9, Cardiology adult [address] [facility]. [address], [place], [address]. tel:[phone] Provider: Gt Clark, [address], [place], [address]. tel:[phone] Arthritis Arthritis Rheumatoid Maame Consulting [facility] arthritis WILLIAM Provider: Levi Sims rheumatoid 7 Shayan. Dennis PLLC, 5794 PLLC factor of 5794 Ba, [facility], [facility] w/o [place], Dates Dr Alarcon, organ [place], 102, [place], [place], [place], [address]. [id number], her fpc [id number], tel:[phone] [place] drug [place]. [address]Zxfowkf tel:[phone] therapyFibrom tel:[phone] ist: 762640 yalgiaGeneral 074702 Qutaybeh ized Lisa osteoarthriti , [facility] Cardiology [address] [place] [address]. [address], [place], [address]. tel:[phone] ng Provider: Gt Clark, [address] [facility] [address], [place], [address]. tel:[phone] Arthritis Arthritis Rheumatoid Kimberley Consulting [facility] arthritis WILLIAM Carcamo. Provider: Levi Sims rheumatoid 7 5794 Dennis PLLC, 5794 PLLC factor of [facility] Ba, 201 [facility], sites w/o [place], Dr Alarcon, organ [place], 102, [place], [place], [place] [id number], [place], [address]. [id number], her bracelet and brooch maker [place]. tel:[phone] [place] drug tel:[phone] 14791Rngzcrv tel:[phone] therapyOther 155444 ist: [id number] specified Qutaybtung disorder of Lisa bone density , [place] of [facility] Cardiology sites [address] [facility]. [address], [place], [address]. tel:[phone] ng Provider: Gt Clark, [address], [place], [address]. tel:[phone] Arthritis Arthritis Rheumatoid Aug- Glennjatinder Consulting [facility] arthritis PA-C Provider: Levi Lazo Shayan. Dennis PLLC, 5794 PLLC factor of 5794 Ba, 201 [facility], sites w/o [place], Dates Dr Alarcon, organ [place], 102, [place], [place], [place], [address]. [id number], her fpc [id number], tel:[phone] [place]. [address]Jushgje tel:[phone] therapyGenera tel:[phone] ng Provider: [id number] lized [id number] Gt osteoarthriti Amber, [address], [place], [address]. tel:[phone] Arthritis Arthritis Rheumatoid Jul- Rafa ARAUJO Referring [facility] arthritis Norma. 5794 Provider: Levi whitlock 7 [facility] Gt PLLC, 5794 PLLC factor of Amber Walker, [facility]3 [facility], N [facility], sites w/o [place], [address], [place], organ [id number], [place], [place], [place], [place]. [address]. [id number], tel:+[phone] tel:+[phone] US 733179 [address] tel:[phone] Arthritis Arthritis Rheumatoid Consulting [facility] arthritis Provider: Levi Collins PLLC, 5794 PLLC factor of , 201 [facility], sites w/o Dates Dr Alarcon, organ 102, [place], [place], [place], [address]. [id number], neralized tel:[phone] [place] osteoarthriti 92232Fkptxev tel:[phone] sOrin long ng Provider: [id number] term drug Gt therapyAnemia Amber, [address], [place], [address]. tel:[phone] Arthritis Arthritis Rheumatoid Consulting [facility] arthritis Provider: Associates Associates rheumatoid 7 Dennis PLLC, 5794 PLLC factor of Bael, 201 [facility], sites w/o Dates Dr Alarcon, organ 102, [place], [place], [place], [address]. [id number], neralized tel:[phone] [place] osteoarthriti 55231Fcbdpqc tel:[phone] sOther long ng Provider: [id number] term drug Gt Clark, 2333 ess of breath N [address], [place], [address]. tel:[phone] Arthritis Arthritis Rheumatoid Rafa ARAUJO Consulting [facility] arthritis w Norma. 5794 Provider: Associates Levi rheumatoid 6 [facility] Dennis PLLC, 5794 PLLC factor of [facility], 201 [facility], sites w/o [place], Dates Dr Alarcon, organ [id number], 102, [place], [address]. [id number], her bracelet and brooch maker tel:[phone] tel:[phone] [place] drug 215395 30738Hqebnic tel:[phone] therapyAnemia ng Provider: [id number] Gt Clark, [address], [place], [address]. tel:[phone] Arthritis Arthritis Generalized [facility] osteoarthriti [facility] s 6 PLLC, 5794 PLLC [place], [place], [id number], [place] tel:[phone] Arthritis Arthritis Encounter for Health Health screening for Associates Associates respiratory 6 PLLC, 5794 PLLC tuberculosis [place], [place], [id number], [place] tel:[phone] Arthritis Arthritis Other [facility] specified Associates Associates abnormal 6 PLLC, 5794 PLLC findings of [facility] blood [place], chemistry [place], [place], [id number], [place] tel:[phone] Arthritis Arthritis Rheumatoid Feb- Consulting [facility] arthritis w Provider: Associates Levi rheumatoid 6 Qutaybeh PLLC, 5794 PLLC factor of Lisa diaz MD, [facility], sites w/o Cardiology [place], organ 310 [place], involvementFi [facility] [id number], bromyalgiaGen [address]. Suite [place] eralized 4, [place], tel:[phone] [place], [address]. 927538 sLumbosacral tel:[phone] intervertebra 87677Iskxfxo l disc ng Provider: disorderOther Gt fpc Amber, [address] drug [address] therapyPain [address], in lt [place], [place], kneeShortness [address]. of breath tel:[phone] Arthritis Arthritis Other Sep-2 Health [facility] specified Associates Associates abnormal 6 PLLC, 5794 PLLC findings of [facility], chemistry [place], [place], [id number], [place] tel:[phone] Arthritis Arthritis Rheumatoid Sep-2 Consulting [facility] Health arthritis w Provider: Associates Levi rheumatoid 6 Qutaybeh PLLC, 5794 PLLC factor of Lisa diaz MD, [facility], sites w/o Cardiology [place], organ 310 [place], involvementOt [facility] [id number], her bracelet and brooch maker [address]vd. Suite drug [address], [place], tel:[phone] [place], [address]. 311760 acral tel:[phone] intervertebra 81776Udzsfwj l disc ng Provider: disorderFibro Gt myalgiaGenera Amber, 2333 lized [address] osteoarthriti [address], [place], [address]. tel:[phone] Arthritis Arthritis Rheumatoid Aug-3 Consulting [facility] arthritis w Provider: Levi Sims rheumatoid 6 Qutaybeh PLLC, 5794 PLLC factor of Lisa diaz MD, [facility], sites w/o Cardiology [place], organ 310 [place], involvementFi [facility] [id number], bromyalgiaLum [address] Suite bosacral [address], [place], tel:[phone] [place], [address]. [id number] l disc tel:[phone] disorderPain 47820Qjbalrd in rt ing hipOther long Provider: term drug Dennis therapy Kaila, [address], [place], [address]. tel:[phone] bolivar Provider: Gt Clark, [address], [place], [address]. tel:[phone] Arthritis Arthritis Rheumatoid Consulting [facility] arthritis Provider: Levi Sims rheumatoid 6 Qutaybeh PLLC, 5794 PLLC factor of Lisa diaz MD, [facility], sites w/o Cardiology [place], organ 310 [place], involvementFi [facility] [id number], bromyalgiaLum [address] Suite bosacral [address], [place], tel:[phone] [place], [address]. 769620 l disc tel:[phone] disorderPain 55438Srzeuov in rt ing hipOther long Provider: term drug Dennis therapy Kaila, [address], [place], [address]. tel:[phone] bolivar Provider: Gt Clark, [address], [place], [address]. tel:[phone] Arthritis Arthritis Rheumatoid Consulting [facility] arthritis Provider: Levi whitlock 6 Qutaybeh PLLC, 5794 PLLC factor of Lisa diaz MD, [facility], sites w/o Cardiology [place], organ 310 [place], involvementOt [facility] [id number], her bracelet and brooch maker [address]vd. Suite drug [address], [place], tel:[phone] [place], [address]. 0935[address] acral tel:[phone] intervertebra 93235Bmxtxbz l disc ing disorderFibro Provider: myalgia Dennisbenny Bright, [address], [place], [address]. tel:[phone] bolivar Provider: Gt Clark, [address], [place], [address]. tel:[phone] Arthritis Arthritis Rheumatoid Karl- Consulting [facility] arthritis w/ 0- Provider: Levi Burns Qutaybeh PLLC, 5794 PLLC factor of brady idaz MD, [facility], sites w/o Cardiology [place], organ 310 [place], involvementFi [facility] [id number], bromyalgiaOth [address] Suite er bracelet and brooch maker 4, [place], tel:[phone], [address]. 048377 therapyBack tel:[phone] pain 82932Xsusvzp ing Provider: Dennis Bright, [address], [place], [address]. tel:[phone] bolivar Provider: Gt Clark, [address], [place], [address]. tel:[phone] Arthritis Arthritis Rheumatoid [facility] arthritis w/ PA-C Provider: Levi Woody Qutaybeh PLLC, 5794 PLLC factor of 5794 [facility] Catina Dominique MD, [facility], sites w/o [place], Cardiology [place], organ [place], 310 [place], [place], [facility] [id number], her bracelet and brooch maker [id number], Blvd. Suite drug [facility]. 4, [place], tel:[phone] tel:[phone] [place], [address]. 5523[address] 998605 tel:[phone] ing Provider: Dennis Bright, [address], [place], [address]. tel:[phone] bolivar Provider: Gt Clark, [address], [place], [address]. tel:[phone] Arthritis Arthritis Rheumatoid Aug- [facility] arthritis w/ Provider: Levi Burns Qutaybeh PLLC, 5794 PLLC factor of Lisa diaz MD, [facility], sites w/o Cardiology [place], organ 310 [place], involvement [facility] [id number], Bl[address]. [address], [place], tel:[phone] [place], [address]. 67[address] tel:[phone] ing Provider: Dennis Bright, [address], [place], [address]. tel:[phone] bolivar Provider: Gt Clark, [address], [place], [address]. tel:[phone] Arthritis Arthritis Rheumatoid Jul- [facility] arthritis Provider: Levi Sims rheumatoid 6 Qutaybeh PLLC, 5794 PLLC factor of Lisa diaz MD, [facility], sites w/o Cardiology [place], organ 310 [place], involvementGe [facility] [id number], neralized Blvd. [facility] osteoarthriti 4, [place], tel:[phone] [place], [address]. 221483 term drug tel:[phone] therapy 07145Stqauyf ing Provider: Dennis Bright, [address], [place], [address]. tel:[phone] bolivar Provider: Gt Clark, [address], [place], [address]. tel:[phone] Arthritis Arthritis Rheumatoid Jun- [facility] arthritis Provider: Levi Sims rheumatoid 6 Qutaybeh PLLC, 5794 PLLC factor of Lisa diaz MD, [facility], sites w/o Cardiology [place], organ 310 [place], involvementOt [facility] [id number], her fpc Blvd. [facility] drug 4, [place], tel:[phone] [place], [address]. 301501 lized tel:[phone] osteoarthriti 12444Tedcptf s ing Provider: Dennis Bright, [address], [place], [address]. tel:[phone] ng Provider: Gt Clark, [address], [place], [address]. tel:[phone] Arthritis Arthritis Other [facility] specified armando Ramirez. Associates Associates abnormal 6 5794 PLLC, 5794 PLLC findings of [facility] blood [place], [place], chemistry [place], [place], [id number], [id number], [place]. [place] tel:[phone] tel:[phone] [phone] Arthritis Arthritis Rheumatoid [facility] arthritis w Provider: Levi Sims rheumatoid 6 Qutaybeh PLLC, 5794 PLLC factor of [facility] MD, [facility], sites w/o Cardiology [place], organ 310 [place], involvementOt [facility] [id number], her bracelet and brooch maker [address]vd. Suite drug [place], tel:[phone] [place], [address]. 977014 lized tel:[phone] osteoarthriti 45160Vszahtf sAnemia, ing unspecified Provider: Dennis Bright, [address], [place], [address]. tel:[phone] bolivar Provider: Gt Clark, [address], [place], [address]. tel:[phone] Arthritis Arthritis Rheumatoid [facility] arthritis Provider: Levi Sims rheumatoid 5 Qutaybeh PLLC, 5794 PLLC factor of Lisa diaz MD, [facility], sites w/o Cardiology [place], organ 310 [place], involvementGe Nat [id number], neralized Blvd. Suite osteoarthriti , [place], tel:[phone] [place], [address]. [id number] term drug tel:[phone] therapyAnemia [id number] , unspecified ing Provider: Dennis Bright, [address], [place], [address]. tel:[phone] bolivar Provider: Gt Clark, [address], [place], [address]. tel:[phone] Arthritis Arthritis Rheumatoid [facility] arthritis, 8-201 Provider: Levi Sims unspecifiedOt 5 [facility], [facility] her bracelet and brooch maker Lisa balbuena MD, [facility], [facility] [place], [facility] [address] [place], osteoarthriti [facility] [id number], sAnemia, [address] unspecified [address], [place], tel:[phone] [place], [address]. [id number] tel:[phone] ing Provider: Dennis Brigth, [address], [place], [address]. tel:[phone] ng Provider: Gt Clark, [address], [place], [address]. tel:[phone] Arthritis [facility]ritis [facility] WILLIAM Carcamo. Provider: Levi Sims 5 5794 [facility], 5[address] PLLC Catina Walker MD, [facility], [place], [place], [place], 310 [place], [id number], [facility] [id number], [place]. [address] [place] tel:[phone] , [place], tel:[phone] [place], [address]. 956329 tel:[phone] ing Provider: Dennis Bright, [address], [place], [address]. tel:[phone] ng Provider: Gt Clark, [address], [place], [address]. tel:[phone] Arthritis Arthritis [facility] Provider: Levi Sims 5 [facility], [facility] Lisa Dominique MD, [facility], [facility] [place], [address] [place], [place] [id number], [address] , [place], tel:[phone] [place], [address]. 8[address] tel:[phone] ing Provider: Dennis Bright, [address], [place], [address]. tel:[phone] ng Provider: Gt Clark, [address] [facility] [address], [place], [address]. tel:[phone] Arthritis Arthritis Apr- [facility] Provider: Levi Sims 4 [facility], [facility] Lisa Dominique MD, [facility], [facility], [address] [place], [place] [id number], [address], [place], tel:[phone] [place], [address]. 8[address] tel:[phone] [facility] Provider: Dennis Bright, [address], [place], [address]. tel:[phone] bolivar Provider: Gt Clark, [address] [facility] [address], [place], [address]. tel:[phone] Arthritis Arthritis [facility] Provider: Levi Sims 4 [facility], 5[address] [facility] Amber, [address] [facility] [place], [address], [place], [place], [place], [address]. [id number], tel:[phone] tel:[phone] Arthritis Arthritis [facility] Provider: Levi Sims 3 [facility], 5794 PLL[facility] Amber, [facility] N [facility], [facility] [address], [place], [place], [place], [address]. [id number], tel:[phone] tel:[phone] Arthritis Arthritis [facility] DEVELOPMENT SPECIALIST-C Provider: Levi Sims 3 Alicia. 310 [facility], 5[address] PLL[address] S Sho Amber, [address], [address] [facility] [place], [place], [address], [place], [place], [place], [place], [id number], [address]. [id number], [place]. tel:[phone] [place] tel:+ [phone] tel:[phone] Arthritis Arthritis Jan- [facility] 7 Provider: [facility] 3 [facility], 5[address] [facility] Amber, [address] [place], [address], [place], [place], [place], [address]. [id number], tel:[phone] tel:[phone] Arthritis Arthritis Dec- [facility] 6 Provider: [facility] 3 [facility], 5[address] [facility] Amber, [address] [place], [address], [place], [place], [place], [address]. [id number], tel:[phone] tel:[phone] Arthritis Arthritis Jul- [facility] Provider: [facility] 3 [facility], 5794 PLL[facility] Amber, [address] [place], [address], [place], [place], [address]. [id number], tel:[phone] tel:[phone] Arthritis Arthritis [facility] Health Provider: [facility] 2 [facility]t [facility], 5[address] PLL[facility] Amber, [address] [place], [address], [place], [place], [address]. [id number], tel:[phone] tel:[phone] Arthritis [facility]ritis [facility] WILLIAM Carcamo. Provider: [facility] 2 57[facility]hrdad [facility], [address], [address] [place], [address] [place], [place], [address], [place], [place], [id number], [address]. [id number], [place]. tel:[phone] [place] tel:[phone] tel:[phone] Arthritis Arthritis Nov- [facility] 8 Provider: [facility] 1 [facility], 5[address] [facility] Amber, [address] [place], [address], [place], [place], [place], [address]. [id number], tel:[phone] tel:[phone] Arthritis Arthritis [facility] 2-201 Provider: [facility] 1 Gt [facility], [address] [facility] Amber, [address] [facility] [address] [place], [address], [place], [place], [place], [address]. [id number], tel:[phone] tel:[phone] Family History Family Member Diagnosis Age At Onset Paternal grandmother Rheumatoid arthritis Immunizations Vaccine Date Status Comments Influenza, injectable, MDCK, administered Note: approx. ; Source : Other Flucelvax Quad 2017-2018Y Provider Influenza, injectable, administered Note: approx. ; Source: Other quadrivalent, split virus, 18 Provider years or older Afluria Quad 7033-1368 Influenza, injectable, administered Note: Invalid documented admin trivalent, split virus, 4 date was . ; years and older, Fluvirin Source: Other Provider [id number] Yet to receive Flu vaccine administered Source: [...] type Covered libertarian ID Authorization(s) Medicare MB [id number] BC No Referral Required [id number] Social History Type Description Quantity Date Captured [...] Information Pt. not exposed to someone in skilled nursing nor traveled out of the country; no concern for TB screening. Pt. not exposed to someone in skilled nursing nor traveled out of the country; no concern for TB screening. Exercise more Weight reduction urged. Risks/benefits of medications reviewed call if symptoms worsen For sleep, the need to add adequate relaxation, rest and exercise was discussed Reviewed importance of compliance/adherence to medications prescribed Stretching Avoid live vaccines Discussed importance of holding DMARDs/ biologics if patient develops an infection and to notify the treating physician Discussed the need to hold DMARDS/Biologics before and after surgery/procedure. Lifestyle education regarding diet Related to Body mass index ( BMI) 37.0-37.9, adult Daily range of motion exercises for symptomatic joints recommended. Exercise more Weight reduction urged. Conservative medical [...] infection and to notify the treating physician Patient plan printed and given along with recommendations call if symptoms worsen maintain adequate water intake every day Labs ordered to check disease activity. Labs ordered to check blood counts, liver and kidney functions to monitor safety of medication. Discussed / Reviewed Labs Risks/benefits of medications reviewed Reviewed importance of compliance/adherence to medications prescribed Avoid live vaccines Weight reduction urged. Risks/benefits of medications reviewed Labs ordered to check disease activity. Labs ordered to check blood counts, liver and kidney functions to monitor safety of medication. Discussed / Reviewed Labs call if symptoms worsen Discussed importance of holding DMARDs/ biologics if patient develops an infection and to notify the treating physician Stretching Reviewed importance of compliance/adherence to medications prescribed Avoid live vaccines Avoid OTC NSAIDS Avoid live vaccines Exercise more Discussed importance of holding DMARDs/ biologics if patient develops an infection and to notify the treating physician Reviewed importance of compliance/adherence to medications prescribed Swimming Reviewed importance of compliance/adherence to medications [...] avoid alcohol Avoid live vaccines Exercise more Diet: avoid alcohol Avoid live vaccines Exercise [...] compliance/adherence to medications prescribed Diet: avoid alcohol Reviewed importance of compliance/adherence to medications prescribed Diet: avoid alcohol Avoid live vaccines Risks/benefits of medications reviewed Avoid sun and use high SPF sunblock Discussed importance of holding DMARDs/ biologics if patient develops an infection and to notify the treating physician Labs ordered to check disease activity. Daily range of motion exercises for symptomatic joints recommended. call if symptoms worsen Patient plan printed and given along with recommendations
--- OUTSIDE RECORDS SUMMARY | 2019-07-12 11:40 | XMS REPORT | Continuity of Care Document ---
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 (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 therapy Other fci (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 therapy Rheu arthritis w rheu factor mult site w/o org/sys involv Oth disrd of bone density - and structure, multiple sites Rheu arthritis w rheu factor mult site w/o org/sys involv Other fci (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 therapy Rheu arthritis w rheu factor mult site w/o org/sys involv Rheu arthritis w rheu factor mult site w/o org/sys involv Rheu arthritis w rheu factor mult site w/o org/sys involv Rheu arthritis w rheu factor mult site w/o org/sys involv Fibromyalgia Dorsalgia, unspecified 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 wall mining 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 (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 therapy Oth disrd of bone density and structure, multiple sites Rheu arthritis w rheu factor mult site w/o org/sys involv Rheu arthritis w rheu factor mult site w/o org/sys involv Rheu arthritis w rheu factor mult site w/o org/sys involv Rheu arthritis w rheu factor mult site w/o org/sys involv Other fci (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 therapy Rheu arthritis w rheu factor mult site w/o org/sys involv Rheu arthritis w rheu factor mult site w/o org/sys involv Rheu arthritis w rheu factor mult site w/o org/sys involv Rheu arthritis w rheu factor mult site w/o org/sys involv Rheu arthritis w rheu factor mult site w/o org/sys involv Unsp thoracic, thoracolum and lumbosacr intvrt disc disorder 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 long wall mining 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 (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 therapy Rheu arthritis w rheu factor mult site w/o org/sys involv Rheu arthritis w rheu factor mult site w/o org/sys involv Rheu arthritis w rheu factor mult site w/o org/sys involv Rheu arthritis w rheu factor mult site w/o org/sys involv Other long wall mining 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 (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 therapy Oth disrd of bone density and structure, multiple sites Rheumatoid arthritis w/ rheumatoid factor of multiple sites w/o organ involvement Rheumatoid arthritis w/ rheumatoid factor of multiple sites w/o organ involvement Rheumatoid arthritis w/ rheumatoid factor of multiple sites w/o organ involvement Rheumatoid arthritis w/ rheumatoid factor of multiple sites w/o organ involvement Fibromyalgia Other long wall mining 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 drug therapy Rheumatoid arthritis w/ rheumatoid factor of multiple sites w/o organ involvement Rheumatoid arthritis w/ rheumatoid factor of multiple sites w/o organ involvement Rheumatoid arthritis w/ rheumatoid factor of multiple sites w/o organ involvement Rheumatoid arthritis w/ rheumatoid factor of multiple sites w/o organ involvement Other fci drug therapy Fibromyalgia Rheumatoid arthritis w/ rheumatoid factor of multiple sites w/o organ involvement Rheumatoid arthritis w/ rheumatoid factor of multiple sites w/o organ involvement Rheumatoid arthritis w/ rheumatoid factor of multiple sites w/o organ involvement Rheumatoid arthritis w/ rheumatoid factor of multiple sites w/o organ involvement Fibromyalgia Other fci drug therapy Rheumatoid arthritis w/ rheumatoid factor of multiple sites w/o organ involvement Rheumatoid arthritis w/ rheumatoid factor of multiple sites w/o organ involvement Rheumatoid arthritis w/ rheumatoid factor of multiple sites w/o organ involvement Rheumatoid arthritis w/ rheumatoid factor of multiple sites w/o organ involvement Other fci drug therapy Fibromyalgia Generalized osteoarthritis Polymyalgia rheumatica Rheumatoid arthritis w/ rheumatoid factor of multiple sites w/o organ involvement Other fci drug therapy Other fci drug therapy Rheumatoid arthritis w/ rheumatoid factor of multiple sites w/o organ involvement Rheumatoid arthritis w/ rheumatoid factor of multiple sites w/o organ involvement Other long wall mining 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 drug therapy Fibromyalgia Rheumatoid arthritis w/ rheumatoid factor of multiple sites w/o organ involvement Other fci drug therapy Fibromyalgia Generalized osteoarthritis Rheumatoid arthritis w/ rheumatoid factor of multiple sites w/o organ involvement Other fci drug therapy Other specified disorder of bone density of multiple sites Rheumatoid arthritis w/ rheumatoid factor of multiple sites w/o organ involvement Other long wall mining 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 drug therapy Generalized osteoarthritis Rheumatoid arthritis w/ rheumatoid factor of multiple sites w/o organ involvement Rheumatoid arthritis w/ rheumatoid factor of multiple sites w/o organ involvement Generalized osteoarthritis Other long wall mining 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 drug therapy Anemia Rheumatoid arthritis w/ rheumatoid factor of multiple sites w/o organ involvement Generalized osteoarthritis Other long wall mining 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 drug therapy Shortness of breath Rheumatoid arthritis w/ rheumatoid factor of multiple sites w/o organ involvement Other long wall mining 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 drug therapy Anemia Generalized osteoarthritis Encounter for screening for respiratory tuberculosis Other specified abnormal findings of blood chemistry Rheumatoid arthritis w/ rheumatoid factor of multiple sites w/o organ involvement Fibromyalgia Generalized osteoarthritis Lumbosacral intervertebral disc disorder Other long wall mining 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 drug therapy Pain in lt knee Shortness of breath Other specified abnormal findings of blood chemistry Rheumatoid arthritis w/ rheumatoid factor of multiple sites w/o organ involvement Other long wall mining 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 drug therapy Lumbosacral intervertebral disc disorder Fibromyalgia Generalized osteoarthritis Rheumatoid arthritis w/ rheumatoid factor of multiple sites w/o organ involvement Fibromyalgia Lumbosacral intervertebral disc disorder Pain in rt hip Other fci drug therapy Rheumatoid arthritis w/ rheumatoid factor of multiple sites w/o organ involvement Fibromyalgia Lumbosacral intervertebral disc disorder Pain in rt hip Other long wall mining 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 drug therapy Rheumatoid arthritis w/ rheumatoid factor of multiple sites w/o organ involvement Other fci drug therapy Lumbosacral intervertebral disc disorder Fibromyalgia Rheumatoid arthritis w/ rheumatoid factor of multiple sites w/o organ involvement Fibromyalgia Other fci drug therapy Back pain Rheumatoid arthritis w/ rheumatoid factor of multiple sites w/o organ involvement Other fci drug therapy Rheumatoid arthritis w/ rheumatoid factor of multiple sites w/o organ involvement Rheumatoid arthritis w/ rheumatoid factor of multiple sites w/o organ involvement Generalized osteoarthritis Other fci drug therapy Rheumatoid arthritis w/ rheumatoid factor of multiple sites w/o organ involvement Other long wall mining 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 drug therapy Generalized osteoarthritis Other specified abnormal findings of blood chemistry Rheumatoid arthritis w/ rheumatoid factor of multiple sites w/o organ involvement Other long wall mining 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 drug therapy Generalized osteoarthritis Anemia, unspecified Rheumatoid arthritis w/ rheumatoid factor of multiple sites w/o organ involvement Generalized osteoarthritis Other long wall mining 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 drug therapy Anemia, unspecified Rheumatoid arthritis, unspecified Other long wall mining 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 drug therapy Generalized osteoarthritis Anemia, unspecified Rheumatoid factor positive - Active Fibromyositis - Active Mapped from [facility] Chronic Conditions table on 08/29/2014 by the ICD9 to SNOMED Bulk Mapping Utility. The mapped diagnosis code was Fibromyalgia / Myalgia, 729.1, added by Norma Craig MD, with responsible provider Norma Craig MD. Onset date 06/11/2012; last addressed on 04/18/2014. High risk drug monitoring - Active Mapped from [facility] Chronic status Conditions table on 09/15/2014 by the ICD9 to SNOMED Bulk Mapping Utility. The mapped diagnosis code was Therapeutic Drug Monitoring, V58.69, added by Claribel Aguilar NP, with responsible provider Claribel THURSTON-C. Onset date 03/19/2012; last addressed on 04/18/2014. Polymyalgia rheumatica - Active Mapped from [facility] Chronic Conditions table on 07/15/2014 by the ICD9 to SNOMED Bulk Mapping Utility. The mapped diagnosis code was Polymyalgia rheumatica, 725, added by Claribel Aguilar NP, with responsible provider Claribel THURSTON-C. Onset date 03/19/2012; last addressed on 02/04/2014. Rheumatoid arthritis - Active Mapped from [facility] Chronic Conditions table on 07/15/2014 by the [...] Visit Copied on Encounter Arthritis Arthritis Rafa [facility] Norma. 5[address] [facility] 0 [facility] PLL[facility], [address] PLL[address] [place], [facility], [place], [place], [place], [id number], [place], [place]. [id number], tel:[phone] [place] [phone] tel:[phone] Arthritis [facility]ritis [facility] arthritis MD Hannon. Provider: Associates [facility] factor 0 [facility], [facility] [facility] site w/o [facility], [address] [facility]/s [place], N [facility], invol [place], [address], [place], [place], [place], [place], [place], [id number], [address]. [id number], [place]. tel:[phone] tel:[phone] tel:[phone] Arthritis Arthritis [facility] Associates Associates 0 Michelle LViktoria PLLC, 5794 PLLC [address] [facility], [place], [place], [place], [id number], [id number], [place]. tel:[phone] tel:[phone] Arthritis Arthritis [facility] Associates 0 Michelle L. PLLC, 5794 PLLC [address] [facility], [place], [place], [id number], [id number], [place]. tel:[phone] tel:[phone] Arthritis Arthritis [facility] Jaz ARAUJO [facility] arthritis w 0-201 Hong. Provider: Associates Associates [facility] 9 5794 Gt PLLC, 5794 PLLC mult site w/o [facility], [address] [facility] org/sys [place], N [facility] [place], involv [place], [address], [place], [place], [place], [place], [place], [id number], [address]. [id number], [place]. tel:[phone] tel:+ [phone] tel:[phone] Arthritis Arthritis [facility] 8-201 ONLINE MEDIA DIRECTOR C Associates [facility] 9 Michelle Jeannie PLLC, 5794 PLLC [address], [place], [place], [id number], [id number], [place]. tel: tel:[phone] Arthritis Arthritis Age-related [facility] osteoporosis 6-201 ONLINE MEDIA DIRECTOR C Provider: Levi Sims w/o current 9 Michelle Collins PLLC, 5794 PLLC pathological [address], 201 [facility] fractureRheu [facility] Mejía B [place], arthritis w [address], Dates [address] Al[address], [facility] [place], [address], [place], [place], [facility] site w/[place], [address]. [id number], [facility] [id number], tel:[phone] involvOther [place]. [id number] tel:+[phone] fci tel:+[phone] ist: [phone] (current) [id number] Qutayb drug therapy Lisa ARAUJO, [facility] [address] [facility], [place], [address]. tel:[phone] ing Provider: Shmuel Conner MD, [address] [facility] [address], [place], [address]. tel:[phone] Provider: Gt Clark, [address] [facility] [address], [place], [address]. tel:[phone] Arthritis Arthritis Osteoporosis Dec- [facility] 9-201 ONLINE MEDIA DIRECTOR C Associates [facility] 9 Michelle Dennis PLLC, 5794 PLLC [address] [facility], [address], [place], [place], [place], [id number], [id number], [place]. tel:+ tel: [phone] Arthritis Arthritis [facility] arthritis w 0-201 MD Hannon. Provider: Levi Sims [facility] factor 9 5794 [facility], 5[facility] PLLC [facility] site w/o [facility], [address] [place] [address]/[facility], N [facility], involv [place], [address], [place], [place], [place], [place], [place], [id number], [address]. [id number], [place]. tel:+[phone] [place] tel:+ [phone] tel: [phone] Arthritis Arthritis [facility] arthritis w 4-201 MD Hannon. Provider: Levi Sims [facility] factor 9 5[facility], 5794 PLLC [facility] site w/o [facility], [address] [place] [address]/[facility], N [facility], involv [place], [address], [place], [place], [place], [place], [place], [id number], [address]. [id number], [place]. tel:+[phone] [place] tel:+ [phone] tel:+ [phone] Arthritis Arthritis Oth disrd of Rafa ARAUJO [facility] bone density 8-201 Norma. 5794 [facility] and 9 [facility], 5794 PLLC [facility], [place], [facility] multiple [place], [place], sitesOther [place], [place], long wall mining 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 [id number], [place], (current) [place]. [id number], drug therapy tel:+[phone] US [phone] tel:[phone] Arthritis Arthritis Other long Oct-0 [facility] term 4-201 ONLINE MEDIA DIRECTOR C Associates Associates (current) 9 Michelle Dennis PLLC, 5794 PLLC drug therapy [address] [facility], [address], [place], [place], [id number], [id number], [place]. tel:[phone] tel:[phone] Arthritis Arthritis [facility] Sep-2 [facility] arthritis w 6-201 MD Hannon. Provider: Levi Sims [facility] factor 9 5794 Gt PLLC, 5794 PLLC mult site w/o [facility], [address] [facility] org/sys [place], N [facility], involv [place], [address], [place], [place], [place], [place], [place], [id number], [address]. [id number], [place]. tel:+[phone] [place] tel:+ [phone] tel:+ [phone] Arthritis Arthritis Sep-[address] [facility] 0-201 Norma. 5794 Associates [facility] 9 [facility], 5[address] PLLC [place], [facility] [place], [place], [place], [place], [id number], [place], [place]. [id number], tel:[phone] [place] [phone] tel:[phone] Arthritis Arthritis Oth disrd of Sep-1 [facility] bone density 0-201 ONLINE MEDIA DIRECTOR C Provider: Levi [facility] and Michelle Collins PLLC, 5794 PLLC structure, [address]ael, 201 [facility], sitesRheu [address]kwy, Dates Dr Reji Cainuse, arthritis w [place], [address], [place], [place], [place], [address]. [id number], [facility] site w/o [id number], tel:[phone] org/[employer] [place]. [id number] tel:[phone] involvOther tel:[phone] ist: [phone] long wall mining 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 [id number] Karen (current) Lisa drug therapy , [facility] [address] [facility], [place], [address]. tel:[phone] [facility] Provider: Shmuel Conner MD, [address] [facility] [address], [place], [address]. tel:[phone] Provider: Gt Clark, [address] [facility] [address], [place], [address]. tel:[phone] Arthritis Arthritis Valentin Rafa ARAUJO Referring [facility] arthritis w [facility] [place]. 5794 Provider: Levi Sims [facility] 9 [facility], [address] [facility] w/o Amber Walker, [address] [facility] org/sys [place], N [place], involv [place], [address], [place], [id number], [place], [place], [place]. [address]. [id number], tel:+4 tel:[phone] [place] [phone] [phone] tel: [phone] Arthritis Arthritis [facility] 3 Rafa ARAUJO Referring [facility] arthritis w [facility] [place]. 5794 Provider: Levi Sims [facility] 9 [facility], [address] [facility] site w/o Amber Walker, [address] [facility] org/sys [place], N [place], involv [place], [address], [place], [id number], [place], [place], [place]. [address]. [id number], tel:+4 tel:[phone] US [phone] 68502 tel:+ [phone] Arthritis Arthritis [facility] 0 Rafa ARAUJO Referring [facility] arthritis w [facility] [place]. 5794 Provider: Levi Sims [facility] 9 [facility], [address] [facility] site w/o [place], [address] [facility] org/sys [place], N [place], involv [place], [address], [place], [id number], [place], [place]. [address]. [id number], tel:+ tel:[phone] US 538318 36329 tel:[phone] Arthritis Arthritis [facility] Oct- [employer] [facility] arthritis w ONLINE MEDIA DIRECTOR C Provider: Levi davis factor 9 Michelle Collins [facility], [address] [facility] site w/o [address]ael, 201 [place] org/sys [facility] Mejía B [place], involvFibromy [address], Dates Dr Alarcon, algiaDorsalgi [place], [address], [place], [place], [place], [place], [address]. [id number], unspecifiedOt [id number], tel:[phone] [place] her long wall mining 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. [id number] tel:+ (current) tel:+ ist: [phone] drug [phone] Qutaybeh therapyOth Maghayd disrd of bone , [facility] structure, [address], [place], [address]. tel:[phone] ing Provider: Shmuel Conner MD, [address] [facility] [address], [place], [address]. tel:[phone] ng Provider: Gt Clark, [address] [facility] [address], [place], [address]. tel:[phone] Arthritis Arthritis [facility] Rafa ARAUJO Referring [facility] arthritis w [facility] [place]. 5794 Provider: Levi davis [facility] 9 [facility] Gt [facility], [address] [facility] site w/o Amber Walker, [address] [facility]/sys [place], N Esme Walker, involv [place], [address], [place], [id number], [place], [place]. [address]. [id number], tel:+[phone] tel:[phone] [place] [phone] [address] tel:[phone] Arthritis Arthritis Valentin Rafa ARAUJO Referring [facility] arthritis w Norma. 5794 Provider: Levi davis factor 9 [facility], [address] [facility] site w/o [place], Amber, [address] [place] org/sys [place], N [facility] [place], [facility], [address], [place], [id number], [place], [place], [place]. [address]. [id number], tel:+[phone] tel:[phone] [place] [phone] [address] tel:[phone] Arthritis Arthritis Rheu Apr-0 Rafa ARAUJO [facility] arthritis w Norma. 5794 Provider: Associates [facility] factor 9 [facility], [address] [facility] site w/o [place], Amber, [address] [facility] org/sys [place], N [facility] [place], [facility], [address], [place], [id number], [place], [place]. [address]. [id number], tel:+[phone] tel:+[phone] [place] 116133 [address] tel:[phone] Arthritis Arthritis Rheu Mar-1 [facility] arthritis w ONLINE MEDIA DIRECTOR C Provider: Levi [facility] factor 9 Michelle Jeannie Dennis [facility], [address] [facility] site w/o [address] 201 [place] org/sys [place] Mejía B [place], [facility], Dates [address], fci [place], [address], [place], [place], (current) [place], [address]. [id number], drug therapy [id number], tel:[phone] [place]. [address]Dkxldnk tel:+[phone] tel:[phone] ist: [phone] Karen Gonzalez MD, [facility] [address] [facility], [place], [address]. tel:[phone] ing Provider: Shmuel Conner MD, [address] [facility] [address], [place], [address]. tel:[phone] ng Provider: Gt Clark, [address] [facility] [address], [place], [address]. tel:[phone] Arthritis Arthritis [facility] Referring [facility] Health arthritis w MD Hannon. Provider: Levi Sims [facility] factor 9 5794 Gt PLLC, 5794 PLLC mult site w/o [facility] Amber, [address] [place] org/sys [place], N [place], involv [place], [address], [place], [place], [place], [place], [place], [id number], [address]. [id number], [place]. tel:+[phone] [place] tel:[phone] tel:[phone] Arthritis Arthritis Rheu Rafa ARAUJO Referring [facility] Health arthritis w [facility] [place]. 5794 Provider: Levi Sims [facility] factor 9 [facility] Gt PLLC, 5794 PLLC [facility] site w/o Amber Walker, [address] [facility] org/sys [place], [address] [place], involv [place], [address], [place], [id number], [place], [place]. [address]. [id number], tel:+4 tel:+[phone] US [phone] 19384 tel:[phone] Arthritis Arthritis Rheu Rafa ARAUJO Referring [facility] arthritis w [facility] [place]. 5794 Provider: Levi Sims [facility] factor 9 [facility] Gt PLLC, 5794 PLLC [facility] site w/o Amber Walker, [address] [facility] org/sys [place], [address] [place], involv [place], [address], [place], [id number], [place]. [address]. [id number], tel:+[phone] tel:+[phone] US [phone] 40465 tel:[phone] Arthritis Arthritis Rheu Rafa ARAUJO Referring [facility] Health arthritis w [facility] [place]. 5794 Provider: Levi Sims [facility] factor 8 [facility] Gt PLLC, 5794 PLLC [facility] site w/o Amber Walker, [address] [facility]/sys [place], N [facility] [place], involv [place], [address], [place], [id number], [place], [place], [place]. [address]. [id number], tel:+[phone] tel:[phone] [place] 165538 [address]6792 tel:[phone] Arthritis Arthritis Rheu Nov- [employer] [facility] arthritis w ONLINE MEDIA DIRECTOR C Provider: Levi pablou factor 8 Michelle Collins PLLC, 5[facility] w/o [address], 201 [facility] org/sys [facility] Mejía B [place], involvUnsp [address], Dates Dr Mendoza [place], thoracic, [place], [address], [place], [place], [place], [address]. [id number], and lumbosacr [id number], tel:[phone] [place]. [id number] tel:+[phone] disorderOther tel:[phone] ist: [phone] fci [phone] Qutaybeh (current) Lisa drug therapy , [facility] [address] [facility], [place], [address]. tel:[phone] ing Provider: Shmuel Conner MD, [address] [facility] [address], [place], [address]. tel:[phone] ng Provider: Gt Clark, [address] [facility] [address], [place], [address]. tel:[phone] [facility]thritis [facility]ritis [facility] Nov-0 Mehreen ARAUJO Referring [facility] arthritis w 2201 Robert. Provider: Levi pablou factor 8 5794 Gt [facility], 5794 [facility] mult site w/o Catina Clark, [address] [facility] org/sys [place], N [facility] [place], involv [place], [address], [place], [place], [place], [place], [place], [id number], [address]. [id number], [place]. tel:+[phone] [place] tel:[phone] tel: [phone] Arthritis Arthritis Rheu 0 Rafa ARAUJO Referring [facility] arthritis w 4- Norma. 5794 Provider: Levi Sims [facility] 8 [facility], 5794 [facility] site w/o [place] mur[place], 2[address] [facility] org/sys [place], N [facility], [facility], [address], [place], [id number], [place], [place], [place]. [address]. [id number], tel:+315 tel:+[phone] US 298054 66304 tel:[phone] Arthritis Arthritis Rheu 0 Rafa ARAUJO Referring [facility] arthritis w 6- Norma. 5794 Provider: Levi Sims [facility] 8 [facility], 5794 [facility] site w/o Amber Walker, 2333 [facility] org/sys [place], N [facility], [facility], [address], [place], [id number], [place], [place], [place]. [address]. [id number], tel:+ tel:+[phone] US [phone] 06289 tel:[phone] Arthritis Arthritis Rheu 2 [facility] arthritis w 0-201 ONLINE MEDIA DIRECTOR C Provider: Levi Sims [facility] 8 Michelle Collins [facility], 5794 [facility] site w/o 5794 Bael, 201 [facility] org/sys Widehu [facility] Alfonzo Walker [facility] [address], Dates [address] Al[address]con, fci [place], 102, [place], [place], (current) [place], [address]. [id number], drug [id number], tel:+[phone] [place] therapy[place]th [place]. [address]Emwyjuh tel:+[phone] disrd of bone tel:+315 ist: [phone] density and 016317 Qutaybeh violetta, Lisa diaz MD, [address], [place], [address]. tel:[phone] ing Provider: Shmuel Conner MD, [address] [facility] [address], [place], [address]. tel:[phone] Provider: Gt Clark, 2[address] N [facility] [address], [place], [address]. tel:[phone] Arthritis Arthritis Rheumatoid Jaz ARAUJO Referring [facility] arthritis Hong. Provider: Levi Sims [facility] 8 5793 Gt PLL[facility], 5794 PLLC factor of [facility], 2333 [facility], N [facility], sites w/o [place], [address], [place], organ [place], [place], [place], [place] [id number], [address]. [id number], [place]. tel:+[phone] US tel:[phone] tel:+ [phone] Arthritis Arthritis Rheumatoid Rafa ARAUJO Referring [facility] arthritis w Norma. 5794 Provider: Levi Sims [facility] 8 [facility] Gt PLLC, 5794 PLLC factor of [place] Amber, [facility], N [facility], sites w/o [place], [address], [place], organ [id number], [place], [place], [place], [place]. [address]. [id number], tel:+5 tel:+[phone] US 093275 18482 tel: [phone] Arthritis Arthritis Rheumatoid Rafa ARAUJO Referring [facility] arthritis Norma. 5794 Provider: Levi Sims [facility] 8 [facility] Gt PLLC, 5794 PLLC factor of [place] Amber, [facility], N [facility], sites w/o [place], [address], [place], organ [id number], [place], [place], [place], [place]. [address]. [id number], tel:+[phone] tel:+[phone] US 001720 44885 tel:[phone] Arthritis Arthritis Rheumatoid [facility] arthritis ONLINE MEDIA DIRECTOR C Provider: Levi whitlock 8 Michelle Collins PLLC, 5794 PLLC factor of 5794 Bael, 201 [facility], sites w/o Pkwy, Dates [address] [place], organ [place], 102, [place], [place], [place], [address]. [id number], [facility] [id number], tel:[phone] [place]. [address]Jlaqduz tel:[phone] drug therapy tel:+[phone] ist: [phone] Karen Gonzalez MD, [facility] 310 [facility]. [address], [place], [address]. tel:[phone] ing Provider: Shmuel Conner MD, [address] [facility] [address], [place], [address]. tel:[phone] ng Provider: Gt Clark, [address] [facility] 302, [place], [address]. tel:[phone] Arthritis Arthritis Rheumatoid Rafa ARAUJO Referring [facility] arthritis Norma. 5794 Provider: Levi whitlock 8 [facility] Gt PLLC, 5794 PLLC factor of Aaron Amber, [address] [place] [address], N [facility], sites w/o [place], [address], [place], organ [id number], [place]. [address]. [id number], tel:+[phone] tel:[phone] US 355970 03768 tel:[phone] Arthritis Arthritis Rheumatoid Jaz ARAUJO Referring [facility] arthritis Hong. Provider: Levi whitlock 8 57 [facility], 5794 PLLC factor of [facility], [address] [place] [address], [facility], sites w/o [place], [address], [place], organ [place], [place], [place] [id number], [address]. [id number], [place]. tel:+[phone] US tel:[phone] tel:[phone] Arthritis Arthritis Rheumatoid Jul- Can [facility] arthritis MD Hannon. Provider: Levi Sims rheumatoid 8 5794 G[facility] PLL[facility], 5794 PLLC factor of [facility], 2333 [facility], N [facility], sites w/o [place], [address], [place], organ [place], [place], [place] [id number], [address]. [id number], [place]. tel:+[phone] US tel:[phone] tel:[phone] Arthritis Arthritis Rheumatoid [facility] arthritis ONLINE MEDIA DIRECTOR C Provider: Levi Sims rheumatoid 8 Michelle Jeannie Collins PLLC, 5794 PLLC factor of 5794 Bael, 201 [facility], sites w/o Pkwy, Dates [address] [place], organ [place], 102, [place], [place], [place], [address]. [id number], her fci [id number], tel:+[phone] [place]. [address]Lgokdkr tel:+315 therapyFibrom tel:+315 ist: [phone] yalgia 125261 Karen Gonzalez MD, [facility] 310 [facility]. [address], [place], [address]. tel:[phone] ng Provider: Gt Clark, [address] [facility] [address], [place], [address]. tel:[phone] Arthritis Arthritis Rheumatoid Mehreen ARAUJO [facility] arthritis Robert. Provider: Levi Sims rheumatoid 8 5794 G[facility], 5794 PLLC factor of [facility], 2333 [facility], N [facility], sites w/o [place], [address], [place], organ [place], [place], [place] [id number], [address]. [id number], [place]. tel:+[phone] US tel:+ [phone] tel:+ [phone] Arthritis Arthritis Rheumatoid May- Rafa ARAUJO [facility] arthritis Norma. 5794 Provider: Associates Associates rheumatoid 8 [facility] Gt PLLC, 5794 PLLC factor of [facility], [facility], N [facility], sites w/o [place], [address], [place], organ [id number], [place]. [address]. [id number], tel:+[phone] tel:+[phone] US 068594 05886 tel:[phone] Arthritis Arthritis Rheumatoid Lexx Referring [facility] arthritis MD Hannon. Provider: [facility] Associates rheumatoid 7 5794 Gt PLLC, 5794 PLLC factor of [facility], 2333 [facility], N [facility], sites w/o [place], [address], [place], organ [place], [place], [place] [id number], [address]. [id number], [place]. tel:+[phone] US tel:+ [phone] tel:+ [phone] Arthritis Arthritis Rheumatoid Mar- [facility] arthritis ONLINE MEDIA DIRECTOR C Provider: [facility] Associates rheumatoid 7 Michelle Collins PLLC, 5794 PLLC factor of 5794 Bael, 201 [facility] Mejía B [place], [facility] w/o Pkwy, Dates Dr Alarcon, organ [place], 102, [place], [place], [place], [address]. [id number], bromyalgiaOth [id number], tel:[phone] [place]. [address]Ezmebae tel:+[phone] drug tel:+[phone] ist: [phone] therapyBody 369402 Qutaybeh mass index Lisa (BMI) , [place] 37.0-37.9, Cardiology adult 310 [facility]. [address], [place], [address]. tel:[phone] ng Provider: Gt Clark, Josephine3 N [facility] 302, [place], [address]. tel:[phone] Arthritis Arthritis Rheumatoid Mar-0 Rafa ARAUJO Referring [facility] arthritis w Norma. 5794 Provider: Levi Sims [address] Gt PLLC, 5794 PLLC factor of Amber Walker, 2333 [facility] multiple [place], N [facility] hospital[facility] [place], sites w/o [place], [address], [place], organ [id number], [place]. [address]. [id number], tel:+[phone] tel:[phone] US 340489 64232 tel:[phone] Arthritis Arthritis Rheumatoid Rafa ARAUJO Referring [facility] arthritis w Norma. 5794 Provider: Levi Sims [address] Gt PLLC, 5794 PLLC factor of Amber Walker, 2333 [facility] multiple [place], N [facility] hospital[facility] [place], sites w/o [place], [address], [place], organ [id number], [place]. [address]. [id number], tel:+[phone] tel:+[phone] US 879454 89222 tel:[phone] Arthritis Arthritis Rheumatoid Jan- Rafa ARAUJO Referring [facility] arthritis w Norma. 5794 Provider: Levi Sims [address] Gt PLLC, 5794 PLLC factor of Amber Walker, 2333 [facility] multiple [place], N [facility] hospital[facility] [place], sites w/o [place], [address], [place], organ [id number], [place], [place], [place]. [address]. [id number], tel:[phone] tel:+[phone] US 875664 98291 tel:[phone] Arthritis Arthritis Rheumatoid Dec- [facility] arthritis ONLINE MEDIA DIRECTOR C Provider: Levi Sims [place] [address] Michelle Collins PLLC, 5794 PLLC factor of 5794 Bael, 201 [facility] Mejía B [place], sites w/o Pkwy, Dates Dr Alarcon, organ [place], 102, [place], [place], [place], [address]. 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 [address]Nuuzlwp tel: therapyFibrom tel: ist: [phone] yalgiaGeneral 427741 Qutaybeh claudia Wingydvesta osteoarthriti , [place] sPolymyalgia Cardiology rheumaticaBod 310 y mass index [facility] [address] [address] 37.0-37.9, 4, [place], [facility], [address]. tel:[phone] ng Provider: Gt Clark, [address] Es[address], [place], [address]. 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 [place] drug therapy [place]. tel: tel: tel: [phone] [phone] Arthritis Arthritis Other long [facility] term drug 0- ONLINE MEDIA DIRECTOR C [facility] therapyRheuma 7 Michelle Dennis PLLC, 5794 PLLC toid 5794 [facility] arthritis w/ [facility], rheumatoid Pkwy, [place], factor of [place], [place], [id number], sites w/o [id number], [place] organ [place]. tel: involvement tel:[phone] Arthritis Arthritis Rheumatoid [facility] arthritis w/ ONLINE MEDIA DIRECTOR C Provider: [facility] rheumatoid 7 Michelle Dennis Dennis PLLC, 5794 PLLC factor of 5794 Bael, 201 [facility], [facility] w/o Pkwy, Dates Dr Alarcon, organ [place], 102, [place], [place], [place], [address]. [id number], her fci [id number], tel:[phone] [place]. [address]Rzjsljm tel: therapyFibrom tel: ist: [phone] yalgiaBody [id number] Qutaybeh mass index Lisa (BMI) Priyanka ARAUJOuga 37.0-37.9, Cardiology adult 310 [facility]. [address], [place], [address]. tel:[phone] ng Provider: Gt Clark, 2[address] N [employer] [address], [place], [address]. tel:[phone] Arthritis Arthritis Rheumatoid Oct- [facility] arthritis PA-C Provider: Levi Sims rheumatoid 7 Jeffrey. Quintanillaothy PLLC, 5794 PLLC factor of 5794 Bael, 201 [facility], [facility] w/o [place], Dates Dr Alarcon, organ [place], 102, [place], [place], [place], [address]. 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 [address]Pfwkpst tel: therapyFibrom tel: ist: [phone] yalgiaGeneral 144205 Qutaybeh ized Lisa osteoarthriti , [facility] Cardiology [address], [place], [address]. tel:[phone] ng Provider: Gt Clark 2333 N [employer] [address], [place], [address]. tel:[phone] Arthritis Arthritis Rheumatoid [facility] arthritis PALaura Carcamo. Provider: Levi Sims rheumatoid 7 5794 Dennis PLLC, 5794 PLLC factor of [facility] Ba, 201 [facility], [facility], sites w/o [place], Dates Dr Alarcon, organ [place], 102, [place], [place], [place] [id number], [place], [address]. [id number], her fci [place]. tel:[phone] [place] drug tel:[phone] tel:[phone] therapyOther 868771 ist: [phone] specified Qutaybeh disorder of [facility] bone density , [place] of multiple Cardiology sites 310 [facility]. [address], [place], [address]. tel:[phone] ng Provider: Gt Clark, 2[address] N [facility] [address], [place], [address]. tel:[phone] Arthritis Arthritis Rheumatoid Apr- [employer] [facility] arthritis w PAKmC Provider: Levi Sims rheumatoid 7 Shayan. Dennis PLLC, 5794 PLLC factor of 5794 Bael, 201 [facility], sites w/o [place], Dates Dr Alarcon, organ [place], 102, [place], [place], [place], [address]. 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 [address]Xfelqnc tel:+[phone] therapyGenera tel:+[phone] ng Provider: 005366 lized [id number] Gt osteoarthriti Amber, 2333 s N [facility] [address], [place], [address]. tel:[phone] Arthritis Arthritis Rheumatoid Mar-2 Rafa ARAUJO [facility] arthritis Norma. 5794 Provider: Levi Sims rheumatoid 7 [facility] Gt PLLC, 5794 PLLC factor of Aaron, Amber, 2333 [facility] [place], N Tri[place], sites w/o [place], [address], [place], organ [id number], [place], [place]. [address]. [id number], tel:+4 tel:+[phone] [place] 022341 31955 tel:[phone] Arthritis Arthritis Rheumatoid Consulting [facility] arthritis Provider: Levi Sims rheumatoid 7 Dennis PLLC, 5794 PLLC factor of [address], sites w/o Dates [address] Alarcon, organ 102, [place], [place], [facility], [address]. [id number], neralized tel:+[phone] [place] osteoarthriti 43573Vmoaudx tel:+[phone] Ezra lutz Provider: 770219 term drug Gt therapyAneela Clark, [address] [place] [address], [place], [address]. tel:[phone] Arthritis Arthritis Rheumatoid [facility] arthritis Provider: Levi Sims rheumatoid 7 Dennis PLLC, 5794 PLLC factor of [address], sites w/o Dates [address] Alarcon, organ 102, [place], [place], [place], [address]. [id number], neralized tel:+[phone] [place] osteoarthriti 48012Mgtpvvt tel:+315 Ezra lutz Provider: [id number] term drug Gt therapySu Clark, 2333 ess of breath N [place] [address], [place], [address]. tel:[phone] Arthritis Arthritis Rheumatoid Rafa ARAUJO [facility] arthritis Norma. 5794 Provider: Levi Sims rheumatoid 6 [facility] Dennis PLLC, 5794 PLLC factor of [facility], [address] [place] [address], sites w/o [place], Dates Dr Alarcon, organ [id number], 102, [place], [place], [place], [address]. 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 tel:[phone] Arthritis Arthritis Generalized [facility] osteoarthriti [facility] s 6 PLLC, 5794 PLLC [place], [place], [id number], [place] tel:[phone] Arthritis Arthritis Encounter for [facility] screening for [facility] respiratory 6 PLLC, 5794 PLLC tuberculosis [place], [place], [id number], [place] tel:[phone] Arthritis Arthritis Other Feb- [facility] specified [facility] abnormal 6 PLLC, 5794 PLLC findings of [facility], chemistry [place], [place], [id number], [place] tel:[phone] Arthritis Arthritis Rheumatoid Consulting [facility] Health arthritis w Provider: [facility] rheumatoid 6 Qutaybeh PLLC, 5794 PLLC factor of Lisa diaz MD, [facility], sites w/o Cardiology [place], organ 310 [place], involvementFi [facility] [id number], bromyalgiaGen [address]. Suite eralized 4, [place], tel:[phone] [place], [address]. [address] sLumbosacral tel:[phone] intervertebra 64497Bcbvzrw l disc ng Provider: disorderOther Gt fci Amber, 2333 drug N Tri[address] therapyPain [address], in lt [place], [place], kneeShortness [address]. of breath tel:[phone] Arthritis Arthritis Other Sep-2 [facility] specified [facility] abnormal 6 PLLC, 5794 PLLC findings of [facility], chemistry [place], [place], [id number], [place] tel:[phone] Arthritis Arthritis Rheumatoid Jan- Consulting [facility] arthritis w Provider: [facility] rheumatoid 6 Qutaybeh PLLC, 5794 PLLC factor of Lisa diaz MD, [facility], sites w/o Cardiology [place], organ 310 [place], involvementOt [facility] [id number], her long wall mining 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 [address]. Suite [place] drug 4, [place], tel:[phone] [place], [address]. 0535[address] acral tel:[phone] intervertebra 39667Axcarzw l disc ng Provider: Rolanda Del Real myalgiaGenera Clark, 2333 lized [address] osteoarthriti [address], [place], [address]. tel:[phone] Arthritis Arthritis Rheumatoid Consulting [facility] arthritis Provider: Levi Sims rheumatoid 6 Qutaybeh PLLC, 5794 PLLC factor of Lisa diaz MD, [facility], sites w/o Cardiology [place], organ 310 [place], involvementFi [facility] [id number], bromyalgiaLum [address] Suite [facility] 4, [place], tel:[phone] [place], [address]. 9588[address] l disc tel:[phone] disorderPain 58495Hezfmjh in rt ing hipOther long Provider: term drug Dennis therapy Kaila, 201 Mejía Cassie [address], [place], [address]. tel:[phone] ng Provider: Josephine Henriquez3 N [place] [address], [place], [address]. tel:[phone] Arthritis Arthritis Rheumatoid 0 Consulting [facility] arthritis Provider: Levi whitlock 6 Qutaybeh PLLC, 5794 PLLC factor of Lisa diaz MD, [facility], sites w/o Cardiology [place], organ 310 [place], involvementFi [facility] [id number], bromyalgiaLum Bl[address]. Suite [facility] 4[facility], tel:[phone] [place], [address]. 672675 l disc tel:[phone] disorderPain 03565Jawwgnn in rt ing hipOther long Provider: term drug Dennis therapy Kaila, 201 Mejía Cassie [address], [place], [address]. tel:[phone] ng Provider: Gt Clark, [address], [place], [address]. 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 Suite [place] drug 4, [place], tel:[phone] [place], [address]. 796992 acral tel:[phone] intervertebra 538[address]Vktouqo l disc ing disorderFibro Provider: myalgia Dennis Bright, 201 [address], [place], [address]. tel:[phone] bolivar Provider: Gt Clark, [address], [place], [address]. tel:[phone] Arthritis Arthritis Rheumatoid Consulting [facility] arthritis Provider: Levi Burns Qutaybeh PLLC, 5794 PLLC factor of Lisa diaz MD, [facility], sites w/o Cardiology [place], organ 310 [place], involvementFi Nat [id number], bromyalgiaOth Blvd. Suite er fci 4, [place], tel:[phone] [place], [address]. 559[address] therapyBack tel:[phone] pain 99445Sttosix ing Provider: Dennis Bright, 201 [address], [place], [address]. tel:[phone] bolivar Provider: Gt Clark, [address] Tri[address], [place], [address]. tel:[phone] Arthritis Arthritis Rheumatoid [employer] [facility] arthritis PA-C Provider: Levi Woody Qutaybeh PLLC, 5794 PLLC factor of 5794 Lisa Dominique MD, [facility], sites w/o [place], Cardiology [place], organ [place], 310 [place], [place], [place] [id number], her fci [id number], Blvd. Suite drug therapy [place]. 4, [place], tel:[phone] tel:[phone] [place], [address]. 904842 227336 tel:[phone] ing Provider: Dennis Bright, 201 [address], [place], [address]. tel:[phone] bolivar Provider: Gt Clark, [address], [place], [address]. tel:[phone] Arthritis Arthritis Rheumatoid Apr-2 Consulting [facility] arthritis w/ - Provider: Levi Sims rheumatoid 6 Qutaybeh PLLC, 5794 PLLC factor of Lisa diaz MD, [facility], sites w/o Cardiology [place], organ 310 [place], involvement [facility] [id number], Blvd. Suite [place], tel:[phone] [place], [address]. [address] tel:[phone] ing Provider: Dennis Bright, 201 [address], [place], [address]. tel:[phone] bolivar Provider: Gt Clark, [address], [place], [address]. tel:[phone] Arthritis Arthritis Rheumatoid Mar-2 Consulting [facility] arthritis w Provider: Levi whitlock 6 Qutaybeh PLLC, 5794 PLLC factor of Lisa diaz MD, [facility], sites w/o Cardiology [place], organ 310 [place], involvementGe [facility] [id number], neralized Blvd. Suite osteoarthriti 4, [place], tel:[phone] [place], [address]. 428870 term drug tel:[phone] therapy 82856Yukutsv ing Provider: Dennis Bright, 201 [address], [place], [address]. tel:[phone] ng Provider: Gt Clark, [address], [place], [address]. tel:[phone] Arthritis Arthritis Rheumatoid Fe- [facility] arthritis Provider: Levi Sims rheumatoid 6 Qutaybeh PLLC, 5794 PLLC factor of Lisa diaz MD, [facility], sites w/o Cardiology [place], organ 310 [place], involvementOt [facility] [id number], her fci Blvd. Suite drug , [place], tel:[phone] [place], [address]. [address] lized tel:[phone] osteoarthriti 64674Fgthmvj s ing Provider: Dennis Bright, [address], [place], [address]. tel:[phone] bolivar Provider: Gt Clark, [address], [place], [address]. tel:[phone] Arthritis Arthritis Other [facility] specified armando Ramirez. Associates Associates abnormal 6 5794 PLLC, 5794 PLLC findings of [facility] blood [facility], chemistry [place], [place], [place], [id number], [id number], [place]. [place] tel:[phone] tel:[phone] Arthritis Arthritis Rheumatoid [facility] arthritis w Provider: Levi Sims rheumatoid 6 Qutaybeh PLLC, 5794 PLLC factor of Lisa diaz MD, [facility], sites w/o [facility] [place], organ [address] [place], involvementOt [facility] [id number], her [address], [place], tel:[phone] [place], [address]. [address] lized tel:[phone] osteoarthriti [phone] sAnemia, ing unspecified Provider: Dennis Bright, [address], [place], [address]. tel:[phone] bolivar Provider: Gt Clark, [address], [place], [address]. tel:[phone] Arthritis Arthritis Rheumatoid [facility], [facility] arthritis w/ Provider: Levi Sims rheumatoid 5 [facility], [facility] factor of Lisa diaz MD, [facility], sites w/o Cardiology [place], organ [address] [place], involvementGe [facility] [id number], [address] [place] osteoarthriti , [place], tel:[phone] [place], [address]. [id number] term drug tel:[phone] therapyAnemia 00777Sckowmg , unspecified ing Provider: Dennis Bright, [address], [place], [address]. tel:[phone] bolivar Provider: Gt Clark, [address], [place], [address]. 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 [place] unspecified , [place], tel:[phone] [place], [address]. [id number] tel:[phone] ing Provider: Dennis Bright, [address], [place], [address]. tel:[phone] bolivar Provider: Gt Clark, [address], [place], [address]. tel:[phone] [facility] WILLIAM Carcam[facility]. Provider: Levi Sims 5 5794 [facility], [facility] Catina Walker MD, [facility], [place], [place], [place], [address] [place], [id number], [place] [id number], [place] [place] tel:[phone] , [place], tel:[phone] [place], [address]. [id number] tel:[phone] ing Provider: Dennis Bright, [address], [place], [address]. tel:[phone] ng Provider: Gt Clark, [address], [place], [address]. tel:[phone] Arthritis Arthritis [facility], [facility] 6 Provider: Levi Sims 5 Karen BURROWS, 5794 PLLOsmin Dominique MD, [facility], [facility] [place], [address] [place], [facility] [id number], [address] [place] [address], [place], tel:[phone] [place], [address]. [address] tel:[phone] ing Provider: Dennis Bright, [address], [place], [address]. tel:[phone] ng Provider: Gt Clark [address], [place], [address]. tel:[phone] Arthritis Arthritis [facility] Provider: Levi Sims 4 Karen BURROWS, 5794 MARKOS Dominique MD, [facility], [facility]iology [place], [address] [place], [facility] [id number], [address], [place], tel:[phone] [place], [address]. 1588[address] tel:[phone] ing Provider: Dennis Bright, [address], [place], [address]. tel:[phone] bolivar Provider: Gt Clark [address], [place], [address]. tel:[phone] Arthritis Arthritis [facility] Provider: Levi Sims 4 Gt BURROWS, 5794 MARKOS Clark, Brenda Maria [address] [facility] [place], [address], [place], [place], [address]. [id number], tel:[phone] tel:[phone] Arthritis Arthritis Mar- [facility] Provider: [facility] 3 Gt ASKEWC, 5794 PLLC Amber, [address] [place], [address], [place], [place], [address]. [id number], tel:[phone] tel:[phone] Arthritis Arthritis [facility] ONLINE MEDIA DIRECTOR-C Provider: [facility] 3 Alicia. 310 [facility], [address] [place] Amber, [address], [address] [place], [place], [address], [place], [place], [place], [place], [place], [id number], [address]. [id number], [place]. tel:[phone] [place] tel:[phone] tel:[phone] Arthritis Arthritis [facility] Provider: [facility] 3 Gt ASKEWC, 5794 PLLC Amber, [address] [place], [address], [place], [place], [address]. [id number], tel:[phone] tel:[phone] Arthritis Arthritis Dec- [facility] 6 Provider: [facility] 3 Gt ASKEWC, 5794 PLLC Amber, [address] [place], [address], [place], [place], [address]. [id number], tel:[phone] tel:[phone] Arthritis Arthritis Jul-0 [facility] Provider: [facility] 3 Gt ASKEWC, 5794 PLLC Amber, [address] [place], [address], [place], [place], [address]. [id number], tel:[phone] [place] [phone] tel:[phone] Arthritis Arthritis [facility] Provider: [facility] 2 Gt ASKEWC, 5794 PLLC Amber, [address] [facility] [place], [address], [place], [place], [place], [address]. [id number], tel:[phone] [place] [phone] tel:[phone] Arthritis Arthritis Rybinski [facility] 3 WILLIAM Carcamo. Provider: [facility] 2 57Mehrdad BURROWS, 5794 PLLC [facility] Clark, [address] [facility], [address] [facility] [place], [place], [address], [place], [place], [id number], [address]. [id number], [place]. tel:[phone] [place] tel:[phone] tel:[phone] Arthritis Arthritis [facility] Provider: Associates Levi 1 Gt BURROWS, 5794 PLLOsmin Clark, [address] [facility] [facility] [address] [facility] [place], [address], [place], [place], [address]. [id number], tel:[phone] [place] [phone] tel:[phone] Arthritis Arthritis [facility] Provider: Associates Levi 1 Gt BURROWS, 57Mehrdad PLLOsmin Clark, [address] [facility] N [facility] [place], [address], [place], [place], [address]. [id number], tel:[phone] [place] [phone] tel:[phone] Family History Family Member Diagnosis Age At Onset Paternal grandmother Rheumatoid arthritis Immunizations Vaccine Date Status Comments Influenza, injectable, MDCK, administered Note: approx. ; Source : Other Flucelvax Quad 2017-2018Y Provider Influenza, injectable, administered Note: approx. ; Source: Other quadrivalent, split virus, 18 Provider years or older Afluria Quad 4130-8524 Influenza, injectable, administered Note: Invalid documented admin trivalent, split virus, 4 date was . ; years and older, Fluvirin Source: Other Provider [id number] Yet to receive Flu vaccine administered Source: [...] Insurance type Covered republican ID Authorization(s) Medicare [id number] BC No Referral Required [id number] Social History Type Description Quantity Date Captured [...] Information Pt. not exposed to someone in fdc nor traveled out of the country; no concern for TB screening. Pt. not exposed to someone in fdc nor traveled out of the country; no [...]
--- OUTSIDE RECORDS SUMMARY | 2019-07-12 11:41 | XMS REPORT | Continuity of Care Document ---
:1945 Author Organization [facility] Address [address], [place] [id number] Phone Care Team Providers Name Role Phone Hong Sebastian MD Unavailable Unavailable Allergies, Adverse Reactions, Alerts Substance Reaction Status trazodone Active POTASSIUM CLAVULANATE Active AMOXICILLIN TRIHYDRATE Active Gold Salts Active HYDROCODONE BITARTRATE Active acetaminophen Active aspirin Active Medications Medication Instructions Dosage Effective Dates Status Comments (start - stop) Remicade 100 mg infuse 900 900 milligram - Active increase intravenous milligram by Remicade to solution intravenous route (8.5 mg/kg) = every 4 weeks 900 mg by IV route every 4 weeks FOLIC ACID TAB 1MG TAKE 1 TABLET 1 MG - Active DAILY Prolia 60 mg/mL inject 1 60 MG - Active subcutaneous milliliter by syringe subcutaneous route every 6 months in the upper arm, upper thigh or abdomen tizanidine 2 mg take 1 tablet by - Active tablet oral route every before bedtime as needed omeprazole 40 mg take 1 capsule by [...] factor mult site w/o org/sys involv Other senior care (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 therapy Osteoporosis - Rheu arthritis w rheu factor mult site w/o org/sys involv Rheu arthritis w rheu factor mult site w/o org/sys involv Oth disrd of bone density and structure, multiple sites Other terminal computer operator (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 therapy Other terminal computer operator (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 therapy Rheu arthritis w rheu factor mult site w/o org/sys involv Oth disrd of bone density - and structure, multiple sites Rheu arthritis w rheu factor mult site w/o org/sys involv Other terminal computer operator (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 therapy Rheu arthritis w rheu factor mult site w/o org/sys involv Rheu arthritis w rheu factor mult site w/o org/sys involv Rheu arthritis w rheu factor mult site w/o org/sys involv Rheu arthritis w rheu factor mult site w/o org/sys involv Fibromyalgia Dorsalgia, unspecified Other terminal computer operator (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 therapy Oth disrd of bone density and structure, multiple sites Rheu arthritis w rheu factor mult site w/o org/sys involv Rheu arthritis w rheu factor mult site w/o org/sys involv Rheu arthritis w rheu factor mult site w/o org/sys involv Rheu arthritis w rheu factor mult site w/o org/sys involv Other terminal computer operator (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 therapy Rheu arthritis w rheu factor mult site w/o org/sys involv Rheu arthritis w rheu factor mult site w/o org/sys involv Rheu arthritis w rheu factor mult site w/o org/sys involv Rheu arthritis w rheu factor mult site w/o org/sys involv Rheu arthritis w rheu factor mult site w/o org/sys involv Unsp thoracic, thoracolum and lumbosacr intvrt disc disorder Other terminal computer operator (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 therapy Rheu arthritis w rheu factor mult site w/o org/sys involv Rheu arthritis w rheu factor mult site w/o org/sys involv Rheu arthritis w rheu factor mult site w/o org/sys involv Rheu arthritis w rheu factor mult site w/o org/sys involv Other terminal computer operator (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 therapy Oth disrd of bone density and structure, multiple sites Rheumatoid arthritis w/ rheumatoid factor of multiple sites w/o organ involvement Rheumatoid arthritis w/ rheumatoid factor of multiple sites w/o organ involvement Rheumatoid arthritis w/ rheumatoid factor of multiple sites w/o organ involvement Rheumatoid arthritis w/ rheumatoid factor of multiple sites w/o organ involvement Fibromyalgia Other terminal computer operator drug therapy Rheumatoid arthritis w/ rheumatoid factor of multiple sites w/o organ involvement Rheumatoid arthritis w/ rheumatoid factor of multiple sites w/o organ involvement Rheumatoid arthritis w/ rheumatoid factor of multiple sites w/o organ involvement Rheumatoid arthritis w/ rheumatoid factor of multiple sites w/o organ involvement Other senior care drug therapy Fibromyalgia Rheumatoid arthritis w/ rheumatoid factor of multiple sites w/o organ involvement Rheumatoid arthritis w/ rheumatoid factor of multiple sites w/o organ involvement Rheumatoid arthritis w/ rheumatoid factor of multiple sites w/o organ involvement Rheumatoid arthritis w/ rheumatoid factor of multiple sites w/o organ involvement Fibromyalgia Other terminal computer operator drug therapy Rheumatoid arthritis w/ rheumatoid factor of multiple sites w/o organ involvement Rheumatoid arthritis w/ rheumatoid factor of multiple sites w/o organ involvement Rheumatoid arthritis w/ rheumatoid factor of multiple sites w/o organ involvement Rheumatoid arthritis w/ rheumatoid factor of multiple sites w/o organ involvement Other terminal computer operator drug therapy Fibromyalgia Generalized osteoarthritis Polymyalgia rheumatica Rheumatoid arthritis w/ rheumatoid factor of multiple sites w/o organ involvement Other terminal computer operator drug therapy Other senior care drug therapy Rheumatoid arthritis w/ rheumatoid factor of multiple sites w/o organ involvement Rheumatoid arthritis w/ rheumatoid factor of multiple sites w/o organ involvement Other terminal computer operator drug therapy Fibromyalgia Rheumatoid arthritis w/ rheumatoid factor of multiple sites w/o organ involvement Other senior care drug therapy Fibromyalgia Generalized osteoarthritis Rheumatoid arthritis w/ rheumatoid factor of multiple sites w/o organ involvement Other senior care drug therapy Other specified disorder of bone density of multiple sites Rheumatoid arthritis w/ rheumatoid factor of multiple sites w/o organ involvement Other senior care drug therapy Generalized osteoarthritis Rheumatoid arthritis w/ rheumatoid factor of multiple sites w/o organ involvement Rheumatoid arthritis w/ rheumatoid factor of multiple sites w/o organ involvement Generalized osteoarthritis Other senior care drug therapy Anemia Rheumatoid arthritis w/ rheumatoid factor of multiple sites w/o organ involvement Generalized osteoarthritis Other terminal computer operator drug therapy Shortness of breath Rheumatoid arthritis w/ rheumatoid factor of multiple sites w/o organ involvement Other senior care drug therapy Anemia Generalized osteoarthritis Encounter for screening for respiratory tuberculosis Other specified abnormal findings of blood chemistry Rheumatoid arthritis w/ rheumatoid factor of multiple sites w/o organ involvement Fibromyalgia Generalized osteoarthritis Lumbosacral intervertebral disc disorder Other terminal computer operator drug therapy Pain in lt knee Shortness of breath Other specified abnormal findings of blood chemistry Rheumatoid arthritis w/ rheumatoid factor of multiple sites w/o organ involvement Other terminal computer operator drug therapy Lumbosacral intervertebral disc disorder Fibromyalgia Generalized osteoarthritis Rheumatoid arthritis w/ rheumatoid factor of multiple sites w/o organ involvement Fibromyalgia Lumbosacral intervertebral disc disorder Pain in rt hip Other senior care drug therapy Rheumatoid arthritis w/ rheumatoid factor of multiple sites w/o organ involvement Fibromyalgia Lumbosacral intervertebral disc disorder Pain in rt hip Other terminal computer operator drug therapy Rheumatoid arthritis w/ rheumatoid factor of multiple sites w/o organ involvement Other terminal computer operator drug therapy Lumbosacral intervertebral disc disorder Fibromyalgia Rheumatoid arthritis w/ rheumatoid factor of multiple sites w/o organ involvement Fibromyalgia Other terminal computer operator drug therapy Back pain Rheumatoid arthritis w/ rheumatoid factor of multiple sites w/o organ involvement Other senior care drug therapy Rheumatoid arthritis w/ rheumatoid factor of multiple sites w/o organ involvement Rheumatoid arthritis w/ rheumatoid factor of multiple sites w/o organ involvement Generalized osteoarthritis Other senior care drug therapy Rheumatoid arthritis w/ rheumatoid factor of multiple sites w/o organ involvement Other terminal computer operator drug therapy Generalized osteoarthritis Other specified abnormal findings of blood chemistry Rheumatoid arthritis w/ rheumatoid factor of multiple sites w/o organ involvement Other terminal computer operator drug therapy Generalized osteoarthritis Anemia, unspecified Rheumatoid arthritis w/ rheumatoid factor of multiple sites w/o organ involvement Generalized osteoarthritis Other terminal computer operator drug therapy Anemia, unspecified Rheumatoid arthritis, unspecified Other senior care drug therapy Generalized osteoarthritis Anemia, unspecified Rheumatoid factor positive - Active Fibromyositis - Active Mapped from [facility] Chronic Conditions table on 08/29/2014 by the ICD9 to SNOMED Bulk Mapping Utility. The mapped diagnosis code was Fibromyalgia / Myalgia, 729.1, added by Norma Craig MD, with responsible provider Norma Craig MD. Onset date 06/11/2012; last addressed on 04/18/2014. High risk drug monitoring - Active Mapped from [facility] Chronic status Conditions table on 09/15/2014 by the ICD9 to SNOMED Bulk Mapping Utility. The mapped diagnosis code was Therapeutic Drug Monitoring, V58.69, added by Claribel Aguilar NP, with responsible provider Claribel WALTER. Onset date 03/19/2012; last addressed on 04/18/2014. Polymyalgia rheumatica - Active Mapped from [facility] Chronic Conditions table on 07/15/2014 by the ICD9 to SNOMED Bulk Mapping Utility. The mapped diagnosis code was Polymyalgia rheumatica, 725, added by Claribel Aguilar NP, with responsible provider Claribel WALTER. Onset date 03/19/2012; last addressed on 02/04/2014. Rheumatoid arthritis - Active Mapped from [facility] Chronic Conditions table on 07/15/2014 by the ICD9 to SNOMED Bulk Mapping Utility. The mapped diagnosis code was Rheumatoid Arthritis, 714.0, added by Norma Craig MD, with responsible provider Norma Craig MD, MD. Onset date 01/23/2012; last addressed on 04/18/2014. Procedures Procedure Date CHEMO, IV INFUSION, 1 HR CHEMO, IV INFUSION, ADDL HR Normal saline solution infus Infliximab injection Remicade Results Test Name Date and Time Measure Units Reference Range Abnormal Flag Status Comments No information Advance Directives Directive Yes / No Effective Date File Name No information Encounters Encounter Practice Location Reason(s) Diagnoses Date Provider Providers Description For Visit Copied on Encounter Arthritis Arthritis Rheu Jaz ARAUJO [facility] arthritis w 0-201 Hong. Provider: Levi Sims [facility] 9 5794 Gt PLL[facility], 5794 PLLC [facility] site w/o [facility], [address] [facility] org/sys [place], [facility] [place], involv [place], [address], [place], [place], [place], [place], [id number], [address]. [id number], [place]. tel:[phone] [place] tel:[phone] tel: [phone] Arthritis Arthritis [facility] 8-201 TRANSPORTATION DISPATCH MANAGER C Associates [facility] 9 Michelle Jeannie PLLC, 5794 PLLC [address] [facility] [address], [place], [place], [id number], [id number], [place]. tel: tel: [phone] Arthritis Arthritis Age-related [facility] osteoporosis 6-201 TRANSPORTATION DISPATCH MANAGER C Provider: Levi Sims w/o current 9 Michelle Collins PLLC, 5794 PLLC pathological [address], [address] [facility] fractureRheu [facility] Mejía B [place], arthritis w [address], Dates Dr Alarcon, [facility] factor [place], [address], [place], [place], [facility] site w/[place], [address]. [id number], [facility] [id number], tel:+[phone] involvOther [place]. [id number] tel:+[phone] terminal computer operator tel:+ ist: [phone] (current) [id number] Marietayb drug therapy Lisa ARAUJO, [facility] [address] [place] [address] [address], [place], [address]. tel:[phone] ing Provider: Shmuel Conner MD, [address] [facility] [address], [place], [address]. tel:[phone] Provider: Gt Clark, [address] [facility] [address], [place], [address]. tel:[phone] Arthritis Arthritis Osteoporosis [facility] 9 TRANSPORTATION DISPATCH MANAGER C [facility] 9 Michelle Dennis PLLC, 5794 PLLC [address] [facility], [address], [place], [place], [id number], [id number], [place]. tel:+ tel:[phone] [facility] arthritis w 0-201 MD Hannon. Provider: Levi Sims [facility] factor 9 5794 Gt [facility], 5[address] [facility] site w/o [facility], [address] [place] [address]/[facility], N [facility], involv [place], [address], [place], [place], [place], [place], [place], [id number], [address]. [id number], [place]. tel:+[phone] [place] tel:+ [phone] tel:+ [phone] [facility]ritis [facility]ritis [facility] arthritis w 4 MD Hannon. Provider: Levi Sims [facility] 9 5794 [facility], [address] [facility] site w/o [facility], [address] [place] [address]/[facility], N [facility], involv [place], [address], [place], [place], [place], [place], [place], [id number], [address]. [id number], [place]. tel:+[phone] US tel:+ [phone] tel:+ [phone] Arthritis Arthritis Oth disrd of Rafa ARAUJO [facility] bone density 8-201 Norma. 5794 Associates Levi and 9 [facility], [facility], [place], [facility] multiple [place], [place], sitesOther [place], [place], senior care [id number], [place], (current) [place]. [id number], drug therapy tel:+[phone] [place] [phone] tel:+ [phone] Arthritis Arthritis Other long Oct-0 [facility] term 4-201 TRANSPORTATION DISPATCH MANAGER C Associates Levi (current) 9 Michelle Dennis PLLC, 5794 PLLC drug therapy [address] [facility], [address], [place], [place], [place], [id number], [id number], [place]. tel:+ tel:[phone] Arthritis Arthritis [facility] Sep-2 [facility] arthritis w 6-201 MD Hannon. Provider: Levi Sims [facility] factor 9 5794 Gt PLLC, 5794 PLLC mult site w/o [facility], [address] [facility] org/sys [place], N [facility], involv [place], [address], [place], [place], [place], [place], [place], [id number], [address]. [id number], [place]. tel:+[phone] US tel:+ [phone] tel:+ [phone] Arthritis Arthritis Sep-1 Rafa [facility] 0-201 Norma. 5794 [facility] 9 [facility], 5794 [facility], [facility] [place], [place], [place], [place], [id number], [place], [place]. [id number], tel:+ [place] [phone] tel:[phone] Arthritis Arthritis Oth disrd of Sep-1 [facility] bone density 0-201 TRANSPORTATION DISPATCH MANAGER C Provider: Levi Sims and 9 Michelle Collins PLLC, 5794 PLLC structure, [address]ael, 201 [facility], sitesRheu [address], Dates Dr Felizuse, arthritis w [place], [address], [place], [place], [place], [address]. [id number], mult site w/o [id number], tel:[phone] [place] org/[place]. [id number] tel:+[phone] involvOther tel:[phone] ist: [phone] senior care [phone] Karen (current) Lisa drug therapy , [facility] [address] [facility], [place], [address]. tel:[phone] [facility] Provider: Shmuel Conner MD, [address] [facility] [address], [place], [address]. tel:[phone] Provider: Gt Clark, [address] [facility] [address], [place], [address]. tel:[phone] Arthritis Arthritis [facility] Rafa ARAUJO Referring Health Health arthritis w [facility]. 5794 Provider: Levi Sims [facility] 9 [facility], [address] [place] [address] site w/o Amber Walker, [address] [facility] org/sys [place], N [facility], involv [place], [address], [place], [id number], [place], [place]. [address]. [id number], tel:+[phone] tel:+[phone] [place] [phone] [address] tel:[phone] Arthritis Arthritis [facility] 3 Rafa ARAUJO Referring [facility] Health arthritis w [facility]. 5794 Provider: Levi Sims [facility] 9 [facility], [address] [place] [address] site w/o Amber Walker, [address] [place] org/sys [place], N [place], involv [place], [address], [place], [id number], [place], [place]. [address]. [id number], tel:+[phone] tel:[phone] [place] [phone] [phone] tel:[phone] Arthritis Arthritis [facility] 0 Rafa ARAUJO Referring [facility] Health arthritis w [facility]. 5794 Provider: Levi Sims [facility] 9 [facility], [address] [place] [address] site w/o Amber Walker, [address] [place] org/sys [place], [place], involv [place], [address], [place], [id number], [place], [place]. [address]. [id number], tel:+ tel:+[phone] [place] [phone] 11915 tel:[phone] Arthritis Arthritis [facility] w TRANSPORTATION DISPATCH MANAGER C Provider: Levi Sims [facility] factor 9 Michelle Collins [facility], 5[address] [facility] site w/o [address], 201 [facility] org/sys [facility] Mejía B [place], involvFibromy [address], Dates Dr Alarcon, algiaDorsalgi [place], [address], [place], [place], [place], [place], [address]. [id number], unspecifiedOt [id number], tel:+[phone] [place] senior [place]. [address]Cldcjoa tel:+[phone] (current) tel:+[phone] ist: [phone] drug [phone] Qutaybeh therapyOth [facility] disrd of bone , [facility] density and Cardiology structure, [address], [place], [address]. tel:[phone] ing Provider: Shmuel Conner MD, [address] [facility] [address], [place], [address]. tel:[phone] ng Provider: Gt Clark, [address] [facility] [address], [place], [address]. tel:[phone] Arthritis Arthritis [facility] Rafa ARAUJO Referring [facility] arthritis w [facility]. 5794 Provider: Levi Sims [facility] factor [address] [facility] Gt [facility], [address] [facility] site w/o Amber Walker, [address] [facility]/syjena Toth, Elliott Walker, involCentraState Healthcare SystemReji [facility], [place], [id number], [place], [place]. [address]. [id number], tel:+[phone] tel:+[phone] [place] [phone] 44946 tel:[phone] Arthritis Arthritis [facility] Rafa ARAUJO Referring Health Health arthritis w 7 [facility]. 5794 Provider: Associates Levi [facility] factor [address] [facility] Gt [facility], [address] [facility] site w/o [place], Amber, [address] [place] org/sys [place], N [facility] [place], involv [place], [address], [place], [id number], [place], [place]. [address]. [id number], tel:[phone] tel:[phone] [place] [phone] 67402 tel:[phone] Arthritis Arthritis Rheu Apr-0 Rafa ARAUJO Referring [facility] arthritis w Norma. 5794 Provider: Levi Sims [facility] factor 9 [facility], [address] [facility] site w/o [place], Amber, [address] [place] org/sys [place], N [facility] [place], invol [place], [address], [place], [id number], [place], [place]. [address]. [id number], tel:+[phone] tel:[phone] [place] [phone] 24659 tel:[phone] Arthritis Arthritis Rheu Mar-1 [facility] arthritis w TRANSPORTATION DISPATCH MANAGER C Provider: Levi Sims [facility] factor 9 Michelle Collins [facility], [address] [facility] site w/o [address], [address] [facility] org/sys [place] Mejía B [place], [facility] [address], Dates Dr Alarcon, terminal computer operator [place], [address], [place], [place], (current) [place], [address]. [id number], drug therapy [id number], tel:[phone] [place]. [address]Wwdjgsg tel:[phone] tel:[phone] ist: [phone] Karen Gonzalez MD, [facility] [address] [facility]. [address], [place], [address]. tel:[phone] ing Provider: Shmuel Conner MD, [address] [facility] [address], [place], [address]. tel:[phone] Provider: Gt Lockeie, [address] [facility] [address], [place], [address]. tel:[phone] Arthritis Arthritis [facility] Referring Health Health arthritis w MD Hannon. Provider: Levi pablo factor 9 5794 Gt PLLC, 5794 PLLC mult site w/o [facility] Amber, [address] [place] org/sys [place], [place], involv [place], [address], [place], [place], [place], [place], [id number], [address]. [id number], [place]. tel:+[phone] [place] tel:[phone] tel:[phone] Arthritis Arthritis Rheu Rafa ARAUJO Referring [facility] Health arthritis w Norma. 5794 Provider: Levi pablo factor [address] [facility] Gt PLLC, 5794 PLLC mult site w/o Amber Walker, [address] [facility] org/sys [place], [address] [place], involv [place], [address], [place], [id number], [place]. [address]. [id number], tel:+[phone] tel:+[phone] [place] [phone] 30509 tel:[phone] Arthritis Arthritis Valentinu Rafa ARAUJO Referring [facility] Health arthritis w Norma. 5794 Provider: Levi pablo factor [address] [facility] Gt PLLC, 5794 PLLC mult site w/o Amber Walker, [address] [facility] org/sys [place], [address] [place], involv [place], [address], [place], [id number], [place]. [address]. [id number], tel:+[phone] tel:+[phone] [place] 126115 71052 tel:[phone] Arthritis Arthritis Valentinu Rafa ARAUJO Referring Health Health arthritis w Norma. 5794 Provider: Levi pablo factor 8 [facility] Gt PLLC, 5794 PLLC mult site w/o Amber Walker, [address] [facility] org/sys [place], [place], involv [place], [address], [place], [id number], [place], [place]. [address]. [id number], tel:+[phone] tel:[phone] [place] 979089 65106 tel:[phone] Arthritis Arthritis [facility]u [facility] w TRANSPORTATION DISPATCH MANAGER C Provider: Levi pablou factor 8 Michelle Collins [facility], [address] [facility] site w/o [address], 201 [facility] org/sys [facility] Mejía B [place], involvUnsp [address]kw[address], Dates Dr Alarcon, thoracic, [place], [address], [place], [place], [place], [address]. [id number], and lumbosacr [id number], tel:[phone] [place]. [address]Qchumge tel:+[phone] disorderOther tel:+[phone] ist: [phone] terminal computer operator [id number] Qutayb (current) Lisa drug therapy , [facility] [address] [facility]. [address], [place], [address]. tel:[phone] ing Provider: Shmuel Conner MD, [address] [facility] [address], [place], [address]. tel:[phone] ng Provider: Gt Clark, [address] [facility] [address], [place], [address]. tel:[phone] Arthritis [facility]ritis [facility] Nov-0 Mehreen ARAUJO [facility] arthritis w Robert. Provider: Levi pablou factor 8 5794 Gt [facility], [address] [facility] site w/o [facility] [place] Amber, [address] [facility] org/sys [place], [place], involv [place], [address], [place], [place], [place], [place], [place], [id number], [address]. [id number], [place]. tel:+[phone] [place] tel: [phone] tel:[phone] Arthritis Arthritis [facility] Rafa ARAUJO Referring [facility] arthritis w 4- Phoebe [facility]. 5794 Provider: Levi Sims [facility] 8 [facility], 5794 [facility] site w/o [place], [place], 2333 [facility] [place] org/sys [place], N [facility], [facility], [address], [place], [id number], [place], [place], [place]. [address]. [id number], tel:+315 tel:+[phone] US 477410 30586 tel:[phone] Arthritis Arthritis Rheu Rafa ARAUJO Referring [facility] arthritis w 6- [facility]. 5794 Provider: Levi Sims [facility] 8 [facility], 5794 [facility] w/o [place], 2333 [facility] [place] org/sys [place], N [facility], [facility], [address], [place], [id number], [place], [place]. [address]. [id number], tel:+ tel:725 US 312921 65108 tel:[phone] Arthritis Arthritis Rheu [facility] arthritis w 0-201 TRANSPORTATION DISPATCH MANAGER C Provider: Levi Sims [facility] 8 Michelle Quintanillaothy [facility], 5794 [facility] site w/o 57 Bael, 201 [facility] org[facility]sys [place] Mejía B [place], [facility] [address], Dates [address] Al[address], terminal computer operator [place], 102, [place], [place], (current) [place], [address]. [id number], drug [id number], tel:+[phone] [place]. [address]Pdfjobr tel:+315 disrd of bone tel:+315 ist: [phone] density and 276558 Qutaybeh violetta, Lisa diaz MD, [address], [place], [address]. tel:[phone] ing Provider: Shmuel Conner MD, [address], [place], [address]. tel:[phone] ng Provider: Gt Clark, 2333 N [facility] [address], [place], [address]. tel:[phone] Arthritis Arthritis Rheumatoid Jaz ARAUJO Referring Health [facility] arthritis Hong. Provider: Levi Sims [facility] 8 5793 Gt PLLC, 5794 PLLC factor of [facility], [address], N [facility] [place], sites w/o [place], [address], [place], organ [place], [place], [place], [place], involvement [id number], [address]. [id number], [place]. tel:+[phone] [place] tel:[phone] tel: [phone] Arthritis Arthritis Rheumatoid Rafa ARAUJO Referring Health Health arthritis w Norma. 5[address] Provider: Levi Sims [facility] 8 [facility] Gt PLL[facility], 5794 PLLC factor of [place], [address] [place] [address] [place], N [facility] [place], sites w/o [place], [address], [place], organ [id number], [place], [place], [place], [place]. [address]. [id number], tel:+[phone] tel:+[phone] US 214496 88183 tel:+ [phone] Arthritis Arthritis Rheumatoid Rafa ARAUJO Referring Health Health arthritis w Norma. 5794 Provider: Levi Sims [address] Gt PLLC, 5794 PLLC factor of [place], [address] [place] [address] [place], N [facility] [place], sites w/o [place], [address], [place], organ [id number], [place], [place], [place], [place]. [address]. [id number], tel:+[phone] tel:+[phone] US 377270 97749 tel:[phone] Arthritis Arthritis Rheumatoid Ham Consulting [facility] arthritis TRANSPORTATION DISPATCH MANAGER C Provider: Levi whitlock 8 Michelle Jeannie Collins PLLC, 5794 PLLC factor of 5794 Bael, 201 [facility] Mejía B [place], sites w/o Pkwy, Dates [address] Alarcon, organ [place], 102, [place], [place], [place], [address]. [id number], bromyalgiaOth [id number], tel:[phone] [place]. [address]Zkiwyvv tel:+[phone] drug therapy tel:+[phone] ist: [phone] Karen Gonzalez MD, [facility] [address] [facility]. [address], [place], [address]. tel:[phone] ing Provider: Shmuel Conner MD, 1301 [facility] [address], [place], [address]. tel:[phone] ng Provider: Gt Clark, 2333 N [facility] [address], [place], [address]. tel:[phone] Arthritis Arthritis Rheumatoid Rafa ARAUJO Referring [facility] arthritis Norma. 5794 Provider: Levi whitlock 8 [facility] Gt [facility], 5794 PLLC factor of [facility], [address] [place] [address], N [facility], sites w/o [place], [address], [place], organ [id number], [place], [place], [place], [place]. [address]. [id number], tel:+1315 tel:[phone] US 614728 95516 tel:[phone] Arthritis Arthritis Rheumatoid Jaz ARAUJO Referring [facility] arthritis Hong. Provider: Levi whitlock 8 5794 Gt PLL[facility], 5794 PLLC factor of [facility], [facility]3 [facility], [facility], sites w/o [place], [address], [place], organ [place], [place], [place], [place], involvement [id number], [address]. [id number], [place]. tel:+[phone] US tel:[phone] tel:[phone] Arthritis Arthritis Rheumatoid [facility] arthritis MD Hannon. Provider: Levi Sims rheumatoid 8 5794 Gt PLL[facility], 5794 PLLC factor of [facility], 2333 [facility], N [facility], sites w/o [place], [address], [place], organ [place], [place], [place], [place], involvement [id number], [address]. [id number], [place]. tel:+[phone] US tel:[phone] tel:[phone] Arthritis Arthritis Rheumatoid [facility] arthritis TRANSPORTATION DISPATCH MANAGER C Provider: Levi Sims rheumatoid 8 Michelle Collins PLLC, 5794 PLLC factor of 5794 Bael, 201 [facility], sites w/o Pkwy, Dates Dr Alarcon, organ [place], 102, [place], [place], [place], [address]. [id number], her terminal computer operator [id number], tel:[phone] [place]. [address]Mbvltrx tel:[phone] therapyFibrom tel:+[phone] ist: [phone] yalgia [id number] Karen Gonzalez MD, [facility] [address] [facility]. [address], [place], [address]. tel:[phone] ng Provider: Gt Clark, 2333 N [facility] 302, [place], [address]. tel:[phone] Arthritis Arthritis Rheumatoid Mehreen ARAUJO [facility] arthritis Robert. Provider: Levi Sims rheumatoid 8 5794 Gt PLL[facility], 5794 PLLC factor of [facility], 2333 [facility], N [facility], sites w/o [place], [address], [place], organ [place], [place], [place], [place], [place] [id number], [address]. [id number], [place]. tel:+[phone] US tel:+ [phone] tel:+ [phone] Arthritis Arthritis Rheumatoid May- aRfa ARAUJO [facility] arthritis Norma. 5794 Provider: Associates Associates rheumatoid 8 [facility] Gt [facility], 5794 PLLC factor of [facility], [facility]3 [facility], N [facility], sites w/o [place], [address], [place], organ [id number], [place], [place], [place], [place]. [address]. [id number], tel:+ tel:+[phone] US 823988 15724 tel:[phone] Arthritis Arthritis Rheumatoid Lexx Referring [facility] arthritis MD Hannon. Provider: Associates Associates rheumatoid 7 5794 Gt PLLC, 5794 PLLC factor of [facility], [facility]3 [facility], N [facility], sites w/o [place], [address], [place], organ [place], [place], [place], [place], involvement [id number], [address]. [id number], [place]. tel:+[phone] US tel:+ [phone] tel:+ [phone] Arthritis Arthritis Rheumatoid Mar- [facility] arthritis TRANSPORTATION DISPATCH MANAGER C Provider: Associates Associates rheumatoid 7 Michelle Collins PLLC, 5794 PLLC factor of 5794 Bael, 201 [facility], [facility] w/o Pkwy, Dates Dr Felizuse, organ [place], 102, [place], [place], [place], [address]. [id number], bromyalgiaOth [id number], tel:+[phone] [place] er terminal computer [place]. [address]Huozhjy tel:+13154 drug tel:+315 ist: [phone] therapyBody 890350 Qutaybeh mass index Lisa (BMI) , [facility] 37.0-37.9, Cardiology adult [address] [facility]. [address], [place], [address]. tel:[phone] ng Provider: Gt Clark, 2333 N [facility] 302, [place], [address]. tel:[phone] Arthritis Arthritis Rheumatoid Nov-0 Rafa ARAUJO Referring [facility] arthritis Norma. 5794 Provider: Levi Sims [address] Gt PLLC, 5794 PLLC factor of Amber Walker, 2333 [facility] multiple [place], N [facility] [place], sites w/o [place], [address], [place], organ [id number], [place], [place], [place], [place]. [address]. [id number], tel:+13154 tel:[phone] US 471159 68893 tel:[phone] Arthritis Arthritis Rheumatoid Rafa ARAUJO Referring [facility] arthritis w Norma. 5794 Provider: Levi Sims [address] Gt PLLC, 5794 PLLC factor of Amber Walker, 2333 [facility] multiple [place], N [facility] [place], sites w/o [place], [address], [place], organ [id number], [place], [place], [place], [place]. [address]. [id number], tel:+[phone] tel:[phone] US 222736 49989 tel:[phone] Arthritis Arthritis Rheumatoid Rafa ARAUJO Referring [facility] arthritis Norma. 5794 Provider: Levi Sims [address] Gt PLLC, 5794 PLLC factor of Amber Walker, 2333 [facility] multiple [place], N [facility] [place], sites w/o [place], [address], [place], organ [id number], [place], [place], [place], [place]. [address]. [id number], tel:+[phone] tel:[phone] US 361961 66129 tel:[phone] Arthritis Arthritis Rheumatoid [facility] arthritis TRANSPORTATION DISPATCH MANAGER C Provider: Levi Sims [place] [address] Michelle Collins PLLC, 5794 PLLC factor of 5794 Bael, 201 [facility], sites w/o Pkwy, Dates Dr Alarcon, organ [place], 102, [place], [place], [place], [address]. [id number], her terminal computer operator [id number], tel:[phone] [place]. [address]Jtkpprm tel: therapyFibrom tel: ist: [phone] yalgiaGeneral 623418 Qutaybeh claudia Gonzalez osteoarthriti , [facility] sPolymyalgia Cardiology rheumaticaBod 310 y mass index [facility] ([address] [address]. [address] 37.0-37.9, 4, [place], [facility], [address]. tel:[phone] ng Provider: Gt Clark, 2333 N [facility] [address], [place], [address]. tel:[phone] Arthritis Arthritis Rheumatoid [facility] arthritis w/ TRANSPORTATION DISPATCH MANAGER C Provider: Levi Sims rheumatoid 7 Michelle Craig PLLC, 5794 PLLC factor of 5794 MD, 5794 [facility], [facility] w/o Pkwy, [place], [place], organ [place], [place], [place], involvement[place], [id number], her senior care [id number], [id number]. [place] drug therapy [place]. tel:42 tel: tel: [phone] 370015 Arthritis Arthritis Other long [facility] term drug 0-201 TRANSPORTATION DISPATCH MANAGER C [facility] therapyRheuma 7 Michelle Dennis PLLC, 5794 PLLC toid 5794 [facility] arthritis w/ [facility], rheumatoid [address]kw[address], [place], factor of [place], [place], [place], [id number], sites w/o [id number], [place] organ [place]. tel: involvement tel:[phone] Arthritis Arthritis Rheumatoid [facility] arthritis w TRANSPORTATION DISPATCH MANAGER C Provider: Associates Associates rheumatoid 7 Michelle Collins PLLC, 5794 PLLC factor of 5794 Bael, 201 [facility], [facility] w/o Pkwy, Dates Dr Alarcon, organ [place], 102, [place], [place], [place], [address]. [id number], her senior care [id number], tel:[phone] [employer] [place]. [address]Atlserl tel: therapyFibrom tel: ist: [phone] yalgiaBody 491105 Qutaybeh mass index Lisa (BMI) Ryan ARAUJO 37.0-37.9, Cardiology adult [address] [facility]. [address], [place], [address]. tel:[phone] ng Provider: Gt Clark 2333 N [employer] [address], [place], [address]. tel:[phone] Arthritis Arthritis Rheumatoid [facility] arthritis w PA-C Provider: Associates Associates rheumatoid 7 Jeffrey. Collins PLLC, 5794 PLLC factor of 5794 Ba, 201 [facility], [facility] w/o [place], Dates Dr Alarcon, organ [place], 102, [place], [place], [place], [address]. [id number], her terminal computer operator [id number], tel:+[phone] [employer] [place]. [address]Ohtzfht tel: therapyFibrom tel: ist: [phone] yalgiaGeneral 679416 Qutaybeh giselaed Lisa osteoarthriti , [facility] Cardiology [address] [facility]. [address], [place], [address]. tel:[phone] ng Provider: Gt Clark 2333 N apt[employer]er [address], [place], [address]. tel:[phone] Arthritis Arthritis Rheumatoid Juani [facility] arthritis w PA-C Carlos Alberto. Provider: Levi Sims rheumatoid 7 5794 Dennis PLLC, 5794 PLLC factor of [facility] Ba, 201 [facility], [facility], sites w/o [place], Dates Dr Alarcon, organ [place], 102, [place], [place], [place] [id number], [place], [address]. [id number], her senior care [place]. tel:+[phone] [place] drug tel:[phone] tel:+[phone] therapyOther [id number] ist: [id number] specified Qutaybeh disorder of [facility] Center[facility] bone density , [facility] of [facility] Cardiology sites [address] [facility]. [address], [place], [address]. tel:[phone] ng Provider: Gt Clark, 2333 N [facility] [address], [place], [address]. tel:[phone] Arthritis Arthritis Rheumatoid Apr- Maame Consulting [facility] arthritis w PA-C Provider: Levi Sims rheumatoid 7 Shayan. Dennis PLLC, 5794 PLLC factor of 5794 Ba, 201 [facility], sites w/o [place], Dates Dr Alarcon, organ [place], 102, [place], [place], [place], [address]. [id number], her senior care [id number], tel:+[phone] [place]. [address]Gqktpqy tel:+[phone] therapyGenera tel:+[phone] ng Provider: 090214 lized 342244 Gt osteoarthriti Amber, 2333 s [address] [place] [address], [place], [address]. tel:[phone] Arthritis Arthritis Rheumatoid Mar-2 Rafa ARAUJO Referring [facility] arthritis Norma. 5794 Provider: Levi Sims rheumatoid 7 [facility] Gt PLLC, 5794 PLLC factor of Amber Walker, [address] [facility] [place], N [place], sites w/o [place], [address], [place], organ [id number], [place], [place], [place], [place]. [address]. [id number], tel:+4 tel:+48351 US 961443 35123 tel:[phone] Arthritis Arthritis Rheumatoid Jun- Consulting [facility] arthritis Provider: Levi Sims rheumatoid 7 Dennis PLLC, 5794 PLLC factor of [facility], [address] [place] [address], sites w/o Dates Dr Alarcon, organ 102, [place], [place], [place], [address]. [id number], neralized tel:+[phone] [place] osteoarthriti 80023Ygyayyc tel:+[phone] Ezra lutz Provider: [id number] term drug Gt therapyJosr Clark, [address] [place] [address], [place], [address]. tel:[phone] Arthritis Arthritis Rheumatoid Consulting [facility] arthritis Provider: Levi Sims rheumatoid 7 Dennis PLLC, 5794 PLLC factor of [address], sites w/o Dates [address] Alarcon, organ 102, [place], [place], [place], [address]. [id number], neralized tel:+[phone] [place] osteoarthriti 18713Hgpnxps tel:+315 Ezra lutz Provider: [id number] term drug Gt therapySu Clark, 2333 ess of breath N [place] [address], [place], [address]. tel:[phone] Arthritis Arthritis Rheumatoid Apr- Rafa ARAUJO Consulting [facility] arthritis Norma. 5794 Provider: Levi Sims rheumatoid 6 [facility] Dennis PLLC, 5794 PLLC factor of [facility] [place], [address] [place] [address], sites w/o [place], Dates [address] Alarcon, organ [id number], 102, [place], [place], [place], [address]. [id number], her senior care tel:+[phone] tel:+[phone] [place] drug 512791 06464Cxaoubw tel:+[phone] therapyAnemia ng Provider: [id number] Gt Clark, [address] [place] [address], [place], [address]. tel:[phone] Arthritis Arthritis Generalized Mar- [facility] osteoarthriti [facility] 6 PLLC, 5794 PLLC [place], [place], [id number], [place] tel:[phone] Arthritis Arthritis Encounter for [facility] screening for [facility] respiratory 6 PLLC, 5794 PLLC tuberculosis [place], [place], [id number], [place] tel:[phone] Arthritis Arthritis Other [facility] specified [facility] abnormal 6 PLLC, 5794 PLLC findings of [facility] chemistry [place], [place], [id number], [place] tel:[phone] Arthritis Arthritis Rheumatoid Feb- Consulting [facility] arthritis w Provider: Associates Levi rheumatoid 6 Qutaybeh PLLC, 5794 PLLC factor of Lisa diaz MD, [facility], sites w/o Cardiology [place], organ 310 [place], involvementFi [facility], [place] [id number], bromyalgiaGen [address]. Suite [place] eralized 4, [place], tel:[phone] [place], [address]. [address] sLumbosacral tel:[phone] intervertebra 77423Vitytot l disc ng Provider: figueroaOther Gt senior care Amber, 2333 drug N [place] therapyPain [address], in lt [place], [place], kneeShortness [address]. of breath tel:[phone] Arthritis Arthritis Other Sep-2 [facility] specified [facility] abnormal 6 PLLC, 5794 PLLC findings of [facility], chemistry [place], [place], [id number], [place] tel:[phone] Arthritis Arthritis Rheumatoid Jan- Consulting [facility] arthritis w Provider: Levi Sims rheumatoid 6 Qutaybeh PLLC, 5794 PLLC factor of Lisa diaz MD, [facility], sites w/o Cardiology [place], organ 310 [place], involvementOt [facility] hospital[facility] [id number], her senior care [address]. Suite drug [address], [place], tel:[phone] [place], [address]. [address] acral tel:[phone] intervertebra 22939Swzxuuc l disc ng Provider: Rolanda Del Real myalgiaDarren Clark, 2333 lized N [place] osteoarthriti [address], [place], [address]. tel:[phone] Arthritis Arthritis Rheumatoid 3 Consulting [facility] arthritis Provider: Associates Levi rheumatoid 6 Qutaybeh PLLC, 5794 PLLC factor of Lisa diaz MD, [facility], sites w/o Cardiology [place], organ 310 [place], [facility] [id number], bromyalgiaLum [address] Suite bosholy cross hospitalal [address] [place] [address], tel:[phone] [place], [address]. 668275 l disc tel:[phone] disorderPain 80670Omkpuib in rt ing hipOther long Provider: term drug Dennis therapy Kaila, 201 Mejía Cassie [address], [place], [address]. tel:[phone] ng Provider: Josephine Henriquez3 N [place] [address], [place], [address]. tel:[phone] Arthritis Arthritis Rheumatoid Dec-0 Consulting [facility] arthritis w Provider: Levi whitlock 6 Qutaybeh PLLC, 5794 PLLC factor of Lisa diaz MD, [facility], sites w/o Cardiology [place], organ 310 [place], involvementFi [facility], [place] [id number], bromyalgia[address]um [address], tel:[phone] [place], [address]. [address] l disc tel:[phone] disorderPain 58532Deufqzf in rt ing hipOther long Provider: term drug Dennis therapy Kaila, 201 Mejía Cassie [address], [place], [address]. tel:[phone] ng Provider: Gt Clark, [address] [place], [place], [address]. tel:[phone] Arthritis Arthritis Rheumatoid Consulting [facility] arthritis Provider: Levi whitlock 6 Qutaybeh PLLC, 5794 PLLC factor of Lisa diaz MD, [facility], sites w/o Cardiology [place], organ 310 [place], involvementOt [facility] [id number], her senior care [address]vd. Suite drug [address], [place], tel:[phone] [place], [address]. [address] acral tel:[phone] intervertebra 43037Xjgyvpc l disc ing disorderFibro Provider: myalgia Dennis Bright, 201 [address], [place], [address]. tel:[phone] bolivar Provider: Gt Clark, 2333 N [facility] hospital[facility] [address], [place], [address]. tel:[phone] Arthritis Arthritis Rheumatoid Consulting [facility] arthritis w Provider: Levi Burns Qutaybeh PLLC, 5794 PLLC factor of Lisa diaz MD, [facility], sites w/o Cardiology [place], organ 310 [place], involvementFi [facility], [place] [id number], bromyalgiaOth [address]. Suite er terminal computer operator 4, [place], tel:[phone], [address]. 408430 therapyBack tel:[phone] pain 97443Bvmwoav ing Provider: Dennis Bright, 201 [address], [place], [address]. tel:[phone] bolivar Provider: Gt Clark, 2[address], [place], [address]. tel:[phone] Arthritis Arthritis Rheumatoid [place] Consulting [facility] arthritis PA-C Provider: Levi Woody Qutaybeh PLLC, 5794 PLLC factor of 5794 Lisa Dominique MD, [facility], sites w/o [place], Cardiology [place], organ [place], 310 [place], [place], [place] [id number], her senior care [id number], Blvd. Suite drug therapy [place]. 4, [place], tel:+[phone] tel:[phone] [place], [address]. 90[address] 644978 tel:[phone] ing Provider: Dennis Bright, 201 [address], [place], [address]. tel:[phone] ng Provider: Gt Clark, 2[address], [place], [address]. tel:[phone] Arthritis Arthritis Rheumatoid Apr-2 Consulting [facility] arthritis w/ Provider: Levi Sims rheumatoid 6 Qutaybeh PLLC, 5794 PLLC factor of Lisa diaz MD, [facility], sites w/o Cardiology [place], organ 310 [place], involvement [facility], [place] [id number], [address]vd. Suite [place] [address], [place], tel:[phone] [place], [address]. [address] tel:[phone] ing Provider: Dennis Bright, 201 [address], [place], [address]. tel:[phone] ng Provider: Gt Calrk, 2[address], [place], [address]. tel:[phone] Arthritis Arthritis Rheumatoid Jul-2 Consulting [facility] arthritis w Provider: Levi Sims rheumatoid 6 Qutaybeh PLLC, 5794 PLLC factor of Lisa diaz MD, [facility], sites w/o Cardiology [place], organ 310 [place], involvementGe [facility], [place] [id number], neralized Blvd. Suite osteoarthriti 4, [place], tel:[phone] [place], [address]. 236671 term drug tel:[phone] therapy 42449Yiqkpcf ing Provider: Dennis Bright, 201 [address], [place], [address]. tel:[phone] ng Provider: Gt Clark, [address] [place] [address], [place], [address]. tel:[phone] Arthritis Arthritis Rheumatoid Jun- [facility] arthritis Provider: Levi Sims rheumatoid 6 Qutaybeh PLLC, 5794 PLLC factor of Lisa diaz MD, [facility], sites w/o Cardiology [place], organ 310 [place], involvementOt [facility] [id number], her terminal computer operator [address]vd. Suite drug [address], [place], tel:[phone] [place], [address]. 503224 lized tel:[phone] osteoarthriti 29826Qxkhydb s ing Provider: Dennis Bright, 201 [address], [place], [address]. tel:[phone] bolivar Provider: Gt Clark, [address], [place], [address]. tel:[phone] Arthritis Arthritis Other [facility] specified armando Ramirez. Associates Associates abnormal 6 5794 PLLC, 5794 PLLC findings of [facility] blood [place], [place], chemistry [place], [place], [id number], [id number], [place]. [place] tel:[phone] tel:[phone] Arthritis Arthritis Rheumatoid May- [facility] arthritis w Provider: Levi Sims rheumatoid 6 Qutaybeh PLLC, 5794 PLLC factor of Lisa diaz MD, [facility], sites w/o Cardiology [place], organ 310 [place], involvementOt [facility] [id number], her terminal computer operator [address]vd. Suite [place] drug 4, [place], tel:[phone] [place], [address]. 766750 lized tel:[phone] osteoarthriti 39243Uizlpmo sAnemia, ing unspecified Provider: Dennis Bright, [address], [place], [address]. tel:[phone] bolivar Provider: Gt Clark, [address], [place], [address]. tel:[phone] Arthritis Arthritis Rheumatoid [facility] arthritis / Provider: Levi Sims rheumatoid 5 Qutaybeh PLLC, 5794 PLLC factor of Lisa diaz MD, [facility], sites w/o Cardiology [place], organ 310 [place], involvementGe [facility] [id number], [address] osteoarthriti [address], [place], tel:[phone] [place], [address]. [id number] term drug tel:[phone] therapyAnemia [id number] , unspecified ing Provider: Dennis Bright, [address], [place], [address]. tel:[phone] bolivar Provider: Gt Clark, [address], [place], [address]. tel:[phone] Arthritis Arthritis Rheumatoid [facility] arthritis, Provider: Levi Sims unspecifiedOt 5 [facility], [facility] her senior care Lisa balbuena MD, [facility], [facility] [place], [address] [place], osteoarthriti [facility], [place] [id number], sAnemia, [address] [place] unspecified 4, [place], tel:[phone] [place], [address]. [address] tel:[phone] ing Provider: Dennis Bright, [address], [place], [address]. tel:[phone] bolivar Provider: Gt Clark, [address], [place], [address]. tel:[phone] Arthritis Arthritis T[place]ki [facility] WILLIAM Carcamo. Provider: Levi Sims 5 5794 [facility], 5[facility] Catina Walker MD, Jeff Davisangie Walker, [place], [place], [place], [address] [place], [id number], [place] [id number], [place] [place] tel:[phone] , [place], tel:[phone] [place], [address]. [address] tel:[phone] ing Provider: Dennis Bright, [address], [place], [address]. tel:[phone] ng Provider: Gt Clark, [address], [place], [address]. tel:[phone] Arthritis Arthritis [facility] Provider: Levi Sims 5 Karen BURROWS, 5794 PLLC Lisa Dominique MD, [facility], Cardiology [place], [address] [place], [facility], [place] [id number], [address] [place] [address], [place], tel:[phone] [place], [address]. [id number] tel:[phone] ing Provider: Dennis Bright, [address], [place], [address]. tel:[phone] ng Provider: Gt Clark [address], [place], [address]. tel:[phone] Arthritis Arthritis [facility] Provider: Levi Sims 4 Karen BURROWS, 5794 PLLOsmin Dominique MD, [facility], [facility]iology [place], [address] [place], [facility] [id number], [address] [place] [address], [place], tel:[phone] [place], [address]. [id number] tel:[phone] ing Provider: Dennis Bright, [address], [place], [address]. tel:[phone] bolivar Provider: Josephine Henriquez[address], [place], [address]. tel:[phone] Arthritis Arthritis [facility] Provider: Levi Sims 4 Gt BURROWS, 5794 PLLOsmin Clark, [address], [place], [place], [place], [address]. [id number], tel:[phone] tel:[phone] Arthritis Arthritis Mar- Referring Health Health Provider: [facility] 3 Gt ASKEWC, 5794 PLLC Amber, [address], [address], [place], [place], [address]. [id number], tel:[phone] [place] [phone] tel:[phone] Arthritis Arthritis [facility] Referring Health Health TRANSPORTATION DISPATCH MANAGER-C Provider: [facility] 3 Alicia. 310 [facility], 5794 PLLC S Sho Amber, [address], [place], [address], [place], [place], [place], [id number], [id number]. [id number], [place]. tel:[phone] [place] tel:[phone] tel:[phone] Arthritis Arthritis Jan- Referring [facility] Health Provider: [facility] 3 Gt ASKEWC, 5794 PLLC Amber, [address], [address], [place], [place], [place], [address]. [id number], tel:[phone] [place] [phone] tel:[phone] Arthritis Arthritis Dec- [facility] Health Provider: [facility] 3 Gt AZARC, 5794 PLLC Amber, [address], [address], [place], [place], [address]. [id number], tel:[phone] [place] [phone] tel:[phone] Arthritis Arthritis Jul-0 Referring Health Health Provider: [facility] 3 Gt AZARC, 5794 PLLC Amber, [address], [address], [place], [place], [address]. [id number], tel:[phone] [place] [phone] tel:[phone] Arthritis Arthritis Mar- Referring Health Health Provider: [facility] 2 Gt BURROWS, 5794 PLLC Amber, [address] [facility] [address] [facility] [address], [place], [place], [address]. [id number], tel:[phone] [place] [phone] tel:[phone] Arthritis [facility]ritis [facility] 3 WILLIAM Carcamo. Provider: [facility] 2 57Mehrdad BURROWS, 5794 PLLC Crows Amber, [address] [facility] [address], [place], [address], [place], [place], [place], [id number], [address]. [id number], [place]. tel:[phone] [place] tel:[phone] tel:[phone] Arthritis Arthritis [facility] Provider: [facility] 1 Gt BURROWS, 5794 [facility] Amber, [address] [facility] [address] [facility] [address], [address], [place], [place], [address]. [id number], tel:[phone] [place] [phone] tel:[phone] Arthritis Arthritis [facility] Health Provider: [facility] 1 Gt BURROWS, 5794 PLLC Amber, [address] [facility] [address] [facility] [address], [address], [place], [place], [address]. [id number], tel:[phone] [place] [phone] tel:[phone] Family History Family Member Diagnosis Age At Onset Paternal grandmother Rheumatoid arthritis Immunizations Vaccine Date Status Comments Influenza, injectable, MDCK, administered Note: approx. ; Source : Other Flucelvax Quad 2017-2018Y Provider Influenza, injectable, administered Note: approx. ; Source: Other quadrivalent, split virus, 18 Provider years or older Afluria Quad [id number] Influenza, injectable, administered Note: Invalid documented admin trivalent, split virus, 4 date was . ; years and older, Fluvirin Source: Other Provider [id number] Yet to receive Flu vaccine administered Source: [...] type Covered democrat ID Authorization(s) Medicare MB [id number] [facility] No Referral Required [id number] Social History Type Description Quantity Date Captured Comments Alcohol Use Details Unknown Caffeine Use Details Unknown Tobacco Use Status Unknown Smoking Status Unknown Sex Female Vital Signs Date / Height Weight BMI Pulse Blood Temperature Respiratory Body Head BMI Pulse Inhaled Time: Rate Pressure Rate Surface Circumference percentile Ox Ox Area 65.00 230.00 38.2 18 110/66 98.70 -2019 in lbs 7 /min mm[Hg] 1:48 kg/m PM eter (2) 124/90 -2019 mm[Hg] 3:34 PM Chief Complaint And Reason For Visit [...]
[2019-07-12 12:59] VITALS: BP 161/58
--- NOTE | 2019-07-12 13:35 | UC ---
Throat Pain/Nasal Fran HPI - HPI Summary HPI Summary: 73-year-old female presents with one-month history of nasal congestion with sinus pain and pressure. States symptoms tend to be worse at night when lying down in bed. No alleviating factors however has not tried tlje-usr-ezjzbfx remedies. Denies fever, chills, ear pain, sore throat, cough, chest pain, shortness of breath, abdominal pain, nausea, or vomiting. - History of Current Complaint Chief Complaint: UCRespiratory Stated Complaint: SINUS Time Seen by Provider: 07/12/19 13:26 Hx Obtained From: Patient Hx Last Menstrual Period: n/a Pain Intensity: 0 - Allergies/Home Medications Allergies/Adverse Reactions: Allergies Allergy/AdvReac Type Severity Reaction Status Date / Time aspirin Allergy Rash and Verified 07/12/19 12:55 "Breathing Issue" with High Doses Gold Salts Allergy Muscle Ache Verified 07/12/19 12:55 sulfamethoxazole Allergy "Can't Verified 07/12/19 12:55 [From Bactrim] take with methotrexate" trimethoprim [From Bactrim] Allergy "Can't Verified 07/12/19 12:55 take with methotrexate" amoxicillin [From Augmentin] AdvReac Diarrhea Verified 07/12/19 12:55 clavulanic acid AdvReac Diarrhea Verified 07/12/19 12:55 [From Augmentin] hydrocodone AdvReac Diarrhea Verified 07/12/19 12:55 Home Medications: Home Medications Acetaminophen [Acetaminophen Extra Strength] 1,000 mg PO Q6H PRN 07/12/19 [ History Confirmed 07/12/19] Apixaban* [Eliquis*] 5 mg PO BID 07/12/19 [History Confirmed 07/12/19] Appearex 2,500 - 5,000 mcg PO DAILY 07/12/19 [History Confirmed 07/12/19] Aspirin EC TAB* [Ecotrin EC Low Dose 81 MG*] 81 mg PO DAILY 07/12/19 [History Confirmed 07/12/19] Calcium Carbonate/Vitamin D3 [Caltrate 600+D] 1 chw PO DAILY 07/12/19 [History Confirmed 07/12/19] Cyanocobalamin TAB* [Vitamin B12 TAB*] 1,000 mcg PO DAILY 07/12/19 [History Confirmed 07/12/19] Denosumab [Prolia] 60 mg SUBCUT Q6M 07/12/19 [History Confirmed 07/12/19] Doxycycline Hyclate 100 mg PO BID 7 Days #14 tablet 07/12/19 [Rx] Fluticasone NASAL SPRAY 50MCG* [Flonase NASAL SPRAY 50MCG*] 2 spray BOTH NARES DAILY #1 btl 07/12/19 [Rx] Folic Acid TAB* [Folvite TAB*] 1 mg PO DAILY 07/12/19 [History Confirmed ] Magnesium Oxide TAB* [MagOx 400 TAB*] 400 mg PO DAILY 07/12/19 [History Confirmed 07/12/19] Metoprolol Succinate XL TAB* [Toprol XL TAB*] 100 mg PO BID 07/12/19 [History Confirmed 07/12/19] Omeprazole (Nf) [Prilosec (NF)] 40 mg PO DAILY 07/12/19 [History Confirmed 07/11] Potassium Gluconate [Potassium] 600 mg PO DAILY 07/12/19 [History Confirmed 10/25] Rosuvastatin (NF) [Crestor (NF)] 5 mg PO DAILY 07/12/19 [History Confirmed 07/11] amLODIPine TAB* [Norvasc 5 mg TAB*] 5 mg PO DAILY 07/12/19 [History Confirmed ] inFLIXimab-DYYB [Inflectra*] 900 mg IVPB Q28D 07/12/19 [History Confirmed ] tiZANidine TAB* [Zanaflex TAB*] 2 mg PO BEDTIME 07/12/19 [History Confirmed 10/25] PMH/Surg Hx/FS Hx/Imm Hx - Additional Past Medical History Additional PMH: Rheumatoid arthritis Endocrine History: Dyslipidemia Cardiovascular History: Hypertension, Atrial Fibrillation Other History Of: Anticoagulant Therapy Negative For: HIV, Hepatitis B, Hepatitis C - Surgical History Surgical History: Yes Surgery Procedure, Year, and Place: 1995 hysterectomy, 1981 tendon thumb left, right hand 1997, 1997 left thumb and hand; 2001 left knuckle replacement, wrist ; 2006 left foot Yasmany, toe fusion; vocal cord bx 2010 - Family History Known Family History: Negative: Respiratory Disease - Social History Occupation: Retired Lives: Alone Alcohol Use: None Substance Use Type: None Smoking Status (MU): Former Smoker Type: Cigarettes Length of Time of Smoking/Using Tobacco: 05/11 PPD x 29 Years When Did the Patient Quit Smoking/Using Tobacco: ~1994 Review of Systems All Other Systems Reviewed And Are Negative: Yes Constitutional: Negative: Fever, Chills Eyes: Negative: Drainage, Eye Redness ENT: Positive: Nasal Discharge, Sinus Congestion, Sinus Pain/Tenderness. Negative: Sore Throat, Ear Ache Respiratory: Negative: Shortness Of Breath, Cough Cardiovascular: Negative: Palpitations, Chest Pain Gastrointestinal: Negative: Abdominal Pain, Vomiting, Diarrhea, Nausea Genitourinary: Positive: Negative Musculoskeletal: Positive: Negative Neurological/Mental Status: Positive: Negative Is Patient Immunocompromised?: Yes - Patient on biologicals for RA Physical Exam - Summary Physical Exam Summary: GENERAL APPEARANCE: Alert and cooperative chronically ill appearing, obese female in no acute distress. EYES: Conjunctiva clear. No drainage. EARS: External auditory canals and tympanic membranes clear, hearing grossly intact. NOSE: Mild-moderate nasal congestion. No nasal discharge. Maxillary sinus tenderness. THROAT: Pharyngeal cobblestoning. No tonsilar inflammation, swelling, exudate, or lesions. Uvula midline. NECK: Neck supple, non-tender without lymphadenopathy. CARDIAC: Normal S1 and S2. No S3, S4 or murmurs. Rhythm is irregularly irregular. There is no peripheral edema, cyanosis or pallor. Extremities are warm and well perfused. Capillary refill is less than 2 seconds. Peripheral pulses intact. LUNGS: Clear to auscultation without rales, rhonchi, wheezing or diminished breath sounds. ABDOMEN: Positive bowel sounds. Soft, nondistended, nontender. No guarding or rebound. No masses or hepatosplenomegally. MUSKULOSKELETAL: ROM intact to all extremities. No joint erythema or tenderness. Normal muscular development. Normal gait. SKIN: Skin normal color, texture and turgor with no lesions or eruptions. Triage Information Reviewed: Yes Vital Signs: Initial Vital Signs Temp 97.9 F 07/12/19 12:52 Pulse 58 07/12/19 12:52 Resp 18 07/12/19 12:52 BP 161/58 07/12/19 12:52 Pulse Ox 98 07/12/19 12:52 Vital Signs Reviewed: Yes Throat Pain/Nasal Course/Dx - Course Course Of Treatment: 73-year-old female presents with one-month history of nasal congestion with sinus pain and pressure. States symptoms tend to be worse at night when lying down in bed. No alleviating factors however has not tried incb-pkg-dyieoss remedies. Denies fever, chills, ear pain, sore throat, cough, chest pain, shortness of breath, abdominal pain, nausea, or vomiting. Afebrile. Hypertensive otherwise vital signs stable. Patient had kzcf-ju-wlyqiylc nasal congestion with maxillary sinus tenderness, pharyngeal cobblestoning, and otherwise unremarkable exam. Discussed with the patient that based on the duration of her symptoms and with her being on biological will treat her with a course of doxycycline 100 mg twice a day 7 days to treat for a sinus infection as well as recommend symptomatic treatment including fluticasone nasal spray with. She is to follow-up with her primary care provider in 3-5 days if symptoms are not improving. Anticipatory guidance and warning signs are reviewed patient. Verbalized understanding and agrees with plan of care. - Differential Dx/Diagnosis Differential Diagnosis/HQI/PQRI: Sinusitis, URI Provider Diagnosis: Acute sinusitis Discharge ED - Sign-Out/Discharge Documenting (check all that apply): Patient Departure All imaging exams completed and their final reports reviewed: No Studies - Discharge Plan Condition: Stable Disposition: HOME Prescriptions: Doxycycline Hyclate 100 mg PO BID 7 Days #14 tablet Fluticasone NASAL SPRAY 50MCG* [Flonase NASAL SPRAY 50MCG*] 2 spray BOTH NARES DAILY #1 btl Patient Education Materials: Sinusitis (ED) Referrals: Gt Clark MD [Primary Care Provider] - 3 Days Additional Instructions: Your history and exam are consistent with a sinus infection. Considering the duration of your symptoms and that some of your medications put you at increased risk for serious infections we will start you on an antibiotic. Start doxycycline 100 mg twice a day for 7 days. Do not drink milk, eat milk products, or takes supplements containing calcium for at least 2 hours before after taking this medication as the calcium can affect the absorption. This antibiotic will also make you more sensitive to the sunlight therefore it is recommended that you try to avoid sun exposure while taking. If you must be outdoors take appropriate precautions including sunscreen, long sleeves, and hat. Drink plenty of fluids to avoid dehydration especially if you are running any fever. Use a saline rinse kit such as Neti Pot or NeilMed at least twice a day to help thin secretions and promote drainage of the sinuses. Use fluticasone (Flonase) nasal spray 2 sprays each nostril once daily. Use an over the counter decongestant such as Sudafed according to directions to help with congestion. Take over the counter acetaminophen (Tylenol) or ibuprofen (Advil, Motrin) according to directions as needed for pain or fever. Follow up with your primary care provider in3-5 days if symptoms persist. Seek immediate medical attention in the emergency room if you have fever greater than 100.5 F despite taking acetaminophen or ibuprofen, have chest pain , difficulty breathing, are unable to swallow, or have any worsening of symptoms. - Billing Disposition and Condition Condition: STABLE Disposition: Home - Attestation Statements Provider Attestation: This patient was not seen by me. I was available for consult. Chart reviewed. LIAN
== END 2019-07-12 13:50 | disposition home or self-care (01) ==
LOC: UCCORT 11:27
DX: J32.9 Chronic sinusitis, unspecified (principal); M06.9 Rheumatoid arthritis, unspecified; E78.5 Hyperlipidemia, unspecified; I10 Essential (primary) hypertension; I48.91 Unspecified atrial fibrillation; Z79.01 Long term (current) use of anticoagulants; Z79.899 Other long term (current) drug therapy; Z87.891 Personal history of nicotine dependence; Z88.6 Allergy status to analgesic agent; Z88.2 Allergy status to sulfonamides; Z88.5 Allergy status to narcotic agent
CPT/HCPCS: 99212; G0463